=== PATIENT | male | born 1950 | race African-American/Black ===

== ENCOUNTER → 2020-05-01 13:24 | Outpatient (BNVA) | payer MEDICARE, OTHER, SELFPAY | PROVIDERS: PCP Internal Medicine; Referring Provider Internal Medicine; Visit Provider Urology | DX: C61 Malignant neoplasm of prostate (principal) | CPT/HCPCS: 99212 ==

== ENCOUNTER → 2020-06-20 12:21 | Outpatient (BNVA) | payer MEDICARE, OTHER, SELFPAY | PROVIDERS: PCP Internal Medicine; Visit Provider Urology | DX: C61 Malignant neoplasm of prostate (principal) | CPT/HCPCS: Q3014 ==

== ENCOUNTER → 2020-07-11 14:27 | Outpatient (BNVA) | payer MEDICARE, OTHER, SELFPAY | PROVIDERS: PCP Internal Medicine; Visit Provider Urology | DX: C61 Malignant neoplasm of prostate (principal) | CPT/HCPCS: 96402; 99212; J9217 ==

== ENCOUNTER 2020-08-27 09:06 | Day surgery (SDC) | payer MEDICARE, OTHER, SELFPAY ==
[2020-08-22 15:00] VITALS: BMI 37.3
[2020-08-27] VITALS (7 sets, daily range): BP systolic 130–175; BP diastolic 70–86; PULSE 75–88; RESP 14–20; TEMP 36.1–36.2; O2SAT 96–98
--- NOTE | 2020-08-27 11:21 | HO.ANESPROP2 ---
Documented by User: Chente Rose 08/27/20 11:21 [facility] Active Problems Active Problems: All Active Problems (Updated 08/22/20 @ 15:12 by Julia Valencia) Prostate cancer (Acute) BPH w urinary obs/LUTS (Acute) Past Medical History Medical History Arrhythmia Arthritis Asthma CAD (coronary artery disease) Cancer COVID-19 vaccine administered Elevated cholesterol Family history of sickle cell disease GERD (gastroesophageal reflux disease) HTN (hypertension) On anticoagulant therapy Sleep apnea Thyroid disease Surgical History Surgical History H/O colonoscopy Hx of CABG Hx of exploratory laparotomy Hx of hernia repair S/P excision of lipoma Social History Social History Are you a primary menagerie caretaker to a significant other at home: No Do you presently have visiting nurse or other home services: No Smoking Status: Former smoker Smoking Quit Date: 1988 Use of substances other than those prescribed or required for medical reasons: No Have you been hit, kicked, punched, or otherwise hurt by someone within the past year? If so, by whom?: No Advance Directives Information Provided: No Recently lost weight without trying: No Meds Allergies Allergy/AdvReac Type Severity Reaction Status Date / Time [place] nut [BRAZIL NUTS] Allergy Severe LIPS Verified 08/27/20 11:58 SWELLING shellfish derived Allergy Severe HIVES, Verified 08/27/20 11:58 [SHELLFISH DERIVED] THROAT ITCHING lisinopril Allergy Intermediate Cough Verified 08/27/20 11:58 oxycodone [From PERCOCET] Allergy Intermediate ITCHING Verified 08/27/20 11:58 Home Medications Medication Instructions Recorded Confirmed Last Taken Type amlodipine 5 mg tablet 5 mg PO DAILY 05/01/20 08/22/20 08/27/20 07:00 History atorvastatin 40 mg tablet 40 mg PO BEDTIME 05/01/20 08/22/20 Unknown History levothyroxine 25 mcg tablet 25 mcg PO QAM 05/01/20 08/22/20 Unknown History tamsulosin 0.4 mg capsule 0.4 mg PO BEDTIME 05/01/20 08/22/20 Unknown History warfarin 5 mg tablet 5 mg PO DAILY 10/08/22/20 08/20/20 17:30 History latanoprost 0.005 % eye drops 1 drp OPHTHALMIC (EYE) BEDTIME 06/20/20 08/22/20 Unknown History prednisone 5 mg tablet 5 mg PO BID 06/20/20 08/22/20 Unknown History aspirin [Aspirin Low-Strength] 81 mg PO DAILY 08/22/20 08/22/20 08/23/20 09:00 History finasteride 5 mg PO BEDTIME 08/22/20 08/22/20 Unknown History Exam Exam Date and Time: August 27, 2020 112 Height,Weight and Vital Signs: Height 5 ft 10 in Weight 117.934 kg Documented by User: Monie Carl 08/27/20 12:33 [facility] Past Medical History Medical History Arrhythmia Arthritis Asthma CAD (coronary artery disease) Cancer COVID-19 vaccine administered Elevated cholesterol Family history of sickle cell disease GERD (gastroesophageal reflux disease) HTN (hypertension) On anticoagulant therapy Sleep apnea Thyroid disease Surgical History Surgical History H/O colonoscopy Hx of CABG Hx of exploratory laparotomy Hx of hernia repair S/P excision of lipoma Social History Social History Are you a primary menagerie caretaker to a significant other at home: No Do you presently have visiting nurse or other home services: No Smoking Status: Former smoker Smoking Quit Date: 1988 Use of substances other than those prescribed or required for medical reasons: No Have you been hit, kicked, punched, or otherwise hurt by someone within the past year? If so, by whom?: No Advance Directives Information Provided: No Recently lost weight without trying: No Meds Allergies Allergy/AdvReac Type Severity Reaction Status Date / Time [place] nut [BRAZIL NUTS] Allergy Severe LIPS Verified 08/27/20 11:58 SWELLING shellfish derived Allergy Severe HIVES, Verified 08/27/20 11:58 [SHELLFISH DERIVED] THROAT ITCHING lisinopril Allergy Intermediate Cough Verified 08/27/20 11:58 oxycodone [From PERCOCET] Allergy Intermediate ITCHING Verified 08/27/20 11:58 Home Medications Medication Instructions Recorded Confirmed Last Taken Type amlodipine 5 mg tablet 5 mg PO DAILY 05/01/20 08/22/20 08/27/20 07:00 History atorvastatin 40 mg tablet 40 mg PO BEDTIME 05/01/20 08/22/20 Unknown History levothyroxine 25 mcg tablet 25 mcg PO QAM 05/01/20 08/22/20 Unknown History tamsulosin 0.4 mg capsule 0.4 mg PO BEDTIME 05/01/20 08/22/20 Unknown History warfarin 5 mg tablet 5 mg PO DAILY 05/01/20 08/22/20 08/20/20 17:30 History latanoprost 0.005 % eye drops 1 drp OPHTHALMIC (EYE) BEDTIME 06/20/20 08/22/20 Unknown History prednisone 5 mg tablet 5 mg PO BID 06/20/20 08/22/20 Unknown History aspirin [Aspirin Low-Strength] 81 mg PO DAILY 08/22/20 08/22/20 08/23/20 09:00 History finasteride 5 mg PO BEDTIME 08/22/20 08/22/20 Unknown History Exam Airway Mallampati Class: II TM Dist: >3cm Neck ROM: Full Assessment and Plan Assessment Anesthesia Assessment: Anesthesia Plan Discussed and Chart Reviewed Final Anesthetic Review NPO: Yes ASA Class: II Final Preanesthetic Review: No Changes in Pt Med Stat, Meds/Allgs Chart Reviewed, Consent Obtained/Reviewed and Anes Risks/Benef Reviewed Patient Risk: Low Procedure Risk: Low Assessment/Block/Sedation in SS: Assess/Block/Sedation-SS Anesthetic Plan Anesthetic Plan: MAC: Disposition: Standard PACU
--- NOTE | 2020-08-27 11:21 | HO.ANESPROP2 ---
[facility] Active Problems Active Problems: All Active Problems (Updated 08/22/20 @ 15:12 by Julia Valencia) Prostate cancer (Acute) BPH w urinary obs/LUTS (Acute) Past Medical History Medical History Arrhythmia Arthritis Asthma CAD (coronary artery disease) Cancer COVID-19 vaccine administered Elevated cholesterol Family history of sickle cell disease GERD (gastroesophageal reflux disease) HTN (hypertension) On anticoagulant therapy Sleep apnea Thyroid disease Surgical History Surgical History H/O colonoscopy Hx of CABG Hx of exploratory laparotomy Hx of hernia repair S/P excision of lipoma Social History Social History Are you a primary special needs child caregiver to a significant other at home: No Do you presently have visiting nurse or other home services: No Smoking Status: Former smoker Smoking Quit Date: 1988 Use of substances other than those prescribed or required for medical reasons: No Have you been hit, kicked, punched, or otherwise hurt by someone within the past year? If so, by whom?: No Advance Directives Information Provided: No Recently lost weight without trying: No Meds Allergies Allergy/AdvReac Type Severity Reaction Status Date / Time [place] nut [BRAZIL NUTS] Allergy Severe LIPS Unverified 08/22/20 14:43 SWELLING shellfish derived Allergy Severe HIVES, Unverified 08/22/20 14:43 [SHELLFISH DERIVED] THROAT ITCHING lisinopril Allergy Intermediate Cough Verified 08/22/20 14:43 oxycodone [From PERCOCET] Allergy Intermediate ITCHING Unverified 08/22/20 14:43 Home Medications Medication Instructions Recorded Confirmed Last Taken Type amlodipine 5 mg tablet 5 mg PO DAILY 05/01/20 08/22/20 Unknown History atorvastatin 40 mg tablet 40 mg PO BEDTIME 05/01/20 08/22/20 Unknown History levothyroxine 25 mcg tablet 25 mcg PO QAM 05/01/20 08/22/20 Unknown History tamsulosin 0.4 mg capsule 0.4 mg PO BEDTIME 05/01/20 08/22/20 Unknown History warfarin 5 mg tablet 5 mg PO DAILY 05/01/20 08/22/20 08/21/20 History latanoprost 0.005 % eye drops 1 drp OPHTHALMIC (EYE) BEDTIME 06/20/20 08/22/20 Unknown History prednisone 5 mg tablet 5 mg PO BID 06/20/20 08/22/20 Unknown History aspirin [Aspirin Low-Strength] 81 mg PO DAILY 08/22/20 08/22/20 Unknown History finasteride 5 mg PO BEDTIME 08/22/20 08/22/20 Unknown History Exam Exam Date and Time: August 27, 2020 1121 Height,Weight and Vital Signs: Height 5 ft 10 in Weight 117.934 kg Airway Mallampati Class: III TM Dist: >3cm Neck ROM: Full Denture: Upper
[2020-08-27] MEDS: levoFLOXacin/D5W 500 MG/100 ML PIGGYBACK 100 MG IV (11:59)
[2020-08-27] MEDS: Lactated Ringers 1,000 ML 100 ML IVCONT (12:00)
--- NOTE | 2020-08-27 12:34 | HO.ANESPROP2 ---
[facility] Active Problems Active Problems: All Active Problems (Updated 08/22/20 @ 15:12 by Julia Valencia) Prostate cancer (Acute) BPH w urinary obs/LUTS (Acute) Past Medical History Medical History Arrhythmia Arthritis Asthma CAD (coronary artery disease) Cancer COVID-19 vaccine administered Elevated cholesterol Family history of sickle cell disease GERD (gastroesophageal reflux disease) HTN (hypertension) On anticoagulant therapy Sleep apnea Thyroid disease Surgical History Surgical History H/O colonoscopy Hx of CABG Hx of exploratory laparotomy Hx of hernia repair S/P excision of lipoma Social History Social History Are you a primary critical care transport nurse to a significant other at home: No Do you presently have visiting nurse or other home services: No Smoking Status: Former smoker Smoking Quit Date: 1988 Use of substances other than those prescribed or required for medical reasons: No Have you been hit, kicked, punched, or otherwise hurt by someone within the past year? If so, by whom?: No Advance Directives Information Provided: No Recently lost weight without trying: No Meds Allergies Allergy/AdvReac Type Severity Reaction Status Date / Time [place] nut [BRAZIL NUTS] Allergy Severe LIPS Verified 08/27/20 11:58 SWELLING shellfish derived Allergy Severe HIVES, Verified 08/27/20 11:58 [SHELLFISH DERIVED] THROAT ITCHING lisinopril Allergy Intermediate Cough Verified 08/27/20 11:58 oxycodone [From PERCOCET] Allergy Intermediate ITCHING Verified 08/27/20 11:58 Active Medications: Current Medications Generic Name Dose Route Start Last Admin Trade Name Freq PRN Reason Stop Dose Admin Lactated Ringer's 1,000 mls @ 100 mls/hr 08/27/20 11:30 08/27/20 12:00 Lr IVCONT 100 mls/hr .Q10H RUFUS Administration Ondansetron HCl 4 mg 08/27/20 11:23 Ondansetron Hcl 4 Mg/2 Ml Vial IVPUSH ONCE PRN Nausea and Vomiting Oxycodone HCl 5 mg 08/27/20 11:23 Oxycodone Hcl Immed Release 5 Mg Tablet PO ONCE PRN Pain, Severe (Pain Scale 7-10) Home Medications Medication Instructions Recorded Confirmed Last Taken Type amlodipine 5 mg tablet 5 mg PO DAILY 05/01/20 08/22/20 08/27/20 07:00 History atorvastatin 40 mg tablet 40 mg PO BEDTIME 05/01/20 08/22/20 Unknown History levothyroxine 25 mcg tablet 25 mcg PO QAM 05/01/20 08/22/20 Unknown History tamsulosin 0.4 mg capsule 0.4 mg PO BEDTIME 05/01/20 08/22/20 Unknown History warfarin 5 mg tablet 5 mg PO DAILY 05/01/20 08/22/20 08/20/20 17:30 History latanoprost 0.005 % eye drops 1 drp OPHTHALMIC (EYE) BEDTIME 06/20/20 08/22/20 Unknown History prednisone 5 mg tablet 5 mg PO BID 06/20/20 08/22/20 Unknown History aspirin [Aspirin Low-Strength] 81 mg PO DAILY 08/22/20 08/22/20 08/23/20 09:00 History finasteride 5 mg PO BEDTIME 08/22/20 08/22/20 Unknown History Exam Exam Date and Time: August 27, 2020 1234 Height,Weight and Vital Signs: Height 5 ft 10 in Weight 117.934 kg Last Vital Signs Temp 96.9 F 08/27/20 11:17 Pulse 88 08/27/20 11:17 Resp 20 08/27/20 11:17 BP 175/78 H 08/27/20 11:17 Pulse Ox 97 08/27/20 11:17 Assessment and Plan Final Anesthetic Review ASA Class: III
[2020-08-27 12:48] LABS: INTERNATIONAL NORM RATIO 1.2 (0.9-1.1); Prothrombin Time 13.7 SEC (10.8-13.0)
--- NOTE | 2020-08-27 14:04 | PM.OP ---
Brief Operative Note Date of Service: 08/27/20 Pre-op diagnosis: Prostate cancer Post-op diagnosis: same Procedure: 1. Transrectal ultrasound-guided prostate nerve block 2. Transrectal ultrasound-guided perineal gold seed marker placement 3. Transrectal ultrasound-guided perineal prostate radiation spacer placement Implants: Three gold seed markers Surgeon: Johnny Owens MD Anesthesia: MAC Estimated blood loss (mL): 0 Pathology: none sent Condition: stable Disposition: same day
--- NOTE | 2020-08-27 14:05 | P.OP_ITS ---
Operative Note Operative Note Date of Service: 08/27/20 Narrative: Preoperative diagnosis: Prostate cancer Postoperative diagnosis: Prostate cancer Procedure: 1. Transrectal ultrasound-guided pudendal nerve block 2. Transrectal ultrasound-guided perineal gold seed placement 3. Transrectal ultrasound-guided perineal rectal spacer placement Surgeon: Dr. Johnny Owens Anesthetic: Local Indications for procedure: Prostate Cancer Procedure: After informed consent was verified, the patient was brought into the procedure area and lay left-hand side down on the table. Patient identity confirmed. Perioperative antibiotics confirmed. Gel was placed per rectum Ultrasound probe was placed per rectum A ultrasound-guided perineal prostate nerve block was performed using 5 cc of 1% lidocaine. Needle was identified using ultrasound and sagittal on coronal sectioning. Nerve block was seen to cover apex of the prostate Using the ultrasound guidance 3 gold seed markers were placed in a perineal fashion. One gold seed marker mid prostate left side. Two gold seed markers prostate right side 1 at base and 1 toward apex At this point using the SpaceOAR kit the needle was placed in the midline and try angulated using sagittal and coronal imaging. [place] dissection was performed with 5 cc of normal saline. At this point in time the SpaceOAR product which had been mixed was then injected into the space and seen to spread between the left and right in the midline. Appeared to make a nice deformation running to the apex of the prostate. He tolerated the procedure well. Was required to urinate prior to discharge
== END 2020-08-27 15:26 | disposition home or self-care (01) ==
PROVIDERS: PCP Internal Medicine; Visit Provider Urology
PROC: (CPT 55876; principal; 2020-08-27 11:40)
DX: C61 Malignant neoplasm of prostate (principal); Z88.8 Allergy status to other drugs, medicaments and biological substances; I48.91 Unspecified atrial fibrillation; Z79.01 Long term (current) use of anticoagulants; I10 Essential (primary) hypertension; J45.909 Unspecified asthma, uncomplicated; Z79.82 Long term (current) use of aspirin; Z79.52 Long term (current) use of systemic steroids; Z79.899 Other long term (current) drug therapy
CPT/HCPCS: 55876; 55874; 36415; 85610; A4648; J0330; J1100; J1956; J2370; J2405; J3010

== ENCOUNTER → 2020-11-22 10:29 | Outpatient (BNVA) | payer MEDICARE, OTHER, SELFPAY | PROVIDERS: PCP Internal Medicine; Visit Provider Urology | DX: N40.1 Benign prostatic hyperplasia with lower urinary tract symptoms (principal); N13.8 Other obstructive and reflux uropathy; C61 Malignant neoplasm of prostate | CPT/HCPCS: 51798; 99212 ==

== ENCOUNTER 2021-02-20 10:19 | Outpatient (REF) | payer MEDICARE, OTHER, SELFPAY ==
[2021-02-20 12:37] LABS: Prostate Specific Antigen < 0.05 ng/mL (<0.05-4.0)
== END 2021-02-20 10:20 | disposition home or self-care (01) ==
LOC: HO.LAB 10:19
PROVIDERS: PCP Internal Medicine; Visit Provider Urology
DX: Z12.5 Encounter for screening for malignant neoplasm of prostate (principal); C61 Malignant neoplasm of prostate
CPT/HCPCS: 36415; 84153

== ENCOUNTER → 2021-02-22 09:40 | Outpatient (BNVA) | payer MEDICARE, OTHER, SELFPAY | PROVIDERS: PCP Internal Medicine; Visit Provider Urology | CPT/HCPCS: Q3014 ==

== ENCOUNTER 2021-05-14 10:19 | Outpatient (REF) | payer MEDICARE, OTHER, SELFPAY ==
[2021-05-14 12:08] LABS: Prostate Specific Antigen 0.06 ng/mL (<0.05-4.0)
[2021-05-18 12:01] LABS: Testosterone, Total 363 ng/dL (250-1100)
== END 2021-05-14 10:20 | disposition home or self-care (01) ==
LOC: HO.LAB 10:19
PROVIDERS: Visit Provider Urology
DX: Z12.5 Encounter for screening for malignant neoplasm of prostate (principal); C61 Malignant neoplasm of prostate
CPT/HCPCS: 36415; 84153; 84403

== ENCOUNTER → 2021-05-28 10:57 | Outpatient (BNVA) | payer MEDICARE, OTHER, SELFPAY | PROVIDERS: PCP Internal Medicine; Visit Provider Urology | DX: Z13.89 Encounter for screening for other disorder (principal) | CPT/HCPCS: Q3014 ==

== ENCOUNTER 2021-09-24 08:51 | Outpatient (REF) | payer MEDICARE, OTHER, SELFPAY ==
[2021-09-24 10:33] LABS: Prostate Specific Antigen < 0.05 ng/mL (<0.05-4.0)
== END 2021-09-24 08:52 | disposition home or self-care (01) ==
LOC: HO.LAB 08:51
PROVIDERS: PCP Internal Medicine; Visit Provider Urology
DX: Z12.5 Encounter for screening for malignant neoplasm of prostate (principal); C61 Malignant neoplasm of prostate
CPT/HCPCS: 36415; 84153

== ENCOUNTER → 2021-09-27 11:04 | Outpatient (BNVA) | payer MEDICARE, OTHER, SELFPAY | PROVIDERS: PCP Internal Medicine; Visit Provider Urology | DX: N52.9 Male erectile dysfunction, unspecified (principal); C61 Malignant neoplasm of prostate | CPT/HCPCS: Q3014 ==

== ENCOUNTER 2022-01-20 10:58 | Outpatient (REF) | payer MEDICARE, OTHER, SELFPAY ==
[2022-01-20 12:29] LABS: Prostate Specific Antigen 0.17 ng/mL (<0.05-4.0)
== END 2022-01-20 10:59 | disposition home or self-care (01) ==
LOC: HO.LAB 10:58
PROVIDERS: PCP Internal Medicine; Visit Provider Urology
DX: Z12.5 Encounter for screening for malignant neoplasm of prostate (principal); C61 Malignant neoplasm of prostate
CPT/HCPCS: 36415; 84153

== ENCOUNTER → 2022-01-29 08:14 | Outpatient (BNVA) | payer MEDICARE, OTHER, SELFPAY | PROVIDERS: PCP Internal Medicine; Visit Provider Urology | DX: C61 Malignant neoplasm of prostate (principal); N52.9 Male erectile dysfunction, unspecified | CPT/HCPCS: Q3014 ==

== ENCOUNTER 2022-05-16 07:45 | Outpatient (REF) | payer MEDICARE, OTHER, SELFPAY ==
[2022-05-16 09:14] LABS: Prostate Specific Antigen 0.13 ng/mL (<0.05-4.0)
== END 2022-05-16 07:46 | disposition home or self-care (01) ==
LOC: HO.LAB 07:45
PROVIDERS: Visit Provider Urology
DX: C61 Malignant neoplasm of prostate (principal)
CPT/HCPCS: 36415; 84153

== ENCOUNTER → 2022-05-23 15:11 | Outpatient (BNVA) | payer MEDICARE, OTHER, SELFPAY | PROVIDERS: PCP Internal Medicine; Visit Provider Urology | DX: C61 Malignant neoplasm of prostate (principal); N52.9 Male erectile dysfunction, unspecified | CPT/HCPCS: 51798; 99212 ==

== ENCOUNTER 2022-09-12 09:42 | Outpatient (REF) | payer MEDICARE, OTHER, SELFPAY ==
[2022-09-12 12:52] LABS: Prostate Specific Antigen 0.13 ng/mL (<0.05-4.0)
== END 2022-09-12 09:43 | disposition home or self-care (01) ==
LOC: HO.LAB 09:42
PROVIDERS: PCP Internal Medicine; Visit Provider Urology
DX: Z12.5 Encounter for screening for malignant neoplasm of prostate (principal); C61 Malignant neoplasm of prostate
CPT/HCPCS: 36415; 84153

== ENCOUNTER → 2022-09-16 08:21 | Outpatient (BNVA) | payer MEDICARE, OTHER, SELFPAY | PROVIDERS: PCP Internal Medicine; Visit Provider Urology | DX: C61 Malignant neoplasm of prostate (principal); N52.9 Male erectile dysfunction, unspecified; N40.1 Benign prostatic hyperplasia with lower urinary tract symptoms; N13.8 Other obstructive and reflux uropathy | CPT/HCPCS: Q3014 ==

== ENCOUNTER 2023-03-04 10:48 | Outpatient (REF) | payer MEDICARE, OTHER, SELFPAY ==
[2023-03-04 13:03] LABS: Prostate Specific Antigen 0.12 ng/mL (<0.05-4.0)
== END 2023-03-04 10:49 | disposition home or self-care (01) ==
LOC: HO.LAB 10:48
PROVIDERS: PCP Internal Medicine; Visit Provider Urology
DX: C61 Malignant neoplasm of prostate (principal); Z12.5 Encounter for screening for malignant neoplasm of prostate
CPT/HCPCS: 36415; 84153

== ENCOUNTER 2023-03-18 14:23 | Outpatient (AMB) | payer MEDICARE, OTHER, SELFPAY ==
--- NOTE | 2023-03-18 14:29 | MHC.OFFVIS ---
Intake Intake Visit Reasons: 6m/psa(set) Intake Note: Patient is present for Follow Up PSA/PVR Urology Med: Tadalafil Antibiotic Allergy:Notes Blood Thinner: Aspirin [facility]: [facility] pvr:0 Allergies [place] nut [BRAZIL NUTS] Allergy (Severe, Verified 03/18/23 14:40) LIPS SWELLING shellfish derived [SHELLFISH DERIVED] Allergy (Severe, Verified 03/18/23 14:40) HIVES, THROAT ITCHING lisinopril Allergy (Intermediate, Verified 03/18/23 14:40) Cough oxycodone [From PERCOCET] Allergy (Intermediate, Verified 03/18/23 14:40) ITCHING Medication List - Last Reconciled 03/18/23 by Johnny Owens MD amlodipine 5 mg PO DAILY aspirin 81 mg PO DAILY atorvastatin 40 mg PO BEDTIME diazepam 2 mg PO BID PRN diclofenac sodium 1% topical fluticasone propionate 50 mcg/actuation 0 mcg intranasal hydrochlorothiazide mg PO latanoprost 0.005% 1 drp ophthalmic (eye) BEDTIME levothyroxine 25 mcg PO QAM omeprazole mg PO prednisone 5 mg PO BID prednisone mg PO tadalafil 10 mg PO DAILY 90 days tadalafil 20 mg PO ONCE PRN 30 days warfarin 5 mg PO DAILY warfarin mg PO HPI HPI Comments History of Present Illness Details Vamshi is a very pleasant male. He is a patient of Dr Carmona. He is seen for the following urologic conditions - prostate cancer - erectile dysfunction PSA stable 0.12 Doing well with urination. Minimal urge PSA stable Six month follow-up Discussed use of penile vacuum pump Prostate cancer: [place] 3+4, initial therapy August 2020 external beam radiation with 6 months hormones and Space Oar Completed radiation therapy August 2020, continued finasteride for 12 months after radiation PSA 05/26 <0.1, T 363, 08/27 <0.1, 01/24 0.2, 05/27 0.1, 09/25 0.13, 0.12 Prostate cancer was diagnosed 11/22 Dr Owens - elevated PSA. Diagnosis was reached by needle biopsy, for elevated PSA, PSA at diagnosis 8.8, size at TRUS 40 gm. - left base, , 3+4 = 7 30%, , 3+4 = 7 20%, left mid gland , 3+4 = 7 10%, -, left apex -, EROS - right base -, -, right mid gland -. EROS, right apex -, - - Volume - no core more than 50% - 5% by volume. TNM Classification of Malignant Tumours (TNM) T1c. The D'Leonardo (NCCN) risk category is Intermediate Risk (PSA 10-20, Gl 7, T2) Group 2 - Imaging 04/24 MRI [place] - 1.2cm left base lesion PiRADS 4 - [employer] 10 yr mortality 6.4% - this is in the high risk category for intermediate risk prostate cancer Associated conditions erectile dysfunction yes urinary urge yes Therapeutic plan: Follow in 6 months time with PSA Erectile Dysfunction Oral medications Tadalafil 10mg daily with on demand 20mg Some effect but not sufficient for penetration PFSH Medical History Arrhythmia Arthritis Asthma CAD (coronary artery disease) Cancer COVID-19 vaccine administered Elevated cholesterol Family history of sickle cell disease GERD (gastroesophageal reflux disease) HTN (hypertension) On anticoagulant therapy Sleep apnea Thyroid disease Surgical History H/O colonoscopy Hx of CABG Hx of exploratory laparotomy Hx of hernia repair S/P excision of lipoma Social History Are you a primary nonfarm animal caretaker to a significant other at home: No Do you presently have visiting nurse or other home services: No Review of Systems Const Denies chills and Denies fever(s) Card Reports no additional complaints and Denies syncope Resp Denies cough GI Denies abdominal pain and Denies heartburn Reports as per HPI and Denies change in libido Neuro Denies syncope Psych Denies change in libido Endo Denies change in libido Physical Exam Const General: cooperative, healthy appearing, comfortable and no acute distress Orientation/consciousness: patient oriented x3 HEENT Face and sinus: Yes normal facial exam Mouth: moist mucous membranes Neck Neck: Yes normal visual inspection, Yes full ROM and Yes trachea midline Chest Chest palpation & inspection: normal inspection of the chest Resp Effort & Inspection: normal respiratory effort, able to speak in complete sentences and no respiratory distress GI Inspection: Yes normal to inspection Back/Spine/Pelvis Cervical Spine: normal cervical lordosis Thoracic/Lumbar Spine: thoracic and lumbar spine normal to inspection Skin General skin exam: no rashes or lesions noted Neuro General: patient oriented x3, gait normal, tone normal and moves all extremities Extrem General: Yes normal to inspection and Yes capillary refill normal Office Procedures Post Void Residual Post Residual Void Post Void Residual (PVR): 0 [id number] Void Residual by ultrasound Assessment & Plan Assessment & Plan (1) Prostate cancer: Comment: Intermediate risk - External beam radiation with short-term hormones completed August 2020 Code(s): C61 - Malignant neoplasm of prostate Plan Six month follow-up PSA Orders: Orders AMB Post Void Residual by ultrasound Today N13.8 - Other obstructive and reflux uropathy, N40.1 - Benign prostatic hyperplasia with lower urinary tract symptoms Prostate Specific Antigen 6 Months C61 - Malignant neoplasm of prostate Patient Instructions: Imaging studies, laboratory and physical exam results were discussed and reviewed in detail. No major barriers to patient understanding were identified. An opportunity to ask questions regarding the treatment plan was provided. All questions were answered. The patient expressed understanding and agreement with the above treatment plan. The patient is aware they should contact our office by phone for worsening of their current condition or the appearance of new urologic symptoms. Compliance is encouraged with any medications and followup testing that is ordered. It is a privilege to participate in the urologic care of your patient. If you have any questions or concerns regarding treatment for the above conditions, or other urologic issues, please do not hesitate to contact me. The office telephone contact is [phone]. This note is constructed using voice recognition software. While every effort has been made to ensure accuracy cat scan technologist errors may have been included. Yours sincerely, Dr Johnny Owens MD, [facility] Urology Providers of Expert, Compassionate Care for the Genitourinary System Coding Level of Care Code Est Pt Level 3 (48760) Diagnoses Prostate cancer C61 CPT Codes Post Residual Void - PVR CPT Code: 66331-Haor Void Residual by ultrasound ([id number])
== END 2023-03-18 14:47 | disposition home or self-care (01) ==
PROVIDERS: PCP Internal Medicine; Visit Provider Urology
DX: C61 Malignant neoplasm of prostate (principal)
CPT/HCPCS: 99213

== ENCOUNTER → 2023-03-18 14:23 | Outpatient (BNVA) | payer MEDICARE, OTHER, SELFPAY | PROVIDERS: Visit Provider Urology | DX: C61 Malignant neoplasm of prostate (principal) | CPT/HCPCS: 51798; 99212 ==

== ENCOUNTER 2023-09-03 11:38 | Outpatient (REF) | payer MEDICARE, OTHER, SELFPAY | END 2023-09-03 11:39 | disposition home or self-care (01) | LOC: HO.LAB 11:38 | PROVIDERS: Visit Provider Urology | DX: C61 Malignant neoplasm of prostate (principal); Z12.5 Encounter for screening for malignant neoplasm of prostate | CPT/HCPCS: 36415; 84153 ==

== ENCOUNTER 2023-09-16 09:12 | Outpatient (AMB) | payer MEDICARE, OTHER, SELFPAY ==
--- NOTE | 2023-09-16 09:13 | MHC.OFFVIS ---
Intake Intake Visit Reasons: 6M PSA(set)Confirmed Intake Note: Patient presents today for a follow-up on PSA Meds- None Allergies to Antibiotic- No Known Allergies Blood Thinner- Aspirin, Warfarin Patient Symptoms: Patient stated he is not been taking Tadalafil Optical Laboratory Technician Required: No Allergies [place] nut [BRAZIL NUTS] Allergy (Severe, Verified 09/16/23 09:14) LIPS SWELLING shellfish derived [SHELLFISH DERIVED] Allergy (Severe, Verified 09/16/23 09:14) HIVES, THROAT ITCHING lisinopril Allergy (Intermediate, Verified 09/16/23 09:14) Cough oxycodone [From PERCOCET] Allergy (Intermediate, Verified 09/16/23 09:14) ITCHING HPI HPI Comments History of Present Illness Details Vamshi is a very pleasant male. He is a patient of Dr Carmona. He is seen for the following urologic conditions - prostate cancer - erectile dysfunction Telemedicine Evaluation 15 min Consultation [facility] attempted PSA stable 0.1 Doing well with urination. Minimal urge. Nocturia 1-2x Six month follow-up for 5 years then yearly Prostate cancer: [place] 3+4, initial therapy August 2020 external beam radiation with 6 months hormones and Space [employer] Completed radiation therapy August 2020, continued finasteride for 12 months after radiation PSA 05/26 <0.1, T 363, 08/27 <0.1, 01/24 0.2, 05/27 0.1, 09/25 0.13, 03/28 0.12, 08/29 0.1 Prostate cancer was diagnosed 11/22 Dr Owens - elevated PSA. Diagnosis was reached by needle biopsy, for elevated PSA, PSA at diagnosis 8.8, size at TRUS 40 gm. - left base, , 3+4 = 7 30%, , 3+4 = 7 20%, left mid gland , 3+4 = 7 10%, -, left apex -, EROS - right base -, -, right mid gland -. EROS, right apex -, - - Volume - no core more than 50% - 5% by volume. TNM Classification of Malignant Tumours (TNM) T1c. The D'Leonardo (NCCN) risk category is Intermediate Risk (PSA 10-20, Gl 7, T2) - Group 2 - Imaging 04/24 MRI [facility] - 1.2cm left base lesion PiRADS 4 - [employer] 10 yr mortality 6.4% - this is in the high risk category for intermediate risk prostate cancer Associated conditions - erectile dysfunction yes - urinary urge yes Therapeutic plan: Follow in 6 months time with PSA Erectile Dysfunction Oral medications Tadalafil 10mg daily with on demand 20mg Some effect but not sufficient for penetration Discussed use of penile vacuum pump given poor response to high dose oral medications PFSH Medical History COVID-19 vaccine administered Cancer Arthritis Thyroid disease Family history of sickle cell disease GERD (gastroesophageal reflux disease) Sleep apnea Asthma Arrhythmia On anticoagulant therapy Elevated cholesterol CAD (coronary artery disease) HTN (hypertension) Surgical History Hx of exploratory laparotomy Hx of hernia repair S/P excision of lipoma H/O colonoscopy Hx of CABG Social History Are you a primary laboratory animal caretaker to a significant other at home: No Do you presently have visiting nurse or other home services: No Review of Systems Const All systems reviewed & are unremarkable except as noted in HPI and below Reports no additional complaints Resp Reports no additional complaints GI Reports no additional complaints Reports as per HPI Musc Reports no additional complaints Physical Exam Telemedicine evaluation Appropriate responses Regular breathing rate and rhythm HEENT Head: Yes normal to inspection Ears: hearing grossly normal bilaterally Eyes General: appearance normal, both eyes and all related structures Neck Neck: Yes normal visual inspection Chest Chest palpation & inspection: normal inspection of the chest Resp Effort & Inspection: normal respiratory effort and able to speak in complete sentences Assessment & Plan Assessment & Plan (1) Prostate cancer: Comment: Intermediate risk - External beam radiation with short-term hormones completed August 2020 Code(s): C61 - Malignant neoplasm of prostate (2) Erectile dysfunction: Code(s): N52.9 - Male erectile dysfunction, unspecified (3) BPH w urinary obs/LUTS: Code(s): N40.1 - Benign prostatic hyperplasia with lower urinary tract symptoms; N13.8 - Other obstructive and reflux uropathy Plan Six-month follow-up PSA office Orders: Orders Prostate Specific Antigen 6 Months C61 - Malignant neoplasm of prostate Patient Instructions: Imaging studies, laboratory and physical exam results were discussed and reviewed in detail. No major barriers to patient understanding were identified. An opportunity to ask questions regarding the treatment plan was provided. All questions were answered. The patient expressed understanding and agreement with the above treatment plan. The patient is aware they should contact our office by phone for worsening of their current condition or the appearance of new urologic symptoms. Compliance is encouraged with any medications and followup testing that is ordered. It is a privilege to participate in the urologic care of your patient. If you have any questions or concerns regarding treatment for the above conditions, or other urologic issues, please do not hesitate to contact me. The office telephone contact is [phone]. This note is constructed using voice recognition software. While every effort has been made to ensure accuracy biscuit packer errors may have been included. Yours sincerely, Dr Johnny Owens MD, [facility] - Urology Providers of Expert, Compassionate Care for the Genitourinary System Telehealth Telehealth Location of provider rendering services: practice address Location of patient: address on file Patient Identification confirmed using: Name, : Yes Telehealth method: video Patient verbally consented to treatment: Yes Patient verbally consented to billing insurance company: Yes Patient informed of any privacy concerns related to visit: Yes Coding Level of Care Code Tele Est Pt Level 3 (39925) Diagnoses Prostate cancer C61 Erectile dysfunction N52.9 BPH w urinary obs/LUTS N40.1; N13.8
== END 2023-09-16 09:35 | disposition home or self-care (01) ==
LOC: HO.HUSH 09:12
PROVIDERS: PCP Internal Medicine; Visit Provider Urology
DX: C61 Malignant neoplasm of prostate (principal); N52.9 Male erectile dysfunction, unspecified; N40.1 Benign prostatic hyperplasia with lower urinary tract symptoms; N13.8 Other obstructive and reflux uropathy
CPT/HCPCS: 99213

== ENCOUNTER → 2023-09-16 09:12 | Outpatient (BNVA) | payer MEDICARE, OTHER, SELFPAY | PROVIDERS: PCP Internal Medicine; Visit Provider Urology ==

== ENCOUNTER 2024-03-04 10:51 | Outpatient (REF) | payer MEDICARE, OTHER, SELFPAY ==
[2024-03-04 12:43] LABS: Prostate Specific Antigen < 0.10 ng/mL (<0.05-4.0)
== END 2024-03-04 10:52 | disposition home or self-care (01) ==
LOC: HO.LAB 10:51
PROVIDERS: PCP Internal Medicine; Visit Provider Urology
DX: C61 Malignant neoplasm of prostate (principal); Z12.5 Encounter for screening for malignant neoplasm of prostate
CPT/HCPCS: 36415; 84153

== ENCOUNTER 2024-03-18 14:41 | Outpatient (AMB) | payer MEDICARE, OTHER, SELFPAY ==
--- NOTE | 2024-03-18 14:51 | A.OFFVIS_ITS ---
Intake Visit Reasons: 6m/PSA(set) Intake Note: Patient is present for 6M/PSA Urology Medication:DIAZEPAM, TADALAFIL Antibiotic Allergy:NONE Blood Thinner:ASPIRIN, WARARIN Record Press Supervisor Required: No Allergies [place] nut [BRAZIL NUTS] Allergy (Severe, Verified 03/18/24 14:54) LIPS SWELLING shellfish derived [SHELLFISH DERIVED] Allergy (Severe, Verified 03/18/24 14:54) HIVES, THROAT ITCHING lisinopril Allergy (Intermediate, Verified 03/18/24 14:54) Cough oxycodone [From PERCOCET] Allergy (Intermediate, Verified 03/18/24 14:54) ITCHING HPI Comments Details: Vamshi is a very pleasant male. He is a patient of Dr Carmona. He is seen for the following urologic conditions - prostate cancer - erectile dysfunction Six-month follow-up PSA stable 0.1 Doing well with urination. Minimal urge. Nocturia 1-2x Six month follow-up for 5 years then yearly Prostate cancer: [place] 3+4, initial therapy August 2020 external beam radiation with 6 months hormones and Space [employer]ar Completed radiation therapy August 2020, continued finasteride for 12 months after radiation PSA 05/26 <0.1, T 363, 08/27 <0.1, 01/24 0.2, 05/27 0.1, 09/25 0.13, 03/28 0.12, 08/29 0.1, 02/26 <0.1 Prostate cancer was diagnosed 11/22 Dr Owens - elevated PSA. Diagnosis was reached by needle biopsy, for elevated PSA, PSA at diagnosis 8.8, size at TRUS 40 gm. - left base, , 3+4 = 7 30%, , 3+4 = 7 20%, left mid gland , 3+4 = 7 10%, -, left apex -, EROS - right base -, -, right mid gland -. EROS, right apex -, - - Volume - no core more than 50% - 5% by volume. TNM Classification of Malignant Tumours (TNM) T1c. The D'Leonardo (NCCN) risk category is Intermediate Risk (PSA 10-20, Gl 7, T2) - Group 2 - Imaging 04/24 MRI [facility] - 1.2cm left base lesion PiRADS 4 - [employer] 10 yr mortality 6.4% - this is in the high risk category for intermediate risk prostate cancer Associated conditions - erectile dysfunction yes - urinary urge yes Therapeutic plan: Follow in 6 months time with PSA Erectile Dysfunction Oral medications Tadalafil 10mg daily with on demand 20mg Some effect but not sufficient for penetration Discussed use of penile vacuum pump given poor response to high dose oral medications PFSH Medical History COVID-19 vaccine administered Cancer Arthritis Thyroid disease Family history of sickle cell disease GERD (gastroesophageal reflux disease) Sleep apnea Asthma Arrhythmia On anticoagulant therapy Elevated cholesterol CAD (coronary artery disease) HTN (hypertension) Surgical History Hx of exploratory laparotomy Hx of hernia repair S/P excision of lipoma H/O colonoscopy Hx of CABG Social History Are you a primary workforce investment act career manager to a significant other at home: No Do you presently have visiting nurse or other home services: No Review of Systems Const Denies chills and Denies fever(s) Card Reports no additional complaints and Denies syncope Resp Denies cough GI Denies abdominal pain and Denies heartburn Reports as per HPI and Denies change in libido Neuro Denies syncope Psych Denies change in libido Endo Denies change in libido Physical Exam Const General: cooperative, healthy appearing, comfortable and no acute distress Orientation/consciousness: patient oriented x3 HEENT Face and sinus: Yes normal facial exam Mouth: moist mucous membranes Neck Neck: Yes normal visual inspection, Yes full ROM and Yes trachea midline Chest Chest palpation & inspection: normal inspection of the chest Resp Effort & Inspection: normal respiratory effort, able to speak in complete sentences and no respiratory distress GI Inspection: Yes normal to inspection Back/Spine/Pelvis Cervical Spine: normal cervical lordosis Thoracic/Lumbar Spine: thoracic and lumbar spine normal to inspection Skin General skin exam: no rashes or lesions noted Neuro General: patient oriented x3, gait normal, tone normal and moves all extremities Extrem General: Yes normal to inspection and Yes capillary refill normal Results AMB Urinalysis, Automated UA Leukoctes 0 Pvaan/uL Last Edit by MOISES Jefferson on 03/18/24 15:08 UA Nitrite Negative Last Edit by MOISES Jefferson on 03/18/24 15:08 UA Urobilinogen 0.2 mg/dL [facility] 03/18/[facility] 15:0 8 UA Protein 0 mg/dL Last Edit [facility] on 03/18/24 15:08 UA pH 7.0 Last Edit by Casandra Bob [facility] on 03/18/24 15:08 UA Blood 0 Vamsi/uL Last Edit by Casandra Bob [facility] on 03/18/24 15:08 UA Specific [place] 1.015 Last Edit by Casandra Bob [facility] on 03/18/24 15: 08 UA Ketone Negative Last Edit by Casandra Bob [facility] on 03/18/24 15:08 UA Bilirubin 0 mg/dL Last Edit by Casandra Bob [facility] on 03/18/24 15:08 UA Glucose 0 mg/dL Last Edit by Casandra Bob [facility] on 03/18/24 15:08 Results Reviewed Results Reviewed: Laboratory Last Values Urine pH (Auto) 7.0 03/18/24 15:07 Specific [place] (Auto) 1.015 03/18/24 15:07 Urine Protein (Auto) 0 mg/dL 03/18/24 15:07 Glucose (UA)(Auto) 0 mg/dL 03/18/24 15:07 Urine Ketones (Auto) Negative 03/18/24 15:07 Urine Blood (Auto) 0 Vamsi/uL 03/18/24 15:07 Urine Nitrite (Auto) Negative 03/18/24 15:07 Urine Bilirubin (Auto) 0 mg/dL 03/18/24 15:07 Urine Urobilinogen (Auto) 0.2 mg/dL 03/18/24 15:07 Leukocyte Esterase (Auto) 0 Pavan/uL 03/18/24 15:07 Assessment & Plan Assessment & Plan (1) Prostate cancer: Comment: Intermediate risk - External beam radiation with short-term hormones completed August 2020 Code(s): C61 - Malignant neoplasm of prostate Category: Medical (2) Erectile dysfunction: Code(s): N52.9 - Male erectile dysfunction, unspecified Category: Medical Plan Six-month follow-up PSA Orders: Orders Prostate Specific Antigen 6 Months C61 - Malignant neoplasm of prostate AMB Urinalysis Automated 03/18/24 Z13.9 - Encounter for screening, unspecified Patient Instructions: Imaging studies, laboratory and physical exam results were discussed and reviewed in detail. No major barriers to patient understanding were identified. An opportunity to ask questions regarding the treatment plan was provided. All questions were answered. The patient expressed understanding and agreement with the above treatment plan. The patient is aware they should contact our office by phone for worsening of their current condition or the appearance of new urologic symptoms. Compliance is encouraged with any medications and followup testing that is ordered. It is a privilege to participate in the urologic care of your patient. If you have any questions or concerns regarding treatment for the above conditions, or other urologic issues, please do not hesitate to contact me. The office telephone contact is [phone]. This note is constructed using voice recognition software. While every effort has been made to ensure accuracy laundry helper errors may have been included. Yours sincerely, Dr Johnny Owens MD, [facility] - Urology Providers of Expert, Compassionate Care for the Genitourinary System Coding Level of Care Code Est Pt Level 3 (05055) Diagnoses Prostate cancer C61 Erectile dysfunction N52.9
== END 2024-03-18 15:22 | disposition home or self-care (01) ==
PROVIDERS: PCP Internal Medicine; Visit Provider Urology
DX: C61 Malignant neoplasm of prostate (principal); N52.9 Male erectile dysfunction, unspecified
CPT/HCPCS: 99213

== ENCOUNTER → 2024-03-18 14:41 | Outpatient (BNVA) | payer MEDICARE, OTHER, SELFPAY | PROVIDERS: PCP Internal Medicine; Visit Provider Urology | DX: C61 Malignant neoplasm of prostate (principal); N52.9 Male erectile dysfunction, unspecified; Z92.3 Personal history of irradiation | CPT/HCPCS: 81003; 99212 ==

== ENCOUNTER 2024-09-02 08:54 | Outpatient (REF) | payer MEDICARE, OTHER, SELFPAY ==
--- OUTSIDE RECORDS SUMMARY | 2024-09-02 09:19 | XMS_ITS | Encounter Summary ---
Author Organization [facility] Address [address] [place] [address] Care Team Providers Care Appeals Referee Name Role Phone Daryl Strickland MD Primary Care Provider Unavail able Fadi Carmona MD Primary Care Provider [phone] Encounter Details Date Type Department Care Team Description 12/23/2013 [facility] Medical Records [address] [place] [address] Social History Tobacco Use Types Packs/Day Years Used Date Smoking Tobacco: Former Cigarettes 0.8 40 1 08/10/1957 - 12/08/1988 Smokeless Tobacco: Never Alcohol Use Standard Drinks/Week Comments Yes 0 (1 standard drink = 0.6 oz pur e alcohol) 1 glass wine per mo @ most Sex Assigned at Date Recorded Not on file Job Start Date Occupation Industry Not on file Not on file Not on file documented as of this encounter Plan of Treatment Not on file documented as of this encounter Visit Diagnoses Not on filedocumented in this encounter Care Teams Appeals Referee Relationship Specialty Start Date End Date Daryl Strickland MD PCP - General 06/28/01 07/02/17 Fadi Carmona MD [address] [place] [id number] PCP - General Internal Medicine 07/03/17 documented as of this encounter
--- OUTSIDE RECORDS SUMMARY | 2024-09-02 09:19 | XMS_ITS | Encounter Summary ---
Author Organization [facility] Address [address] [place] [address] Care Team Providers Care Rim Turning Finisher Name Role Phone Daryl Strickland MD Primary Care Provider Unavail able Fadi Carmona MD Primary Care Provider [phone] Encounter Details Date Type Department Care Team Description 12/13/2013 [facility] Medical Records [address] [place] [address] Social History Tobacco Use Types Packs/Day Years [...] on filedocumented in this encounter Care Teams Rim Turning Finisher Relationship Specialty Start Date End Date Daryl Strickland MD PCP - General 06/28/01 07/02/17 Fadi Carmona MD [address] [place] [id number] PCP - General Internal Medicine 07/03/17 documented as of this encounter
--- OUTSIDE RECORDS SUMMARY | 2024-09-02 09:19 | XMS_ITS | Encounter Summary ---
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 Docking Master Report Medical Records [address] [place] [address] Frank Carpenter MD Social History Tobacco Use Types Packs/Day Years Used Date Smoking Tobacco: Former Cigarettes 0.8 40 Q uit: 12/08/1988 Smokeless Tobacco: Never Alcohol Use Standard Drinks/Week Comments No 0 (1 standard drink = 0.6 oz pur e alcohol) QUI7 1986 Sex Assigned at Date Recorded Not on file Job Start Date Occupation Industry Not on file Not on file Not on file documented as of this encounter Plan of Treatment Not on file documented as of this encounter Visit Diagnoses Not on filedocumented in this encounter Care Teams Artisan Plasterer Relationship Specialty Start Date End Date Daryl Strickland MD PCP - General 06/28/01 07/02/17 Fadi Carmona MD [address] [place] [id number] PCP - General Internal Medicine 07/03/17 documented as of this encounter
--- OUTSIDE RECORDS SUMMARY | 2024-09-02 09:19 | XMS_ITS | Encounter Summary ---
Author Organization [facility] Address [address] [place] [address] Care Team Providers Care Sander And Buffer Name Role Phone Fadi Carmona MD Primary Care Provider [phone] Encounter Details Date Type Department Care Team Description 03/14/2019 Release of Information Medical Records [address] [place] [id number] Abstract, Provider Social History Tobacco Use Types Packs/Day Years [...] on filedocumented in this encounter Care Teams Sander And Buffer Relationship Specialty Start Date End Date Fadi Carmona MD [address] [place] [address] PCP - General Internal Medicine 07/03/17 documented as of this encounter
--- OUTSIDE RECORDS SUMMARY | 2024-09-02 09:19 | XMS_ITS | Encounter Summary ---
Demographics Address [address] [place] [address] Home Phone Work Phone Mobile Phone Email Address Email Address Preferred Language en Marital Status Latter Day Affiliation Unknown Race Black or Suma rican Ethnic Group Not or Lati no Author Organization [facility] Address [address] [place] [address] Support Name Relationship Address Phone Paula Shannon Unrelated friend [address] [place] [address] Care Team Providers Care Hog Operator Name Role Phone Fadi Carmona MD Primary Care Provider [phone] Reason for Referral * Consultation (Routine) - Authorized Specialty Diagnoses / Procedures Referred By Yeimi villanueva Referred To Contact Vascular Surgery Diagnoses Peripheral arterial disease (CMS/HCC) Procedures AK VISIT OFFICE OUTPATIENT ESTABLISHED MODERATE LEVEL Fadi Carmona MD [address] [place] [address] Phone: tel: fax: Vascular Surgery [facility] [address] [place] [address] Phone: tel: fax: Referral ID Status Reason Start Date Expiration Date Visits Requested Visits Authorized [id number] Authorized Specialty Services Required 08/30/2024 08/30/2025 1 1 * Consultation (Routine) - Closed Specialty Diagnoses / Procedures Referred By Yeimi villanueva Referred To Contact Gastroenterology Diagnoses Polyp of colon, unspecified part of colon, unspecified type Procedures AK VISIT OFFICE OUTPATIENT ESTABLISHED MODERATE LEVEL Fadi Carmona MD [address] [place] [address] Phone: tel: fax: Vamshi Loera MD [address] [facility] [address] [place] [address] Phone: tel: fax: Referral ID Status Reason Start Date Expiration Date V isits Requested Visits Authorized [id number] Closed Specialty Services Required 08/30/2024 08/30/2025 1 1 * Consultation (Routine) - Authorized Specialty Diagnoses / Procedures Referred By Contac t Referred To Contact Cardiology Diagnoses Coronary artery disease involving [place] coronary artery of [place] heart without angina pectoris Procedures AK VISIT OFFICE OUTPATIENT ESTABLISHED MODERATE LEVEL Fadi Carmona MD [address] [place] [address] Phone: tel: fax: [facility] [address] [facility] [address] [place] [address] Phone: tel: fax: Referral ID Status Reason Start Date Expiration Date Visits Requested Visits Authorized [id number] Authorized Specialty Services Required 08/30/2024 08/30/2025 1 1 * Consultation (Routine) - Authorized Specialty Diagnoses / Procedures Referred By Contac t Referred To Contact Pulmonary Disease / Pulmonology Diagnoses Lung nodule Procedures AK VISIT OFFICE OUTPATIENT ESTABLISHED MODERATE LEVEL Fadi Carmona MD [address] [place] [address] Phone: tel: fax: Pulmonolgy [facility] [address] [place] [address] Phone: tel:[phone] fax:[phone] Referral ID Status Reason Start Date Expiration Date Visits Requested Visits Authorized [id number] Authorized Specialty Services Required 08/30/2024 08/30/2025 1 1 Reason for Visit * Reason Comments Follow-up Medication Review Encounter Details Date Type Department Care Team (Late st Contact Info) Description 08/30/2024 9:45 AM EST Office Visit Internal Medicine - [address] [phone] Fadi Carmona MD [address] [place] [address] Hypertension, unspecified type (Primary Dx); Hyperlipidemia, unspecified hyperlipidemia type; Hypothyroidism, unspecified type; Paroxysmal atrial fibrillation (CMS/HCC); Peripheral arterial disease (CMS/HCC); Coronary artery disease involving [place] coronary artery of [place] heart without angina pectoris; Lung nodule; Polyp of colon, unspecified part of colon, unspecified type; Prediabetes Social History Tobacco Use Types Packs/Day Years Used Date Smoking Tobacco: Former Cigarettes 0.8 30.5 1 08/10/1957 - 12/08/1988 Smokeless Tobacco: Never Tobacco Cessation:Counseling Given: Not Answered Alcohol Use Standard Drinks/Week Comments Yes 0 (1 standard drink = 0.6 oz pur e alcohol) Sex and Gender Information Value Date Recorded Sex Assigned at Not on file Legal Sex Male 10:00 AM EST Gender Identity Not on file Sexual Orientation Not on file documented as of this encounter Last Filed Vital Signs Vital Sign Reading Time Taken Comments Blood Pressure 134/72 08/30/2024 10:11 AM EST Pulse 65 08/30/2024 10:11 AM EST Temperature - - Respiratory Rate - - Oxygen Saturation - - Inhaled Oxygen Concentration - - Weight 107 kg (235 lb 8 oz) 08/30/2024 10:11 AM EST Height 177.8 cm (5' 10 ) 08/30/2024 10:11 AM EST Body Mass Index 33.79 08/30/2024 10:11 AM EST documented in this encounter Progress Notes * Fadi Carmona MD - 08/30/2024 9:45 AM ESTAssociated Problem(s): Hypertension Follow low sodium diet. Continue current regimen of amlodipine, hydrochlorothiazide. Orders: CBC and differential; Future * Fadi Carmona MD - 08/30/2024 9:45 AM ESTAssociated Problem(s): Hyperlipidemia Follow low-cholesterol diet. Continue atorvastatin. * Fadi Carmona MD - 08/30/2024 9:45 AM ESTAssociated Problem(s): Hypothyroidism Continue regimen of levothyroxine. * Fadi Carmona MD - 08/30/2024 9:45 AM ESTAssociated Problem(s): Paroxysmal atrial fibrillation (CMS/HCC) Continue warfarin. Denies overt bleeding. Rate controlled. * Fadi Carmona MD - 08/30/2024 9:45 AM ESTAssociated Problem(s): Peripheral arterial disease (CMS/HCC) Since he is having claudication-like symptoms, I have referred him back to vascular surgery for further evaluation. Continue aspirin and statin therapy. Orders: Ambulatory referral to Vascular Surgery; Future * Fadi Carmona MD - 08/30/2024 9:45 AM ESTAssociated Problem(s): CAD (coronary artery disease) Clinically euvolemic. Patient follow-up with cardiology routinely. Continue aspirin, atorvastatin, amlodipine, hydrochlorothiazide. Orders: Ambulatory referral to Cardiology; Future * Fadi Carmona MD - 08/30/2024 9:45 AM ESTAssociated Problem(s): Prediabetes Will check patient's A1c. Diabetic diet discussed. Orders: Hemoglobin A1c; Future * Fadi Carmona MD - 08/30/2024 9:45 AM EST CHIEF COMPLAINT: Chief Complaint Patient presents with Follow-up Medication Review IDENTIFIER: Vamshi Cobos is a 74 y.o. old male. HPI Patient is 74-year-old man who presents to the office today for medication review. Patient was seen by rheumatology on 06/22/2024 For his bilateral shoulder, hand, knee arthritis. Hewas recommended to lose weight. Advised to follow-up in 3 months. He followed up with urology on 06/06/2024 for his prostate cancer, erectile dysfunction. He has beenadvised to follow-up in 6 months time. Follow-up with vascular surgery on 04/29/2024 for his peripheral arterial disease. He is asymptomatic. He was recommended follow-up in 2 years time with repeat arterial duplex. Continue aspirin and statin therapy. His ascending aorta measures 3.9 cm. No intervention was warranted. Repeat imaging in2 years with CT chest in 2025. However, he informs me that he does have claudication leg pain when he walks. This predominantly inhis left lower leg. He said it only happens when he walks. He states he did not have this when he had his appointment with vascular surgery in April. He denies any left foot discoloration, foot ulcers. He previously followed up with pulmonology on 02/15/2024 for his lung nodules, obstructive sleep apnea, reactive airway disease. His CT chest was reviewed from 02/08/2024. He does not qualify for low-dose CAT scan of the lung. Follow-up chest x-ray on 02/2025. Advised to be compliant with the CPAP for obstructive sleep apnea. Advised to use albuterol as needed. Patient has a history of coronary disease status post CABG, hypertension, hyperlipidemia and followed up with cardiology in 10/28/2023. Patient does have atrial fibrillation and is currently on warfarin. He has hypothyroidism and is compliant with his levothyroxine. Last EGD done on 09/09/2021 showed benign-appearing esophageal stenosis which was dilated. Small hiatal hernia. Currently denies any dysphagia. However to follow- up with GI if symptoms worsens. He is on omeprazole. His last colonoscopy was done 04/19/2020 which revealed internal hemorrhoids, diverticulosis. Repeat in 10 years. However, patient had a colonoscopy done on 04/18/2015 which revealed colon polyps x 3. At that time, the biopsy showed sessile serrated adenoma's and repeat colonoscopy was recommended in 5 years. ROS: GENERAL: No malaise, significant weight loss or fever HEENT: No changes in hearing or vision, nose bleeds or other nasal problems RESPIRATORY: No cough, wheezing or shortness of breath CARDIOVASCULAR: No chest pain, leg swelling or palpitations GI: History of GERD NECK: No lumps, goiter, pain or significant neck swelling : No dysuria, frequency or incontinence MUSCULOSKELETAL: See HPI SKIN: No lesions, rash or itching NEURO: No persistent headache, syncope, seizures, weakness or numbness PAST MEDICAL HISTORY: Patient Active Problem List Diagnosis Date Noted Prediabetes 11/10/2023 Diaphragmatic hernia 03/17/2022 Gastroesophageal reflux disease 03/17/2022 Peripheral arterial disease (CMS/HCC) 02/21/2021 Carpal tunnel syndrome on both sides 05/28/2020 Primary prostate adenocarcinoma ([facility]) 01/18/2020 PMR (polymyalgia rheumatica) ([facility]) 10/12/2019 Severe obesity with body mass index (BMI) of 35.0 to 39.9 with comorbidity ([facility]) 02/07/2019 Hypothyroidism 12/10/2018 Spermatocele 12/01/2017 POAG (primary open-angle glaucoma) 10/31/2017 Hypertension 07/29/2017 Obstructive sleep apnea 08/31/2016 Sleep related hypoventilation in conditions classified elsewhere 08/31/2016 Paroxysmal atrial fibrillation ([facility]) 05/07/2016 Headache 12/18/2014 Aortic dilatation ([facility]) 04/30/2014 CAD (coronary artery disease) 02/04/2014 Peptic stricture of esophagus 12/07/2013 BPH (benign prostatic hyperplasia) 03/28/2008 Glaucoma suspect 03/28/2008 RAD (reactive airway disease) 03/28/2008 Hyperlipidemia 05/04/2007 Osteoarthritis of both knees 04/27/2007 Aortic valve disorder 04/10/2006 Hiatal hernia 04/10/2006 Past Surgical History: Procedure Laterality Date COLONOSCOPY 06/09 PROCEDURE: AK COLONOSCOPY STOMA DX INCLUDING COLLJ SPEC SPX; COMMENT: Joseph; neg (hyperplastic polyp) COLONOSCOPY 04/18/15 PROCEDURE: AK COLONOSCOPY STOMA W/RMVL TONYA POLYP/OTH LES SNARE; COMMENT: tics and adenomas; repeat in 5 yrs ESOPHAGOGASTRODUODENOSCOPY 07/28/08 PROCEDURE: AK ESOPHAGOGASTRODUODENOSCOPY TRANSORAL DIAGNOSTIC; COMMENT: erosive esophagitis, esophagea stricture (dilated), gastritis (FORTINO neg) ESOPHAGOGASTRODUODENOSCOPY 12/12/13 PROCEDURE: AK ESOPHAGOGASTRODUODENOSCOPY TRANSORAL DIAGNOSTIC; COMMENT: hiatus hernia; normal esophageal biopsies OTHER SURGICAL HISTORY 09/03/05 PROCEDURE: AK UNLISTED PROCEDURE DIAPHRAGM; COMMENT: Mortman OTHER SURGICAL HISTORY PROCEDURE: AK EXPLORATORY LAPAROTOMY CELIOTOMY W/WO BIOPSY SPX OTHER SURGICAL HISTORY 01/10 PROCEDURE: PROSTATE SPEC. AG, SCREEN; COMMENT: 1.6 OTHER SURGICAL HISTORY 10/25/08 PROCEDURE: AK EGD BALLOON DILATION ESOPHAGUS <30 MM DIAM; COMMENT: healed erosive esophagitis and adequately dilated stricture; hiatus hernia OTHER SURGICAL HISTORY 12/2013 PROCEDURE: AK CABG W/ARTERIAL GRAFT TWO ARTERIAL GRAFTS SOCIAL HISTORY: Social History Tobacco Use Smoking status: Former Current packs/day: 0.00 Average packs/day: 0.8 packs/day for 30.5 years (24.4 ttl pk-yrs) Types: Cigarettes Start date: 1960 Quit date: 12/08/1988 Years since quittin.7 Smokeless tobacco: Never Substance Use Topics Alcohol use: Yes FAMILY HISTORY: Family History Problem Relation Name Age of Onset Diabetes Father Hypertension Mother [place] Lung cancer Sister Heart attack Brother 3 brothers Family Status Relation Name Status Father (Not Specified) Mother (Not Specified) Sister (Not Specified) Brother (Not Specified) No partnership data on file MEDICATIONS DISCONTINUED/REORDERED: Medications Discontinued During This Encounter Medication Reason dorzolamide (TRUSOPT) 2 % ophthalmic solution Therapy completed dorzolamide-timoloL (COSOPT) 22.3-6.8 mg/mL ophthalmic solution Therapy completed netarsudiL-latanoprost (Rocklatan) 0.02-0.005 % drops Therapy completed ACTIVE MEDICATIONS: Outpatient Medications Marked as Taking for the 08/30/24 encounter (Office Visit) with Fadi Carmona MD Medication Sig Dispense Refill albuterol HFA (PROAIR HFA ; PROVENTIL HFA ; VENTOLIN HFA) 90 mcg/actuation inhaler Inhale 2 Puffs into the lungs every 6 hours as needed for Cough or Wheezing for up to 30 days. amLODIPine (NORVASC) 5 mg tablet Take 1 Tablet by mouth daily. aspirin 81 mg chewable tablet Take 81 mg by mouth daily. atorvastatin (LIPITOR) 40 mg tablet TAKE 1 TABLET BY MOUTH EVERY DAY diclofenac (VOLTAREN) 1 % topical gel APPLY 3 G TOPICALLY 3 TIMES DAILY NEEDED (CHEST WALL CONTUSION). docusate sodium (COLACE) 100 mg capsule Take 100 mg by mouth 2 Times Daily. fexofenadine HCl (JONATHAN ALLERGY ORAL) Take by mouth daily. zqdyoixwsrr-ozrjbxkqu-qgt C-Mn (Glucosamine-Chondroitin Complx) capsule Take by mouth. hydroCHLOROthiazide (MICROZIDE) 12.5 mg capsule TAKE 1 CAPSULE BY MOUTH EVERY DAY IN THE MORNING latanoprostene bunod (Vyzulta) 0.024 % drops Administer 1 drop into affected eye(s) 1 (one) time each day. levothyroxine (SYNTHROID, LEVOTHROID) 25 mcg tablet TAKE 1 TABLET BY MOUTH EVERY DAY MULTIVITAMIN ORAL Take by mouth. NON FORMULARY CPAP HISTORICAL (HISTORICAL CPAP) Inhale into the lungs. [employer]-pressure 8-16 omeprazole (PriLOSEC) [address] capsule Take 1 Capsule by mouth 2 times daily (before meals). timolol (TIMOPTIC) 0.5 % ophthalmic solution INSTILL 1 DROP INTO BOTH EYES TWICE A DAY warfarin (COUMADIN) 5 mg tablet MAY CAUSE HEAVY BLEEDING. TAKE TABLET BY MOUTH DIRECTED BY COUMADIN CLINIC DAILY AT SAME TIME EVERY DAY. DO NOT CHANGE DIETARY HABITS. ALLERGIES: Allergies Allergen Reactions Lisinopril Cough Nut - Unspecified Swelling lips swell Oxycodone-Acetaminophen Shellfish Containing Products Hives and Itching hives and itchy throat Tramadol Hives PHYSICAL EXAM: Visit Vitals BP 134/72 Pulse 65 Ht 1.778 m (70 ) Wt 107 kg (235 lb 8 oz) BMI 33.79 kg/m?? Smoking Status Former BSA 2.24 m?? EYES: PERRL, conjunctiva and sclera normal NOSE/SINUS: negative MOUTH/THROAT: no erythema or exudates NECK: negative HEART: regular rate, regular rhythm and no murmur LUNG: clear to auscultation LYMPH NODES: grossly normal ABDOMEN: Bowel sounds normoactive, no bruits, soft, non-tender, without organomegaly or palpable masses EXTREMITIES: No edema bilaterally. Dorsalis pedis pulses diminished bilaterally in the lower extremities. NEURO: Awake, alert and oriented x 3, Normal gait SKIN: negative Assessment & Plan Hypertension, unspecified type Follow low sodium diet. Continue current regimen of amlodipine, hydrochlorothiazide. Orders: CBC and differential; Future Hyperlipidemia, unspecified hyperlipidemia type Follow low-cholesterol diet. Continue atorvastatin. Hypothyroidism, unspecified type Continue regimen of levothyroxine. Paroxysmal atrial fibrillation (CMS/HCC) Continue warfarin. Denies overt bleeding. Rate controlled. Peripheral arterial disease (CMS/HCC) Since he is having claudication-like symptoms, I have referred him back to vascular surgery for further evaluation. Continue aspirin and statin therapy. Orders: Ambulatory referral to Vascular Surgery; Future Coronary artery disease involving [place] coronary artery of [place] heart without angina pectoris Clinically euvolemic. Patient follow-up with cardiology routinely. Continue aspirin, atorvastatin, amlodipine, hydrochlorothiazide. Orders: Ambulatory referral to Cardiology; Future Lung nodule Referral to pulmonology placed for follow-up on his lung nodule and obstructive sleep apnea. Orders: Ambulatory referral to Pulmonology; Future Polyp of colon, unspecified part of colon, unspecified type I have referred him to gastroenterology to determine when the next colonoscopy should be done. He does have a history of colon polyps. Orders: Ambulatory referral to Gastroenterology; Future Basic metabolic panel; Future Prediabetes Will check patient's A1c. Diabetic diet discussed. Orders: Hemoglobin A1c; Future Today's documentation was made using voice recognition software.This note may contain grammatical errors secondary to this software. documented in this encounter Plan of Treatment Upcoming Encounters Date Type Department Care Team (Late st Contact Info) Description 09/05/2024 10:00 AM EST Telemedicine [employer]her [employer] C[employer] Machine Operator - [address] [address] 10/21/2024 10:30 AM EDT Consult Vascular Surgery - [place] [address] [place] [phone] Kala Ho PA [address] [place] [address] 01/19/2025 9:00 AM EDT Office Visit Internal Medicine - [address] [phone] Fadi Carmona MD [address] [place] [address] Scheduled Referrals Name Type Priority Associated Diagnoses Order Schedule Ambulatory referral to Pulmonology Outpatient Referral Routine Lung nodule 1 Occurrences starting 08/30/2024 until 08/30/2025 Ambulatory referral to Cardiology Outpatient Referral Routine Coronary artery disease involving [place] coronary artery of [place] heart without angina pectoris 1 Occurrences starting 08/30/2024 until 08/30/2025 Ambulatory referral to Gastroenterology Outpatient Referral Routine Polyp of colon, unspecified part of colon, unspecified type 1 Occurrences starting 08/30/2024 until 08/30/2025 Ambulatory referral to Vascular Surgery Outpatient Referral Routine Peripheral arterial disease (CMS/HCC) 1 Occurrences starting 08/30/2024 until 08/30/2025 documented as of this encounter Results * Basic metabolic panel (08/30/2024 11:40 AM EST) Sodium 138 133 - 145 mmol/L LAB CHEMISTRY METHOD 08/30/2024 3:08 PM [facility] Potassium 5.0 3.5 - 5.5 mmol/L LAB CHEMISTRY METHOD 08/30/2024 3:08 PM [facility] Chloride 105 96 - 110 mmol/L LAB CHEMISTRY METHOD 08/30/2024 3:08 PM [facility] CO2 29 21 - 32 mmol/L LAB CHEMISTRY METHOD 08/30/2024 3:08 PM [facility] Anion Gap 4 3 - 11 LAB CHEMISTRY METHOD 08/30/2024 3:08 PM [facility] Glucose 100 70 - 100 mg/dL LAB CHEMISTRY METHOD 08/30/2024 3:08 PM [facility] BUN 20 5 - 25 mg/dL LAB CHEMISTRY METHOD 08/30/2024 3:08 PM [facility] Creatinine 0.79 0.70 - 1.30 mg/dL LAB CHEMISTRY METHOD 08/30/2024 3:08 PM [facility] eGFR 92 >=60 mL/min/1. 73m2 LAB CHEMISTRY METHOD 08/30/2024 3:08 PM [facility] Comment:Calculation based on the??Chronic Kidney Disease Epidemiology Collaboration (CKD-EPI) equation refit??without adjustment for race. BUN/Creatinine Ratio 25.3 LAB CHEMISTRY METHOD 08/30/2024 3:08 PM [facility] Calcium 9.2 8.5 - 10.5 mg/dL LAB CHEMISTRY METHOD 08/30/2024 3:08 PM [facility] Blood Venous blood specimen / Unknown Venipuncture / Unknown 08/30/2024 11:40 AM EST 08/30/2024 11:40 AM EST Fadi Carmona MD LAB BLOOD ORDERABLES [place] l Result Performing Organization Address [facility]/ZIP Co de Phone Number [facility] [address] [place] [address], [place] [phone] * Hemoglobin A1c (08/30/2024 11:40 AM EST) Hemoglobin A1C 6.1 <6.5 % LAB CHEMISTRY METHOD 08/30/2024 8:31 PM EST [facility] Mean Bld Glu Estim. 128 mg/dL LAB CHEMISTRY METHOD 08/30/2024 8:31 PM EST [facility] Blood Venous blood specimen / Unknown Venipuncture / Unknown 08/30/2024 11:40 AM EST 08/30/2024 11:40 AM EST Fadi Carmona MD LAB BLOOD ORDERABLES [place] l Result Performing Organization Address [facility] Co de Phone Number [facility] [address] [place] [address], [place] [phone] documented in this encounter Visit Diagnoses Diagnosis Hypertension, unspecified type- Primary Hyperlipidemia, unspecified hyperlipidemia type Hypothyroidism, unspecified type Paroxysmal atrial fibrillation (CMS/HCC) Atrial fibrillation Peripheral arterial disease (CMS/HCC) Unspecified peripheral vascular disease Coronary artery disease involving [place] coronary artery of [place] heart without angina pectoris Lung nodule Other diseases of lung, not elsewhere classified Polyp of colon, unspecified part of colon, unspecified type Prediabetes Other abnormal glucose documented in this encounter Discontinued Medications Medication Sig Discontinue Reason Start Date End Da te dorzolamide (TRUSOPT) 2 % ophthalmic solution INSTILL 1 DROP INTO BOTH EYES TWICE A DAY Therapy completed 11/10/2023 08/30/2024 dorzolamide-timoloL (COSOPT) 22.3-6.8 mg/mL ophthalmic solution INSTILL 1 DROP INTO BOTH EYES AT BEDTIME Therapy completed 03/13/2023 08/30/2024 netarsudiL-latanoprost (Rocklatan) 0.02-0.005 % drops apply to the eye. Therapy completed 08/30/2024 documented as of this encounter Historical Medications * This list may reflect changes made after this encounter. latanoprostene bunod (Vyzulta) 0.024 % drops Administer 1 drop into affected eye(s) 1 (one) time each day. 05/24/2024 added in this encounter Care Teams Hog Operator Relationship Specialty Start Date End Date Fadi Carmona MD [address] [place] [id number] PCP - General Internal Medicine 07/03/17 documented as of this encounter
--- OUTSIDE RECORDS SUMMARY | 2024-09-02 09:19 | XMS_ITS | Encounter Summary ---
Author Organization [facility] Address [address] [place] [address] Care Team Providers Care Jockey Room Custodian Name Role Phone Fadi Carmona MD Primary Care Provider [phone] Encounter Details Date Type Department Care Team Description 05/28/2021 White Metal Corrosion Proofer Report Medical Records [address] [place] [address] Johnny Owens MD Social History Tobacco Use Types Packs/Day [...] file Not on file Not on file COVID-19 Exposure Response Date Recorded In the last month, have you been in contact with someone who was confirmed or suspected to have Coronavirus / COVID-19? No / Unsure 05/01/2021 9:51 AM EDT documented as of this encounter Plan of Treatment Not on file documented as of this encounter Visit Diagnoses Not on filedocumented in this encounter Care Teams Jockey Room Custodian Relationship Specialty Start Date End Date Fadi Carmona MD [address] [place] [address] PCP - General Internal Medicine 07/03/17 documented as of this encounter
--- OUTSIDE RECORDS SUMMARY | 2024-09-02 09:19 | XMS_ITS | Encounter Summary ---
Author Organization [facility] Address [address] [place] [address] Care Team Providers Care Professional Bass Fisherman Name Role Phone Daryl Strickland MD Primary Care Provider Unavail able Fadi Carmona MD Primary Care Provider [phone] Encounter Details Date Type Department Care Team Description 03/22/2014 Release of Information Medical Records [address] [place] [id number] Abstract, Provider Social History Tobacco Use Types [...] on filedocumented in this encounter Care Teams Professional Bass Fisherman Relationship Specialty Start Date End Date Daryl Strickland MD PCP - General 06/28/01 07/02/17 Fadi Carmona MD [address] [place] [address] PCP - General Internal Medicine 07/03/17 documented as of this encounter
--- OUTSIDE RECORDS SUMMARY | 2024-09-02 09:19 | XMS_ITS | Encounter Summary ---
Author Organization [facility] Address [address] [place] [address] Care Team Providers Care Manufacturing Plant Technician Name Role Phone Fadi Carmona MD Primary Care Provider +1 -[phone] Reason for Referral * Non SUZI (Urgent) - Closed Specialty Diagnoses / Procedures Referred By Yeimi villanueva Referred To Contact Vascular Surgery Diagnoses Peripheral arterial disease (HCC) Procedures REFERRAL TO VASCULAR SURGERY (IN NETWORK) Omar Rendon NP [address] [place] [address] Vascular Surg/Spld [address] [facility] [address] [place] [phone] Referral ID Status Reason Start Date Expiration Date V isits Requested Visits Authorized [id number] Closed 02/21/2021 02/21/2022 1 1 Encounter Details Date Type Department Care Team Description 02/21/2021 Orders Only Adult Medicine B - [place] [address] [place] [address] Omar Rendon NP [address] [place] [address] Peripheral arterial disease (HCC) (Primary Dx) Social History Tobacco Use Types Packs/Day Years [...] have Coronavirus / COVID-19? No / Unsure 02/21/2021 10:49 AM EDT documented as of this encounter Plan of Treatment Not on file documented as of this encounter Visit Diagnoses Diagnosis Peripheral arterial disease (HCC)- Primary Unspecified disorders of arteries and arterioles documented in this encounter Care Teams Manufacturing Plant Technician Relationship Specialty Start Date End Date Fadi Carmona MD [address] [place] [address] PCP - General Internal Medicine 07/03/17 documented as of this encounter
--- OUTSIDE RECORDS SUMMARY | 2024-09-02 09:19 | XMS_ITS | Encounter Summary ---
Author Organization [facility] Address [address] [place] [address] Care Team Providers Care Financial Investment Manager Name Role Phone Fadi Carmona MD Primary Care Provider +1 [phone] Encounter Details Date Type Department Care Team Description 02/25/2021 [facility] Medical Records [address] [place] [address] Carolyn Garcia Social History Tobacco Use Types Packs/Day Years [...] on filedocumented in this encounter Care Teams Financial Investment Manager Relationship Specialty Start Date End Date Fadi Carmona MD [address] [place] [address] PCP - General Internal Medicine 07/03/17 documented as of this encounter
--- OUTSIDE RECORDS SUMMARY | 2024-09-02 09:19 | XMS_ITS | Encounter Summary ---
Author Organization [facility] Address [address] [place] [address] Care Team Providers Care Fulfillment Representative Name Role Phone Fadi Carmona MD Primary Care Provider +1 [phone] Encounter Details Date Type Department Care Team Description 09/16/2021 Police Liaison Officer Report Medical Records [address] [place] [address] Vamshi Loera MD Social History Tobacco Use Types Packs/Day [...] have Coronavirus / COVID-19? No / Unsure 08/27/2021 9:07 AM EST documented as of this encounter Plan of Treatment Not on file documented as of this encounter Visit Diagnoses Not on filedocumented in this encounter Care Teams Fulfillment Representative Relationship Specialty Start Date End Date Fadi Carmona MD [address] [place] [address] PCP - General Internal Medicine 07/03/17 documented as of this encounter
--- OUTSIDE RECORDS SUMMARY | 2024-09-02 09:19 | XMS_ITS | Encounter Summary ---
Author Organization [facility] Address [address] [place] [address] Care Team Providers Care Tree Girdler Name Role Phone Daryl Strickland MD Primary Care Provider Unavail able Fadi Carmona MD Primary Care Provider +1 -[phone] Encounter Details Date Type Department Care Team Description 12/05/2014 Building Associate Report Medical Records [address] [place] [address] Jesus Garsia MD Social History Tobacco Use Types Packs/Day [...] on filedocumented in this encounter Care Teams Tree Girdler Relationship Specialty Start Date End Date Daryl Strickland MD PCP - General 06/28/01 07/02/17 Fadi Carmona MD [address] [place] [address] PCP - General Internal Medicine 07/03/17 documented as of this encounter
--- OUTSIDE RECORDS SUMMARY | 2024-09-02 09:19 | XMS_ITS | Encounter Summary ---
Author Organization [facility] Address [address] [place] [address] Care Team Providers Care Mother Repairer Name Role Phone Fadi Carmona MD Primary Care Provider +1 -[phone] Encounter Details Date Type Department Care Team Description 02/27/2021 Inspector Machine Parts Report Medical Records [address] [place] [address] Marielena Mcqueen MD Social History Tobacco Use Types Packs/Day [...] on filedocumented in this encounter Care Teams Mother Repairer Relationship Specialty Start Date End Date Fadi Carmona MD [address] [place] [address] PCP - General Internal Medicine 07/03/17 documented as of this encounter
--- OUTSIDE RECORDS SUMMARY | 2024-09-02 09:19 | XMS_ITS | Encounter Summary ---
Author Organization [facility] Address [address] [place] [address] Care Team Providers Care Public Relations Account Supervisor Name Role Phone Fadi Carmona MD Primary Care Provider +1 -[phone] Reason for Visit * Reason Comments E-prescribe Rx Request Encounter Details Date Type Department Care Team Description 09/17/2021 Refill Rheumatology - [address] [address] Costa Mcguire MD E-prescribe Rx Request Social History Tobacco Use Types Packs/Day Years [...] AM EST documented as of this encounter Miscellaneous Notes * Telephone Encounter - Teresa Frank M.A. - 09/19/2021 8:21 AM EDT Spoke with pt, confirmed 2mg daily is the correct dose. Pt will notify us once appt with Dr Mcguire is scheduled. * Telephone Encounter - Fadi Carmona MD - 09/18/2021 5:13 PM EDT Please confirm with patient the dose of the prednisone. As per his last certified legal investigator; his prednisone dose was reduced to 2 mg daily. Please inform the patient that I am willing to prescribe it until he sees his certified legal investigator who can then take over prednisone. * Telephone Encounter - Teresa Frank M.A. - 09/18/2021 3:06 PM EDT Spoke with pt, states he does not have an appt with rheumatology yet. * Telephone Encounter - Fadi Carmona MD - 09/18/2021 12:52 PM EDT This has to be prescribed by his new certified legal investigator. * Telephone Encounter - Melisa Ivy M.A. - 09/18/2021 10:24 AM EDT Alex 08/27/21 Pended appt 10/25/21 Lab Results Component Value Date NA 140 06/17/2021 K 4.9 06/17/2021 CO2 30 06/17/2021 CL 104 06/17/2021 BUN 11 06/17/2021 CREAT 0.81 06/17/2021 GLU 70 06/17/2021 CA 9.4 06/17/2021 GFR > 60 06/17/2021 * Telephone Encounter - Jena Alberto - 09/18/2021 7:54 AM EDT Patient would like script to be: E-PRESCRIBED/FAXED TO PHARMACY WHEN WAS THE PATIENT'S LAST APPOINTMENT IN ADULT MEDICINE? 08/27/2021 WHEN WAS THE LAST TIME THE PATIENT SAW THEIR PCP? Same as above Does patient have an upcoming appointment? Yes 10/25/2021 (THE MEDICATION REQUESTED IS ON THE MED LIST ABOVE) All of the medications requested were on the CURRENT MEDS list Did you check the Pharmacy information above?: YES Patient wants: 30 -day supply Is this a mail order prescription request ? NO If the refill is from a FAXED refill request what is the RX # listed on the fax? N/A Patients current insurance carrier is: [place] / Plan: [place]-[employer] / Product Type: MEDICARE [id number] documented in this encounter Plan of Treatment Not on file documented as of this encounter Visit Diagnoses Diagnosis PMR (polymyalgia rheumatica) (HCC) Polymyalgia rheumatica documented in this encounter Care Teams Public Relations Account Supervisor Relationship Specialty Start Date End Date Fadi Carmona MD [address] [place] [address] PCP - General Internal Medicine 07/03/17 documented as of this encounter
--- OUTSIDE RECORDS SUMMARY | 2024-09-02 09:19 | XMS_ITS | Encounter Summary ---
Author Organization [facility] Address [address] [place] [address] Care Team Providers Care Barrel Polisher Name Role Phone Daryl Strickland MD Primary Care Provider [facility] Fadi Carmona MD Primary Care Provider +1 -[phone] Encounter Details Date Type Department Care Team Description 12/28/2013 Fisher Clam Report Medical Records [address] [place] [address] Law Pedroza MD [address] [place] [address] Social History Tobacco Use Types Packs/Day Years [...] on filedocumented in this encounter Care Teams Barrel Polisher Relationship Specialty Start Date End Date Daryl Strickland MD PCP - General 06/28/01 07/02/17 Fadi Carmona MD [address] [place] [address] PCP - General Internal Medicine 07/03/17 documented as of this encounter
--- OUTSIDE RECORDS SUMMARY | 2024-09-02 09:19 | XMS_ITS | Encounter Summary ---
Author Organization [facility] Address [address] [place] [address] Care Team Providers Care Diesel Engine I Pipe Fitter Name Role Phone Fadi Carmona MD Primary Care Provider [phone] -[phone] Encounter Details Date Type Department Care Team Description 03/15/2019 Cigarette Carton Sealer Report Medical Records [address] [place] [address] Jesus Alvarez MD Social History Tobacco Use Types Packs/Day [...] on filedocumented in this encounter Care Teams Diesel Engine I Pipe Fitter Relationship Specialty Start Date End Date Fadi Carmona MD [address] [place] [address] PCP - General Internal Medicine 07/03/17 documented as of this encounter
--- OUTSIDE RECORDS SUMMARY | 2024-09-02 09:19 | XMS_ITS | Encounter Summary ---
Author Organization [facility] Address [address] [place] [address] Care Team Providers Care Clinical Rehabilitation Liaison Name Role Phone Daryl Strickland MD Primary Care Provider Unavail able Fadi Carmona MD Primary Care Provider +1 -[phone] Encounter Details Date Type Department Care Team Description 04/12/2014 Business Doc Medical Records [address] [place] [address] Abstract, Provider Social History Tobacco Use Types [...] on filedocumented in this encounter Care Teams Clinical Rehabilitation Liaison Relationship Specialty Start Date End Date Daryl Strickland MD PCP - General 06/28/01 07/02/17 Fadi Carmona MD [address] [place] [address] PCP - General Internal Medicine 07/03/17 documented as of this encounter
--- OUTSIDE RECORDS SUMMARY | 2024-09-02 09:19 | XMS_ITS | Encounter Summary ---
Author Organization [facility] Address [address] [place] [address] Care Team Providers Care Activities Officer Name Role Phone Fadi Carmona MD Primary Care Provider +1 -[phone] Reason for Visit * Reason Comments E-prescribe Rx Request Encounter Details Date Type Department Care Team Description 07/29/2021 Refill Adult Medicine [address] [address] Fadi Carmona MD [address] [place] [address] E-prescribe Rx Request Social History Tobacco Use [...] have Coronavirus / COVID-19? No / Unsure 07/23/2021 8:52 AM EST documented as of this encounter Miscellaneous Notes * Telephone Encounter - Kanu Tse M.A. - 07/29/2021 2:44 PM EST Last office visit 06.25.21 Pending appt 08.27.21 Lab Results Component Value Date TSH 2.64 06/17/2021 * Telephone Encounter - Cony Pyle - 07/29/2021 1:43 PM EST Patient would like script to be: E-PRESCRIBED/FAXED TO PHARMACY WHEN WAS THE PATIENT'S LAST APPOINTMENT IN ADULT MEDICINE? 06/25/21 WHEN WAS THE LAST TIME THE PATIENT SAW THEIR PCP? 03/14/21 Does patient have an upcoming appointment? Yes 08/27/21 (THE MEDICATION REQUESTED IS ON THE MED LIST ABOVE) All of the medications requested were on the CURRENT MEDS list Did you check the Pharmacy information above?: YES Patient wants: 90 -day supply Is this a mail order prescription request ? NO If the refill is from a FAXED refill request what is the RX # listed on the fax? N/A Patients current insurance carrier is: [place] / [place] / Product Type: MEDICARE [id number] documented in this encounter Plan of Treatment Not on file documented as of this encounter Visit Diagnoses Not on filedocumented in this encounter Care Teams Activities Officer Relationship Specialty Start Date End Date Fadi Carmona MD [address] [place] [address] PCP - General Internal Medicine 07/03/17 documented as of this encounter
--- OUTSIDE RECORDS SUMMARY | 2024-09-02 09:19 | XMS_ITS | Encounter Summary ---
Author Organization [facility] Address [address] [place] [address] Care Team Providers Care Improvement Coordinator Name Role Phone Daryl Strickland MD Primary Care Provider [facility] Fadi Carmona MD Primary Care Provider +1 -[phone] Encounter Details Date Type Department Care Team Description 07/10/2014 Die Maker Report Medical Records [address] [place] [address] Rey Wade MD Social History Tobacco Use Types Packs/Day [...] on filedocumented in this encounter Care Teams Improvement Coordinator Relationship Specialty Start Date End Date Daryl Strickland MD PCP - General 06/28/01 07/02/17 Fadi Carmona MD [address] [place] [address] PCP - General Internal Medicine 07/03/17 documented as of this encounter
--- OUTSIDE RECORDS SUMMARY | 2024-09-02 09:19 | XMS_ITS | Encounter Summary ---
Demographics Address [address] [place] [address] Home Phone Work Phone Mobile Phone Email Address Email Address Preferred Language en Marital Status Protestant Affiliation Unknown Race Black or Suma rican Ethnic Group Not or Lati no Author Organization [facility] [place] [address] Support Name Relationship Address Phone Paula Shannon Unrelated friend [address] [place] [address] Care Team Providers Care Financial Advisor Trainee Name Role Phone Fadi Carmona MD Primary Care Provider +1 -[phone] Reason for Visit * Reason Onset Date Comments Medicare Annual Wellness Visit Subsequent 2024 AWV DUE after 07/07/2024 Encounter Details Date Type Department Care Team (Late st Contact Info) Description 09/01/2024 Telephone Director [employer] [facility] [employer] [address] [place] [address] Celena Hammonds [place] Medicare Annual Wellness Visit Subsequent (AWV DUE after 07/07/2024) Social History Tobacco Use Types Packs/Day Years [...] on file documented as of this encounter Progress Notes * Celena Hammonds MA - 09/01/2024 11:48 AM EST Spoke with patient. Annual Wellness Visit appt booked 09/05/2024 alfonso/[facility] Nurse over the phone. Put the following message in the appt, (call [phone]/TAC.) Transfer to Celena Hammonds @ [email or web address]. PT is not on the April/2024 report. documented in this encounter Plan of Treatment Upcoming Encounters Date Type Department Care Team (Late st Contact Info) Description 09/05/2024 10:00 AM EST Telemedicine Director Student Union - [address] [phone] 10/21/2024 10:30 AM EDT Consult Vascular Surgery - [place] [address] [place] [phone] Kala Ho PA [address] [place] [address] [place] [address] 01/19/2025 9:00 AM EDT Office Visit Internal Medicine - [address] [phone] Fadi Camrona MD [address] [place] [address] documented as of this encounter Visit Diagnoses Not on filedocumented in this encounter Care Teams Financial Advisor Trainee Relationship Specialty Start Date End Date Fadi Carmona MD [address] [place] [address] PCP - General Internal Medicine 07/03/17 documented as of this encounter
--- OUTSIDE RECORDS SUMMARY | 2024-09-02 09:19 | XMS_ITS | Encounter Summary ---
Author Organization [facility] Address [address] [place] [address] Care Team Providers Care Brass Wind Instruments Tube Bender Name Role Phone Fadi Carmona MD Primary Care Provider +1 -[phone] Encounter Details Date Type Department Care Team Description 03/01/2019 Echocardiographer Report Medical Records [address] [place] [address] Jesus Alvarez MD Social History Tobacco Use [...] on filedocumented in this encounter Care Teams Brass Wind Instruments Tube Bender Relationship Specialty Start Date End Date Fadi Carmona MD [address] [place] [address] PCP - General Internal Medicine 07/03/17 documented as of this encounter
--- OUTSIDE RECORDS SUMMARY | 2024-09-02 09:19 | XMS_ITS | Clinical Summary ---
Demographics Address [address] [place] [address] Home Phone Work Phone Mobile Phone Email Address Email Address Preferred Language en Marital Status Islam Affiliation Unknown Race Black or Suma rican Ethnic Group Not or Lati no Author Organization [address] Address [address] [place] [address] Phone Support Name Relationship Address Phone Paula Shannon Unrelated friend [address] [place] [address] Care Team Providers Care Weight Clerk Name Role Phone Fadi Carmona MD Primary Care Provider [phone] Allergies Active Allergy Reactions Criticality Noted Date Comments Lisinopril Cough 04/18/2014 Nut - Unspecified Swelling 03/26/2007 lips swell Oxycodone-Acetaminophen 02/09/2017 Shellfish Containing Products Hives,Itching 03/26/2007 hives and itchy throat Tramadol Hives 10/04/2023 Medications NON FORMULARY CPAP HISTORICAL (HISTORICAL CPAP) Inhale into the lungs. [employer]-pressure 8-16 Active fexofenadine HCl (JONATHAN ALLERGY ORAL) Take by mouth daily. Active glucosamine-ch ondroit-vit C-Mn (Glucosamine-C hondroitin Complx) capsule Take by mouth. Activ e MULTIVITAMIN ORAL Take by mouth. Activ e albuterol HFA (PROAIR HFA ; PROVENTIL HFA ; VENTOLIN HFA) 90 mcg/actuation inhaler Inhale 2 Puffs into the lungs every 6 hours as needed for Cough or Wheezing for up to 30 days. 4 Active amLODIPine (NORVASC) 5 mg tablet Take 1 Tablet by mouth daily. 4 Active aspirin 81 mg chewable tablet Take 81 mg by mouth daily. Active atorvastatin (LIPITOR) 40 mg tablet TAKE 1 TABLET BY MOUTH EVERY DAY 4 Active diclofenac (VOLTAREN) 1 % topical gel APPLY 3 G TOPICALLY 3 TIMES DAILY NEEDED (CHEST WALL CONTUSION). 2 Active docusate sodium (COLACE) 100 mg capsule Take 100 mg by mouth 2 Times Daily. 2 Active hydroCHLOROthi azide (MICROZIDE) 12.5 mg capsule TAKE 1 CAPSULE BY MOUTH EVERY DAY IN THE MORNING 4 Active levothyroxine (SYNTHROID, LEVOTHROID) 25 mcg tablet TAKE 1 TABLET BY MOUTH EVERY DAY 4 Active omeprazole (PriLOSEC) [address] capsule Take 1 Capsule by mouth 2 times daily (before meals). 2 Active timolol (TIMOPTIC) 0.5 % ophthalmic solution INSTILL 1 DROP INTO BOTH EYES TWICE A DAY 4 Active warfarin (COUMADIN) 5 mg tablet MAY CAUSE HEAVY BLEEDING. TAKE TABLET BY MOUTH DIRECTED BY COUMADIN CLINIC DAILY AT SAME TIME EVERY DAY. DO NOT CHANGE DIETARY HABITS. 4 Active latanoprostene bunod (Vyzulta) 0.024 % drops Administer 1 drop into affected eye(s) 1 (one) time each day. 4 Active dorzolamide (TRUSOPT) 2 % ophthalmic solution INSTILL 1 DROP INTO BOTH EYES TWICE A DAY 4 08/30/19 Discontinu ed(Therapy completed) dorzolamide-ti moloL (COSOPT) 22.3-6.8 mg/mL ophthalmic solution INSTILL 1 DROP INTO BOTH EYES AT BEDTIME 3 08/30/19 25 Discontinu ed(Therapy completed) netarsudiL-lat anoprost (Rocklatan) 0.02-0.005 % drops apply to the eye. 08/30/19 Discontinu ed(Therapy completed) Active Problems Problem Noted Date Diagnosed Date Prediabetes 11/10/2023 Assessment & Plan (08/30/2024 12:40 PM EST): Will check patient's A1c. Diabetic diet discussed. Orders: Hemoglobin A1c; Future Diaphragmatic hernia 03/17/2022 Gastroesophageal reflux disease 03/17/2022 Peripheral arterial disease 02/21/2021 Overview (06/07/2024): FABIANA on 02/2021: Right 50-99% denies any personal stenosis in the right profundofemoral artery 50-99% stenosis in the right superficial femoral artery Left 50 to 99% stenosis in the left superficial femoral artery Assessment & Plan (08/30/2024 12:40 PM EST): Since he is having claudication-like symptoms, I have referred him back to vascular surgery for further evaluation. Continue aspirin and statin therapy. Orders: Ambulatory referral to Vascular Surgery; Future Carpal tunnel syndrome on both sides 05/28/2020 Overview (06/07/2024): Moderate to severe on EMG/NCT 08/2019 Left Carpal tunnel injection Primary prostate adenocarcinoma 01/18/2020 Overview (06/07/2024): 11/2019: [place] 7 on biopsy. Put on finasteride RT 09/2020 PMR (polymyalgia rheumatica) 10/12/2019 Overview (06/07/2024): Onset 08/2019 Severe obesity with body mas s index (BMI) of 35.0 to 39.9 with comorbidity 02/07/2019 Hypothyroidism 12/10/2018 Assessment & Plan (08/30/2024 12:40 PM EST): Continue regimen of levothyroxine. Spermatocele 12/01/2017 Overview (06/07/2024): Right testicular mass biopsy revealed findings consistent the spermatocele POAG (primary open-angle glaucoma) 10/31/2017 Overview (06/07/2024): Followed by Dr Gaudencio Moreno Hypertension 07/29/2017 Assessment & Plan (08/30/2024 12:40 PM EST): Follow low sodium diet. Continue current regimen of amlodipine, hydrochlorothiazide. Orders: CBC and differential; Future Obstructive sleep apnea 08/31/2016 Overview (06/07/2024): [facility] Polysomnogram: Date 08/25/2016; Wt 252# SE 46%; SM 56%; REM 30%; RDI 27 (AHI 23), worse in REM (RDI 65 - AHI 64), Central apneas 0; Obstructive apneas 4; Mixed apneas 0; hypopneas 71; RERAs 12; average oxygen saturation 94% (lowest 75% - with saturations <88% for 5% or more of study); PLMs 0. RBMG Polysomnogram treatment study. Date 09/14/2016. SE 60 % SM 62 %; spent 30 % of the study in REM. At the optimal pressure of 9; RDI 0 (AHI 0), average oxygen saturation was 90%. For the entire study, PLMs ~0. Sleep related hypoventilatio n in conditions classified elsewhere 08/31/2016 Paroxysmal atrial fibrillation 05/07/2016 Overview (06/07/2024): Ablation 10/20; [facility] Warfarin managed by [facility] Assessment & Plan (08/30/2024 12:40 PM EST): Continue warfarin. Denies overt bleeding. Rate controlled. Headache 12/18/2014 Overview (06/07/2024): Rosscm; hypoplastic R vertebralartery Aortic dilatation 04/30/2014 Overview (06/07/2024): 4.1 CM on echo 08/2019 (0.1 cm increase from 2013) CAD (coronary artery disease) 02/04/2014 Overview (06/07/2024): Dr. Wade S/p CABG x 2 12/2013 Assessment & Plan (08/30/2024 12:40 PM EST): Clinically euvolemic. Patient follow-up with cardiology routinely. Continue aspirin, atorvastatin, amlodipine, hydrochlorothiazide. Orders: Ambulatory referral to Cardiology; Future Peptic stricture of esophagus 12/07/2013 BPH (benign prostatic hyperplasia) 03/28/2008 Overview (06/07/2024): [place]; Hydrocoele right (sono 12/09) Glaucoma suspect 03/28/2008 Overview (06/07/2024): [place] RAD (reactive airway disease) 03/28/2008 Hyperlipidemia 05/04/2007 Assessment & Plan (08/30/2024 12:40 PM EST): Follow low-cholesterol diet. Continue atorvastatin. Osteoarthritis of both knees 04/27/2007 Overview (06/07/2024): DJD knees Aortic valve disorder 04/10/2006 Overview (06/07/2024): Aortic sclerosis; Echo 09/07 Hiatal hernia 04/10/2006 Overview (06/07/2024): Dilcia; 09/08; BARBARA NULL update Encounters Date Type Department Care Team Description 09/01/2024 Telephone Fuels Engineer - [facility] [address] [facility] [address] Celena Hammonds [place] Medicare Annual Wellness Visit Subsequent (AWV DUE after 07/07/2024) 08/30/2024 9:45 AM EST Office Visit [facility] [place] [address] Fadi Carmona MD Hypertension, unspecified type (Primary Dx); Hyperlipidemia, unspecified hyperlipidemia type; Hypothyroidism, unspecified type; Paroxysmal atrial fibrillation (CMS/HCC); Peripheral arterial disease (CMS/HCC); Coronary artery disease involving [place] coronary artery of [place] heart without angina pectoris; Lung nodule; Polyp of colon, unspecified part of colon, unspecified type; Prediabetes from Last 3 Months Immunizations Name Administration Dates Next Due H1N1 Inj Preservative Free 05/21/2009 Influenza trivalent, 0.5mL ( Fluad) 65yo and older 03/30/2024,03/18/2023,03/11/2022,04/11,03/27/2021,02/18/2020,04/02/2018 ,04/06/2017,03/29/2015 Influenza trivalent, 0.5mL, preservative free (Fluarix; FluLaval; Fluzone) ages 6mo and older (Afluria) 3 years and older 02/27/2019,03/08/2012,03/20/2011,03/20,04/05/2009,04/28/2008,04/27/2007 Influenza trivalent, with pr eservative (Fluzone; Afluria) 6mo and older 03/06/2021 Influenza, Unspecified 05/20/2021 Pfizer SARS-CoV-2 COVID-19, mRNA, LNP-S, preservative free 03/30/2024,09/19/2023,08/24/2020,08/03 Pneumococcal conjugate 13 va lent (Prevnar 13, PCV13) 2mo and older 02/07/2020,12/18/2014 Pneumococcal polysaccharide 23 valent (Pneumovax 23) 2yo and older 12/07/2013 Respiratory syncytial virus (RSV), unspecified 07/09/2023 Td Tetanus diptheria (Tdvax) 7yo and older 04/06/2017 Tdap Tetanus diptheria acell ular pertussis (Boostrix; Adacel) 7yo and older 02/17/2007 Zoster Live 07/10/2011 Zoster recombinant (Shingrix ) 19yo and older 03/14/2020 Surgical History Surgery Date Site/Laterality Comments OTHER SURGICAL HISTORY 09/03/05 PROCEDURE: IN UNLISTED PROCEDURE DIAPHRAGM; COMMENT: May[place]an OTHER SURGICAL HISTORY PROCEDURE: IN EXPLORATORY LAPAROTOMY CELIOTOMY W/WO BIOPSY SPX OTHER SURGICAL HISTORY 01/10 PROCEDURE: PROSTATE SPEC. AG, SCREEN; COMMENT: 1.6 ESOPHAGOGASTRODUODENOSCOPY 07/28/08 PROCEDURE: IN ESOPHAGOGASTRODUODENOSCOPY TRANSORAL DIAGNOSTIC; COMMENT: erosive esophagitis, esophagea stricture (dilated), gastritis (FORTINO neg) OTHER SURGICAL HISTORY 10/25/08 PROCEDURE: IN EGD BALLOON DILATION ESOPHAGUS <30 MM DIAM; COMMENT: healed erosive esophagitis and adequately dilated stricture; hiatus hernia ESOPHAGOGASTRODUODENOSCOPY 12/12/13 PROCEDURE: IN ESOPHAGOGASTRODUODENOSCOPY TRANSORAL DIAGNOSTIC; COMMENT: hiatus hernia; normal esophageal biopsies OTHER SURGICAL HISTORY 12/2013 PROCEDURE: IN CABG W/ARTERIAL GRAFT TWO ARTERIAL GRAFTS COLONOSCOPY 06/09 PROCEDURE: IN COLONOSCOPY STOMA DX INCLUDING COLLJ SPEC SPX; COMMENT: Joseph; neg (hyperplastic polyp) COLONOSCOPY 04/18/15 PROCEDURE: IN COLONOSCOPY STOMA W/RMVL TONYA POLYP/OTH LES SNARE; COMMENT: tics and adenomas; repeat in 5 yrs Medical History Medical History Date Comments Diaphragmatic hernia without mention of obstruction or gangrene 04/10/2006 DX:Diaphragmatic hernia wit hout mention of obstruction or gangrene; COMMENT: Dilcia; 09/08 Osteoarthrosis, unspecified whether generalized or localized, lower leg 04/27/2007 DX:Osteoarthrosis, unspecified whether generalized or localized, lower leg; COMMENT: DJD Hyperlipidemia 05/04/2007 DX:Hyperlipidemi a Historical Medical DX 03/28/2008 DX:BPH; CO MMENT: [place] RAD (reactive airway disease) 03/28/2008 DX :RAD (reactive airway disease) Aortic valve disorders 04/10/2006 DX:Aortic valve disorders; COMMENT: SBE prophylaxis Glaucoma suspect 03/28/2008 DX:Glaucoma melani pect; COMMENT: [place] Obese 06/06/2009 DX:Obese Spermatocele 12/01/2017 DX:Spermatocele Primary prostate adenocarcin bertrand (CMS/HCC) 01/18/2020 DX:Primary prostate adenocar cinoma (HCC) Carpal tunnel syndrome on both sides 05/28/2020 DX:Carpal tunnel syndrome on both sides; COMMENT: Moderate to severe on EMG/NCT 08/2019 Left Carpal tunnel injection Prediabetes 11/10/2023 DX:Prediabetes Family History Medical History Relation Name Comments Heart attack Brother 3 brothers Diabetes Father Hypertension Mother [place] Lung cancer Sister Relation Name Status Comments Brother Father Mother Sister Social History Tobacco Use Types Packs/Day Years [...] on file Sexual Orientation Not on file Obstetrics History Last Filed Vital Signs Vital Sign Reading [...] Mass Index 33.79 08/30/2024 10:11 AM EST Plan of Treatment Upcoming Encounters Date Type Department Care Team (Late st Contact Info) Description 09/05/2024 10:00 AM EST Telemedicine Fuels Engineer - [address] [phone] 10/21/2024 10:30 AM EDT Consult Vascular Surgery - [place] [address] [place] [phone] Kala Ho PA [address] [place] [address] [place] [phone] 01/19/2025 9:00 AM EDT Office Visit Internal Medicine - [address] [address] Fadi Carmona MD [address] [place] [phone] Health Maintenance Due Date Last Done Comments Social Influencers of Health Screening 06/14/2022 RSV Immunization Patients 60+ Years Old (1 - 1-dose 75+ series) 2023 07/09/2023 COVID-19 Vaccine ( season) 2024 03/30/2024, 09/19/2023, 09/17/2023, Additional history exists Depression Screening 07/07/2024 07/07/2023 Falls Risk Assessment 07/07/2024 07/07/2023 Medicare Annual Wellness Visit 07/07/2024 07/07/2023 Hypertension/CHF/CAD Annual BMP Blood Test 08/30/2025 08/30/2024, 04/14/2024, 04/14/2024, Additional history exists DTaP,Tdap,and Td Vaccines (3 - Td or Tdap) 04/06/2027 04/06/2017, 02/17/2007 Cholesterol Screening (Lipid Panel) 04/14/2029 04/14/2024, 04/14/2024 Hepatitis C Screening Completed 12/07/2013 Zoster Vaccines Completed 05/06/2020, 03/2020, 07/10/2011 RSV Immunization Patients Under 20 months Aged Out 07/09/2023 No longer eligible based on patient's age to complete this topic Influenza Vaccine Completed 03/30/2024, , 03/11/2022, Additional history exists Pneumococcal Vaccine: 50+ Years Completed 08/29/2024, 02/07/2020, 12/18/2014, Additional history exists HIB Vaccines Aged Out No longer eligi ble based on patient's age to complete this topic HPV Vaccines Aged Out No longer eligi ble based on patient's age to complete this topic Hepatitis A Vaccines Aged Out No long er eligible based on patient's age to complete this topic Hepatitis B Vaccines Aged Out No long er eligible based on patient's age to complete this topic IPV Vaccines Aged Out No longer eligi ble based on patient's age to complete this topic MMR Vaccines Aged Out No longer eligi ble based on patient's age to complete this topic Meningococcal ACWY Vaccine Aged Out N o longer eligible based on patient's age to complete this topic Meningococcal B Vacine Aged Out No lo nger eligible based on patient's age to complete this topic Varicella Vaccines Aged Out No longer eligible based on patient's age to complete this topic Procedures Procedure Name Priority Date/Time Associated Diagnosis Comments CBC WITH AUTO DIFFERENTIAL Routine 08/30/2024 11:40 AM EST Hypertension, unspecified type HEMOGLOBIN A1C Routine 08/30/2024 11:40 AM EST Prediabetes CBC AND DIFFERENTIAL Routine 08/30/2024 11:40 AM EST Hypertension, unspecified type BASIC METABOLIC PANEL Routine 08/30/2024 11:40 AM EST Polyp of colon, unspecified part of colon, unspecified type LIPID PANEL Routine 04/14/2024 DEPRESSION SCREENING Routine 07/07/2023 FALLS RISK ASSESSMENT Routine 07/07/2023 HEPATITIS C SCREENING Routine 12/07/2013 from Last 3 Months or Most Recently Relevant to Health Maintenance Results * (ABNORMAL) CBC auto differential (08/30/2024 11:40 AM EST) WBC 5.9 4.8 - 10.8 K/mcL LAB HEMETOLOGY METHOD 08/30/2024 2:[address] [facility] RBC 4.20(L) 4.50 - 5.50 M/mcL LAB HEMETOLOGY METHOD 08/30/2024 2:[address] [facility] Hemoglobin 14.1 13.5 - 17.5 g/dL LAB HEMETOLOGY METHOD 08/30/2024 2:[address] [facility] Hematocrit 42.0 42.0 - 54.0 % LAB HEMETOLOGY METHOD 08/30/2024 2:[address] [facility] MCV 99.1(H) 79.0 - 98.0 FL LAB HEMETOLOGY METHOD 08/30/2024 2:[address] [facility] MCH 33.3(H) 27.0 - 32.0 pcg LAB HEMETOLOGY METHOD 08/30/2024 2:[address] [facility] MCHC 33.6 32.0 - 37.0 g/dL LAB HEMETOLOGY METHOD 08/30/2024 2:[address] [facility] RDW 13.1 11.0 - 15.0 % LAB HEMETOLOGY METHOD 08/30/2024 2:[address] [facility] Platelets 256 130 - 400 K/mcL LAB HEMETOLOGY METHOD 08/30/2024 2:[address] [facility] MPV 9.3 7.0 - 11.0 FL LAB HEMETOLOGY METHOD 08/30/2024 2:[address] [facility] NRBC 0.0 <1.0 % LAB HEMETOLOGY METHOD 08/30/2024 2:[address] [facility] NRBC Absolute 0.00 <0.10 K/mcL LAB HEMETOLOGY METHOD 08/30/2024 2:[address] [facility] Neutrophils Relative 51.9 % LAB HEMETOLOGY METHOD 08/30/2024 2:[address] [facility] Lymphocytes Relative 35.1 % LAB HEMETOLOGY METHOD 08/30/2024 2:[address] [facility] Monocytes Relative 10.1 % LAB HEMETOLOGY METHOD 08/30/2024 2:[address] [facility] Eosinophils Relative 2.0 % LAB HEMETOLOGY METHOD 08/30/2024 2:[address] [facility] Basophils Relative 0.7 % LAB HEMETOLOGY METHOD 08/30/2024 2:[address] [facility] Immature Granulocytes Relative 0.2 % LAB HEMETOLOGY METHOD 08/30/2024 2:[address] [facility] Neutrophils Absolute 3.07 1.50 - 7.00 K/mcL LAB HEMETOLOGY METHOD 08/30/2024 2:[address] [facility] Lymphocytes Absolute 2.08 1.00 - 5.00 K/mcL LAB HEMETOLOGY METHOD 08/30/2024 2:[address] [facility] Monocytes Absolute 0.60 0.20 - 1.00 K/mcL LAB HEMETOLOGY METHOD 08/30/2024 2:[address] [facility] Eosinophils Absolute 0.12 0.00 - 0.50 K/[facility] HEMETOLOGY METHOD 08/30/2024 2:30 PM EST [facility] Basophils Absolute 0.04 0.00 - 0.20 K/[facility] LAB HEMETOLOGY METHOD 08/30/2024 2:30 PM EST [facility] Immature Granulocytes Absolute 0.01 0.00 - 0.03 K/[facility] HEMETOLOGY METHOD 08/30/2024 2:30 PM EST [facility] Blood Venous blood specimen / Unknown Venipuncture / Unknown 08/30/2024 11:40 AM EST 08/30/2024 11:40 AM EST us Fadi Carmona MD LAB BLOOD ORDERABLES [place] l Result Performing Organization Address City/[facility]/ZIP Co de Phone Number [facility] [address] [place] [address], [place] [phone] * Hemoglobin A1c (08/30/2024 11:40 AM EST) Hemoglobin A1C 6.1 <6.5 % LAB CHEMISTRY METHOD 08/30/2024 8:31 PM EST [facility] Mean Bld Glu Estim. 128 mg/dL LAB CHEMISTRY METHOD 08/30/2024 8:31 PM EST [facility] Blood Venous blood specimen / Unknown Venipuncture / Unknown 08/30/2024 11:40 AM EST 08/30/2024 11:40 AM EST us Fadi Carmona MD LAB BLOOD ORDERABLES [place] l Result [facility] [address] [place] [address], [place] [phone] * Basic metabolic panel (08/30/2024 11:40 AM EST) Sodium 138 133 - 145 mmol/L LAB CHEMISTRY METHOD 08/30/2024 3:[address] [facility] Potassium 5.0 3.5 - 5.5 mmol/L LAB CHEMISTRY METHOD 08/30/2024 3:[address] [facility] Chloride 105 96 - 110 mmol/L LAB CHEMISTRY METHOD 08/30/2024 3:[address] [facility] CO2 29 21 - 32 mmol/L LAB CHEMISTRY METHOD 08/30/2024 3:[address] [facility] Anion Gap 4 3 - 11 LAB CHEMISTRY METHOD 08/30/2024 3:[address] [facility] Glucose 100 70 - 100 mg/dL LAB CHEMISTRY METHOD 08/30/2024 3:[address] [facility] BUN 20 5 - 25 mg/dL LAB CHEMISTRY METHOD 08/30/2024 3:[address] [facility] Creatinine 0.79 0.70 - 1.30 mg/dL LAB CHEMISTRY METHOD 08/30/2024 3:[address] [facility] eGFR 92 >=60 mL/min/1. 73m2 LAB CHEMISTRY METHOD 08/30/2024 3:[address] [facility] Comment:Calculation based on the??Chronic Kidney Disease Epidemiology Collaboration (CKD-EPI) equation refit??without adjustment for race. BUN/Creatinine Ratio 25.3 LAB CHEMISTRY METHOD 08/30/2024 3:[address] [facility] Calcium 9.2 8.5 - 10.5 mg/dL LAB CHEMISTRY METHOD 08/30/2024 3:[address] [facility] Blood Venous blood specimen / Unknown Venipuncture / Unknown 08/30/2024 11:40 AM EST 08/30/2024 11:40 AM EST us Fadi Carmona MD LAB BLOOD ORDERABLES [place] tima Result [facility] [address] [place] [address], [place] [phone] * Lipid panel (04/14/2024) [facility] LDL/HDL Ratio 2 0 - 4 Triglycerides 55 0 - 150 mg/dL Cholesterol 166 0 - 200 mg/dL HDL 70 >=40 mg/dL LDL Cholesterol 85 0 - 100 mg/dL Blood Venous blood specimen / Unknown Result [facility] Provider LAB BLOOD ORDERABLES [place] l Result * Falls Risk Assessment (07/07/2023) [facility] Falls Risk Assessment Abstracted [facility] Provider HEALTH MAINTENANCE Final Result * Depression Screening (07/07/2023) [facility] Depression Screening Abstracted [facility] Provider HEALTH MAINTENANCE Final Result * Hepatitis C Screening (12/07/2013) [facility] Hepatitis C Screening Abstracted [facility] Provider HEALTH MAINTENANCE Final Result from Last 3 Months or Most Recently Relevant to Health Maintenance Insurance MEDICARE HUMAN Advance Directives Documents on File Type Date Recorded Patient [employer] Expl anation Health Care Decision (hx) 12/03/2021 AD HAMILTON DIRECTIVE Health Care Decision (hx) 12/03/2021 AD HAMILTON DIRECTIVE Health Care Decision (hx) 12/03/2021 AD HAMILTON DIRECTIVE Health Care Decision (hx) 12/03/2021 AD HAMILTON DIRECTIVE Health Care Decision (hx) 12/03/2021 AD HAMILTON DIRECTIVE Health Care Decision (hx) 12/03/2021 AD HAMILTON DIRECTIVE Health Care Decision (hx) 12/03/2021 AD HAMILTON DIRECTIVE Health Care Decision (hx) 12/03/2021 AD HAMILTON DIRECTIVE Health Care Decision (hx) 12/03/2021 AD HAMILTON DIRECTIVE Health Care Decision (hx) 12/03/2021 AD HAMILTON DIRECTIVE Health Care Decision (hx) 12/03/2021 AD HAMILTON DIRECTIVE Health Care Decision (hx) 12/03/2021 AD HAMILTON DIRECTIVE Health Care Decision (hx) 12/03/2021 AD HAMILTON DIRECTIVE Care Teams Weight Clerk Relationship Specialty Start Date End Date Fadi Carmona MD [address] [place] [phone] PCP - General Internal Medicine 07/03/17
--- OUTSIDE RECORDS SUMMARY | 2024-09-02 09:19 | XMS_ITS | Encounter Summary ---
Author Organization [facility] Address [address] [place] [address] Care Team Providers Care Co Op Name Role Phone Daryl Strickland MD Primary Care Provider Unavail able Fadi Carmona MD Primary Care Provider [phone] Encounter Details Date Type Department Care Team Description 11/18/2004 Orders Only Adult Medicine - [place] [address] [place] [address] Daryl Strickland MD OTHER AND UNSPECIFIED HYPERLIPIDEMIA (Primary Dx) Social History Tobacco Use Types Packs/Day Years Used Date Smoking Tobacco: Never Assessed Sex Assigned at Date Recorded Not on file Job Start Date Occupation Industry Not on file Not on file Not on file documented as of this encounter Plan of Treatment Scheduled Orders Name Type Priority Associated Diagnoses Orde r Schedule VENIPUNCTURE Lab Routine Other And Unspecified Hyperlipidemia Ordered: 11/18/2004 documented as of this encounter Procedures Procedure Name Priority Date/Time Associated Diagnosis Comments TSH Routine 11/18/2004 8:00 AM EDT Other And Unspecified Hyperlipidemia CHG LIPID PANEL Routine 11/18/2004 8:00 AM EDT Other And Unspecified Hyperlipidemia documented in this encounter Results * (ABNORMAL) TSH (11/18/2004 8:00 AM EDT) TSH 4.69(H) 0.40 - 4.00 uIU/ml [facility] 11/18/2004 8:00 AM EDT 11/18/2004 8:01 AM EDT Daryl Strickland MD LAB [facility] [employer] * (ABNORMAL) LIPID PROFILE (11/18/2004 8:00 AM EDT) Cholesterol 253(H) 0 - 200 mg/dL [facility] TRIGLYCERIDES 79 0 - 150 mg/dL [facility] HDL CHOLESTEROL 62 >40 mg/dL [facility] LDL CALCULATED 176(H) 0 - 100 mg/dL [facility] TC-HDLC RATIO 4.1 0 - 4.4 mg/dL [facility] 11/18/2004 8:00 AM EDT 11/18/2004 8:01 AM EDT Daryl Strickland MD LAB Performing Organization Address City/[facility]/ZIP Co de Phone Number [facility] documented in this encounter Visit Diagnoses Diagnosis Other and unspecified hyperlipidemia- Primary documented in this encounter Care Teams Co Op Relationship Specialty Start Date End Date Daryl Strickland MD PCP - General 06/28/01 07/02/17 Fadi Carmona MD [address] [place] [phone] PCP - General Internal Medicine 07/03/17 documented as of this encounter
--- OUTSIDE RECORDS SUMMARY | 2024-09-02 09:19 | XMS_ITS | Encounter Summary ---
Author Organization [facility] Address [address] [place] [address] Care Team Providers Care Broomcorn Press Feeder Name Role Phone Daryl Strickland MD Primary Care Provider Unavail able Fadi Carmona MD Primary Care Provider +1 -[phone] Encounter Details Date Type Department Care Team Description 12/07/2013 Business Doc Medical Records [address] [place] [address] Abstract, Provider Social History Tobacco Use Types Packs/Day Years Used Date Smoking Tobacco: Former Cigarettes 0.8 40 Q uit: 12/08/1988 Smokeless Tobacco: Never Alcohol Use Standard Drinks/Week Comments No 0 (1 standard drink = 0.6 oz pur e alcohol) Sex Assigned at Date Recorded Not on file Job Start Date Occupation Industry Not on file Not on file Not on file documented as of this encounter Plan of Treatment Not on file documented as of this encounter Visit Diagnoses Not on filedocumented in this encounter Care Teams Broomcorn Press Feeder Relationship Specialty Start Date End Date Daryl Strickland MD PCP - General 06/28/01 07/02/17 Fadi Carmona MD [address] [place] [address] PCP - General Internal Medicine 07/03/17 documented as of this encounter
--- OUTSIDE RECORDS SUMMARY | 2024-09-02 09:19 | XMS_ITS | Encounter Summary ---
Author Organization [facility] Address [address] [place] [address] Care Team Providers Care Embossing Machine Operator Helper Name Role Phone Daryl Strickland MD Primary Care Provider [facility] Fadi Carmona MD Primary Care Provider +1 -[phone] Encounter Details Date Type Department Care Team Description 12/14/2013 Hospital Medical Records [address] [place] [address] Law Pedroza MD [address] [place] [address] Social History Tobacco Use Types Packs/Day Years [...] on filedocumented in this encounter Care Teams Embossing Machine Operator Helper Relationship Specialty Start Date End Date Daryl Strickland MD PCP - General 06/28/01 07/02/17 Fadi Carmona MD [address] [place] [address] PCP - General Internal Medicine 07/03/17 documented as of this encounter
--- OUTSIDE RECORDS SUMMARY | 2024-09-02 09:19 | XMS_ITS | Encounter Summary ---
Author Organization [facility] Address [address] [place] [address] Care Team Providers Care Director Voice Name Role Phone Daryl Strickland MD Primary Care Provider [facility] Fadi Carmona MD Primary Care Provider [phone] [phone] Encounter Details Date Type Department Care Team Description 07/25/2014 Assistant News Director Report Medical Records [address] [place] [address] Frank Carpenter MD Social History Tobacco Use [...] on filedocumented in this encounter Care Teams Director Voice Relationship Specialty Start Date End Date Daryl Strickland MD PCP - General 06/28/01 07/02/17 Fadi Carmona MD [address] [place] [address] PCP - General Internal Medicine 07/03/17 documented as of this encounter
--- OUTSIDE RECORDS SUMMARY | 2024-09-02 09:19 | XMS_ITS | Encounter Summary ---
Author Organization [facility] Address [address] [place] [address] Care Team Providers Care Rug Sizer Name Role Phone Daryl Strickland MD Primary Care Provider Unavail able Fadi Carmona MD Primary Care Provider [phone] [phone] Encounter Details Date Type Department Care Team Description 01/23/2014 Prize Fighter Report Medical Records [address] [place] [address] Social History Tobacco Use Types Packs/Day Years [...] on filedocumented in this encounter Care Teams Rug Sizer Relationship Specialty Start Date End Date Daryl Strickland MD PCP - General 06/28/01 07/02/17 Fadi Carmona MD [address] [place] [address] PCP - General Internal Medicine 07/03/17 documented as of this encounter
--- OUTSIDE RECORDS SUMMARY | 2024-09-02 09:19 | XMS_ITS | Encounter Summary ---
Author Organization [facility] Address [address] [place] [address] Care Team Providers Care Lace Finisher Name Role Phone Fadi Carmona MD Primary Care Provider +1 [phone] Encounter Details Date Type Department Care Team Description 01/11/2019 Orders Only Medical Records [address] [place] [address] Rosa Snider PA-C [address] [place] [address] Social History Tobacco Use Types Packs/Day Years [...] on file documented as of this encounter Procedures Procedure Name Priority Date/Time Associated Diagnosis Comments OUTSIDE VASCULAR STUDY Routine 01/05/2019 documented in this encounter Results * OUTSIDE VASCULAR STUDY (01/05/2019) Rosa Snider PA-C CARDIOLOGY documented in this encounter Visit Diagnoses Not on filedocumented in this encounter Care Teams Lace Finisher Relationship Specialty Start Date End Date Fadi Carmona MD [address] [place] [address] PCP - General Internal Medicine 07/03/17 documented as of this encounter
--- OUTSIDE RECORDS SUMMARY | 2024-09-02 09:19 | XMS_ITS | Encounter Summary ---
Author Organization [facility] Address [address] [place] [address] Care Team Providers Care Crop And Soil Technician Name Role Phone Fadi Carmona MD Primary Care Provider +1 -[phone] Encounter Details Date Type Department Care Team Description 12/04/2021 [facility] Medical Records [address] [place] [address] Kaleb Keating MD Social History Tobacco Use Types Packs/Day [...] on filedocumented in this encounter Care Teams Crop And Soil Technician Relationship Specialty Start Date End Date Fadi Carmona MD [address] [place] [address] PCP - General Internal Medicine 07/03/17 documented as of this encounter
--- OUTSIDE RECORDS SUMMARY | 2024-09-02 09:19 | XMS_ITS | Encounter Summary ---
Author Organization [facility] Address [address] [place] [address] Care Team Providers Care Mold Design Engineer Name Role Phone Daryl Strickland MD Primary Care Provider Unavail [facility] Fadi Carmona MD Primary Care Provider [phone] [phone] Encounter Details Date Type Department Care Team Description 12/28/2013 [facility] Medical Records [address] [place] [address] Gaby Acuna Social History Tobacco Use Types Packs/Day Years [...] on filedocumented in this encounter Care Teams Mold Design Engineer Relationship Specialty Start Date End Date Daryl Strickland MD PCP - General 06/28/01 07/02/17 Fadi Carmona MD [address] [place] [address] PCP - General Internal Medicine 07/03/17 documented as of this encounter
--- OUTSIDE RECORDS SUMMARY | 2024-09-02 09:19 | XMS_ITS ---
Author Organization [facility] Address [address] [place] [address] Care Team Providers Care Artist Scientific Name Role Phone Fadi Carmona M.D. Primary Care Provider Unavailable Lc Shana Unavailable [phone] Darshan Ramos Unavailable [phone] REASON FOR VISIT DELIVERY SUPERVISOR PPWK Entered Encounters Encounter Location Date Provider Diagnosis [facility] [address] [place] [address] 05/04/2024 Darshan Ramos Plan Of Treatment Next Appt Details Provider Name:Shana Platt , 10/04/2024 10:15:00 AM, [address] [place], [address], Progress Notes * Vamshi COBOS ADOB:[birth year] (73 yo M)Acc No.[id number]:05/04/2024 Patient:?Vamshi Cobos :1950???Age:73 Y???Sex:Male Address:[address] [place] [address], [place] [address] * true * Date:? Generated for Dirki chaz/Winifred/eTransmitting on:?09/02/2024 09:19 AM EST
--- OUTSIDE RECORDS SUMMARY | 2024-09-02 09:19 | XMS_ITS | Encounter Summary ---
Author Organization [facility] Address [address] [place] [address] Care Team Providers Care Product Marketing Manager Name Role Phone Fadi Carmona MD Primary Care Provider [phone] [phone] Encounter Details Date Type Department Care Team Description 08/04/2018 [facility] Medical Records [address] [place] [address] Social History Tobacco Use Types Packs/Day Years [...] on filedocumented in this encounter Care Teams Product Marketing Manager Relationship Specialty Start Date End Date Fadi Carmona MD [address] [place] [address] PCP - General Internal Medicine 07/03/17 documented as of this encounter
--- OUTSIDE RECORDS SUMMARY | 2024-09-02 09:19 | XMS_ITS ---
Author Organization [facility] Address [address] [place] [address] Care Team Providers Care Toilet Attendant Name Role Phone Fadi Carmona M.D. Primary Care Provider Unavailable Shana Platt Unavailable [phone] Darshan Ramos Unavailable [phone] Allergies Allergen (clinical drug ingredient) Drug/Non Drug Allergy documented on EMR Reaction Allergy Type Onset Date Status Lisinopril Unknown Drug Allergy Active acetaminophen / oxycodone Percocet Unknown Drug Allergy Active Shellfish (FN) Shellfish-derived Products Unknown Drug Allergy Active tramadol Tramadol Unknown Drug Allergy Active hazelnut allergenic extract Hazelnut (Filbert)(Diagnostic) Unknown Drug Allergy Active REASON FOR VISIT last visit pcp 03/06/24, Painful nail(s) aggravated by shoes causing difficulty standing/walking Medications Medication SIG (Take, Route, Fr equency, Duration) Notes Start Date End Date Status Warfarin Sodium Acti ve Atorvastatin Calcium Active hydroCHLOROthiazide Active Levothyroxine Sodium Active amLODIPine Besylate Active Allergy Active Hogeland 3 Active Ketoconazole 2 % 1 application Car Sander ally Once a day for 21 days 05/12/2024 Active Dorzolamide HCl Acti ve Timolol Maleate Acti ve Multivitamin Active Aspirin Active Ventolin HFA Active Omeprazole Active Glucosamine Active Social History Tobacco Use: Social History Observation Description Date Details (start date - stop date) Never Smoker NA - NA Tobacco use other than smoking: Question Answer Notes Are you an other tobacco user? No Tobacco Control (Standard) Question Answer Notes Tobacco use: Nonsmoker Additional Findings: Tobacco non-user Current no nsmoker AUDIT-C (Standard) Question Answer Notes Did you have a drink containing alcohol in the p ast year? No Points 0 Interpretation Negative Vital Signs Height 5 ft 0 in in 07/21/2024 Weight 236 lbs 07/21/2024 BMI 46.09 kg/m2 07/21/2024 Blood pressure systolic 180 mm Hg 07/21/19 25 Blood pressure diastolic 77 mm Hg 025 Procedures Procedure Date Ordered Date Performed Result Body Sit e 17989-PEHUXNR NAIL, 6 OR MORE 07/21/2024 N/A Encounters Encounter Location Date Provider Diagnosis [facility] [address] [address] 07/21/2024 Darshan Ramos Onychomycosis B35.1 ; Pain in right toe(s) M79.674 and Pain in left toe(s) M79.675 Assessments Encounter Date Diagnosis (ICD Code) Assessment Notes Treatment Notes Treatment Clinical Notes Section Notes 07/21/2024 Onychomycosis (ICD-10 - B35.1) 07/21/2024 Pain in right toe(s) (ICD-10 - M79.674) 07/21/2024 Pain in left toe(s) (ICD-10 - M79.675) 07/21/2024 Other Plan Of Treatment Pending Test Test Name Order Date [id number] NAIL, 6 OR MORE 07/21/2024 Next Appt Details Follow Up: 2 Months, Reason: Provider Name:Shana Platt , 10/04/2024 10:15:00 AM, [address] [facility], [place], [address], Procedure Notes * Category Sub-Category Detail Notes Debride Nail 6-10 Nail debridement , Due to the clinical pathology outlined in the exam findings, performance of this nail treatment is medically necessary as its management by an unskilled/untrained nonprofessional would put this patients foot and overall health at risk. Therefore, debridement to affected nail(s), as described in exam TA, T1, T2, T3, T4, T5, T6, T7, T8, T9, was performed exclusively by the physician of record to reduce/remove overall nail length, girth, thickness, subungual debris, and necrotic tissue, by manual and/or electrical means through the use of a nail nipper and/or dremel-type universal grinder operator, to a more viable healthy nail plate or bed tissue 6-10 nails in total. Silver nitrate was used for any petechial bleeding as necessary. Definitive antifungal treatment options, both pharmaceutical and surgical, have been reviewed and discussed with the patient. The patient solely prefers the use of intermittent/as needed professional debridement services for their nail condition and understands the need for additional periodic treatments to maintain effectiveness in symptomatic relief - 248[address] Progress Notes * Vamshi COBOS ADOB:[birth year] (74 yo M)Acc No.[id number]:07/21/2024 Progress Note Patient:?Vamshi COBOS A Provider:?Darshan Ramos D.P.M. :1950???Age:74 Y???Sex:Male Jewel e:07/21/2024 Address:[address] [place] [address] Pcp:Ange Rodriges Subjective: * Chief Complaints: * ???Last visit pcp 03/06/24Pa inful nail(s) aggravated by shoes causing difficulty standing/walking * ROS:?General/Constitutional:?Nausea?denies.?Vomiting?denies.?Hunger Thirst?denies.?Loss appetite?denies.?Chills?denies.?Fatigue?denies.?Fever?denies.?Night Sweats?denies.?Unexplained weight loss?denies.?Unexplained weight gain?denies.?HEENTM:?Dentures?admits.?Dizziness?denies.?Glasses/contacts?admits.?Retinopathy?de nies.?Blurred/double vision?denies.?TMJ?denies.?Discharge/drainage?denies.?Implants?denies.?Sore throat?denies.?Dental implants?denies.?Hard of hearing ?denies.?Difficulty chewing/swallowing/speaking?denies.?Nose bleeds?denies.?Sore mouth?denies.?Respiratory:?On Oxygen?denies.?Pneumonia/pleurisy?denies.?Bronchitis?denies.?Emphysema?denies.?C oughing?denies.?Cough blood?denies.?Shortness of breath?denies.?Wheezing?admits.?Cardiovascular:?Pacemaker?denies.?MVP?denies.?WPW?denies.?CHF?denies.?Heart attack?denies.?Septal defect?denies.?Rapid beat?denies.?Chest pain ?denies.?Atrial Fib.?admits.?Murmur/Palpitations?denies.?Gastrointestinal:?Hemorrhoids?admits.?Stomach/Abdominal pain?denies.?Dark blood stool?denies.?Irritable bowel ?denies.?Constipation?denies.?Diarrhea?denies.?Hematology:?Swelling?denies.?Clots?denies.?Varicose Veins?denies.?Bruising?denies.?Bleeding problem?denies.?Genitourinary:?Blood urine?denies.?Frequent/Painfu/urination/bladder control?denies.?Kidney stones?denies.?Infection (UTI)?denies.?Nephropathy?denies.?sex trans dis (STD)?denies.?Prostate?admits.?Musculoskeletal:?Hammertoes?admits.?Bunions?denies.?Back Pain?denies.?Muscle Cramps/ Resting?denies.?Muscle cramps / walking?denies.?Generalized aches and pains?denies.?Weakness?denies.?Integ.:?Waters?denies.?Scars?denies.?Corns/calluses?admits.?Ingrown nails?denies.?Painful nails?admits.?Open Sores?denies.?Rashes?denies.?Neurologic:?Difficulty sleeping?admits.?Brain disorder?denies.?Numbness?admits.?Balance trouble?denies.?Confusion?denies.?Fainting/blackouts?denies.?Tingling?admits.?Tr emors?denies.? * Medical History:? * Surgical History:?double byp ass * Hospitalization/Major Diagno stic Procedure:?Denies Past Hospitalization * Family History:?Mother: dece ased, diagnosed with Unspecified essential hypertension, Unspecified cerebral artery occlusion with cerebral infarction.?Father: , diagnosed with Diabetic - NIDDM, Other specified conditions influencing health status.? * Social History:?Tobacco Use:?Tobacco use other than smoking?Are you an other tobacco user??No ?Tobacco Control (Standard)?Tobacco use:?Nonsmoker ?Additional Findings: Tobacco non-user?Current nonsmoker ???Drugs/Alcohol:?Drugs?Have you used drugs other than those for medical reasons in the past 12 months??No ???Miscellaneous:?Caffeine: yes, frequency:, 1-2 cups per day. ?Children: yes, 3 (2 are ). ?Exercise: no. ?Marital status: . 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 ???Drug/Alcohol:?AUDIT-C (Standard)?Did you have a drink containing alcohol in the past year??No ?Points?0 ?Interpretation?Negative * Medications:?TakingWarfarin Sodium Levothyroxine Sodium amLODIPine Besylate Atorvastatin Calcium hydroCHLOROthiazide Ventolin HFA Omeprazole Multivitamin Aspirin Glucosamine Allergy Hogeland 3 Dorzolamide HCl Timolol Maleate Ketoconazole 2 % Cream 1 application Externally Once a day Medication List reviewed and reconciled with the patientTaking Warfarin Sodium Taking Levothyroxine Sodium Taking amLODIPine Besylate Taking Atorvastatin Calcium Taking hydroCHLOROthiazide Taking Ventolin HFA Taking Omeprazole Taking Multivitamin Taking Aspirin Taking Glucosamine Taking Allergy Taking Hogeland 3 Taking Dorzolamide HCl Taking Timolol Maleate Taking Ketoconazole 2 % Cream 1 application Externally Once a day Medication List reviewed and reconciled with the patient * Allergies:?Hazelnut (Filbert )(Diagnostic)Shellfish-derived ProductsLisinoprilTramadolPercocetyes[Allergies Verified] Objective: * Vitals:?Ht: 5 ft 0 in, Wt: 2 36, BMI: 46.09, Shoe size: 11.5, BP: 180/77 mm Hg, Ht-cm: 152.4 cm, Wt-k.05 kg. * Examination: ???General Examination: ?GENERAL APPEARANCE:?Reveals a pleasant, alert, well-nourished, well- developed, well hydrated individual, who demonstrates proper attention to hygiene/body habitus, and is in no acute distress, Pt serves as own?historian for office visit today.?ORIENTED:?person, place, and time.?Neurological: ?SENSORY:?Neurological exam reveals intact sensorium, pain sensation normal, vibration sensation intact, pinprick sensation is normal in the lower extremities, Pt denies, anesthesia, burning, paresthesia, tingling, B/L.?TINEL'S COMPRESSION:? Negative, Saphenous nerve distribution.?DEEP TENDON REFLEXES:?Achilles, 2/4, B/L.?Vascular: ?DP PULSES (B):?3/4, B/L.?PT PULSES (B):?2/4, B/L.?CAPILLARY FILL TIME:?immediate, all digits, B/L.?TROPHIC CONDITION-TEXTURE/ELASTICITY/TURGOR/HAIR GROWTH (B):?normal, B/L.?TEMPERTURE GRADIENT (C):?warm to cool, proximal to distal, B/L.?PIGMENTATION:?normal, B/L.?EDEMA (C):?absent, B/L.?Dermatologic: ?SKIN FINDINGS:?Skin exam reveals normal color, texture, elasticity, and turgor. There are no masses, nor excrescences. The interspaces are clear, B/L.?Orthopedic: ?MUSCLE STRENGTH:?5/5 all groups in a symmetrical fashion , B/L.?BUNION:? Medially prominent 1st MPJ,(+) Pain on palpation,inflammation present medially,Lateral tracking 1st MPJ incompletely reducible, LEFT.?FOOTWEAR:? shoe gear properties exacerbate patients foot/toe deformity.?Nails: ?NAILS are:?, Elongated, overgrown, dystrophic, lytic, greater than 3mm thick, discolored and friable with crumbly malodorous subungual debris, with pain on palpation, TA, T1, T2, T3, T4, T5, T6, T7, T8, T9.? Assessment: * Assessment: 1.?Pain in right toe(s) - M7 9.674???2.?Onychomycosis - B35.1 (Primary)???3.?Pain in left toe(s) - M79.675??? Plan: * Treatment: * Procedures:?Debride Nail 6-10:?Nail debridement?, Due to the clinical pathology outlined in the exam findings, performance of this nail treatment is medically necessary as its management by an unskilled/untrained nonprofessional would put this patients foot and overall health at risk. Therefore, debridement to affected nail(s), as described in exam TA, T1, T2, T3, T4, T5, T6, T7, T8, T9, was performed exclusively by the physician of record to reduce/remove overall nail length, girth, thickness, subungual debris, and necrotic tissue, by manual and/or electrical means through the use of a nail nipper and/or dremel-type universal grinder operator, to a more viable healthy nail plate or bed tissue 6-10 nails in total. Silver nitrate was used for any petechial bleeding as necessary. Definitive antifungal treatment options, both pharmaceutical and surgical, have been reviewed and discussed with the patient. The patient solely prefers the use of intermittent/as needed professional debridement services for their nail condition and understands the need for additional periodic treatments to maintain effectiveness in symptomatic relief - [id number].? * Procedure Codes:?92963 DEBRI DE NAIL, 6 OR MORE * Follow Up:?2 Months * Images: * Sign off status: Completed true * Provider:?Darshan Ramos D.P.M. Date:?07/06 Generated for Jaelyn ware/Winifred/[place] on:?09/02/2024 09:18 AM EST History and Physical Notes * Examination Category Sub-Category Detail Notes Category Not es Neurological SENSORY: Neurological exa m reveals intact sensorium, pain sensation normal, vibration sensation intact, pinprick sensation is normal in the lower extremities, Pt denies, anesthesia, burning, paresthesia, tingling, B/L TINEL'S COMPRESSION: Negative, Saphenous nerve distribution DEEP TENDON REFLEXES: Achilles, 2/4, B/L Dermatologic SKIN FINDINGS: Skin exam reveal s normal color, texture, elasticity, and turgor. There are no masses, nor excrescences. The interspaces are clear, B/L ULCER: VERRUCA: INTERDIGITAL TINEA: Orthopedic BUNION: Medially promine nt 1st MPJ, (+) Pain on palpation, inflammation present medially, Lateral tracking 1st MPJ incompletely reducible, LEFT FOOTWEAR: shoe gear properties exacerbate patients foot/toe deformity MUSCLE STRENGTH: 5/5 all groups in a symmetrical fashion , B/L General Examination GENERAL APPEARANCE: Reveals a pleasant, alert, well- nourished, well-developed, well hydrated individual, who demonstrates proper attention to hygiene/body habitus, and is in no acute distress, Pt serves as own historian for office visit today ORIENTED: person, place, and t davey Vascular DP PULSES (B): 3/4, B/L PT PULSES (B): 2/4, B/L CAPILLARY FILL TIME: immediate, all digi ts, B/L TEMPERTURE GRADIENT (C): warm to cool, p roximal to distal, B/L TROPHIC CONDITION-TEXTURE/ELASTICITY/TURGOR/HAIR GROWTH (B): normal, B/L EDEMA (C): absent, B/L PIGMENTATION: normal, B/L Nails NAILS are: , Elongated, ove rgrown, dystrophic, lytic, greater than 3mm thick, discolored and friable with crumbly malodorous subungual debris, with pain on palpation, TA, T1, T2, T3, T4, T5, T6, T7, T8, T9
--- OUTSIDE RECORDS SUMMARY | 2024-09-02 09:19 | XMS_ITS | Encounter Summary ---
Author Organization [facility] Address [address] [place] [address] Care Team Providers Care Scrap Materials Buyer Name Role Phone Daryl Strickland MD Primary Care Provider [facility] Fadi Carmona MD Primary Care Provider +1 [phone] Encounter Details Date Type Department Care Team Description 04/20/2015 Old Medical Records Medical Records [address] [place] [address] Gurdeep Ruiz MD Social History Tobacco Use Types Packs/Day [...] on filedocumented in this encounter Care Teams Scrap Materials Buyer Relationship Specialty Start Date End Date Daryl Strickland MD PCP - General 06/28/01 07/02/17 Fadi Carmona MD [address] [place] [address] PCP - General Internal Medicine 07/03/17 documented as of this encounter
--- OUTSIDE RECORDS SUMMARY | 2024-09-02 09:19 | XMS_ITS | Encounter Summary ---
Author Organization [facility] Address [address] [place] [address] Care Team Providers Care Waiter/Waitress Formal Name Role Phone Fadi Carmona MD Primary Care Provider +1 [phone] Reason for Visit * Reason Onset Date Comments Prior Authorization 12/10/2018 lower extrem ity arterial duplex Encounter Details Date Type Department Care Team Description 12/10/2018 Telephone Adult Medicine - [address] [address] Rosa Snider PA-C [address] [place] [address] Prior Authorization (lower extremity arterial duplex) Social History Tobacco Use Types Packs/Day Years [...] on file documented as of this encounter Miscellaneous Notes * Telephone Encounter - Terri García - 12/10/2018 9:06 AM EDT Medicare & [employer] - no auth req Order sent to [facility] for scheduling. documented in this encounter Plan of Treatment Not on file documented as of this encounter Visit Diagnoses Not on filedocumented in this encounter Care Teams Waiter/Waitress Formal Relationship Specialty Start Date End Date Fadi Carmona MD [address] [place] [address] PCP - General Internal Medicine 07/03/17 documented as of this encounter
--- OUTSIDE RECORDS SUMMARY | 2024-09-02 09:20 | XMS_ITS | Clinical Summary ---
Author Organization [facility] Address [address] [place] [address] Care Team Providers Care Emblem Maker Name Role Phone Fadi Carmona MD Primary Care Provider +1 -[phone] Allergies Active Allergy Reactions Severity Noted Date Comments Lisinopril Cough 04/18/2014 Nuts Swelling/Edema 03/26/2007 lips swell Oxycodone-Acetaminophen 02/09/2017 Shell Fish Hives/Urticaria,Itch in g/Pruritus 03/26/2007 hives and itchy throat Medications Medication Sig Dispensed Refills Start Date End Date Status aspirin 81 MG chewable tablet Take 81 mg by mouth daily. 0 Active CPAP Historical (HISTORICAL CPAP) Inhale into the lungs. [employer]a-pressure 8-16 0 Active Multiple Vitamins-Minerals (MULTIVITAMIN OR) Take by mouth. 0 Act marii Fexofenadine HCl (JONATHAN ALLERGY OR) Take by mouth daily. 0 Active omeprazole (PRILOSEC) 20 MG capsule Take 1 Capsule by mouth 2 times daily (before meals). 60 Capsule 5 12/13/2021 Active docusate sodium (COLACE) 100 MG capsule Take 100 mg by mouth 2 Times Daily. 0 04/10/2022 Active Diclofenac Sodium 1 % GelIndications:Fall at home, initial encounter APPLY 3 G TOPICALLY 3 TIMES DAILY NEEDED (CHEST WALL CONTUSION). 300 g 0 06/19/2022 Active dorzolamide-timolol (COSOPT) 22.3-6.8 MG/ML ophthalmic solution INSTILL 1 DROP INTO BOTH EYES AT BEDTIME 0 03/13/2023 Active ALBUTEROL SULFATE (Ventolin HFA) 108 (90 Base) MCG/ACT Aero Soln Inhale 2 Puffs into the lungs every 6 hours as needed for Cough or Wheezing for up to 30 days. 8.5 g 0 11/09/2023 Active timolol (TIMOPTIC) 0.5 % ophthalmic solution INSTILL 1 DROP INTO BOTH EYES TWICE A DAY 0 12/09/2023 Active dorzolamide (TRUSOPT) 2 % ophthalmic solution INSTILL 1 DROP INTO BOTH EYES TWICE A DAY 0 11/10/[address] Netarsudil-Latanopro st 0.02-0.005 % Solution apply to the eye. 0 Active Glucosamine-Chondroi t-Vit C-Mn (GLUCOSAMINE CHONDR 500 COMPLEX OR) Take by mouth. 0 Activ e levothyroxine (SYNTHROID, LEVOTHROID) 25 MCG tabletIndications:Hy pothyroidism, unspecified type TAKE 1 TABLET BY MOUTH EVERY DAY 90 Tablet 1 03/09/2024 Active hydrochlorothiazide (MICROZIDE) 12.5 MG capsuleIndications:P rimary hypertension TAKE 1 CAPSULE BY MOUTH EVERY DAY IN THE MORNING 90 Capsule 1 03/09/2024 Active warfarin (COUMADIN) 5 MG tablet MAY CAUSE HEAVY BLEEDING. TAKE TABLET BY MOUTH DIRECTED BY COUMADIN CLINIC DAILY AT SAME TIME EVERY DAY. DO NOT CHANGE DIETARY HABITS. 90 Tablet 1 04/18/2024 Active atorvastatin (LIPITOR) 40 MG tablet TAKE 1 TABLET BY MOUTH EVERY DAY 90 Tablet 1 04/18/2024 Active amlodipine (NORVASC) 5 MG tabletIndications:Pr imary hypertension Take 1 Tablet by mouth daily. 90 Tablet 1 04/18/2024 Active Active Problems Problem Noted Date Prediabetes 11/10/2023 Gastroesophageal reflux disease 03/17/20 22 Diaphragmatic hernia 03/17/2022 Peripheral arterial disease 02/21/2021 Overview: FABIANA on 02/2021: Right 50-99% denies any personal stenosis in the right profundofemoral artery 50-99% stenosis in the right superficial femoral artery Left 50 to 99% stenosis in the left superficial femoral artery Carpal tunnel syndrome on both sides Overview: Moderate to severe on EMG/NCT 08/2019 Left Carpal tunnel injection Primary prostate adenocarcinoma 01/18/20 Overview: 11/2019: [place] 7 on biopsy. Put on finasteride RT 09/2020 PMR (polymyalgia rheumatica) 10/12/2019 Overview: Onset 08/2019 Severe obesity with body mass index (BMI ) of 35.0 to 39.9 with comorbidity 02/07/2019 Hypothyroidism 12/10/2018 Spermatocele 12/01/2017 Overview: Right testicular mass biopsy revealed findings consistent the spermatocele POAG (primary open-angle glaucoma) 10/31 Overview: Followed by Dr Gaudencio Moreno Hypertension 07/29/2017 Obstructive sleep apnea moderate overall AHI 23/severe in REM AHI 64 08/31/2016 Overview: [facility] [place]ysomnogram: Date 08/25/2016; Wt 252# SE 46%; SM 56%; REM 30%; RDI 27 (AHI 23), worse in REM (RDI 65 - AHI 64), Central apneas 0; Obstructive apneas 4; Mixed apneas 0; hypopneas 71; RERAs 12; average oxygen saturation 94% (lowest 75% - with saturations <88% for 5% or more of study); PLMs 0. [facility] Polys[facility] treatment study. Date 09/14/2016. SE 60 % SM 62 %; spent 30 % of the study in REM. At the optimal pressure of 9; RDI 0 (AHI 0), average oxygen saturation was 90%. For the entire study, PLMs ~0. Sleep-related hypoventilation 08/31/2016 Paroxysmal atrial fibrillation 6 Overview: Ablation 10/20; [place] Warfarin [place] [facility] [place] [facility] Headache 12/18/2014 Overview: Rosscm; hypoplastic R vertebralartery Aortic dilatation 04/30/2014 Overview: 4.1 CM on echo 08/2019 (0.1 cm increase from 2013) CAD (coronary artery disease) 02/04/2014 Overview: Dr. Wade S/p CABG x 2 12/2013 Peptic stricture of esophagus 12/07/2013 Glaucoma suspect 03/28/2008 Overview: Kina BPH (benign prostatic hyperplasia) 03/28 Overview: [place]; Hydrocoele right (sono 12/09) RAD (reactive airway disease) 03/28/2008 Hyperlipidemia 05/04/2007 Osteoarthritis of both knees 04/27/2007 Overview: DJD knees Hiatal hernia 04/10/2006 Overview: Dilcia; 09/08; BARBARA IMO update AORTIC INSUFFICIENCY 04/10/2006 Overview: Aortic sclerosis; Echo 09/07 Resolved Problems Problem Noted Date Resolved Date Paroxysmal atrial fibrillation 03/17/2022 1 Obesity 03/17/2022 04/17/2022 Class 1 obesity 03/17/2022 04/17/2022 Hypertension 03/17/2022 04/17/2022 Hyperlipidemia 03/17/2022 04/17/2022 Atherosclerosis of coronary artery 03/17/2022 04/17/2022 Benign prostatic hyperplasia 03/17/2022 Stricture of esophagus 03/17/2022 Ex-cigarette smoker 03/17/2022 11/10/[address] scan, chest 04/18/2014 04/17/20 22 Overview: LLL scaring Cough due to EYAL inhibitor 04/18/201411/09 Obese 06/06/2009 06/18/2012 Immunizations Name Administration Dates Next Due Arexvy (RSV) PT reported 07/09/2023 COVID-19 (Pfizer) 03/30/2024, 4,09/17/2023,03/26,10/06/2021,02/17/2021 COVID-19 (Pfizer) Pt Reported 03/30/2024 ,09/19/2023,10/06/2021,02/17,08/24/2020,08/03/2020 Flu (Generic) 03/06/2021 Flu Vaccine 3 Yrs> Im 03/30/2024 Influenza (> 6 Months) 02/27/2019,2011,03/20/2011,03/20,04/05/2009,04/28/2008,04/27/2007 Influenza Flu (PT Reported) 05/20/2021 Influenza H1N1 Pandemic Flu Vaccine 05/21/2009 Influenza vaccine high dose age 65 and over 03/30/2024,03/18/2023,03/11/2022,04/11,03/27/2021,02/18/2020,04/02/2018 ,04/06/2017,03/29/2015 Pneumoccoccal(Adult) Polysac charide PPSV23 12/07/2013 Pneumococcal Conjugate PCV-13 02/07/2020, 015 Shingrix (Patient reported) 03/14/2020 TD (STATE SUPPLIED FOR ADULT S AND CHILDREN) 04/06/2017 Tdap 02/17/2007 Zostavax 07/10/2011 Family History Medical History Relation Name Comments SD Brother 3 brothers Diabetes Father Hypertension Mother [place] Cancer of the Lung Sister Relation Name Status Comments Brother Father [...] file Not on file Not on file Last Filed Vital Signs Vital Sign Reading Time Taken Comments Blood Pressure 110/70 04/29/2024 10:42 AM EDT Pulse 60 04/29/2024 10:42 AM EDT Temperature 35.4 ??C (95.8 ??F) 02/15/2024 11:11 AM E DT Respiratory Rate 16 04/29/2024 10:42 AM EDT Oxygen Saturation 97% 02/15/2024 11:11 AM EDT Inhaled Oxygen Concentration - - Weight 105.2 kg (232 lb) 04/29/2024 10:42 AM EDT Height 177.8 cm (5' 10 ) 04/29/2024 10:42 AM EDT Body Mass Index 33.29 04/29/2024 10:42 AM EDT Plan of Treatment Health Maintenance Due Date Last Done Comments Covid-19 Vaccine ( season) 2024 03/30/2024, 03/30/2024, 09/19/2023, Additional history exists BMI CHECK/ADVISE 07/06/2024 04/11/2024, 08/2023, 03/18/2023, Additional history exists DEPRESSION SCREEN 07/07/2024 07/07/2023, , 06/27/2021, Additional history exists FALL RISK ASSESSMENT 07/07/2024 07/07/2023 (Completed), 06/27/2022, 06/27/2021, Additional history exists SHINGLES VACCINE (3 of 3) 04/27/2025 03/14/2020, 11/2011 Postponed from 05/09/2020 (Other Circumstances) DTAP/TDAP/TD (3 - Td or Tdap) 04/06/2027 04/06/2017, 02/17/2007 CHOLESTEROL SCREENING 04/14/2029 04/14/2024 , 03/19/2023, 02/26/2022, Additional history exists HEPATITIS C SCREENING Completed 12/07/2013 PNEUMOCOCCAL VACCINE Completed 02/07/2020, 12/18/2014, 12/07/2013 INFLUENZA Completed 03/30/2024, 03/07, 03/18/2023, Additional history exists Guarantor Name Account Type Relation to Patient Date of Phone Billing Address Vamshi Cobos Personal/Family Self [address] [place] [address] Vamshi Cobos [facility] - Cardiology Self [address] [place] [address] Care Teams Emblem Maker Relationship Specialty Start Date End Date Fadi Carmona MD [address] [place] [address] PCP - General Internal Medicine 07/03/17
--- OUTSIDE RECORDS SUMMARY | 2024-09-02 09:20 | XMS_ITS | Encounter Summary ---
Author Organization [facility] Address [address] [place] [address] Care Team Providers Care Or Assistant Name Role Phone Fadi Carmona MD Primary Care Provider [phone] [phone] Reason for Visit * Reason Onset Date Comments DME Request 09/05/2022 Encounter Details Date Type Department Care Team Description 09/05/2022 Telephone Pulmonology - [place] [address] [address] Jaymie Lewis MD [address] [address] DME Request Social History Tobacco Use Types Packs/Day [...] Exposure Response Date Recorded In the last 10 days, have yo u been in contact with someone who was confirmed or suspected to have Coronavirus/COVID-19? No / Unsure 09/05/2022 9:43 AM EST documented as of this encounter Miscellaneous Notes * Telephone Encounter - Ping Le - 09/10/2022 10:49 AM EST 2nd attempt faxed to [facility], confirmation received * Telephone Encounter - Ping Le - 09/10/2022 9:34 AM EST Patient called he had called [facility] they told him they have not received anything I called [facility] lady I spoke with stated they have not received anything even thought I have confirmation, she replied I understant but they have been time where I fax over things to your office I received confirmation and you guys dont get it. I'm faxing over this again at this time. * Telephone Encounter - Ping Le - 09/05/2022 10:41 AM EST Cpap order sent to [facility], confirmation received documented in this encounter Plan of Treatment Not on file documented as of this encounter Visit Diagnoses Not on filedocumented in this encounter Care Teams Or Assistant Relationship Specialty Start Date End Date Fadi Carmona MD [address] [place] [address] PCP - General Internal Medicine 07/03/17 documented as of this encounter
--- OUTSIDE RECORDS SUMMARY | 2024-09-02 09:20 | XMS_ITS | Encounter Summary ---
Author Organization [facility] Address [address] [place] [address] Care Team Providers Care Occupational Therapy Assistant Name Role Phone Fadi Carmona MD Primary Care Provider +1 [phone] Encounter Details Date Type Department Care Team Description 10/28/2019 Hydration Plant Operator Report Medical Records [address] [place] [address] Johnny Owens MD Social History Tobacco Use [...] on filedocumented in this encounter Care Teams Occupational Therapy Assistant Relationship Specialty Start Date End Date Fadi Carmona MD [address] [place] [address] PCP - General Internal Medicine 07/03/17 documented as of this encounter
--- OUTSIDE RECORDS SUMMARY | 2024-09-02 09:20 | XMS_ITS | Encounter Summary ---
Author Organization [facility] Address [address] [place] [address] Care Team Providers Care Assurance Officer Name Role Phone Daryl Strickland MD Primary Care Provider Unavail able Fadi Carmona MD Primary Care Provider [phone] [phone] Encounter Details Date Type Department Care Team Description 05/08/2016 Transfer Records Medical Records [address] [place] [address] Abstract, Provider Social History Tobacco Use Types Packs/Day Years Used Date Smoking Tobacco: Former Cigarettes 0.8 40 Q uit: 12/08/1988 Smokeless Tobacco: Never Alcohol Use Standard Drinks/Week Comments Yes 0 (1 standard drink = 0.6 oz pur e alcohol) occ Sex Assigned at Date Recorded Not on file Job Start Date Occupation Industry Not on file Not on file Not on file documented as of this encounter Plan of Treatment Not on file documented as of this encounter Visit Diagnoses Not on filedocumented in this encounter Care Teams Assurance Officer Relationship Specialty Start Date End Date Daryl Strickland MD PCP - General 06/28/01 07/02/17 Fadi Carmona MD [address] [place] [address] PCP - General Internal Medicine 07/03/17 documented as of this encounter
--- OUTSIDE RECORDS SUMMARY | 2024-09-02 09:20 | XMS_ITS | Patient Health Record ---
Author [facility] Address [address] [place] [address] Care Team Providers Care Night Court Magistrate Name Role Phone Fadi Carmona M.D. Primary Care Provider Unavailable Shana Platt Unavailable [phone] Darshan Ramos Unavailable [phone] Allergies Allergen (clinical drug ingredient) Drug/Non Drug Allergy documented on EMR Reaction Allergy Type Onset Date Status Lisinopril Unknown Drug Allergy Active Percocet Unknown Drug Allergy Active Shellfish (FN) Shellfish-derived Products Unknown Drug Allergy Active tramadol Tramadol Unknown Drug Allergy Active Hazelnut (Filbert)(Diagnostic) Unknown Drug Allergy Active Reason For Referral No Information Medications Medication SIG (Take, Route, Fr equency, Duration) Notes Start Date End Date Status Multivitamin Active Aspirin Active Ventolin HFA Active Omeprazole Active Warfarin Sodium Acti ve Glucosamine Active Allergy Active [place] 3 Active Atorvastatin Calcium Active Ketoconazole 2 % 1 application Chief Hydroelectric Station Operator ally Once a day for 21 days 05/12/2024 Active hydroCHLOROthiazide Active Levothyroxine Sodium Active Dorzolamide HCl Acti ve amLODIPine Besylate Active Timolol Maleate Acti ve Social History Tobacco Use: Social History Observation [...] ast year? No Points 0 Interpretation Negative Problems Problem Type SNOMED Code ICD Code Onset Dates Problem Status W/U Status Risk Notes Problem Acquired hallux valgus (36092936) Hallux valgus (acquired), left foot (M20.12) Active confirmed Problem Acquired hammer toe of left foot (5824326383863 103) Other hammer toe(s) (acquired), left foot (M20.42) Active confirmed Vital Signs Blood pressure diastolic 77 mm Hg 07/21/2024 Height 5 ft 0 in in 07/21/2024 Blood pressure systolic 180 mm Hg 07/21/2024 Weight 236 lbs 07/21/2024 BMI 46.09 kg/m2 07/21/2024 Procedures Procedure Date Ordered Date Performed Result Body Sit e 20499-WLBPYDM NAIL, 6 OR MORE 05/12/2024 N/A [id number]-[id number] NAIL, OR MORE 07/21/2024 N/A Encounters Encounter Location Date Provider Diagnosis [address] [address] 05/12/2024 Darshan Ramos Onychomycosis B35.1 ; Pain in right toe(s) M79.674 ; Pain in left toe(s) M79.675 ; Pain in left foot M79.672 ; Hallux valgus (acquired), left foot M20.12 and Tinea pedis of both feet B35.[address] [facility] [address] 07/21/2024 Darshan Ramos Onychomycosis B35.1 ; Pain in right toe(s) M79.674 and Pain in left toe(s) M79.675 [facility] [address] [place] [address] 05/04/2024 Darshan Ramos Assessments Encounter Date Diagnosis (ICD Code) Assessment Notes Treatment Notes Treatment Clinical Notes Section Notes 05/12/2024 Onychomycosis (ICD-10 - B35.1) 07/21/2024 Pain in right toe(s) (ICD-10 - M79.674) 07/21/2024 Onychomycosis (ICD-10 - B35.1) 07/21/2024 Pain in left toe(s) (ICD-10 - M79.675) 05/12/2024 Pain in right toe(s) (ICD-10 - M79.674) 05/12/2024 Pain in left toe(s) (ICD-10 - M79.675) 05/12/2024 Pain in left foot (ICD-10 - M79.672) 05/12/2024 Hallux valgus (acquired), left foot (ICD-10 - M20.12) 05/12/2024 Tinea pedis of both feet (ICD-10 - B35.3) Application of Castillani's paint to 1-4 interspaces B/L 07/21/2024 Other Plan Of Treatment Pending Test Test Name Order Date [id number] NAIL, 6 OR MORE 05/12/2024 27632-[id number] NAIL, 6 OR MORE 07/21/2024 Next Appt Details Provider Name:Shana Platt , 10/04/2024 10:15:00 AM, [address] [facility], [place], [address], Insurance Providers Payer Name Payer Address Payer Phone Subscriber Number Group Number Insured Name Patient Relationship to Insured Coverage Start Date Coverage End Date Medicare National [facility] [address] [place] [address] [phone] [id number] Vamshi Cobos Self - patient is the insured [employer] [address] [address] [place] [address] [phone] [id number] Vamshi Cobos Self - patient is the insured Medical (General) History Medical History History ICD Code Arthritis asthma Back,Hip,and Knee pain CAD (Cholesterol) Glaucoma High Blood Pressure Numbness Reflux ( GERD) Measles Mumps Chicken pox Vascular grafts Hernia Surgical History Surgery Date(Month/Year) double bypass
--- OUTSIDE RECORDS SUMMARY | 2024-09-02 09:20 | XMS_ITS | Encounter Summary ---
Author Organization [facility] Address [address] [place] [address] Care Team Providers Care Bpm Developer Name Role Phone Fadi Carmona MD Primary Care Provider [phone] [phone] Encounter Details Date Type Department Care Team Description 10/28/2023 Snuff Drier Report Medical Records [address] [place] [address] Abstract, Provider Social History Tobacco Use Types [...] on filedocumented in this encounter Care Teams Bpm Developer Relationship Specialty Start Date End Date Fadi Carmona MD [address] [place] [address] PCP - General Internal Medicine 07/03/17 documented as of this encounter
--- OUTSIDE RECORDS SUMMARY | 2024-09-02 09:20 | XMS_ITS | Encounter Summary ---
Author Organization [facility] Address [address] [place] [address] Care Team Providers Care Crepe Sole Scourer Name Role Phone Fadi Carmona MD Primary Care Provider [phone] [phone] Reason for Visit * Reason Onset Date Comments Sleep Study 08/06/2022 Sleep study refe rral faxed to [facility] Encounter Details Date Type Department Care Team Description 08/06/2022 Telephone Pulmonology - [place] [address] [address] Jaymie Lewis MD [address] [address] Sleep Study (Sleep study referral faxed to [facility] ) Social History Tobacco Use Types Packs/Day Years [...] suspected to have Coronavirus/COVID-19? No / Unsure 08/06/2022 9:24 AM EST documented as of this encounter Plan of Treatment Not on file documented as of this encounter Visit Diagnoses Not on filedocumented in this encounter Care Teams Crepe Sole Scourer Relationship Specialty Start Date End Date Fadi Carmona MD [address] [place] [address] PCP - General Internal Medicine 07/03/17 documented as of this encounter
--- OUTSIDE RECORDS SUMMARY | 2024-09-02 09:20 | XMS_ITS | Encounter Summary ---
Author Organization [facility] Address [address] [place] [address] Care Team Providers Care Roping Tender Name Role Phone Fadi Carmona MD Primary Care Provider [phone] [phone] Encounter Details Date Type Department Care Team Description 07/17/2023 Transfer Records Medical Records [address] [place] [address] Vascular, [facility] [address] [place] [address] Social History Tobacco Use Types Packs/Day Years [...] on filedocumented in this encounter Care Teams Roping Tender Relationship Specialty Start Date End Date Fadi Carmona MD [address] [place] [address] PCP - General Internal Medicine 07/03/17 documented as of this encounter
--- OUTSIDE RECORDS SUMMARY | 2024-09-02 09:20 | XMS_ITS | Encounter Summary ---
Author Organization [facility] Address [address] [place] [address] Care Team Providers Care Dermatology Sales Representative Name Role Phone Daryl Strickland MD Primary Care Provider [facility] Fadi Carmona MD Primary Care Provider [phone] [phone] Encounter Details Date Type Department Care Team Description 03/30/2017 Service Captain Report Medical Records [address] [place] [address] Marielena Mcqueen MD Social History Tobacco Use [...] on filedocumented in this encounter Care Teams Dermatology Sales Representative Relationship Specialty Start Date End Date Daryl Strickland MD PCP - General 06/28/01 07/02/17 Fadi Carmona MD [address] [place] [address] PCP - General Internal Medicine 07/03/17 documented as of this encounter
--- OUTSIDE RECORDS SUMMARY | 2024-09-02 09:20 | XMS_ITS | Encounter Summary ---
Author Organization [facility] Address [address] [place] [address] Care Team Providers Care Metrology Technician Name Role Phone Fadi Carmona MD Primary Care Provider +1 -[phone] Encounter Details Date Type Department Care Team Description 08/27/2020 [facility] Medical Records [address] [place] [address] Johnny Owens MD Social History Tobacco Use [...] have Coronavirus / COVID-19? No / Unsure 08/29/2020 8:56 AM EST documented as of this encounter Plan of Treatment Not on file documented as of this encounter Visit Diagnoses Not on filedocumented in this encounter Care Teams Metrology Technician Relationship Specialty Start Date End Date Fadi Carmona MD [address] [place] [address] PCP - General Internal Medicine 07/03/17 documented as of this encounter
--- OUTSIDE RECORDS SUMMARY | 2024-09-02 09:20 | XMS_ITS | Encounter Summary ---
Author Organization [facility] Address [address] [place] [address] Care Team Providers Care Wide Area Network Engineer Name Role Phone Fadi Carmona MD Primary Care Provider +1 -[phone] Reason for Visit * Reason Onset Date Comments Prior Authorization 07/22/2023 Ct scan of c hest Encounter Details Date Type Department Care Team Description 07/22/2023 Telephone Pulmonology - [place] [address] [address] Jaymie Lewis MD [address] [address] Prior Authorization (Ct scan of chest) Social History Tobacco Use Types Packs/Day Years [...] encounter Miscellaneous Notes * Telephone Encounter - Tirny Krishnamurthy - 07/30/2023 1:44 PM EST [facility]/[employer] - [place] [id number] * Telephone Encounter - Tabitha Wolf - 07/22/2023 3:56 PM EST Can you please give me the authorization for this ct scan of the chest ordered on 04/2023 and patient hasn't done yet thanks documented in this encounter Plan of Treatment Not on file documented as of this encounter Visit Diagnoses Not on filedocumented in this encounter Care Teams Wide Area Network Engineer Relationship Specialty Start Date End Date Fadi Carmona MD [address] [place] [address] PCP - General Internal Medicine 07/03/17 documented as of this encounter
--- OUTSIDE RECORDS SUMMARY | 2024-09-02 09:20 | XMS_ITS | Encounter Summary ---
Author Organization [facility] Address [address] [place] [address] Care Team Providers Care Single Stayer Operator Name Role Phone Fadi Carmona MD Primary Care Provider [phone] [phone] Encounter Details Date Type Department Care Team Description 09/16/2023 Frame Hand Report Medical Records [address] [place] [address] Johnny Owens MD Social History Tobacco Use [...] on filedocumented in this encounter Care Teams Single Stayer Operator Relationship Specialty Start Date End Date Fadi Carmona MD [address] [place] [address] PCP - General Internal Medicine 07/03/17 documented as of this encounter
--- OUTSIDE RECORDS SUMMARY | 2024-09-02 09:20 | XMS_ITS | Encounter Summary ---
Author Organization [facility] Address [address] [place] [address] Care Team Providers Care Vat Tender Name Role Phone Fadi Carmona MD Primary Care Provider +1 -[phone] Encounter Details Date Type Department Care Team Description 11/28/2020 Vineyard Supervisor Report Medical Records [address] [place] [address] Tita Tinoco MD Social History Tobacco Use Types Packs/Day [...] have Coronavirus / COVID-19? No / Unsure 11/26/2020 8:57 AM EDT documented as of this encounter Plan of Treatment Not on file documented as of this encounter Visit Diagnoses Not on filedocumented in this encounter Care Teams Vat Tender Relationship Specialty Start Date End Date Fadi Carmona MD [address] [place] [address] PCP - General Internal Medicine 07/03/17 documented as of this encounter
--- OUTSIDE RECORDS SUMMARY | 2024-09-02 09:20 | XMS_ITS | Encounter Summary ---
Author Organization [facility] Address [address] [place] [address] Care Team Providers Care Rock Wool Applicator Name Role Phone Daryl Strickland MD Primary Care Provider Unavail able Fadi Carmona MD Primary Care Provider +1 -[phone] Encounter Details Date Type Department Care Team Description 06/20/2010 Gummed Tape Press Operator Report Medical Records [address] [place] [address] Frank Carpenter MD Social History Tobacco Use Types Packs/Day Years Used Date Smoking Tobacco: Former Cigarettes Q uit: 12/08/1988 Alcohol Use Standard Drinks/Week Comments No 0 [...] on filedocumented in this encounter Care Teams Rock Wool Applicator Relationship Specialty Start Date End Date Daryl Strickland MD PCP - General 06/28/01 07/02/17 Fadi Carmona MD [address] [place] [address] PCP - General Internal Medicine 07/03/17 documented as of this encounter
--- OUTSIDE RECORDS SUMMARY | 2024-09-02 09:20 | XMS_ITS | Encounter Summary ---
Author Organization [facility] Address [address] [place] [address] Care Team Providers Care Android Programmer Name Role Phone Fadi Carmona MD Primary Care Provider +1 -[phone] Encounter Details Date Type Department Care Team Description 12/07/2023 Orders Only Medical Records [address] [place] [address] Kaleb Keating MD Social History Tobacco Use [...] Name Priority Date/Time Associated Diagnosis Comments OUTSIDE PLAIN FILM Routine 12/01/2023 documented in this encounter Results * OUTSIDE PLAIN FILM (12/01/2023) Kaleb Keating MD RADIOLOGY documented in this encounter Visit Diagnoses Not on filedocumented in this encounter Care Teams Android Programmer Relationship Specialty Start Date End Date Fadi Carmona MD [address] [place] [address] PCP - General Internal Medicine 07/03/17 documented as of this encounter
--- OUTSIDE RECORDS SUMMARY | 2024-09-02 09:20 | XMS_ITS | Encounter Summary ---
Author Organization [facility] Address [address] [place] [address] Care Team Providers Care Compliance Review Officer Name Role Phone Fadi Carmona MD Primary Care Provider +1 -[phone] Encounter Details Date Type Department Care Team Description 05/16/2020 Sales Service Route Manager Report Medical Records [address] [place] [address] Tita Tinoco MD Social History Tobacco Use [...] have Coronavirus / COVID-19? No / Unsure 05/16/2020 9:18 AM EST documented as of this encounter Plan of Treatment Not on file documented as of this encounter Visit Diagnoses Not on filedocumented in this encounter Care Teams Compliance Review Officer Relationship Specialty Start Date End Date Fadi Carmona MD [address] [place] [address] PCP - General Internal Medicine 07/03/17 documented as of this encounter
--- OUTSIDE RECORDS SUMMARY | 2024-09-02 09:20 | XMS_ITS | Encounter Summary ---
Author Organization [facility] Address [address] [place] [address] Care Team Providers Care Mold Maker Helper Name Role Phone Fadi Carmona MD Primary Care Provider +1 -[phone] Reason for Visit * Reason Onset Date Comments medication problems 12/17/2023 Encounter Details Date Type Department Care Team Description 12/17/2023 Telephone Adult Medicine [address] [id number] Fadi Carmona MD [address] [place] [address] medication problems Social History Tobacco Use Types Packs/Day Years [...] Miscellaneous Notes * Telephone Encounter - Teresa Dawn CMA - 12/17/2023 2:47 PM EDT Spoke with Aaron at [facility], the prescription is all set and they are able to fill it. FYI. * Telephone Encounter - Emelia Dan NP - 12/17/2023 1:23 PM EDT Prescription sent, please call pharmacy to confirm receipt and that they will fill it. * Telephone Encounter - Graciela Hartley M.A. - 12/17/2023 1:09 PM EDT Called pharmacy and sig isn't specified enough. Rx set up again. Please sign then inform patient, thank you. * Telephone Encounter - Dallas Crandall - 12/17/2023 11:47 AM EDT Who is calling? The patient Name of the medication Warfarin What is the specific problem or interaction? Pt was wondering why his medication was refused. Pls advise. If the patient is having a problem with taking the med - how long has the problem been going on? N/A documented in this encounter Plan of Treatment Not on file documented as of this encounter Visit Diagnoses Not on filedocumented in this encounter Care Teams Mold Maker Helper Relationship Specialty Start Date End Date Fadi Carmona MD [address] [place] [address] PCP - General Internal Medicine 07/03/17 documented as of this encounter
--- OUTSIDE RECORDS SUMMARY | 2024-09-02 09:20 | XMS_ITS | Encounter Summary ---
Author Organization [facility] Address [address] [place] [address] Care Team Providers Care Java Development Team Lead Name Role Phone Daryl Strickland MD Primary Care Provider Unavail [facility] Fadi Carmona MD Primary Care Provider +1 -[phone] Encounter Details Date Type Department Care Team Description 04/24/2017 Flap Presser Report Medical Records [address] [place] [address] Johnny Owens MD Social History Tobacco Use [...] on filedocumented in this encounter Care Teams Java Development Team Lead Relationship Specialty Start Date End Date Daryl Strickland MD PCP - General 06/28/01 07/02/17 Fadi Carmona MD [address] [place] [address] PCP - General Internal Medicine 07/03/17 documented as of this encounter
--- OUTSIDE RECORDS SUMMARY | 2024-09-02 09:20 | XMS_ITS | Encounter Summary ---
Author Organization [facility] Address [address] [place] [address] Care Team Providers Care Tester Operator Helper Name Role Phone Daryl Strickland MD Primary Care Provider Unavail able Fadi Carmona MD Primary Care Provider +1 -[phone] Encounter Details Date Type Department Care Team Description 05/23/2016 Manager Clinical Research Report Medical Records [address] [place] [address] Connie Medrano Social History Tobacco Use Types Packs/Day Years [...] on filedocumented in this encounter Care Teams Tester Operator Helper Relationship Specialty Start Date End Date Daryl Strickland MD PCP - General 06/28/01 07/02/17 Fadi Carmona MD [address] [place] [address] PCP - General Internal Medicine 07/03/17 documented as of this encounter
--- OUTSIDE RECORDS SUMMARY | 2024-09-02 09:20 | XMS_ITS | Encounter Summary ---
Author Organization [facility] Address [address] [place] [address] Care Team Providers Care Operator Automated Process Name Role Phone Fadi Carmona MD Primary Care Provider +1 -[phone] Reason for Referral * Non SUZI (Routine) - Closed Specialty Diagnoses / Procedures Referred By Yeimi villanueva Referred To Contact Gastroenterology Procedures REFERRAL TO GASTROENTEROLOGY Fadi Carmona MD [address] [place] [address] Gastro [place]/[address] [address] Referral ID Status Reason Start Date Expiration Date V isits Requested Visits Authorized [id number] Closed 02/28/2020 02/27/2021 1 1 Reason for Visit * Reason Onset Date Comments Appointment-Internal Referral 02/28/2020 Encounter Details Date Type Department Care Team Description 02/28/2020 Telephone Adult Medicine B - [address] [address] Fadi Carmona MD [address] [place] [address] Appointment-Internal Referral Social History Tobacco Use Types Packs/Day Years [...] encounter Miscellaneous Notes * Telephone Encounter - Fadi Carmona MD - 02/28/2020 12:04 PM EDT Referral to GI signed. * Telephone Encounter - Fabiana Wagoner - 02/28/2020 11:35 AM EDT Please review this patients new referral request. The referral has been pended. Please complete thefollowing: If approved> sign order If denied>please give instructions and route to your practice nursing pool. Practice nurse should inform referrals and the patient if denied. * Telephone Encounter - Ashia Nice - 02/28/2020 11:15 AM EDT Request for a referral to a Jeannine Specialist for a patient with a Jeannine PCP. If patient does NOT have a Jeannine PCP they must obtain a referral from their PCP before being seen-do not submit request to Referrals department-contact patient. Specialty patient is being referred to: Gastro Name of Specialist patient is seeing: Dr.Mark Templeton Reason/diagnosis for visit: Colonoscopy Date of appoinment: TBD If retro, date referral needs to start: Fadi Carmona [place] / [place] / Product Type: MEDICARE [id number] documented in this encounter Plan of Treatment Not on file documented as of this encounter Visit Diagnoses Not on filedocumented in this encounter Care Teams Operator Automated Process Relationship Specialty Start Date End Date Fadi Carmona MD [address] [place] [address] PCP - General Internal Medicine 07/03/17 documented as of this encounter
--- OUTSIDE RECORDS SUMMARY | 2024-09-02 09:20 | XMS_ITS | Encounter Summary ---
Author Organization [facility] Address [address] [place] [address] Care Team Providers Care Cart Driver Name Role Phone Fadi Carmona MD Primary Care Provider +1 -[phone] Encounter Details Date Type Department Care Team Description 06/20/2020 Bath Design Sales Consultant Report Medical Records [address] [place] [address] Johnny Owens MD Social History Tobacco Use [...] have Coronavirus / COVID-19? No / Unsure 05/28/2020 10:25 AM EST documented as of this encounter Plan of Treatment Not on file documented as of this encounter Visit Diagnoses Not on filedocumented in this encounter Care Teams Cart Driver Relationship Specialty Start Date End Date Fadi Carmona MD [address] [place] [address] PCP - General Internal Medicine 07/03/17 documented as of this encounter
--- OUTSIDE RECORDS SUMMARY | 2024-09-02 09:20 | XMS_ITS | Encounter Summary ---
Author Organization [facility] Address [address] [place] [address] Care Team Providers Care Fundraiser Name Role Phone Daryl Strickland MD Primary Care Provider Unavail able Fadi Carmona MD Primary Care Provider +1 -[phone] Encounter Details Date Type Department Care Team Description 05/02/2016 [facility] Medical Records [address] [place] [address] Roro Patel MD Social History Tobacco Use Types Packs/Day [...] on filedocumented in this encounter Care Teams Fundraiser Relationship Specialty Start Date End Date Daryl Strickland MD PCP - General 06/28/01 07/02/17 Fadi Carmona MD [address] [place] [address] PCP - General Internal Medicine 07/03/17 documented as of this encounter
--- OUTSIDE RECORDS SUMMARY | 2024-09-02 09:20 | XMS_ITS | Encounter Summary ---
Author Organization [facility] Address [address] [place] [address] Care Team Providers Care In Store Marketer Name Role Phone Fadi Carmona MD Primary Care Provider +1 -[phone] Encounter Details Date Type Department Care Team Description 06/04/2022 Jewelry Bench Molder Report Medical Records [address] [place] [address] Kaleb Keating MD Social History Tobacco Use [...] on filedocumented in this encounter Care Teams In Store Marketer Relationship Specialty Start Date End Date Fadi Carmona MD [address] [place] [address] PCP - General Internal Medicine 07/03/17 documented as of this encounter
--- OUTSIDE RECORDS SUMMARY | 2024-09-02 09:20 | XMS_ITS | Encounter Summary ---
Author Organization [facility] Address [address] [place] [address] Care Team Providers Care Mathematics Professor Name Role Phone Daryl Strickland MD Primary Care Provider [facility] Fadi Carmona MD Primary Care Provider +1 -[phone] Encounter Details Date Type Department Care Team Description 04/28/2017 Vehicle Care Specialist Report Medical Records [address] [place] [address] Marielena Mcqueen MD Social History Tobacco Use [...] on filedocumented in this encounter Care Teams Mathematics Professor Relationship Specialty Start Date End Date Daryl Strickland MD PCP - General 06/28/01 07/02/17 Fadi Carmona MD [address] [place] [address] PCP - General Internal Medicine 07/03/17 documented as of this encounter
--- OUTSIDE RECORDS SUMMARY | 2024-09-02 09:20 | XMS_ITS | Encounter Summary ---
Author Organization [facility] Address [address] [place] [address] Care Team Providers Care Electrophysiology Tech Name Role Phone Daryl Strickland MD Primary Care Provider Unavail able Fadi Carmona MD Primary Care Provider +1 -[phone] Encounter Details Date Type Department Care Team Description 05/02/2016 [facility] Medical Records [address] [place] [address] Abstract, Provider Social History Tobacco Use Types [...] on filedocumented in this encounter Care Teams Electrophysiology Tech Relationship Specialty Start Date End Date Daryl Strickland MD PCP - General 06/28/01 07/02/17 Fadi Carmona MD [address] [place] [address] PCP - General Internal Medicine 07/03/17 documented as of this encounter
--- OUTSIDE RECORDS SUMMARY | 2024-09-02 09:20 | XMS_ITS | Encounter Summary ---
Author Organization [facility] Address [address] [place] [address] Care Team Providers Care Signal Operator Technical Name Role Phone Daryl Strickland MD Primary Care Provider Unavail able Fadi Carmona MD Primary Care Provider +1 -[phone] Encounter Details Date Type Department Care Team Description 04/22/2017 Telephone Adult Medicine [address] [address] Daryl Strickland MD Social History Tobacco Use Types Packs/Day [...] on filedocumented in this encounter Care Teams Signal Operator Technical Relationship Specialty Start Date End Date Daryl Strickland MD PCP - General 06/28/01 07/02/17 Fadi Carmona MD [address] [place] [address] PCP - General Internal Medicine 07/03/17 documented as of this encounter
--- OUTSIDE RECORDS SUMMARY | 2024-09-02 09:20 | XMS_ITS | Encounter Summary ---
Author Organization [facility] Address [address] [place] [address] Care Team Providers Care Bow Maker Production Name Role Phone Fadi Carmona MD Primary Care Provider +1 -[phone] Encounter Details Date Type Department Care Team Description 02/02/2023 Orders Only Medical Records [address] [place] [address] Abstract, Provider Social History Tobacco Use Types [...] suspected to have Coronavirus/COVID-19? No / Unsure 01/29/2023 9:47 AM EDT documented as of this encounter Plan of Treatment Not on file documented as of this encounter Procedures Procedure Name Priority Date/Time Associated Diagnosis Comments OUTSIDE LAB Routine 01/30/2023 documented in this encounter Results * OUTSIDE LAB (01/30/2023) Provider Abstract LAB documented in this encounter Visit Diagnoses Not on filedocumented in this encounter Care Teams Bow Maker Production Relationship Specialty Start Date End Date Fadi Carmona MD [address] [place] [address] PCP - General Internal Medicine 07/03/17 documented as of this encounter
--- OUTSIDE RECORDS SUMMARY | 2024-09-02 09:20 | XMS_ITS | Encounter Summary ---
Author Organization [facility] Address [address] [place] [address] Care Team Providers Care Hospital Laboratory Technician Name Role Phone Fadi Carmona MD Primary Care Provider +1 -[phone] Reason for Visit * Reason Onset Date Comments Anticoagulation 03/06/2020 Colonoscopy 04/05 Dr Massey [facility] Encounter Details Date Type Department Care Team Description 03/06/2020 Telephone Gastroenterology - [address] [place] [phone] Navdeep Massey MD Anticoagulation (Colonoscopy 04/19/2020 Dr Massey [facility]) Social History Tobacco Use Types Packs/Day Years [...] encounter Miscellaneous Notes * Telephone Encounter - Yadira Damon L.P.N. - 03/07/2020 8:53 AM EDT Shaina returned my call they will handle this patient. She will set everything up and call patient./yoshi Called Patient . Message left Sumayasteph from [facility] will be handling his coumadin and when to hold it and for how long. She will be contacting you. If you have any questions feel freeto call me at [phone]./dg * Telephone Encounter - Yadira Damon L.P.N. - 03/06/2020 1:13 PM EDT Patient scheduled for Colonoscopy on 04/19/[address] Shilpa REN. Patient is on coumadin. 03/06/2020 called Shaina at [facility]. Can patient hold coumadin for 5 days prior to colonoscopy & is bridging needed? documented in this encounter Plan of Treatment Not on file documented as of this encounter Visit Diagnoses Not on filedocumented in this encounter Care Teams Hospital Laboratory Technician Relationship Specialty Start Date End Date Fadi Carmona MD [address] [place] [address] PCP - General Internal Medicine 07/03/17 documented as of this encounter
--- OUTSIDE RECORDS SUMMARY | 2024-09-02 09:20 | XMS_ITS | Encounter Summary ---
Author Organization [facility] Address [address] [place] [address] Care Team Providers Care Rotary Soil Stabilizer Name Role Phone Daryl Strickland MD Primary Care Provider Unavail able Fadi Carmona MD Primary Care Provider +1 -[phone] Encounter Details Date Type Department Care Team Description 05/03/2016 Coffee Grower Report Medical Records [address] [place] [address] Roro Patel MD Social History Tobacco Use [...] on filedocumented in this encounter Care Teams Rotary Soil Stabilizer Relationship Specialty Start Date End Date Daryl Strickland MD PCP - General 06/28/01 07/02/17 Fadi Carmona MD [address] [place] [address] PCP - General Internal Medicine 07/03/17 documented as of this encounter
--- OUTSIDE RECORDS SUMMARY | 2024-09-02 09:20 | XMS_ITS | Encounter Summary ---
Author Organization [facility] Address [address] [place] [address] Care Team Providers Care Sign Artist Name Role Phone Daryl Strickland MD Primary Care Provider Unavail able Fadi Carmona MD Primary Care Provider +1 -[phone] Encounter Details Date Type Department Care Team Description 05/04/2016 [facility] Medical Records [address] [place] [address] Abstract, Provider Social History Tobacco Use Types [...] on filedocumented in this encounter Care Teams Sign Artist Relationship Specialty Start Date End Date Daryl Strickland MD PCP - General 06/28/01 07/02/17 Fadi Carmona MD [address] [place] [address] PCP - General Internal Medicine 07/03/17 documented as of this encounter
--- OUTSIDE RECORDS SUMMARY | 2024-09-02 09:20 | XMS_ITS | Encounter Summary ---
Author Organization [facility] Address [address] [place] [address] Care Team Providers Care Historic Preservationist Name Role Phone Fadi Carmona MD Primary Care Provider +1 -[phone] Encounter Details Date Type Department Care Team Description 12/01/2023 Meter Changes Records Clerk Report Medical Records [address] [place] [address] Kaleb Keating MD Social History Tobacco Use [...] on filedocumented in this encounter Care Teams Historic Preservationist Relationship Specialty Start Date End Date Fadi Carmona MD [address] [place] [address] PCP - General Internal Medicine 07/03/17 documented as of this encounter
--- OUTSIDE RECORDS SUMMARY | 2024-09-02 09:20 | XMS_ITS | Encounter Summary ---
Author Organization [facility] Address [address] [place] [address] Care Team Providers Care Glass Decorator Name Role Phone Fadi Carmona MD Primary Care Provider +1 -[phone] Encounter Details Date Type Department Care Team Description 11/15/2019 Sticker Operator Report Medical Records [address] [place] [address] Social History Tobacco Use Types Packs/Day Years [...] on filedocumented in this encounter Care Teams Glass Decorator Relationship Specialty Start Date End Date Fadi Carmona MD [address] [place] [address] PCP - General Internal Medicine 07/03/17 documented as of this encounter
--- OUTSIDE RECORDS SUMMARY | 2024-09-02 09:21 | XMS_ITS | Encounter Summary ---
Author Organization [facility] Address [address] [place] [address] Care Team Providers Care Studio Receptionist Name Role Phone Daryl Strickland MD Primary Care Provider [facility] able Fadi Carmona MD Primary Care Provider +1 -[phone] Reason for Visit * Reason Onset Date Comments Form 09/13/2012 [facility] Encounter Details Date Type Department Care Team Description 09/13/2012 Telephone Adult Medicine [address] [address] Daryl Strickland MD Form ([facility]) Social History Tobacco Use Types Packs/Day Years [...] on filedocumented in this encounter Care Teams Studio Receptionist Relationship Specialty Start Date End Date Daryl Strickland MD PCP - General 06/28/01 07/02/17 Fadi Carmona MD [address] [place] [address] PCP - General Internal Medicine 07/03/17 documented as of this encounter
--- OUTSIDE RECORDS SUMMARY | 2024-09-02 09:21 | XMS_ITS | Encounter Summary ---
Author Organization [facility] Address [address] [place] [address] Care Team Providers Care Container Washer Machine Name Role Phone Fadi Carmona MD Primary Care Provider +1 -[phone] Reason for Visit * Reason Comments E-prescribe Rx Request Encounter Details Date Type Department Care Team Description 08/05/2019 Refill Adult Medicine [address] [address] Emelia Dan, MACHINE GRINDER [address] [place] [address] E-prescribe Rx Request Social History Tobacco Use [...] Telephone Encounter - Kanu Tse M.A. - 08/05/2019 3:11 PM EST Last office visit 1. Lab Results Component Value Date TSH 3.13 07/08/2019 * Telephone Encounter - Cony Pyle - 08/05/2019 2:57 PM EST Patient would like script to be: E-PRESCRIBED/FAXED TO PHARMACY WHEN WAS THE PATIENT'S LAST APPOINTMENT IN ADULT MEDICINE? 07/19/19 WHEN WAS THE LAST TIME THE PATIENT SAW THEIR PCP? Same as above Does patient have an upcoming appointment? Yes 11/18/19 (THE MEDICATION REQUESTED IS ON THE MED [...] / Plan: [place] / Product Type: MEDICARE [id number] documented in this encounter Plan of Treatment Not on file documented as of this encounter Visit Diagnoses Not on filedocumented in this encounter Care Teams Container Washer Machine Relationship Specialty Start Date End Date Fadi Carmona MD [address] [place] [address] PCP - General Internal Medicine 07/03/17 documented as of this encounter
--- OUTSIDE RECORDS SUMMARY | 2024-09-02 09:21 | XMS_ITS | Encounter Summary ---
Author Organization [facility] Address [address] [place] [address] Care Team Providers Care Cream Dipper Name Role Phone Daryl Strickland MD Primary Care Provider Unavail [facility] Fadi Carmona MD Primary Care Provider +1 -[phone] Encounter Details Date Type Department Care Team Description 10/17/2016 Assistant Director Of Security Report Medical Records [address] [place] [address] Johnny Owens MD Social History Tobacco Use [...] on filedocumented in this encounter Care Teams Cream Dipper Relationship Specialty Start Date End Date Daryl Strickland MD PCP - General 06/28/01 07/02/17 Fadi Carmona MD [address] [place] [address] PCP - General Internal Medicine 07/03/17 documented as of this encounter
--- OUTSIDE RECORDS SUMMARY | 2024-09-02 09:21 | XMS_ITS | Encounter Summary ---
Author Organization [facility] Address [address] [place] [address] Care Team Providers Care Tire Rebuilder Name Role Phone Daryl Strickland MD Primary Care Provider Unavail able Fadi Carmona MD Primary Care Provider [phone] [phone] Encounter Details Date Type Department Care Team Description 11/09/2016 [facility] Medical Records [address] [place] [address] Marielena Sevilla Social History Tobacco Use Types Packs/Day Years [...] on filedocumented in this encounter Care Teams Tire Rebuilder Relationship Specialty Start Date End Date Daryl Strickland MD PCP - General 06/28/01 07/02/17 Fadi Carmona MD [address] [place] [id number] PCP - General Internal Medicine 07/03/17 documented as of this encounter
--- OUTSIDE RECORDS SUMMARY | 2024-09-02 09:21 | XMS_ITS | Encounter Summary ---
Author Organization [facility] Address [address] [place] [address] Care Team Providers Care Station Examiner Name Role Phone Daryl Strickland MD Primary Care Provider Unavail able Fadi Carmona MD Primary Care Provider [phone] Encounter Details Date Type Department Care Team Description 01/31/2016 Liquified Natural Gas Technician Report Medical Records [address] [place] [address] Johnny Owens MD Social History Tobacco Use [...] on filedocumented in this encounter Care Teams Station Examiner Relationship Specialty Start Date End Date Daryl Strickland MD PCP - General 06/28/01 07/02/17 Fadi Carmona MD [address] [place] [id number] PCP - General Internal Medicine 07/03/17 documented as of this encounter
--- OUTSIDE RECORDS SUMMARY | 2024-09-02 09:21 | XMS_ITS | Encounter Summary ---
Author Organization [facility] Address [address] [place] [address] Care Team Providers Care Firer Diesel Locomotive Name Role Phone Daryl Strickland MD Primary Care Provider Unavail [facility] Fadi Carmona MD Primary Care Provider [phone] [phone] Encounter Details Date Type Department Care Team Description 07/29/2016 [facility] Medical Records [address] [place] [address] Jm Witt Social History Tobacco Use Types Packs/Day Years [...] on filedocumented in this encounter Care Teams Firer Diesel Locomotive Relationship Specialty Start Date End Date Daryl Strickland MD PCP - General 06/28/01 07/02/17 Fadi Carmona MD [address] [place] [id number] PCP - General Internal Medicine 07/03/17 documented as of this encounter
--- OUTSIDE RECORDS SUMMARY | 2024-09-02 09:21 | XMS_ITS | Encounter Summary ---
Author Organization [facility] Address [address] [place] [address] Care Team Providers Care Senior System Operator Name Role Phone Daryl Strickland MD Primary Care Provider Unavail able Fadi Carmona MD Primary Care Provider [phone] [phone] Encounter Details Date Type Department Care Team Description 03/31/2011 Final Cleaner Report Medical Records [address] [place] [address] Jackson Liang, DPM Social History Tobacco Use Types Packs/Day Years [...] on filedocumented in this encounter Care Teams Senior System Operator Relationship Specialty Start Date End Date Daryl Strickland MD PCP - General 06/28/01 07/02/17 Fadi Carmona MD [address] [place] [phone] PCP - General Internal Medicine 07/03/17 documented as of this encounter
--- OUTSIDE RECORDS SUMMARY | 2024-09-02 09:21 | XMS_ITS | Encounter Summary ---
Author Organization [facility] Address [address] [place] [address] Care Team Providers Care Cushion Spring Assembler Name Role Phone Daryl Strickland MD Primary Care Provider Unavail able Fadi Carmona MD Primary Care Provider [phone] [phone] Encounter Details Date Type Department Care Team Description 02/08/2017 Aba Therapist Report Medical Records [address] [place] [address] Jm Witt Social History Tobacco Use Types [...] on filedocumented in this encounter Care Teams Cushion Spring Assembler Relationship Specialty Start Date End Date Daryl Strickland MD PCP - General 06/28/01 07/02/17 Fadi Carmona MD [address] [place] [id number] PCP - General Internal Medicine 07/03/17 documented as of this encounter
--- OUTSIDE RECORDS SUMMARY | 2024-09-02 09:21 | XMS_ITS | Encounter Summary ---
Author Organization [facility] Address [address] [place] [address] Care Team Providers Care Grant Specialist Name Role Phone Daryl Strickland MD Primary Care Provider Unavail able Fadi Carmona MD Primary Care Provider [phone] [phone] Encounter Details Date Type Department Care Team Description 03/12/2016 [facility] Medical Records [address] [place] [address] Abstract, Provider Social History Tobacco Use Types [...] on filedocumented in this encounter Care Teams Grant Specialist Relationship Specialty Start Date End Date Daryl Strickland MD PCP - General 06/28/01 07/02/17 Fadi Carmona MD [address] [place] [id number] PCP - General Internal Medicine 07/03/17 documented as of this encounter
--- OUTSIDE RECORDS SUMMARY | 2024-09-02 09:21 | XMS_ITS | Encounter Summary ---
Author Organization [facility] Address [address] [place] [address] Care Team Providers Care Costumed Character Entertainer Name Role Phone Daryl Strickland MD Primary Care Provider Unavail able Fadi Carmona MD Primary Care Provider [phone] Encounter Details Date Type Department Care Team Description 02/10/2016 [facility] Medical Records [address] [place] [address] Social History Tobacco Use Types Packs/Day Years [...] on filedocumented in this encounter Care Teams Costumed Character Entertainer Relationship Specialty Start Date End Date Daryl Strickland MD PCP - General 06/28/01 07/02/17 Fadi Carmona MD [address] [place] [phone] PCP - General Internal Medicine 07/03/17 documented as of this encounter
--- OUTSIDE RECORDS SUMMARY | 2024-09-02 09:21 | XMS_ITS ---
[facility] Address [address] [place] [address] Care Team Providers Care Stoneworking Belt Sander Name Role Phone Fadi Carmona M.D. Primary Care Provider Unavailable Shana Platt Unavailable [phone] Darshan Ramos Unavailable [phone] Allergies Allergen (clinical drug ingredient) Drug/Non Drug Allergy documented on EMR Reaction Allergy Type Onset Date Status Lisinopril Unknown Drug Allergy Active acetaminophen / oxycodone Percocet Unknown Drug Allergy Active Shellfish (FN) Shellfish-derived Products Unknown Drug Allergy Active tramadol Tramadol Unknown Drug Allergy Active hazelnut allergenic extract Hazelnut (Filbert)(Diagnostic) Unknown Drug Allergy Active REASON FOR VISIT last visit pcp 01/04/24, Painful nail(s) aggravated by shoes causing difficulty standing/walking, Foot pain, Skin Problem Medications Medication SIG (Take, Route, Fr equency, Duration) Notes Start Date End Date Status Ketoconazole 2 % 1 application Java Solutions Architect ally Once a day for 21 days 05/12/2024 Active Donna 3 Active Allergy Active Timolol Maleate Acti ve Dorzolamide HCl Acti ve Omeprazole Active Ventolin HFA Active Multivitamin Active Glucosamine Active Aspirin Active hydroCHLOROthiazide Active Atorvastatin Calcium Active Warfarin Sodium Acti ve amLODIPine Besylate Active Levothyroxine Sodium Active Social History Tobacco Use: Social History Observation Description Date Details (start date - stop date) Former Smoker NA - NA Tobacco Use/Smoking Question Answer Notes Are you a: former smoker Additional Findings: Tobacco Non-User Current no n-smoker Alcohol Screen Question Answer Notes Did you have a drink containing alcohol in the p ast year? Yes Points 0 Interpretation Negative Tobacco use other than smoking: Question Answer Notes Are you an other tobacco user? No Problems Problem Type SNOMED Code ICD Code Onset Dates Problem Status W/U Status Risk Notes Problem Acquired hallux valgus (15001955) Hallux valgus (acquired), left foot (M20.12) Active confirmed Problem Acquired hammer toe of left foot (6593873961643 103) Other hammer toe(s) (acquired), left foot (M20.42) Active confirmed Vital Signs Height 5 ft 0 in in 05/12/2024 Weight 236 lbs 05/12/2024 BMI 46.09 kg/m2 05/12/2024 Procedures Procedure Date Ordered Date Performed Result Body Sit e 28547-[id number] NAIL, 6 OR MORE 05/12/2024 N/A Encounters Encounter Location Date Provider Diagnosis [facility] [address] 05/12/2024 Darshan Ramos Onychomycosis B35.1 ; Pain in right toe(s) M79.674 ; Pain in left toe(s) M79.675 ; Pain in left foot M79.672 ; Hallux valgus (acquired), left foot M20.12 and Tinea pedis of both feet B35.3 Assessments Encounter Date Diagnosis (ICD Code) Assessment Notes Treatment Notes Treatment Clinical Notes Section Notes 05/12/2024 Onychomycosis (ICD-10 - B35.1) 05/12/2024 Pain in right toe(s) (ICD-10 - M79.674) 05/12/2024 Pain in left toe(s) (ICD-10 - M79.675) 05/12/2024 Pain in left foot (ICD-10 - M79.672) 05/12/2024 Hallux valgus (acquired), left foot (ICD-10 - M20.12) 05/12/2024 Tinea pedis of both feet (ICD-10 - B35.3) Application of Castillani's paint to 1-4 interspaces B/L Plan Of Treatment Medication Medication Name Sig Start Date Stop Date Notes Ketoconazole 2 % 1 application Java Solutions Architect ally Once a day for 21 days 05/12/2024 Treatment Notes Assessment Notes Tinea pedis of both feet Application of Castillani's paint to 1-4 interspaces B/L Pending Test Test Name Order Date [id number] NAIL, 6 OR MORE 05/12/2024 Next Appt Details Follow Up: 2 Months, Reason: Provider Name:Shana Platt , 10/04/2024 10:15:00 AM, [address] [facility], [place], [address], Procedure Notes * Category Sub-Category Detail Notes Debride Nail 6-10 Nail debridement Performance o f this nail treatment by a nonprofessional would put this patients foot and overall health at risk. Therefore, debridement to affected nail(s) as described in exam was performed extensively to reduce/remove overall nail length, girth, thickness, subungual debris, and necrotic tissue, by manual and/or electrical means through the use of a nail nipper and/or dremel-type graphite grinder, to a more viable healthy nail plate or bed tissue 6-10. Silver nitrate used for any petechial bleeding as necessary. Definitive antifungal treatment options have been reviewed and discussed with the patient. The patient chooses, no pharmaceutical tx - [address] Progress Notes * Vamshi COBOS ADOB:[birth year] (73 yo M)Acc No.[id number]:05/12/2024 Progress Notes Patient:?Cobos Vamshi A Provider:?Darshan Ramos D.P.M. :1950???Age:73 Y???Sex:Male Jewel e:05/12/2024 Address:[address] [place], [place] [id number] Pcp:Ange Rodriges Subjective: * Chief Complaints: * ???Last visit pcp 01/04/24Pa inful nail(s) aggravated by shoes causing difficulty standing/walkingFoot painSkin Problem * HPI: ???Foot Pain:?Location:?Inside, Great toe joint, LEFT.?Duration:?1 year or more.?Course:?unchanged.?Aggravated:?any pressure.?Treatments:?rest/alter normal daily activity.?Skin problems:?Nature:?scaling , redness.?Location:?Top , Bottom , Inside , Outside , B/L.?Duration:?a few weeks.?Course:?worse.? * ROS:?General/Constitutional:?Nausea?denies.?Vomiting?denies.?Hunger Thirst?denies.?Loss appetite?denies.?Chills?denies.?Fatigue?denies.?Fever?denies.?Night Sweats?denies.?Unexplained weight loss?denies.?Unexplained [...] History:?double byp ass * Hospitalization/Major Diagno stic Procedure:?No Hospitalization History. * Family History:?Mother: dece ased, diagnosed with Unspecified essential hypertension, Unspecified cerebral artery occlusion with cerebral infarction.?Father: , diagnosed with Diabetic - NIDDM, Other specified conditions influencing health status.? * Social History:?Tobacco Use:?Tobacco Use/Smoking?Are you a:?former smoker ?Additional Findings: Tobacco Non-User?Current non-smoker ?Tobacco use other than smoking?Are you an other tobacco user??No ???Drugs/Alcohol:?Drugs?Have you used drugs other than those for medical reasons in the past 12 months??No ?Alcohol Screen?Did you have a drink containing alcohol in the past year??Yes ?Points?0 ?Interpretation?Negative ???Miscellaneous:?Caffeine: yes, frequency:, 1-2 cups per day. ?Children: yes, 3 (2 are ). ?no Exercise. ?Marital status: . 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 * Medications:?TakingWarfarin Sodium Levothyroxine Sodium amLODIPine Besylate Atorvastatin Calcium hydroCHLOROthiazide Ventolin HFA Omeprazole Multivitamin Aspirin Glucosamine Allergy Donna 3 Dorzolamide HCl Timolol Maleate Medication List reviewed and reconciled with the patientTaking Warfarin Sodium Taking Levothyroxine Sodium Taking amLODIPine Besylate Taking Atorvastatin Calcium Taking hydroCHLOROthiazide Taking Ventolin HFA Taking Omeprazole Taking Multivitamin Taking Aspirin Taking Glucosamine Taking Allergy Taking Donna 3 Taking Dorzolamide HCl Taking Timolol Maleate Medication List reviewed and reconciled with the patient * Allergies:?Hazelnut (Sofia )(Diagnostic)Shellfish-derived ProductsLisinoprilTramadolPercocetyes[Allergies Verified] Objective: * Vitals:?Ht: 5 ft 0 in, Wt:23 6, BMI:46.09, Shoe size: 11.5, Ht-cm: 152.4 cm, Wt- k.05 kg. * Examination: ???General Examination: ?GENERAL APPEARANCE:?Reveals [...] nerve distribution.?DEEP TENDON REFLEXES:?Achilles, 2/4, B/L.?Vascular: ?DP PULSES(B):?3/4, B/L.?PT PULSES(B):?3/4, B/L.?CAPILLARY FILL TIME:?immediate, all digits, B/L.?TROPHIC CONDITION-TEXTURE/ELASTICITY/TURGOR/HAIR GROWTH(B):?normal, B/L.?TEMPERTURE GRADIENT(C):?warm to cool, proximal to distal, B/L.?PIGMENTATION:?normal, B/L.?EDEMA(C):?absent, B/L.?Dermatologic: ?SKIN FINDINGS:?Skin shows sign(s) of, erythema, scaling, in a moccasin fashion, no fissure(s) present, B/L.?INTERDIGITAL TINEA:?macerated tissue, erythema 3rd and 4th interspaces B/L.?Orthopedic: ?MUSCLE STRENGTH:?5/5 all groups in a symmetrical fashion , B/L.?BUNION:? Medially prominent 1st MPJ,(+) Pain on palpation,inflammation present medially,Lateral tracking 1st MPJ incompletely reducible, LEFT.?FOOTWEAR:? shoe gear properties exacerbate patients foot/toe deformity.?Nails: ?NAILS are:?Elongated, overgrown, dystrophic, lytic, greater than 3mm thick, discolored and friable with crumbly malodorous subungual debris, with pain on palpation , 1-5 B/L.? Assessment: * Assessment: 1.?Onychomycosis - B35.1?2.? Pain in right toe(s) - M79.674?3.?Pain in left toe(s) - M79.675?4.?Pain in left foot - M79.672 (Primary)?5.?Hallux valgus (acquired), left foot - M20.12, Chronic problem, Stable (1=3,2=4)?6.?Tinea pedis of both feet - B35.3, Acute problem, Uncomplicated (3),Rx drug management (4)? Plan: * Treatment: 2.?Tinea pedis of both feet? Start Ketoconazole Cream, 2 %, 1 application, Externally, Once a day, 21 days, 30, Refills 0.?? Notes: Application of Castillani's paint to 1-4 interspaces B/L?? * Procedures:?Debride Nail 6-10:?Nail debridement?Performance of this nail treatment by a nonprofessional would put this patients foot and overall health at risk. Therefore, debridement to affected nail(s) as described in exam was performed extensively to reduce/remove overall nail length, girth, thickness, subungual debris, and necrotic tissue, by manual and/or electrical means through the use of a nail nipper and/or dremel-type graphite grinder, to a more viable healthy nail plate or bed tissue 6-10. Silver nitrate used for any petechial bleeding as necessary. Definitive antifungal treatment options have been reviewed and discussed with the patient. The patient chooses, no pharmaceutical tx - 95938.? * Procedure Codes:?02064 DEBRI DE NAIL, 6 OR MORE * Preventive Medicine:? ??Counseling:?Discussion:?-03: Office or other outpatient visit for the evaluation and management of a new patient, which required a medically appropriate history and/or examination and LOW level of DECISION MAKING for: 1 STABLE ACUTE UNCOMPLICATED PROBLEM, 2 OR MORE MINOR PROBLEMS, OR 1 STABLE CHRONIC PROBLEM, THAT POSE(S) A LOW RISK FOR MORBIDITY/MORTALITY. The visit on the day of the encounter encompassed interpreting the data and educating the patient as to the nature of their condition, treatment options available according to their individual PMH, meds, allergies, and overall health/living conditions, as well as any potential risks or complications that may occur from a failure to adhere to, and participate in, the recommended course of therapy. The discussion included a complete verbal, and/or written explanation of the examination results, any x-rays taken, the proposed diagnosis, and outline of the treatment plan. A schedule for future care needs was also explained. The patient verbalized an understanding of the instructions at this time and agreed to be an active participant in their treatment. If the patient should think of any questions or concerns after the visit, I have encouraged the patient to call the office.?Digital Treatment:?HV - I explained to the patient the risks/benefits of all the different treatment options for their pain including: No treatment at all, Rest, Ice, New/supportive/wider/deeper Shoegear, Digital Padding/Strapping/Taping/Bracing/Gel protective sleeves, Foot/Ankle AFO Bracing, Stretching exercises, Deep Tissue Massage, Arch support/shoe inserts with splay metatarsal padding, and Custom orthoses. I insisted that any digital devices be removed daily and not worn overnight for safety. The patient is to carefully examine the toes daily for any skin irritation while using any splinting or padding device. The advantages and disadvantages of each option were discussed and the patients questions re: shoegear, padding, custom vs prefabricated inserts, activity level, and consistency in home treatment regimens for optimal success were answered to their verbally confirmed satisfaction.?P.R.I.C.E.:?The patient was counseled on the use of P.R.I.C.E. and NSAIDS (if well tolerated) to aid in the recovery from their painful condition , Recommended Topical analgesics including Biofreeze/Aspercream/Voltaren gel.?Shoe Gear Counseling:?The patient and I reviewed the types of shoes they should be wearing. My recommendation included obtaining a well-fitted shoe with a good supportive, non-foldable nor twistable sole, plenty of toe/room for the forefoot, and proper arch support. Based on todays examination, I recommended the patient look for new shoes, by having their feet professionally measured. We discussed that generally the best time of the day for a shoe fitting is the afternoon. Different shoes types and brands to best match the patients occupation and vocation were discussed. Specific brand selection will be up to the patient, their individual foot condition/deformities, and fit. The patient and I reviewed the standard new shoe break in period by wearing them for a few hours a day while checking for redness or sores as wear time is increased. The patient verbally confirmed to understanding the information discussed, The patient and I reviewed the types of shoes they should be wearing. My recommendation included obtaining a well-fitted shoe with a good supportive, non-foldable nor twistable sole, plenty of toe/room for the forefoot, and proper arch support. Based on todays examination, I recommended the patient look for new shoes, by having their feet professionally measured. We discussed that generally the best time of the day for a shoe fitting is the afternoon. Different shoes types and brands to best match the patients occupation and vocation were discussed. Specific brand selection will be up to the patient, their individual foot condition/deformities, and fit. The patient and I reviewed the standard new shoe break in period by wearing them for a few hours a day while checking for redness or sores as wear time is increased. The patient verbally confirmed to understanding the information discussed.?Tinea Pedis:?The patient was counseled on the diagnosis, potential etiologies, and treatment options for their skin condition. We discussed the risks and benefits of each option from performing no treatment, to utilizing OTC topical skin creams, prescription topical creams, customized compounded topical medications, and, if necessary, to utilize oral antifungal therapy. We discussed the advantages and disadvantages of each possible treatment and importance for adherence to all the recommended therapies for optimum success and avoid potential complications such as open sore/infection/possible hospitalization. We discussed the potential effectiveness of each topical preparation as well as each ones possible side effects and/or patient medication interactions if oral therapy is selected. Patient questions re: the advantages and disadvantages of each treatment choice, medication use/dosage, successful outcomes, and application consistency were reviewed and the patient verbalized that all answers were clearly understood. The patient was told they can help alleviate symptoms by utilizing moisture absorbant innersoles with activated charcoal and baking soda, applying antifungal sprays daily, aerating toe web spaces at night by putting cotton or lambs wool between the toes, alternating shoe gear daily if possible so they can dry out, changing socks at least once during the day, wearing well-ventilated shoes or sandals. The patient has decided to apply RX antifungal skin creams to their feet as directed. Ketoconazole Rx was sent to their pharmacy at the time of visit.? ??Screening/Special Tests:?Fall Risk?Assessment:?Performed ?Screening:?No falls in the past year ?FALLS: Screening for Future Fall Risk?Have you had two or more falls in the past year??No ?Have you had any falls with injury in the past year??No * Follow Up:?2 Months * Images: * Sign off status: Completed true * Provider:?Darshan Ramos D.P.M. Date:?01/2024 Generated for Jaelyn ware/Winifred/Jacobitting on:?09/02/2024 09:20 AM EST History and Physical Notes * HPI (History of Present Illness) Category Sub-Category Detail Notes Category Not es Skin problems Nature: scaling , redness Location: Top , Bottom , Insid e , Outside , B/L Duration: a few weeks Course: worse Foot Pain Location: Inside, Great toe joint, LEF T Duration: 1 year or more Course: unchanged Aggravated: any pressure Treatments: rest/alter normal da karlos activity Examination Category Sub-Category Detail Notes Category Not es Neurological SENSORY: Neurological exa m reveals intact sensorium, pain sensation normal, vibration sensation intact, pinprick sensation is normal in the lower extremities, Pt denies, anesthesia, burning, paresthesia, tingling, B/L TINEL'S COMPRESSION: Negative, Saphenous nerve distribution DEEP TENDON REFLEXES: Achilles, 2/4, B/L Dermatologic SKIN FINDINGS: Skin shows sign( s) of, erythema, scaling, in a moccasin fashion, no fissure(s) present, B/L INTERDIGITAL TINEA: macerated tissue, er ythema 3rd and 4th interspaces B/L Orthopedic BUNION: Medially promine nt 1st MPJ, [...] PULSES (B): 3/4, B/L PT PULSES (B): 3/4, B/L CAPILLARY FILL TIME: immediate, all digi ts, B/L TEMPERTURE GRADIENT (C): warm to cool, p roximal to distal, B/L TROPHIC CONDITION-TEXTURE/ELASTICITY/TURGOR/HAIR GROWTH (B): normal, B/L EDEMA (C): absent, B/L PIGMENTATION: normal, B/L Nails NAILS are: Elongated, overg rown, dystrophic, lytic, greater than 3mm thick, discolored and friable with crumbly malodorous subungual debris, with pain on palpation , 1-5 B/L
--- OUTSIDE RECORDS SUMMARY | 2024-09-02 09:21 | XMS_ITS | Encounter Summary ---
Author Organization [facility] Address [address] [place] [address] Care Team Providers Care Safe Deposit Clerk Name Role Phone Daryl Strickland MD Primary Care Provider Unavail able Fadi Carmona MD Primary Care Provider [phone] Reason for Visit * Reason Onset Date Comments stool 11/28/2012 Encounter Details Date Type Department Care Team Description 11/28/2012 Telephone Adult Urgent Care - [address] [address] Daryl Strickland MD stool Social History Tobacco Use Types Packs/Day Years [...] encounter Miscellaneous Notes * Telephone Encounter - Palacio Myles Ness - 11/28/2012 1:17 PM EDT Patient C/O of dull ach /pain in abd with bouts of nausea C/o of dark black formed hard stools No visible blood Appetie and hydration good VQS Denies temp No Chest pain no SOB No vomiting Appt tody with urgent care at 2:[address] Rupert Howard is aware that [place] soesn't have MRI,CT scan or ultra sound and may need to be sent to the ER He is aware we have sinmple X ray and not raidioigist to read it * Telephone Encounter - Shauna Pathak - 11/28/2012 1:05 PM EDT Symptoms patient is presenting: upset stomach, dark stools How long has patient had these symptoms?: 5 days PCP: Daryl Strickland MD Payor: [facility] SELF FUNDED Plan: PPO $25 HYNDMAN [id number] Product Type: PPO [id number] documented in this encounter Plan of Treatment Not on file documented as of this encounter Visit Diagnoses Not on filedocumented in this encounter Care Teams Safe Deposit Clerk Relationship Specialty Start Date End Date Daryl Strickland MD PCP - General 06/28/01 07/02/17 Fadi Carmona MD [address] [place] [id number] PCP - General Internal Medicine 07/03/17 documented as of this encounter
--- OUTSIDE RECORDS SUMMARY | 2024-09-02 09:21 | XMS_ITS | Encounter Summary ---
Author Organization [facility] Address [address] [place] [address] Care Team Providers Care Naval Gunfire Spotter Name Role Phone Daryl Strickland MD Primary Care Provider Unavail [facility] Fadi Carmona MD Primary Care Provider [phone] Encounter Details Date Type Department Care Team Description 07/18/2016 [facility] Security Report Medical Records [address] [place] [address] Johnny Owens MD Social History Tobacco Use [...] on filedocumented in this encounter Care Teams Naval Gunfire Spotter Relationship Specialty Start Date End Date Daryl Strickland MD PCP - General 06/28/01 07/02/17 Fadi Carmona MD [address] [place] [id number] PCP - General Internal Medicine 07/03/17 documented as of this encounter
--- OUTSIDE RECORDS SUMMARY | 2024-09-02 09:21 | XMS_ITS | Encounter Summary ---
Author Organization [facility] Address [address] [place] [address] Care Team Providers Care Oil Field Tester Name Role Phone Daryl Strickland MD Primary Care Provider Unavail able Fadi Carmona MD Primary Care Provider [phone] Encounter Details Date Type Department Care Team Description 12/19/2016 Wellness Visit Medical Records [address] [place] [address] Daryl Strickland MD Social History Tobacco Use [...] on filedocumented in this encounter Care Teams Oil Field Tester Relationship Specialty Start Date End Date Daryl Strickland MD PCP - General 06/28/01 07/02/17 Fadi Carmona MD [address] [place] [address] PCP - General Internal Medicine 07/03/17 documented as of this encounter
--- OUTSIDE RECORDS SUMMARY | 2024-09-02 09:21 | XMS_ITS | Encounter Summary ---
Author Organization [facility] Address [address] [place] [address] Care Team Providers Care Work Adjustment Instructor Name Role Phone Daryl Strickland MD Primary Care Provider Unavail able Fadi Carmona MD Primary Care Provider [phone] Encounter Details Date Type Department Care Team Description 10/08/2015 Wellness Visit Medical Records [address] [place] [address] Daryl Strickland MD Social History Tobacco Use [...] on filedocumented in this encounter Care Teams Work Adjustment Instructor Relationship Specialty Start Date End Date Daryl Strickland MD PCP - General 06/28/01 07/02/17 Fadi Carmona MD [address] [place] [address] PCP - General Internal Medicine 07/03/17 documented as of this encounter
[2024-09-02 11:21] LABS: Prostate Specific Antigen < 0.10 ng/mL (<0.05-4.0)
== END 2024-09-02 08:55 | disposition home or self-care (01) ==
LOC: HO.LAB 08:54
PROVIDERS: PCP Internal Medicine; Visit Provider Urology
DX: C61 Malignant neoplasm of prostate (principal); Z12.5 Encounter for screening for malignant neoplasm of prostate
CPT/HCPCS: 36415; 84153

== ENCOUNTER 2024-09-28 08:49 | Outpatient (AMB) | payer MEDICARE, OTHER, SELFPAY ==
--- NOTE | 2024-09-28 08:49 | MHC.OFFVIS ---
Intake Visit Reasons: 6m/PSA Intake Note: Patient is present for 6M/PSA Urology Medication:NONE Antibiotic Allergy:NONE Blood Thinner:ASPIRIN,WARFARIN Overhead Crane Technician Required: No Allergies Austin nut [BRAZIL NUTS] Allergy (Severe, Verified 09/28/24 08:50) LIPS SWELLING shellfish derived [SHELLFISH DERIVED] Allergy (Severe, Verified 09/28/24 08:50) HIVES, THROAT ITCHING lisinopril Allergy (Intermediate, Verified 09/28/24 08:50) Cough oxycodone [From PERCOCET] Allergy (Intermediate, Verified 09/28/24 08:50) ITCHING HPI Comments Details: Vamshi is a very pleasant male. He is a patient of Dr Carmona. He is seen for the following urologic conditions - prostate cancer - erectile dysfunction Six-month follow-up Remained stable undetectable Doing well with urination. Minimal urge. Nocturia 1-2x Six month follow-up for 5 years then yearly Prostate cancer: [place] 3+4, initial therapy August 2020 external beam radiation with 6 months hormones and [employer] Completed radiation therapy August 2020, continued finasteride for 12 months after radiation PSA 05/26 <0.1, T 363, 08/27 <0.1, 01/24 0.2, 05/27 0.1, 09/25 0.13, 03/28 0.12, 08/29 0.1, 02/26 <0.1, 08/30 <0.1 Prostate cancer was diagnosed 11/22 Dr Owens - elevated PSA. Diagnosis was reached by needle biopsy, for elevated PSA, PSA at diagnosis 8.8, size at TRUS 40 gm. - left base, , 3+4 = 7 30%, , 3+4 = 7 20%, left mid gland , 3+4 = 7 10%, -, left apex -, EROS - right base -, -, right mid gland -. EROS, right apex -, - - Volume - no core more than 50% - 5% by volume. TNM Classification of Malignant Tumours (TNM) T1c. The D'Leonardo (NCCN) risk category is Intermediate Risk (PSA 10-20, Gl 7, T2) - Group 2 - Imaging 04/24 MRI [facility] - 1.2cm left base lesion PiRADS 4 - [employer] 10 yr mortality 6.4% - this is in the high risk category for intermediate risk prostate cancer Associated conditions - erectile dysfunction yes - urinary urge yes Therapeutic plan: Follow in 6 months time with PSA Erectile Dysfunction Oral medications Tadalafil 10mg daily with on demand 20mg Some effect but not sufficient for penetration Discussed use of penile vacuum pump given poor response to high dose oral medications PFSH Medical History COVID-19 vaccine administered Cancer Arthritis Thyroid disease Family history of sickle cell disease GERD (gastroesophageal reflux disease) Sleep apnea Asthma Arrhythmia On anticoagulant therapy Elevated cholesterol CAD (coronary artery disease) HTN (hypertension) Surgical History Hx of exploratory laparotomy Hx of hernia repair S/P excision of lipoma H/O colonoscopy Hx of CABG Social History Are you a primary care consultant to a significant other at home: No Do you presently have visiting nurse or other home services: No Review of Systems Const All systems reviewed & are unremarkable except as noted in HPI and below Reports no additional complaints Resp Reports no additional complaints GI Reports no additional complaints Reports as per HPI Musc Reports no additional complaints Physical Exam Telemedicine evaluation Appropriate responses Regular breathing rate and rhythm HEENT Head: Yes normal to inspection Ears: hearing grossly normal bilaterally Eyes General: appearance normal, both eyes and all related structures Neck Neck: Yes normal visual inspection Chest Chest palpation & inspection: normal inspection of the chest Resp Effort & Inspection: normal respiratory effort and able to speak in complete sentences Telehealth Telehealth Location of provider rendering services: practice address Location of patient: address on file Patient Identification confirmed using: Name, : Yes Telehealth method: voice only Patient verbally consented to treatment: Yes Patient verbally consented to billing insurance company: Yes Patient informed of any privacy concerns related to visit: Yes Assessment & Plan Assessment & Plan (1) Prostate cancer: Comment: Intermediate risk - External beam radiation with short-term hormones completed August 2020 Code(s): C61 - Malignant neoplasm of prostate Category: Medical Plan Six-month follow-up PSA off Orders: Orders Prostate Specific Antigen 6 Months C61 - Malignant neoplasm of prostate Patient Instructions: This note is constructed using voice recognition software. While every effort has been made to ensure accuracy physics technical officer errors may have been included. Imaging studies, laboratory and physical exam results were discussed and reviewed in detail. No major barriers to patient understanding were identified. An opportunity to ask questions regarding the treatment plan was provided. All questions were answered. The patient expressed understanding and agreement with the above treatment plan. The patient is aware they should contact our office by phone for worsening of their current condition or the appearance of new urologic symptoms. Compliance is encouraged with any medications and followup testing that is ordered. It is a privilege to participate in the urologic care of your patient. If you have any questions or concerns regarding treatment for the above conditions, or other urologic issues, please do not hesitate to contact me. The office telephone contact is [phone]. Sincerely, Dr Johnny Owens MD, [facility] - Urology Compassionate Specialist Care for the Genitourinary System Coding Level of Care Code Tele Est Pt Level 3 (95177) Complex EM visit Add On G2211 Diagnoses Prostate cancer C61
== END 2024-09-28 09:41 | disposition home or self-care (01) ==
LOC: HO.HUSH 08:49
PROVIDERS: PCP Internal Medicine; Visit Provider Urology
DX: C61 Malignant neoplasm of prostate (principal)
CPT/HCPCS: 99213; G2211

== ENCOUNTER 2025-02-28 10:33 | Outpatient (AMB) | payer MEDICARE, OTHER, SELFPAY ==
--- OUTSIDE RECORDS SUMMARY | 2025-01-27 06:30 | XMS_ITS ---
Author Organization [facility] Address [address] [place] [address] Care Team Providers Care Database Administration Project Manager Name Role Phone Shana Platt [phone] Encounters Encounter Location Date Provider Diagnosis [address] [address] 01/27/2025 Shana Platt Plan Of Treatment Next Appt Details Provider Name:Shanaxuan Platt , 04/21/2025 11:15:00 AM, [address] [place] [address], [place], [address], Progress Notes * Vamshi COBOS ADOB:[birth year] (74 yo M)Acc No.[id number]:01/27/2025 Progress Note Patient: Vamshi OLIVER Provider: Renetta Platt DPM :1950 A ge:74 Y S ex:Male Date:01/27/2025 Address:[address] [place] [address], [address] , [facility] Subjective: * Chief Complaints: * * Medical History: Objective: * Vitals: Assessment: Plan: * Treatment: * Images: * The named appointment provid er may or may not be the originator of this progress note, and it is not deemed complete until electronically signed by the appointment provider. Sign off status: Pending * Provider: Renetta Platt DPM Date: 0 01/27/2025 Generated for Jaelyn Pennyg/[place] on: 0 02/28/2025 11:22 AM EDT
--- OUTSIDE RECORDS SUMMARY | 2025-02-22 09:30 | XMS_ITS ---
Author Organization [facility] Address [address] [place] [address] Care Team Providers Care Sifter Operator Name Role Phone Shana Platt [phone] REASON FOR VISIT SEEN ON 02/08/2025 Encounters Encounter Location Date Provider Diagnosis [address] [address] 02/22/2025 Shana Platt Plan Of Treatment Next Appt Details Provider Name:Shana Platt , 04/21/2025 11:15:00 AM, [address] [place] [address], [place], [address], Progress Notes * Vamshi COBOS ADOB:[birth year] (74 yo M)Acc No.[id number]:02/22/2025 Progress Note Patient: Aye Vamshi PATINO Provider: Renetta Platt DPM :1950 A ge:74 Y S ex:Male Date:02/22/2025 Address:[address] [place] [address], [place], [place] Subjective: * Chief Complaints: * 1 . [...] 0 02/22/2025 Generated for Jaelyn ware/Winifred/[place] on: 0 02/28/2025 11:22 AM EDT
--- NOTE | 2025-02-28 10:36 | A.OFFVIS_ITS ---
Vital Signs 02/28/25 10:37 Height 5 ft 10 in Weight 236 lb 15.951 oz BMI 34.0 BP 120/54 L Blood Pressure Location Lt brachial Position Sitting Pulse 69 Pulse Source Pulse Oximeter Pulse Oximetry (%) 95 Oxygen Delivery Method Room Air Intake Visit Reasons: Lung Nodule Program Lead Required: No Accompanied by: Self / Same As Patient Allergies [place] nut (BRAZIL NUTS) Allergy (Severe, Verified 02/28/25 10:44) LIPS SWELLING shellfish derived (SHELLFISH DERIVED) Allergy (Severe, Verified 02/28/25 10:44) HIVES, THROAT ITCHING lisinopril Allergy (Intermediate, Verified 02/28/25 10:44) Cough oxycodone (From PERCOCET) Allergy (Intermediate, Verified 02/28/25 10:44) ITCHING HPI Comments Details: The patient is here for pulmonary evaluation. The patient is a 74-year-old gentleman previously been taking care of by the [facility]. Unfortunately his insurance no longer covered and he had to be referred out. The patient states that he does have history of sleep apnea. Initially diagnosed back in 2016. I did review the sleep study then with an AHI of 22 consistent with moderate to severe sleep apnea. The patient is placed on CPAP therapy after a titration study. Any been tolerating CPAP very well. More recently though he has had a hard time with the machine. He had an ResMed machine that was switched over to a Teri once he needed replacement. He has not been able to work with the [employer] as while he was working with the ResMed machine in the past. I did talk about the importance of am going back on CPAP because of his ongoing daytime drowsiness with an elevated [place] score of 11. The patient is agreeable to do so. I did reach out to [employer] for reaching of the Teri machine. The patient also has a history of prostate cancer back in 2019. He received radiation therapy. He did have a CT scan of the chest back in 2023 at [facility]. Did demonstrate a pulmonary nodule subcentimeter in size. It has not been followed up since then. He will need a repeat CT scan to make sure there stability of the pulmonary nodule for least 2 years to make sure there stability of disease. The patient also has some dyspnea on exertion. He has had to use her rescue inhaler in the past but he is not using 1 right now. He did have PFTs done at [facility] demonstrating some restrictive process moderate severity. Therefore, once we get additional imaging studies we can assess for parenchymal diseases to try to explain the ongoing restrictive lung disease and shortness of breath. Will hold off on the inhalers for now. The patient will follow-up in 3-4 months and will bring his CPAP machine with him. ON LICENSE OF [facility] Medical History (Updated 02/28/25 @ 13:17 by Ulisses Snider MD) Chronic restrictive lung disease Pulmonary nodule NISHA on CPAP COVID-19 vaccine administered Cancer Arthritis Thyroid disease Family history of sickle cell disease GERD (gastroesophageal reflux disease) Sleep apnea Asthma Arrhythmia On anticoagulant therapy Elevated cholesterol CAD (coronary artery disease) HTN (hypertension) Surgical History Hx of exploratory laparotomy Hx of hernia repair S/P excision of lipoma H/O colonoscopy Hx of CABG Social History (Updated 02/28/25 @ 10:48 by Jennifer Quinonez CMA) Are you a primary human services care specialist to a significant other at home: No Do you presently have visiting nurse or other home services: No Patient Tobacco Use Status: Former Tobacco user Review of Systems Const Denies chills, Reports daytime sleepiness, Denies fever(s) and Reports snoring Eyes Reports no additional complaints ENT Denies post nasal drip Card Reports no additional complaints, Denies syncope and Reports dyspnea on exertion Resp Denies cough, Reports dyspnea on exertion, Reports snoring and Denies wheezing GI Denies abdominal pain and Denies heartburn Reports as per HPI Musc Reports no additional complaints Skin/Breast Denies rash Neuro Denies syncope Endo Reports no additional complaints Bobo/Lymph Reports no additional complaints Aller/Immun Denies wheezing Physical Exam Vital Signs: Last Vital Signs Pulse 69 02/28/25 10:37 BP 120/54 L 02/28/25 10:37 Pulse Ox 95 02/28/25 10:37 Oxygen Delivery Method Room Air 02/28/25 10:37 BMI result Body Mass Index 34.0 Const General: healthy appearing and comfortable Orientation/consciousness: patient oriented x3 HEENT Head: Yes normocephalic Face and sinus: Yes normal facial exam Mouth: moist mucous membranes Neck Neck: Yes normal visual inspection, Yes full ROM and Yes trachea midline Chest Chest palpation & inspection: normal inspection of the chest Resp Effort & Inspection: normal respiratory effort, able to speak in complete sentences and no respiratory distress Auscultation: diminished lung sounds Cardio Heart sounds: S1 normal heart sound present and S2 normal heart sound present GI Palpation (GI): Soft to palpation Back/Spine/Pelvis Cervical Spine: normal cervical lordosis Thoracic/Lumbar Spine: thoracic and lumbar spine normal to inspection Skin General skin exam: no rashes or lesions noted Neuro General: patient oriented x3, gait normal, tone normal and moves all extremities Extrem General: Yes normal to inspection and Yes capillary refill normal Assessment & Plan Assessment & Plan (1) NISHA on CPAP: Code(s): G47.33 - Obstructive sleep apnea (adult) (pediatric) Category: Medical (2) Pulmonary nodule: Code(s): R91.1 - Solitary pulmonary nodule Category: Medical (3) Prostate cancer: Comment: Intermediate risk - External beam radiation with short-term hormones completed August 2020 Code(s): C61 - Malignant neoplasm of prostate Category: Medical (4) Chronic restrictive lung disease: Code(s): J98.4 - Other disorders of lung Category: Medical Plan Continue PAP therapy, DME, [employer]. Needs reteaching Will bring PAP therapy to next visit to adjust CT chest to assess Pulmonary nodule weight management Low Sodium diet F/U 3-4 months Orders: Orders CT chest wo IV con 1 Month J98.4 - Other disorders of lung, R91.1 - Solitary pulmonary nodule Coding Level of Care Code New Pt Level 4 (40716) Diagnoses NISHA on CPAP G47.33 Pulmonary nodule R91.1 Prostate cancer C61 Chronic restrictive lung disease J98.4 Time Spent (min) 40
[2025-02-28 10:37] VITALS: BP 120/54; PULSE 69; O2SAT 95; BMI 34.0
--- OUTSIDE RECORDS SUMMARY | 2025-02-28 11:22 | XMS_ITS | Clinical Summary ---
Demographics Address [address] [place] [address] Home Phone Mobile Phone Email Address Email Address Preferred Language en Marital Status Holiness Affiliation Unknown Race Black or Suma rican Ethnic Group Not or Lati no Author Organization [facility] Address [address] [place] [address] Phone Support Name Relationship Address Phone Paula Shannon Unrelated friend [address] [place] [address] Care Team Providers Care Manager Salt Name Role Phone Fadi Carmona MD Primary Care Provider [phone] Allergies Active Allergy Reactions Criticality Noted Date Comments Westfir Nut Swelling 01/05/2025 Lips swell Lisinopril Cough 04/18/2014 Oxycodone-Acetaminophen 02/09/2017 Shellfish Containing Products Hives,Itching 03/26/2007 hives and itchy throat Tramadol Hives 10/04/2023 Medications NON FORMULARY CPAP HISTORICAL (HISTORICAL CPAP) Inhale into the lungs. [employer]-pressure 8-16 Active fexofenadine HCl (JONATHAN ALLERGY ORAL) Take by mouth daily. Active glucosamine-chond roit-vit C-Mn (Glucosamine-Luis Fernando droitin Complx) capsule Take by mouth. Activ e MULTIVITAMIN ORAL Take by mouth. Active albuterol HFA (PROAIR HFA ; PROVENTIL HFA ; VENTOLIN HFA) 90 mcg/actuation inhaler Inhale 2 Puffs into the lungs every 6 hours as needed for Cough or Wheezing for up to 30 days. 4 Active aspirin 81 mg chewable tablet Take 81 mg by mouth daily. Active diclofenac (VOLTAREN) 1 % topical gel APPLY 3 G TOPICALLY 3 TIMES DAILY NEEDED (CHEST WALL CONTUSION). 2 Active omeprazole (PriLOSEC) [address] capsule Take 1 Capsule by mouth 2 times daily (before meals). 2 Active levothyroxine (SYNTHROID, LEVOTHROID) 25 mcg tabletIndications :Hypothyroidism, unspecified TAKE 1 TABLET BY MOUTH EVERY DAY 90 tablet 1 5 Active brimonidine-timol oL (Combigan) 0.2-0.5 % ophthalmic solution Administer 1 drop into both eyes every 12 (twelve) hours. Active latanoprostene bunod (Vyzulta) 0.024 % drops Administer 1 drop into both eyes at bedtime. Active atorvastatin (LIPITOR) 40 mg tablet TAKE 1 TABLET BY MOUTH EVERY DAY 90 tablet 1 5 Active hydroCHLOROthiazi de (MICROZIDE) 12.5 mg capsuleIndication s:Essential (primary) hypertension TAKE 1 CAPSULE BY MOUTH EVERY DAY IN THE MORNING 90 capsule 1 5 Active amLODIPine (NORVASC) 5 mg tabletIndications :Essential (primary) hypertension TAKE 1 TABLET BY MOUTH EVERY DAY 90 tablet 1 5 Active warfarin (COUMADIN) 5 mg tablet MAY CAUSE HEAVY BLEEDING. TAKE TABLET BY MOUTH DIRECTED BY COUMADIN CLINIC DAILY AT SAME TIME EVERY DAY. DO NOT CHANGE DIETARY HABITS. 90 tablet 1 5 Active Active Problems Problem Noted Date Diagnosed Date Prediabetes 11/10/2023 Assessment & Plan (08/30/2024 12:40 PM EST): Will check patient's A1c. Diabetic diet discussed. Orders: Hemoglobin A1c; Future Diaphragmatic hernia 03/17/2022 Gastroesophageal reflux disease 03/17/2022 Peripheral arterial disease ([facility] V24) 2020 Overview (06/07/2024): FABIANA on 02/2021: Right 50-99% [...] Left Carpal tunnel injection Primary prostate adenocarcinoma ([facility] V24, CM S/[facility] V28) 01/18/2020 Overview (06/07/2024): 11/2019: [place] 7 on biopsy. Put on finasteride RT 09/2020 PMR (polymyalgia rheumatica) ([facility] V24) 10/11 Overview (06/07/2024): Onset 08/2019 Severe obesity with body mas s index (BMI) of 35.0 to 39.9 with comorbidity ([facility] V24, [facility] V28) 02/07/2019 Hypothyroidism 12/10/2018 Assessment & Plan (08/30/2024 [...] Future Obstructive sleep apnea 08/31/2016 Overview (06/07/2024): [facility] Polysomnogram: Date 08/25/2016; Wt 252# SE 46%; [...] conditions classified elsewhere 08/31/2016 Paroxysmal atrial fibrillation ([facility]/HCC V24, [facility] /HCC V28) 05/07/2016 Overview (06/07/2024): Ablation 10/20; [facility] Warfarin managed by [facility] Assessment & Plan (08/30/2024 12:40 PM EST): Continue warfarin. Denies overt bleeding. Rate controlled. Headache 12/18/2014 Overview (06/07/2024): Rossen; hypoplastic R vertebralartery Aortic dilatation ([facility] V24) 04/30/2014 Overview (06/07/2024): 4.1 CM on echo [...] (sono 12/09) Glaucoma suspect 03/28/2008 Overview (06/07/2024): [facility] (reactive airway disease) 03/28/2008 Hyperlipidemia 05/04/2007 Assessment & Plan (08/30/2024 12:40 PM EST): Follow low-cholesterol diet. Continue atorvastatin. Osteoarthritis of both knees 04/27/2007 Overview (06/07/2024): DJD knees Aortic valve disorder 04/10/2006 Overview (06/07/2024): Aortic sclerosis; Echo 09/07 Hiatal hernia 04/10/2006 Overview (06/07/2024): Dilcia; 09/08; BARBARA NULL update Encounters Date Type Department Care Team Description 02/23/2025 [facility] [place] [address] Fadi Carmona MD 01/20/2025 Telephone Internal Medicine - [address] [place] [address] Fadi Carmona MD 01/05/2025 9:15 AM EDT Office [facility] [place] [address] Omar Rendon NP Ear problem, right (Primary Dx); Prediabetes; Gastroesophageal reflux disease without esophagitis; Hypothyroidism, unspecified type from Last 3 Months Immunizations Name Administration Dates Next Due H1N1 Inj Preservative Free 05/21/2009 Influenza trivalent, 0.5mL ( Fluad) 65yo and older 03/30/2024,03/18/2023,03/11/2022,04/11,03/27/2021,02/18/2020,04/02/2018 ,04/06/2017,03/29/2015 Influenza trivalent, 0.5mL, preservative free (Fluarix; FluLaval; Fluzone) ages 6mo and older (Afluria) 3 years and older 02/27/2019,03/08/2012,03/20/2011,03/20,04/05/2009,04/28/2008,04/27/2007 Influenza trivalent, with pr eservative (Fluzone; Afluria) 6mo and older 03/06/2021 Influenza, Unspecified 05/20/2021 [employer] SARS-CoV-2 COVID-19, mRNA, LNP-S, preservative free 03/30/2024,09/19/2023,08/24/2020,08/03 [...] Site/Laterality Comments OTHER SURGICAL HISTORY 09/03/05 PROCEDURE: [place] UNLISTED PROCEDURE DIAPHRAGM; COMMENT: Maynorman OTHER SURGICAL HISTORY PROCEDURE: [place] EXPLORATORY LAPAROTOMY CELIOTOMY W/WO BIOPSY SPX OTHER SURGICAL HISTORY 01/10 PROCEDURE: PROSTATE SPEC. AG, SCREEN; COMMENT: 1.6 ESOPHAGOGASTRODUODENOSCOPY 07/28/08 PROCEDURE: [place] ESOPHAGOGASTRODUODENOSCOPY TRANSORAL DIAGNOSTIC; COMMENT: erosive esophagitis, esophagea stricture (dilated), gastritis (FORTINO neg) OTHER SURGICAL HISTORY 10/25/08 PROCEDURE: [place] EGD BALLOON DILATION ESOPHAGUS <30 MM DIAM; COMMENT: healed erosive esophagitis and adequately dilated stricture; hiatus hernia ESOPHAGOGASTRODUODENOSCOPY 12/12/13 PROCEDURE: [place] ESOPHAGOGASTRODUODENOSCOPY TRANSORAL DIAGNOSTIC; COMMENT: hiatus hernia; normal esophageal biopsies OTHER SURGICAL HISTORY 12/2013 PROCEDURE: [place] CABG W/ARTERIAL GRAFT TWO ARTERIAL GRAFTS COLONOSCOPY 06/09 PROCEDURE: [place] COLONOSCOPY STOMA DX INCLUDING COLLJ SPEC SPX; COMMENT: Joseph; neg (hyperplastic polyp) COLONOSCOPY 04/18/15 PROCEDURE: [place] COLONOSCOPY STOMA W/RMVL TONYA POLYP/OTH LES SNARE; COMMENT: tics and adenomas; repeat in 5 yrs CORONARY ARTERY BYPASS GRAFT HERNIA REPAIR PROSTATE SURGERY Medical History Medical History Date Comments Diaphragmatic [...] Glaucoma suspect 03/28/2008 DX:Glaucoma melani pect; COMMENT: [place] Obese 06/06/2009 DX:Obese Spermatocele 12/01/2017 DX:Spermatocele Primary prostate adenocarcin bertrand (CMS/HCC V24, CMS/HCC V28) 01/18/2020 DX:Primary prostate adenoca rcinoma ([facility]) Carpal tunnel syndrome on both sides 05/28/2020 DX:Carpal tunnel syndrome on both sides; COMMENT: Moderate to severe on EMG/NCT 08/2019 Left Carpal tunnel injection Prediabetes 11/10/2023 DX:Prediabetes Sleep apnea Family History Medical History Relation Name Comments Diabetes Brother Glaucoma Brother Heart attack Brother 3 brothers Other Daughter hypothermia d outside, adopted daughter Diabetes Father passed from com plication of diabetes Heart attack Mother Hypertension Mother Lung cancer Sister Other Sister possible colon ca removed polyps Other Son unsure of what it was, had heart problems Relation Name Status Comments Brother x5 Daughter Father Mother Sister x6 Son Social History Tobacco Use Types Packs/Day Years Used Date Smoking Tobacco: Former Cigarettes 0.8 30.5 1 08/10/1957 - 12/08/1988 Smokeless Tobacco: Never Tobacco Cessation:Counseling Given: Not Answered Alcohol Use Standard Drinks/Week Comments Yes 0 (1 standard drink = 0.6 oz pur e alcohol) rarely Housing Instability Answer Date Recorde d Are you worried that in the next 2 months you may not have stable housing? No 09/05/2024 Food Access & Nutrition Answer Date Rec orded Do you have access to a vari ety of food including fruits and vegetables? No 09/05/2024 Health Literacy Answer Date Recorded How often do you need to hav e someone help you when you read instructions, pamphlets, or other written material from your doctor or pharmacy? Never 09/05/2024 Caregiver: How often do you need to have someone help you when you read instructions, pamphlets, or other written material from your doctor or pharmacy? Not on file 09/05/2024 Financial Risk Answer Date Recorded How hard is it for you to pa y for the very basics like food, housing, medical care, and air conditioning / heating? Not very hard 09/05/2024 Transportation Answer Date Recorded Has the lack of transportati on kept you from meetings, work, or from getting things needed for daily living? No Has the lack of transportati on kept you from medical appointments or from getting medications? No 09/05/2024 Social Isolation Answer Date Recorded How often do you feel lonely or isolated from th ose around you? Never 09/05/2024 Food Risk Answer Date Recorded Within the past 12 months we worried whether our food would run out before we got money to buy more. Never true 09/05/2024 Within the past 12 months th e food we bought just didn't last and we didn't have money to get more. Never true 09/05/2024 Dependent Care Answer Date Recorded Do you need help finding or paying for care for your loved ones. For example, child care group leader or elderly care for an older adult? No 09/05/2024 Education Answer Date Recorded Do you think completing more education or training, like finishing a GED, going to college, or learning a trade, would be helpful for you? No 09/05/2024 Employment and Income Answer Date Recor ded During the last four weeks, have you been actively looking for work? No 09/05/2024 Living Situation Answer Date Recorded What is your living situation? 0 09/05/2024 Sex and Gender Information Value Date Recorded Sex Assigned at Male 10/27/2024 3:49 PM EDT Legal Sex Male 10:00 AM EST Gender Identity Male 10/27/2024 3:49 PM EDT Sexual Orientation Straight 10/27/2024 3: 49 PM EDT Obstetrics History Last Filed Vital Signs Vital Sign Reading Time Taken Comments Blood Pressure 125/62 01/05/2025 9:38 AM EDT Pulse 59 01/05/2025 9:38 AM EDT Temperature 36.7 C (98 F) 11/25/2024 12:49 PM EDT Respiratory Rate 18 11/25/2024 12:49 PM EDT Oxygen Saturation 98% 11/25/2024 12:49 PM EDT Inhaled Oxygen Concentration - - Weight 106 kg (234 lb) 01/05/2025 9:38 AM EDT Height 180.3 cm (5' 11 ) 11/25/2024 5:44 AM EDT Body Mass Index 32.64 11/25/2024 5:44 AM EDT Plan of Treatment Upcoming Encounters Date Type Department Care Team (Late st Contact Info) Description 03/01/2025 2:45 PM EDT Office Visit Internal Medicine - [address] [phone] Tomás Damon MD [address] [place] [address] 05/11/2025 11:00 AM EST Office Visit Internal Medicine - [address] [address] Omar Rendon NP [address] [place] [phone] 12/01/2025 10:30 AM EDT Office Visit Vascular Surgery - [place] [address] [address] Kala Ho PA [address] [address] 03/30/2026 10:00 AM EDT Ancillary Procedure [facility] [address] [address] Health Maintenance Due Date Last Done Comments RSV Immunization Adult Patients (1 - 1-dose 75+ series) 2023 07/09/2023 COVID-19 Vaccine (10 - 2024-25 season) 2024 03/30/2024, 09/19/2023, 09/17/2023, Additional history exists Influenza Vaccine (#1) 2025 , 03/15/2024, 03/18/2023, Additional history exists Falls Risk Assessment 09/05/2025 09/05/2024, 024 Medicare Annual Wellness Visit 09/05/2025 09/05/2024 Social Influencers of Health Screening 09/05/2025 09/05/2024 Hypertension/CHF/CAD Annual BMP Blood Test 11/25/2025 11/25/2024, 10/27/2024, 08/30/2024, Additional history exists DTaP,Tdap,and Td Vaccines (3 - Td or Tdap) 04/06/2027 04/06/2017, 02/17/2007 Cholesterol Screening (Lipid Panel) 04/14/2029 04/14/2024, 04/14/2024 Hepatitis C Screening Completed 12/07/2013 Zoster Vaccines Completed 05/06/2020, 03/2020, 07/10/2011 RSV Immunization Patients Under 20 months Aged Out 07/09/2023 No longer eligible based on patient's age to complete this topic Pneumococcal Vaccine: 50+ Years Completed 08/29/2024, 02/07/2020, 12/18/2014, Additional history exists Depression Screening Completed 09/05/2024, 07/07/19 HIB Vaccines Aged Out No longer eligi [...] age to complete this topic Meningococcal B Vaccine Aged Out No l onger eligible based on patient's age to complete this topic Varicella Vaccines Aged Out No longer eligible based on patient's age to complete this topic Procedures Procedure Name Priority Date/Time Associated Diagnosis Comments THYROID STIMULATING HORMONE WITH REFLEX TO FREE T4 AND FREE T3 Routine 01/05/2025 10:19 AM EDT Hypothyroidism, unspecified type COMPREHENSIVE METABOLIC PANEL STAT 11/25/2024 8:13 AM EDT LIPID PANEL Routine 04/14/2024 DEPRESSION SCREENING Routine 07/07/2023 FALLS RISK ASSESSMENT Routine 07/07/2023 HEPATITIS C SCREENING Routine 12/07/2013 from Last 3 Months or Most Recently Relevant to Health Maintenance Results * Thyroid stimulating hormone with reflex to free t4 and free t3 (01/05/2025 10:19 AM EDT) TSH 2.64 0.40 - 4.00 mcIU/mL LAB CHEMISTRY METHOD 01/05/2025 4:21 PM EDT [facility] Blood Venous blood specimen / Unknown Venipuncture / Unknown 01/05/2025 10:19 AM EDT 01/05/2025 10:19 AM EDT Omar Rendon NP LAB BLOOD ORDERABLES Final Res ult [facility] [address] [place] [address], * (ABNORMAL) Comprehensive metabolic panel (11/25/2024 8:13 AM EDT) Sodium 137 133 - 145 mmol/L LAB CHEMISTRY METHOD 11/25/2024 9:01 AM EDT [facility] Potassium 4.6 3.5 - 5.5 mmol/L LAB CHEMISTRY METHOD 11/25/2024 9:01 AM EDT [facility] Chloride 104 96 - 110 mmol/L LAB CHEMISTRY METHOD 11/25/2024 9:01 AM [facility] CO2 30 21 - 32 mmol/L LAB CHEMISTRY METHOD 11/25/2024 9:01 AM [facility] Anion Gap 3 3 - 11 LAB CHEMISTRY METHOD 11/25/2024 9:01 AM [facility] Glucose 106(H) 70 - 100 mg/dL LAB CHEMISTRY METHOD 11/25/2024 9:01 AM [facility] BUN 10 5 - 25 mg/dL LAB CHEMISTRY METHOD 11/25/2024 9:01 AM [facility] Creatinine 0.82 0.70 - 1.30 mg/dL LAB CHEMISTRY METHOD 11/25/2024 9:01 AM [facility] eGFR 91 >=60 mL/min/1. 73m2 LAB CHEMISTRY METHOD 11/25/2024 9:01 AM [facility] Comment:Calculation based on the Chronic Kidney Disease Epidemiology Collaboration (CKD-EPI) equation refit without adjustment for race. BUN/Creatinine Ratio 12.2 LAB CHEMISTRY METHOD 11/25/2024 9:01 AM [facility] Calcium 9.3 8.5 - 10.5 mg/dL LAB CHEMISTRY METHOD 11/25/2024 9:01 AM [facility] AST (SGOT) 19 10 - 42 unit/L LAB CHEMISTRY METHOD 11/25/2024 9:01 AM [facility] ALT (SGPT) 23 10 - 60 unit/L LAB CHEMISTRY METHOD 11/25/2024 9:01 AM [facility] Alkaline Phosphatase 98 42 - 121 unit/L LAB CHEMISTRY METHOD 11/25/2024 9:01 AM [facility] Total Protein 7.1 6.0 - 8.0 g/dL LAB CHEMISTRY METHOD 11/25/2024 9:01 AM [facility] Albumin 3.9 3.2 - 5.0 g/dL LAB CHEMISTRY METHOD 11/25/2024 9:01 AM EDT [facility] Total Bilirubin 0.5 0.0 - 1.4 mg/dL LAB CHEMISTRY METHOD 11/25/2024 9:01 AM EDT [facility] Blood Venous blood specimen / Unknown Venipuncture / Unknown 11/25/2024 8:13 AM EDT 11/25/2024 8:25 AM EDT Costa Bacon MD LAB BLOOD ORDERABLES Final Re sult [facility] [address] [place] [address], * Lipid panel (04/14/2024) Pathologist [facility] LDL/HDL Ratio 2 0 - 4 Triglycerides 55 0 - 150 mg/dL Cholesterol 166 0 - 200 mg/dL HDL 70 >=40 mg/dL LDL Cholesterol 85 0 - 100 mg/dL Blood Venous blood specimen / Unknown Result [facility] Josselyn WRAY LAB BLOOD ORDERABLES [place] Result * Falls Risk Assessment (07/07/2023) Pathologist [facility] Falls Risk Assessment Abstracted Result [facility] Josselyn WRAY HEALTH MAINTENANCE Final Result * Depression Screening (07/07/2023) Pathologist [facility] Depression Screening Abstracted Result [facility] Historical Provider HEALTH MAINTENANCE Final Result * Hepatitis C Screening (12/07/2013) Pathologist [facility] Hepatitis C Screening Abstracted Result [facility] Josselyn WRAY HEALTH MAINTENANCE Final Result from Last 3 Months or Most Recently Relevant to Health Maintenance Insurance MEDICARE [facility] Advance Directives Documents on File Type Date Recorded Patient Academic Manager Expl anation Health Care Decision (hx) 12/03/2021 [...] (hx) 12/03/2021 AD HAMILTON DIRECTIVE Care Teams Manager Salt Relationship Specialty Start Date End Date Fadi Carmona MD [address] [place] [id number] PCP - General Internal Medicine 07/03/17
--- OUTSIDE RECORDS SUMMARY | 2025-02-28 11:22 | XMS_ITS | Encounter Summary ---
Demographics Address [address] [place] [address] Home Phone Mobile Phone Email Address Email Address Preferred Language en Marital Status Worship Affiliation Unknown Race Black or Suma rican Ethnic Group Not or Lati no Author Organization [facility] Address [address] [place] [address] Support Name Relationship Address Phone Paula Shannon Unrelated friend [address] [place] [address] Care Team Providers Care Photoengraving Retoucher Name Role Phone Fadi Carmona MD Primary Care Provider [phone] Reason for Visit * Reason Onset Date Comments Earache 02/23/2025 Encounter Details Date Type Department Care Team (Late st Contact Info) Description 02/23/2025 Telephone Internal Medicine - [facility] [address] [place] [phone] Fadi Carmona MD [address] [place] [phone] Social History Tobacco Use Types Packs/Day Years [...] for your loved ones. For example, child welfare worker or elderly care for an older adult? [...] Orientation Straight 10/27/2024 3: 49 PM EDT documented as of this encounter Progress Notes * Melisa Nye RN - 02/23/2025 1:27 PM EDT Patient complaints of ongoing ear issue, patient was referred to ENT. Right ear concerns, appointment at ENT for September. Appt made for next week to have ear reevaluated. * Yasmani Gee - 02/23/2025 1:22 PM EDT Patient call requires triage: Symptoms patient is presenting: right ear pain/ache, has an appt 09-28-25 for an ear doctor and states he cannot wait that long. How long has patient had these symptoms?: For ALL patients calling to schedule any appointment (routine, sick visit, follow up, consult, etc.) in the outpatient setting please ask the following questions: Do you have fever of higher than 101, sore throat with difficulty swallowing or severe shortness ofbreath? If YES to any of these above symptoms, send a message to triage and do not book. Red dot. If no, an audio or video visit should be booked. Have you had close contact with someone with Coronavirus in the last 14 days? Have you traveled abroad? Have you traveled recently to another state outside of [place], [place], [place], [place], [place], [place], [place]? o If yes, did you quarantine for 14 days or have a negative covid test? If yes to any of the above, patient is not to be scheduled in office until after 14 day quarantine or negative covid test. If pain or injury related was it due to an accident at work or from a motor vehicle accident? If yes, date of accident/Injury: If yes, gather 3rd green party insurance information Third Constitution Party Information: PCP: Fadi Carmona MD Payor: MEDICARE / Plan: MEDICARE PART A & B / Product Type: Medicare / documented in this encounter Plan of Treatment Upcoming Encounters Date Type Department Care Team (Late st Contact Info) Description 03/01/2025 2:45 PM EDT Office Visit Internal Medicine - [facility] [address] [place] [address] Tomás Damon MD [address] [place] [address] 05/11/2025 11:00 AM EST Office Visit Internal Medicine - [facility] [address] [place] [address] Omar Rendon NP [address] [place] [address] 12/01/2025 10:30 AM EDT Office Visit Vascular Surgery - [place] [address] [place] [address] Kala Ho PA [address] [place] [address] 03/30/2026 10:00 AM EDT Ancillary Procedure [facility] 101 300 [facility] [address] [place] [address] documented as of this encounter Visit Diagnoses Not on filedocumented in this encounter Additional Health Concerns Assessment Noted Time PHQ-9 Depression Total Score: 0 09/06/19 10:34 AM EST documented as of this encounter Care Teams Photoengraving Retoucher Relationship Specialty Start Date End Date Fadi Carmona MD [address] [place] [phone] PCP - General Internal Medicine 07/03/17 documented as of this encounter
--- OUTSIDE RECORDS SUMMARY | 2025-02-28 11:22 | XMS_ITS ---
Author Name [facility] Organization Unknown Care Team Organization Name Specialty Phone Email Start Date End Da te [facility] 02/22/2025 [facility] Fadi Carmona Primary Care 09/10/2022 02/22/2024 [facility] Omar Rendon Primary Care 05/13/202202/21
--- OUTSIDE RECORDS SUMMARY | 2025-02-28 11:22 | XMS_ITS | Patient Health Record ---
Author Organization [facility] alem [place] Address [address] [place] [address] Care Team Providers Care Recording Engineer Name Role Phone Shana Platt Unavailable [phone] Darshan Raoms Unavailable [phone] Allergies Allergen (clinical drug ingredient) Drug/Non Drug Allergy documented on EMR Reaction Allergy Type Onset Date Status lisinopril Lisinopril Unknown Drug Allergy Activ e acetaminophen / oxycodone Percocet Unknown Drug Allergy Active Shellfish (FN) Shellfish-derived Products Unknown Drug Allergy Active tramadol Tramadol Unknown Drug Allergy Active hazelnut allergenic extract Hazelnut (Filbert)(Diagnostic) Unknown Drug Allergy Active Reason For Referral No Information Medications Medication SIG (Take, Route, Frequency, Duration) Notes Start Date End Date Status Levothyroxine Sodium Active hydroCHLOROthiazide Active Ventolin HFA Active Omeprazole Active Multivitamin Active Aspirin Active Glucosamine Active Eye Drops Active Allergy Active Warfarin Sodium Acti ve Buchanan 3 Active Ketoconazole 2 % 1 application Medical Record Assistant ally Once a day; Duration: 21 days 05/12/2024 Active amLODIPine Besylate Active Dorzolamide HCl Not- Taking Atorvastatin Calcium Active Timolol Maleate Not- Taking Immunizations Vaccine Route Administration Date Status Comme nts Influenza Unknown 03/15/2024 Administered Social History Tobacco Use: Social History Observation [...] Problem Status W/U Status Risk Notes Problem Plantar wart (03685390) Plantar wart (B07.0) Active confirmed Problem Plantar fasciitis of left foot (828772923883845 01) Plantar fasciitis of left foot (M72.2) Active confirmed Problem Interstitial myositis (54630508) 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) Active confirmed Problem Ulcer of toe of left foot (disorder) (750760777179105 02) Skin ulcer of toe of left foot, limited to breakdown of skin (L97.521) Active confirmed Vital Signs Blood pressure diastolic 80 mm Hg 02/08/2025 Height 5 ft 0 in in 02/08/2025 Blood pressure systolic 120 mm Hg 02/08/2025 Weight 236 lbs 02/08/2025 BMI 46.09 kg/m2 02/08/2025 Procedures Procedure Date Ordered Date Performed Result Body Sit e 71048-ZOEZGQH NAIL, 6 OR MORE 05/12/2024 N/A 55105-CYVQMNN NAIL, 6 OR MORE 07/21/2024 N/A 05904-ZCNIBLC NAIL, 6 OR MORE 10/04/2024 N/A 32935-Kgpa Destruction, 1-14 10/04/2024 N/A 24935-Kqcyfeoh Plate 10/04/2024 N/A 80051-SMSGTBF NAIL, 6 OR MORE 12/13/2024 N/A 97869-Dftm Destruction, 1-14 12/13/2024 N/A 18381 I&D ABSCESS- SIMPLE,SINGLE 01/20/2025 N/A Encounters Encounter Location Date Provider Diagnosis [facility] [place] [address] 05/12/2024 Darshan Ramos Onychomycosis B35.1 ; Pain in right toe(s) M79.674 ; Pain in left toe(s) M79.675 ; Pain in left foot M79.672 ; Hallux valgus (acquired), left foot M20.12 and Tinea pedis of both feet B35.3 [facility] [place] [address] 07/21/2024 Darshan Ramos Onychomycosis B35.1 ; Pain in right toe(s) M79.674 and Pain in left toe(s) M79.[address] [address] 10/04/2024 Shana Black Onychomycosis B35.1 ; Pain in right toe(s) M79.674 ; Pain in left toe(s) M79.675 ; Ingrown nail L60.0 ; Pain in left foot M79.672 ; Plantar fasciitis of left foot M72.2 ; Interstitial myositis of left foot M60.172 ; Bursitis of left foot M77.52 ; Right foot pain M79.671 and Plantar wart B07.[address] [address] 12/13/2024 Shana Black Onychomycosis B35.1 ; Pain in right toe(s) M79.674 ; Pain in left toe(s) M79.675 ; Ingrown nail L60.0 ; Pain in left foot M79.672 ; Plantar fasciitis of left foot M72.2 ; Interstitial myositis of left foot M60.172 ; Bursitis of left foot M77.52 ; Right foot pain M79.671 and Plantar wart B07.[address] [address] 01/20/2025 Shana Black Abscess of toe, left L02.[address] [address] 02/08/2025 Shana Black Pain in left toe(s) M79.675 and Skin ulcer of toe of left foot, limited to breakdown of skin L97.521 [facility] [address] [place] [address] 05/04/2024 Darshan Ramos [address] [address] 01/12/2025 Shana Black Assessments Encounter Date Diagnosis (ICD Code) Assessment Notes Treatment Notes Treatment Clinical Notes Section Notes 05/12/2024 Onychomycosis (ICD-10 - B35.1) 07/21/2024 Pain in right toe(s) (ICD-10 - M79.674) 07/21/2024 Onychomycosis (ICD-10 - B35.1) 10/04/2024 Pain in right toe(s) (ICD-10 - M79.674) 10/04/2024 Onychomycosis (ICD-10 - B35.1) 12/13/2024 Pain in right toe(s) (ICD-10 - M79.674) 12/13/2024 Onychomycosis (ICD-10 - B35.1) 01/20/2025 Abscess of toe, left (ICD-10 - L02.612) Patient Educated with: WOUND CARE INSTRUCTIONS.pd f (WOUND CARE INSTRUCTIONS.pd f) 02/08/2025 Pain in left toe(s) (ICD-10 - M79.675) 02/08/2025 Skin ulcer of toe of left foot, limited to breakdown of skin (ICD-10 - L97.521) Patient Educated with: WOUND CARE INSTRUCTIONS.pd f (WOUND CARE INSTRUCTIONS.pd f) 10/04/2024 Pain in left toe(s) (ICD-10 - M79.675) 12/13/2024 Pain in left toe(s) (ICD-10 - M79.675) 07/21/2024 Pain in left toe(s) (ICD-10 - M79.675) 05/12/2024 Pain in right toe(s) (ICD-10 - M79.674) 05/12/2024 Pain in left toe(s) (ICD-10 - M79.675) 10/04/2024 Ingrown nail (ICD-10 - L60.0) 12/13/2024 Ingrown nail (ICD-10 - L60.0) 12/13/2024 Pain in left foot (ICD-10 - M79.672) 10/04/2024 Pain in left foot (ICD-10 - M79.672) 05/12/2024 Pain in left foot (ICD-10 - M79.672) 05/12/2024 Hallux valgus (acquired), left foot (ICD-10 - M20.12) 05/12/2024 Tinea pedis of both feet (ICD-10 - B35.3) Application of Castillani's paint to 1-4 interspaces B/L 10/04/2024 Plantar fasciitis of left foot (ICD-10 - M72.2) Patient Educated with: HEEL CORD STRETCHES.pdf (HEEL CORD STRETCHES.pdf) Patient Educated with: RICE THERAPY.pdf (RICE THERAPY.pdf) 12/13/2024 Plantar fasciitis of left foot (ICD-10 - M72.2) 12/13/2024 Interstitial myositis of left foot (ICD-10 - M60.172) 10/04/2024 Interstitial myositis of left foot (ICD-10 - M60.172) 10/04/2024 Bursitis of left foot (ICD-10 - M77.52) 12/13/2024 Bursitis of left foot (ICD-10 - M77.52) 12/13/2024 Right foot pain (ICD-10 - M79.671) 10/04/2024 Right foot pain (ICD-10 - M79.671) 12/13/2024 Plantar wart (ICD-10 - B07.0) 10/04/2024 Plantar wart (ICD-10 - B07.0) 07/21/2024 Other 10/04/2024 Other 12/13/2024 Other Plan Of Treatment Pending Test Test Name Order Date 22080-FZRRAWB NAIL, 6 OR MORE 05/12/2024 29535-QDYBCKO NAIL, 6 OR MORE 07/21/2024 08798-KFKMNNY NAIL, 6 OR MORE 10/04/2024 67646-FETCSGY NAIL, 6 OR MORE 12/13/2024 98281-Bpeo Destruction, 1-14 10/04/2024 48131-Ytrj Destruction, 1-14 12/13/2024 95256-Rltbcbac Plate 10/04/2024 18140 I&D ABSCESS- SIMPLE,SINGLE 025 Next Appt Details Provider Name:Shana Platt , 04/21/2025 11:15:00 AM, [address] [facility], [place], [address], Insurance Providers Payer Name Payer Address Payer Phone Subscriber Number Group Number Insured Name Patient Relationship to Insured Coverage Start Date Coverage End Date Medicare [employer] [address] [place] [address] [phone] [id number] Vamshi Cobos Self - patient is the insured [employer] [address] [address] [place] [address] [id number] Vamshi Cobos Self - patient is the insured Medical (General) History Medical History History ICD Code Arthritis asthma Back,Hip,and Knee pain CAD (Cholesterol) Glaucoma High Blood Pressure Numbness Reflux ( GERD) Measles Mumps Chicken pox Vascular grafts Hernia Hallux valgus (acquired), left foot M20. 12 Other hammer toe(s) (acquired), left reynold t M20.42 Surgical History Surgery Date(Month/Year) double bypass
== END 2025-02-28 11:10 | disposition home or self-care (01) ==
LOC: HO.HPS 10:34
PROVIDERS: PCP Internal Medicine; Visit Provider Hospitalist
DX: G47.33 Obstructive sleep apnea (adult) (pediatric) (principal); R91.1 Solitary pulmonary nodule; C61 Malignant neoplasm of prostate; J98.4 Other disorders of lung
CPT/HCPCS: 99204

== ENCOUNTER → 2025-02-28 10:33 | Outpatient (BNVA) | payer MEDICARE, OTHER, SELFPAY | PROVIDERS: PCP Internal Medicine; Visit Provider Hospitalist | DX: G47.33 Obstructive sleep apnea (adult) (pediatric) (principal); R91.1 Solitary pulmonary nodule; J98.4 Other disorders of lung; C61 Malignant neoplasm of prostate | CPT/HCPCS: 99202 ==

== ENCOUNTER 2025-03-03 12:49 | Outpatient (REF) | payer MEDICARE, OTHER, SELFPAY ==
--- OUTSIDE RECORDS SUMMARY | 2025-01-27 06:30 | XMS_ITS ---
Author Organization [facility] Address [address] [place] [address] Care Team Providers Care Personal Lines Insurance Advisor Name Role Phone Shana Platt [phone] Encounters Encounter Location Date Provider Diagnosis [address] [address] 01/27/2025 Shana Platt Plan Of Treatment Next Appt Details Provider Name:Shanaxuan Platt , 04/21/2025 11:15:00 AM, [address] [place] [address], [place], [address], Progress Notes * Vamshi COBOS ADOB:[birth year] (74 yo M)Acc No.[id number]:01/27/2025 Progress Note Patient: Vamshi OLIVER Provider: Renetta Platt DPM :1950 A ge:74 Y S ex:Male Date:01/27/2025 Address:[address] [place] [address], [address] , [facility] Subjective: * Chief Complaints: * * Medical [...] 01/27/2025 Generated for Jaelyn Pennyg/[place] on: 0 03/03/2025 01:17 PM EDT
--- OUTSIDE RECORDS SUMMARY | 2025-02-22 09:30 | XMS_ITS ---
Author Organization [facility] Address [address] [place] [address] Care Team Providers Care Textile Machinery Instructor Name Role Phone Shana Platt [phone] REASON FOR VISIT SEEN ON 02/08/2025 Encounters Encounter Location Date Provider Diagnosis [address] [address] 02/22/2025 Shana Platt Plan Of Treatment Next Appt Details Provider Name:Shana Platt , 04/21/2025 11:15:00 AM, [address] [place] [address], [place], [address], Progress Notes * Vamshi COBOS ADOB:[birth year] (74 yo M)Acc No.[id number]:02/22/2025 Progress Note Patient: Aye Vamhsi PATINO Provider: Renetta Platt DPM :1950 A ge:74 Y S ex:Male Date:02/22/2025 Address:[address] [place] [address], [place], [place] Subjective: * Chief Complaints: * 1 . SEEN ON 02/08/2025. * Medical History: Objective: * Vitals: Assessment: Plan: * Treatment: * Images: * The named appointment provid er may or may not be the originator of this progress note, and it is not deemed complete until electronically signed by the appointment provider. Sign off status: Pending * Provider: Renetta Platt DPM Date: 0 02/22/2025 Generated for Jaelyn ware/Winifred/[place] on: 03/03/2025 01:17 PM EDT
--- OUTSIDE RECORDS SUMMARY | 2025-03-01 14:45 | XMS_ITS | Encounter Summary ---
Demographics Address [address] [place] [address] Home Phone Mobile Phone Email Address Email Address Preferred Language en Marital Status Uatsdin Affiliation Unknown Race Black or Suma rican Ethnic Group Not or Lati no Author Organization [facility] Address [address] [place] [address] Support Name Relationship Address Phone Paula Shannon Unrelated friend [address] [place] [address] Care Team Providers Care Academic Hospitalist Name Role Phone Fadi Carmona MD Primary Care Provider [phone] Reason for Referral * Consultation (Urgent) - Closed Specialty Diagnoses / Procedures Referred By Yeimi villanueva Referred To Contact Otolaryngology Diagnoses Earache on right Insect bite of right ear, subsequent encounter Procedures [place] VISIT OFFICE OUTPATIENT ESTABLISHED MODERATE LEVEL Tomás Damon MD [address] [place], [place] Phone: tel: fax: [facility] [address] [place] [address] Phone: tel: fax: Referral ID Status Reason Start Date Expiration Date V isits Requested Visits Authorized [id number] Closed Specialty Services Required 03/01/2025 03/01/2026 1 1 Reason for Visit * Reason Comments Earache Encounter Details Date Type Department Care Team ([facility] st Contact Info) Description 03/01/2025 2:45 PM EDT [facility] [address] [place] [address] Tomás Damon MD [address] [place] [address] Earache on right (Primary Dx); Insect bite of right ear, subsequent encounter; Foreign body of right ear, initial encounter Social History Tobacco Use Types Packs/Day Years [...] for your loved ones. For example, child life assistant or elderly care for an older adult? [...] PM EDT documented as of this encounter Last Filed Vital Signs Vital Sign Reading Time Taken Comments Blood Pressure 120/70 03/01/2025 2:59 PM EDT Pulse 76 03/01/2025 2:41 PM EDT Temperature - - Respiratory Rate - - Oxygen Saturation - - Inhaled Oxygen Concentration - - Weight 107 kg (236 lb 8 oz) 03/01/2025 2:41 PM E DT Height 180.3 cm (5' 11 ) 03/01/2025 2:41 PM EDT Body Mass Index 32.99 03/01/2025 2:41 PM EDT documented in this encounter Progress Notes * Tomás Damon MD - 03/01/2025 2:45 PM EDT CHIEF COMPLAINT: Earache IDENTIFIER: Vamshi Cobos is a 74 y.o. old male who comes alone. I have obtained verbal consent from Vamshi Cobos prior to the recording. I have advised Vamshi Cobos that he may refuse the recording and require the recording to be turned off at any time during this encounter. History of Present Illness The patient presents for right ear pain. Experiencing right ear discomfort for 3 months. Developed earache resembling infection a week ago, subsided after 2 days. Reports sensation of lodged object and frequent scratching due to wax buildup. No hearing issues. Scheduled ENT appointment in 09/2025. Did not take blood pressure medication this morning due to not eating, plans to take it later today. Takes medication daily. ROS: GENERAL: No malaise, significant weight loss or fever HEENT: See HPI RESPIRATORY: No cough, wheezing or shortness of breath CARDIOVASCULAR: No chest pain, leg swelling or palpitations GI: No abdominal discomfort, blood in stools or black stools NECK: No lumps, goiter, pain or significant neck swelling : No dysuria, frequency or incontinence MUSCULOSKELETAL: No joint pain or swelling, back pain, or muscle pain. SKIN: No lesions, rash or itching NEURO: No persistent headache, syncope, seizures, weakness or numbness PAST MEDICAL HISTORY: Patient Active Problem List Diagnosis Date Noted Prediabetes 11/10/2023 Diaphragmatic hernia 03/17/2022 Gastroesophageal reflux disease 03/17/2022 Peripheral arterial disease ([facility] V24) 02/21/2021 Carpal tunnel syndrome on both sides 05/28/2020 Primary prostate adenocarcinoma ([facility] V24, [facility] V28) 01/18/2020 PMR (polymyalgia rheumatica) ([facility] V24) 10/12/2019 Severe obesity with body mass index (BMI) of 35.0 to 39.9 with comorbidity ([facility] V24, [facility] V28) 02/07/2019 Hypothyroidism 12/10/2018 Spermatocele 12/01/2017 POAG (primary open-angle glaucoma) 10/31/2017 Hypertension 07/29/2017 Obstructive sleep apnea 08/31/2016 Sleep related hypoventilation in conditions classified elsewhere 08/31/2016 Paroxysmal atrial fibrillation ([facility] V24, [facility] V28) 05/07/2016 Headache 12/18/2014 Aortic dilatation ([facility] V24) 04/30/2014 CAD (coronary artery disease) 02/04/2014 Peptic stricture of esophagus 12/07/2013 BPH (benign prostatic hyperplasia) 03/28/2008 Glaucoma suspect 03/28/2008 RAD (reactive airway disease) 03/28/2008 Hyperlipidemia 05/04/2007 Osteoarthritis of both knees 04/27/2007 Aortic valve disorder 04/10/2006 Hiatal hernia 04/10/2006 ACTIVE MEDICATIONS: Outpatient Medications Marked as Taking for the 03/01/25 encounter (Office Visit) with Tomás Damon MD Medication Sig Dispense Refill albuterol HFA (PROAIR HFA ; PROVENTIL HFA ; VENTOLIN HFA) 90 mcg/actuation inhaler Inhale 2 Puffs into the lungs every 6 hours as needed for Cough or Wheezing for up to 30 days. amLODIPine (NORVASC) 5 mg tablet TAKE 1 TABLET BY MOUTH EVERY DAY 90 tablet 1 aspirin 81 mg chewable tablet Take 81 mg by mouth daily. atorvastatin (LIPITOR) 40 mg tablet TAKE 1 TABLET BY MOUTH EVERY DAY 90 tablet 1 brimonidine-timoloL (Combigan) 0.2-0.5 % ophthalmic solution Administer 1 drop into both eyes every12 (twelve) hours. diclofenac (VOLTAREN) 1 % topical gel APPLY 3 G TOPICALLY 3 TIMES DAILY NEEDED (CHEST WALL CONTUSION). fexofenadine HCl (JONATHAN ALLERGY ORAL) Take by mouth daily. somjsgtjsfv-rygqwoqmv-ebn C-Mn (Glucosamine-Chondroitin Complx) capsule Take by mouth. hydroCHLOROthiazide (MICROZIDE) 12.5 mg capsule TAKE 1 CAPSULE BY MOUTH EVERY DAY IN THE MORNING 90capsule 1 latanoprostene bunod (Vyzulta) 0.024 % drops Administer 1 drop into both eyes at bedtime. levothyroxine (SYNTHROID, LEVOTHROID) 25 mcg tablet TAKE 1 TABLET BY MOUTH EVERY DAY 90 tablet 1 MULTIVITAMIN ORAL Take by mouth. NON FORMULARY CPAP HISTORICAL (HISTORICAL CPAP) Inhale into the lungs. [employer]-pressure 8-16 omeprazole (PriLOSEC) [address] capsule Take 1 Capsule by mouth 2 times daily (before meals). warfarin (COUMADIN) 5 mg tablet MAY CAUSE HEAVY BLEEDING. TAKE TABLET BY MOUTH DIRECTED BY COUMADIN CLINIC DAILY AT SAME TIME EVERY DAY. DO NOT CHANGE DIETARY HABITS. 90 tablet 1 ALLERGIES: Jbphh nut, Lisinopril, Oxycodone-acetaminophen, Shellfish containing products, and Tramadol PHYSICAL EXAM: Visit Vitals BP 120/70 (BP Location: Right arm) Pulse 76 Ht 1.803 m (71 ) Wt 107 kg (236 lb 8 oz) BMI 32.99 kg/m?? Smoking Status Former BSA 2.26 m?? APPEARNCE: well appearing, awake, alert, in no acute distress EYES: PERRL, conjunctiva and sclera normal NOSE/SINUS: negative MOUTH/THROAT: no erythema or exudates NECK: Supple without any adenopathy HEART: regular rate, regular rhythm and no murmur RESPIRATORY: clear lungs bilaterally EXTREMITIES: No edema and Normal pulses bilaterally. NEURO: Awake, alert and oriented x 3, Normal gait and No involuntary motions. SKIN: No rashes or lesions. LABS: IMPRESSION: 1. Earache on right Ambulatory referral to ENT 2. Insect bite of right ear, subsequent encounter Ambulatory referral to ENT 3. Foreign body of right ear, initial encounter PLAN: Assessment & Plan 1. Right ear pain: - Persistent for 3 months, recent 2-day ache resembling infection. - Foreign object, possibly insect or wax, in right ear. - Attempt ear flush to remove object. If unsuccessful, urgent ENT referral or ER visit for removal. 2. Elevated blood pressure: - Initially elevated, improved to 125/70 upon recheck. - Did not take medication this morning, usually takes daily. Continue with current medication. PROCEDURE Ear irrigation - Discussed flushing ear to remove object causing discomfort. Alternatives: ENT referral or ER visit. - Nurse performed irrigation in right ear to remove object but unfortunately it did not come out. ADDITIONAL ORDERS: AMB REFERRAL TO ENT Today's documentation was made using voice recognition software.This note may contain grammatical errors secondary to this software. .MD Tomás Bernabe MD on 03/01/2025 at 3:20 PM EDT documented in this encounter Plan of Treatment Upcoming Encounters Date Type Department Care Team (Late st Contact Info) Description 05/11/2025 11:00 AM EST Office Visit Internal Medicine - [address] [address] Omar Rendon NP [address] [place] [address] 12/01/2025 10:30 AM EDT Office Visit Vascular Surgery - [place] [address] [address] Kala Ho PA [address] [facility] [address] [place] [address] 03/30/2026 10:00 AM EDT Ancillary Procedure [facility] [address] [facility] [address] [place] [address] Scheduled Referrals Name Type Priority Associated Diagnoses Order Schedule Ambulatory referral to ENT Outpatient Referral Routine Earache on right Insect bite of right ear, subsequent encounter 1 Occurrences starting 03/01/2025 until 03/01/2026 documented as of this encounter Visit Diagnoses Diagnosis Earache on right- Primary Insect bite of right ear, subsequent encounter Foreign body of right ear, initial encounter documented in this encounter Additional Health Concerns Assessment Noted Time PHQ-9 Depression Total Score: 0 09/06/19 25 10:34 AM EST documented as of this encounter Care Teams Academic Hospitalist Relationship Specialty Start Date End Date Fadi Carmona MD [address] [place] [id number] PCP - General Internal Medicine 07/03/17 documented as of this encounter
--- NOTE | ~2025-03-03 | CT_ITS ---
EXAMINATION: CT CHEST WITHOUT IV CONTRAST INDICATION: R91.1 - Solitary pulmonary nodule COMPARISON: There are no prior studies available for comparison. TECHNIQUE: Helical CT scan of the chest was performed without intravenous contrast. Coronal and sagittal reformatted images were generated and reviewed. This CT exam was performed with one or more of the following dose reduction techniques: automated exposure control, adjustment of the mA and/or kV according to patient size, use of iterative reconstruction technique. DLP: 205 mGy-cm CHEST: THYROID: The thyroid is unremarkable. LUNGS: There is a 2 mm nodule in the left upper lobe (series 4, image 61). There is scarring at the left lung base. MEDIASTINUM: There is no mediastinal lymphadenopathy. MALI: Evaluation of the hilar regions is limited by lack of intravenous contrast material. CARDIOVASCULATURE: The heart is normal in size. There is no pericardial effusion. The thoracic aorta is normal in caliber. DEGREE OF CORONARY CALCIFICATION: severe, status post CABG. PLEURA: There is no pleural effusion. No pneumothorax. MAIN AIRWAYS: The mainstem bronchi and proximal branches are patent. AXILLA: There is no axillary lymphadenopathy. BONES AND SOFT TISSUES: There is calcification or suture material along the undersurface of the left hemidiaphragm which is elevated. UPPER ABDOMEN: The visualized portions of the liver, spleen, and adrenals have an unremarkable unenhanced appearance. CT/CT chest wo IV con IMPRESSION: 2 mm left upper lobe nodule. Please see Fleischner Society guidelines below. Fleischner Criteria for pulmonary nodule follow-up SOLID NODULES: Low risk patient: <6mm: no follow-up 6-8mm: 6 month follow-up CT >8mm: PET/Biopsy/ 3 month follow-up CT High risk patient: <6mm: 12 month follow-up CT 6-8mm: 6 month follow-up CT >8mm: PET/Biopsy/ 3 month follow-up CT SUB-SOLID/GROUNDGLASS NODULES: All patients: > or = 6mm: 6 month follow-up CT *Please note that in patients in the following categories, the Fleischner criteria do not apply: Immunocompromised, lung cancer screening population, age below 35, and patients with known malignancy Electronically signed by: Jono Gary MD 03/03/2025 01:28 PM EDT RP
--- OUTSIDE RECORDS SUMMARY | 2025-03-03 13:17 | XMS_ITS | Clinical Summary ---
Demographics Address [address] [place] [address] Home Phone Mobile Phone Email Address Email Address Preferred Language en Marital Status Sikh Affiliation Unknown Race Black or Suma rican Ethnic Group Not or Lati no Author Organization [facility] Address [address] [place] [address] Phone Support Name Relationship Address Phone Paula Shannon Unrelated friend [address] [place] [address] Care Team Providers Care Inventory Technician Name Role Phone Fadi Carmona MD Primary Care Provider [phone] Allergies Active Allergy Reactions Criticality Noted Date Comments [place] Nut Swelling 01/05/2025 Lips swell Lisinopril Cough [...] Gastroesophageal reflux disease 03/17/2022 Peripheral arterial disease ([facility] V24) 2020 Overview (06/07/2024): FABIANA on 02/2021: [...] Left Carpal tunnel injection Primary prostate adenocarcinoma ([facility] V24, CM S/[facility] V28) 01/18/2020 Overview (06/07/2024): 11/2019: [place] 7 on biopsy. Put on finasteride RT 09/2020 PMR (polymyalgia rheumatica) ([facility] V24) 10/11 Overview (06/07/2024): Onset 08/2019 Severe obesity with body mas s index (BMI) of 35.0 to 39.9 with comorbidity ([facility] V24, [facility] V28) 02/07/2019 Hypothyroidism 12/10/2018 Assessment & Plan [...] Future Obstructive sleep apnea 08/31/2016 Overview (06/07/2024): [facility] Polysomnogram: Date 08/25/2016; Wt 252# SE 46%; [...] conditions classified elsewhere 08/31/2016 Paroxysmal atrial fibrillation ([facility]/HCC V24, [facility] /HCC V28) 05/07/2016 Overview (06/07/2024): Ablation 10/20; Witt Warfarin managed by [facility] Assessment & Plan (08/30/2024 12:40 PM EST): Continue warfarin. Denies overt bleeding. Rate controlled. Headache 12/18/2014 Overview (06/07/2024): Rossen; hypoplastic R vertebralartery Aortic dilatation ([facility] V24) 04/30/2014 Overview (06/07/2024): 4.1 CM on [...] Encounters Date Type Department Care Team Description 03/01/2025 2:45 PM EDT [facility] [place] [address] Tomás Damon MD Earache on right (Primary Dx); Insect bite of right ear, subsequent encounter; Foreign body of right ear, initial encounter 02/23/2025 Telephone Internal Medicine - [address] [place] [address] Fadi Carmona MD 01/20/2025 Telephone Internal Medicine - [address] [place] [address] Fadi Carmona MD 01/05/2025 9:15 AM EDT [facility] [place] [address] Omar Rendon NP Ear problem, right (Primary [...] 6mo and older 03/06/2021 Influenza, Unspecified 05/20/2021 [facility] SARS-CoV-2 COVID-19, mRNA, LNP-S, preservative free 03/30/2024,09/19/2023,08/24/2020,08/03 [...] Site/Laterality Comments OTHER SURGICAL HISTORY 09/03/05 PROCEDURE: PA UNLISTED PROCEDURE DIAPHRAGM; COMMENT: Dilcia OTHER SURGICAL HISTORY PROCEDURE: PA EXPLORATORY LAPAROTOMY CELIOTOMY W/WO BIOPSY SPX OTHER SURGICAL HISTORY 01/10 PROCEDURE: PROSTATE SPEC. AG, SCREEN; COMMENT: 1.6 ESOPHAGOGASTRODUODENOSCOPY 07/28/08 PROCEDURE: PA ESOPHAGOGASTRODUODENOSCOPY TRANSORAL DIAGNOSTIC; COMMENT: erosive esophagitis, esophagea stricture (dilated), gastritis (FORTINO neg) OTHER SURGICAL HISTORY 10/25/08 PROCEDURE: PA EGD BALLOON DILATION ESOPHAGUS <30 MM DIAM; COMMENT: healed erosive esophagitis and adequately dilated stricture; hiatus hernia ESOPHAGOGASTRODUODENOSCOPY 12/12/13 PROCEDURE: PA ESOPHAGOGASTRODUODENOSCOPY TRANSORAL DIAGNOSTIC; COMMENT: hiatus hernia; normal esophageal biopsies OTHER SURGICAL HISTORY 12/2013 PROCEDURE: PA CABG W/ARTERIAL GRAFT TWO ARTERIAL GRAFTS COLONOSCOPY 06/09 PROCEDURE: PA COLONOSCOPY STOMA DX INCLUDING COLLJ SPEC SPX; COMMENT: Joseph; neg (hyperplastic polyp) COLONOSCOPY 04/18/15 PROCEDURE: PA COLONOSCOPY STOMA W/RMVL TONYA POLYP/OTH LES SNARE; [...] Spermatocele 12/01/2017 DX:Spermatocele Primary prostate adenocarcin bertrand ([facility]/HCC V24, [facility]/HCC V28) 01/18/2020 DX:Primary prostate adenoca rcinoma (HCC) Carpal tunnel syndrome on both sides [...] Pulse 76 03/01/2025 2:41 PM EDT Temperature 36.7 C (98 F) 11/25/2024 12:49 PM EDT Respiratory Rate 18 11/25/2024 12:49 PM EDT Oxygen Saturation 98% 11/25/2024 12:49 PM EDT Inhaled Oxygen Concentration - - Weight 107 kg (236 lb 8 oz) 03/01/2025 2:41 PM E DT Height 180.3 cm (5' 11 ) 03/01/2025 2:41 PM EDT Body Mass Index 32.99 03/01/2025 2:41 PM EDT Plan of Treatment Upcoming Encounters Date Type Department Care Team (Late st Contact Info) Description 05/11/2025 11:00 AM EST Office Visit Internal Medicine - [address] [address] Omar Rendon NP [address] [place] [address] 12/01/2025 10:30 AM EDT Office Visit Vascular Surgery - [place] [address] [address] Kala Ho PA [address] [address] 03/30/2026 10:00 AM EDT Ancillary Procedure [facility] [address] [facility] [address] [place] [address] Health Maintenance Due Date Last Done Comments [...] LAB CHEMISTRY METHOD 01/05/2025 4:21 PM EDT [facility] Blood Venous blood specimen / Unknown Venipuncture / Unknown 01/05/2025 10:19 AM EDT 01/05/2025 10:19 AM EDT us Omar Rendon RADIATION ONCOLOGY MANAGER LAB BLOOD ORDERABLES Final Res ult [facility] [address] [place] [address], * (ABNORMAL) Comprehensive metabolic panel (11/25/2024 8:13 AM EDT) Sodium 137 133 - 145 mmol/L LAB CHEMISTRY METHOD 11/25/2024 9:01 AM EDT [facility] Potassium 4.6 3.5 - 5.5 mmol/L LAB CHEMISTRY METHOD 11/25/2024 9:01 AM EDT [facility] Chloride 104 96 - 110 mmol/L LAB CHEMISTRY METHOD 11/25/2024 9:01 AM [facility] CO2 30 21 - 32 mmol/L LAB CHEMISTRY METHOD 11/25/2024 9:01 AM [facility] Anion Gap 3 3 - 11 LAB CHEMISTRY METHOD 11/25/2024 9:01 AM [facility] Glucose 106(H) 70 - 100 mg/dL LAB CHEMISTRY METHOD 11/25/2024 9:01 AM [facility] BUN 10 5 - 25 mg/dL LAB CHEMISTRY METHOD 11/25/2024 9:01 AM [facility] Creatinine 0.82 0.70 - 1.30 mg/dL LAB CHEMISTRY METHOD 11/25/2024 9:01 AM [facility] eGFR 91 >=60 mL/min/1. 73m2 LAB CHEMISTRY METHOD 11/25/2024 9:01 AM [facility] Comment:Calculation based on the Chronic Kidney Disease Epidemiology Collaboration (CKD-EPI) equation refit without adjustment for race. BUN/Creatinine Ratio 12.2 LAB CHEMISTRY METHOD 11/25/2024 9:01 AM [facility] Calcium 9.3 8.5 - 10.5 mg/dL LAB CHEMISTRY METHOD 11/25/2024 9:01 AM [facility] AST (SGOT) 19 10 - 42 unit/L LAB CHEMISTRY METHOD 11/25/2024 9:01 AM [facility] ALT (SGPT) 23 10 - 60 unit/L LAB CHEMISTRY METHOD 11/25/2024 9:01 AM [facility] Alkaline Phosphatase 98 42 - 121 unit/L LAB CHEMISTRY METHOD 11/25/2024 9:01 AM [facility] Total Protein 7.1 6.0 - 8.0 g/dL LAB CHEMISTRY METHOD 11/25/2024 9:01 AM [facility] Albumin 3.9 3.2 - 5.0 g/dL LAB CHEMISTRY METHOD 11/25/2024 9:01 AM EDT [facility] Total Bilirubin 0.5 0.0 - 1.4 mg/dL LAB CHEMISTRY METHOD 11/25/2024 9:01 AM EDT [facility] Blood Venous blood specimen / Unknown Venipuncture / Unknown 11/25/2024 8:13 AM EDT 11/25/2024 8:25 AM EDT Costa Bacon MD LAB BLOOD ORDERABLES Final Re sult [facility] [address] [place] [address], * Lipid panel (04/14/2024) [facility] LDL/HDL Ratio 2 0 - 4 Triglycerides 55 0 - 150 mg/dL Cholesterol 166 0 - 200 mg/dL HDL 70 >=40 mg/dL LDL Cholesterol 85 0 - 100 mg/dL Blood Venous blood specimen / Unknown [facility] Provider LAB BLOOD ORDERABLES Keyana l Result * Falls Risk Assessment (07/07/2023) [facility] Falls Risk Assessment Abstracted Historical Josselyn WRAY HEALTH MAINTENANCE Final Result * Depression Screening (07/07/2023) Pathologist [facility] Depression Screening Abstracted Historical Provider HEALTH MAINTENANCE Final Result * Hepatitis C Screening (12/07/2013) [facility] Hepatitis C Screening Abstracted Historical Provider HEALTH MAINTENANCE Final Result from Last 3 Months or Most Recently Relevant to Health Maintenance Insurance MEDICARE HUMAN Advance Directives Documents on File Type Date Recorded Patient Train Operations Supervisor Expl anation Health Care Decision (hx) 12/03/2021 [...] (hx) 12/03/2021 AD HAMILTON DIRECTIVE Care Teams Inventory Technician Relationship Specialty Start Date End Date Fadi Carmona MD [address] [place] [id number] PCP - General Internal Medicine 07/03/17
--- OUTSIDE RECORDS SUMMARY | 2025-03-03 13:18 | XMS_ITS | Patient Health Record ---
Author Organization [facility] [place] Address [address] [place] [address] Care Team Providers Care Director Of Acquisition Marketing Name Role Phone Shana Platt Unavailable [phone] Darshan Ramos Unavailable [phone] Allergies Allergen (clinical drug ingredient) Drug/Non Drug [...] Active Allergy Active Warfarin Sodium Acti ve [place] 3 Active Ketoconazole 2 % 1 application Rolling Up Machine Operator ally Once a day; Duration: 21 days [...] W/U Status Risk Notes Problem Plantar wart (13325385) Plantar wart (B07.0) Active confirmed Problem Plantar fasciitis of left foot (486299652073201 01) Plantar fasciitis of left foot (M72.2) Active confirmed Problem Interstitial myositis (49851059) 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) Active confirmed Problem Ulcer of toe of left foot (disorder) (388872141916648 02) Skin ulcer of toe of left foot, limited to breakdown of skin (L97.521) Active confirmed Vital Signs Blood pressure diastolic 80 mm Hg 02/08/2025 Height 5 ft 0 in in 02/08/2025 Blood pressure systolic 120 mm Hg 02/08/2025 Weight 236 lbs 02/08/2025 BMI 46.09 kg/m2 02/08/2025 Procedures Procedure Date Ordered Date Performed Result Body Sit e 89949-HUPPTHQ NAIL, 6 OR MORE 05/12/2024 N/A 88372-QTFLMNK NAIL, 6 OR MORE 07/21/2024 N/A 98381-ASKPGNU NAIL, 6 OR MORE 10/04/2024 N/A 06717-Jzlr Destruction, 1-14 10/04/2024 N/A 62276-Owmvdlzt Plate 10/04/2024 N/A 77801-VATZCTD NAIL, 6 OR MORE 12/13/2024 N/A 75177-Swvg Destruction, 1-14 12/13/2024 N/A 93849 I&D ABSCESS- SIMPLE,SINGLE 01/20/2025 N/A Encounters Encounter Location Date Provider Diagnosis [facility] [place] [address] 05/12/2024 Darshan Ramos Onychomycosis B35.1 ; Pain in right toe(s) M79.674 ; Pain in left toe(s) M79.675 ; Pain in left foot M79.672 ; Hallux valgus (acquired), left foot M20.12 and Tinea pedis of both feet B35.[address] [facility] [place] [address] 07/21/2024 Darshan Ramos Onychomycosis B35.1 ; Pain in right toe(s) M79.674 and Pain in left toe(s) M79.[address] [address] 10/04/2024 Shana Black Onychomycosis B35.1 ; Pain in right toe(s) M79.674 ; Pain in left toe(s) M79.675 ; Ingrown nail L60.0 ; Pain in left foot M79.672 ; Plantar fasciitis of left foot M72.2 ; Interstitial myositis of left foot M60.172 ; Bursitis of left foot M77.52 ; Right foot pain M79.671 and Plantar wart B07.[address] [address] 12/13/2024 Shana Black Onychomycosis B35.1 ; Pain in right toe(s) M79.674 ; Pain in left toe(s) M79.675 ; Ingrown nail L60.0 ; Pain in left foot M79.672 ; Plantar fasciitis of left foot M72.2 ; Interstitial myositis of left foot M60.172 ; Bursitis of left foot M77.52 ; Right foot pain M79.671 and Plantar wart B07.[address] [address] 01/20/2025 Shana Black Abscess of toe, left L02.[address] [address] 02/08/2025 Shana Black Pain in left toe(s) M79.675 and Skin ulcer of toe of left foot, limited to breakdown of skin L97.521 [facility] [address] [place] [address] 05/04/2024 Darshan Ramos [address] [address] 01/12/2025 Shana Black Assessments Encounter Date Diagnosis [...] Treatment Pending Test Test Name Order Date 66810-GVJJIPA NAIL, 6 OR MORE 05/12/2024 95040-EPMQEHB NAIL, 6 OR MORE 07/21/2024 78028-ZPXMBVT NAIL, 6 OR MORE 10/04/2024 19593-HNKSXTC NAIL, 6 OR MORE 12/13/2024 18082-Jims Destruction, 1-14 10/04/2024 49216-Ogom Destruction, 1-14 12/13/2024 50036-Jipcuxyy Plate 10/04/2024 83654 I&D ABSCESS- SIMPLE,SINGLE 025 Next Appt Details Provider Name:Shana Platt , 04/21/2025 11:15:00 AM, [address] [facility], [place], [address], Insurance Providers Payer Name Payer Address Payer Phone Subscriber Number Group Number Insured Name Patient Relationship to Insured Coverage Start Date Coverage End Date Medicare National [facility] [address] [place] [address] [phone] [id number] Vamshi Cobos Self - patient is the insured [employer] [address] [address] [place] [address] [phone] [id number] Vamshi Cobos Self - patient is the [...]
== END 2025-03-03 12:50 | disposition home or self-care (01) ==
LOC: HO.CT 12:49
PROVIDERS: Visit Provider Hospitalist
DX: R91.1 Solitary pulmonary nodule (principal); J98.4 Other disorders of lung
CPT/HCPCS: 71250

== ENCOUNTER → 2025-03-03 12:51 | Outpatient (BNV) | payer MEDICARE, OTHER, SELFPAY | PROVIDERS: Visit Provider Radiology Diagnostic Radiology | DX: R91.1 Solitary pulmonary nodule (principal) | CPT/HCPCS: 71250 ==

== ENCOUNTER 2025-03-16 11:01 | Outpatient (REF) | payer MEDICARE, OTHER, SELFPAY ==
--- OUTSIDE RECORDS SUMMARY | 2025-01-27 06:30 | XMS_ITS ---
Author Organization [facility] Address [address] [place] [address] Care Team Providers Care Hot Water Heater Installer Name Role Phone Shana Platt [phone] Encounters Encounter Location Date Provider Diagnosis [address] [address] 01/27/2025 Shana Platt Plan Of Treatment Next Appt Details Provider Name:Shanaxuan Platt , 04/21/2025 11:15:00 AM, [address] [place] [address], [place], [address], Progress Notes * Vamshi COBOS ADOB:[birth year] (74 yo M)Acc No.[id number]:01/27/2025 Progress Note Patient: Vamshi OLIVER Provider: Renetta Platt DPM :1950 A ge:74 Y S ex:Male Date:01/27/2025 Address:[address] [place] [address], [address] , [facility] Subjective: * Chief Complaints: * * Medical [...] 01/27/2025 Generated for Jaelyn Pennyg/[place] on: 0 03/16/2025 03:10 PM EDT
--- OUTSIDE RECORDS SUMMARY | 2025-02-22 09:30 | XMS_ITS ---
Author Organization [facility] Address [address] [place] [address] Care Team Providers Care Industrial Maintenance Electrician Name Role Phone Shana Platt [phone] REASON FOR VISIT SEEN ON 02/08/2025 Encounters Encounter Location Date Provider Diagnosis [address] [address] 02/22/2025 Shana Platt Plan Of Treatment Next Appt Details Provider Name:Shana Platt , 04/21/2025 11:15:00 AM, [address] [place] [address], [place], [address], Progress Notes * Vamshi COBOS ADOB:[birth year] (74 yo M)Acc No.[id number]:02/22/2025 Progress Note Patient: Aye Vamshi PATINO Provider: Renetta Platt DPM :1950 A ge:74 Y S ex:Male Date:02/22/2025 Address:[address] [place] [address], [place], [place] Subjective: * Chief Complaints: * 1 . [...] 02/22/2025 Generated for Jaelyn ware/Winifred/[place] on: 0 03/16/2025 03:10 PM EDT
[2025-03-16 12:40] LABS: Prostate Specific Antigen < 0.10 ng/mL (<0.05-4.0)
--- OUTSIDE RECORDS SUMMARY | 2025-03-16 15:11 | XMS_ITS | Patient Health Record ---
Author Organization [facility] [place] Address [address] [place] [address] Care Team Providers Care Nanotechnology Engineering Technologist Name Role Phone Shana Platt Unavailable [phone] Darshan Ramos Unavailable [phone] Allergies Allergen (clinical drug ingredient) Drug/Non Drug [...] Active Allergy Active Warfarin Sodium Acti ve [place] 3 Active Ketoconazole 2 % 1 application Waiter/Waitress Cafeteria ally Once a day; Duration: 21 days [...] W/U Status Risk Notes Problem Plantar wart (65274990) Plantar wart (B07.0) Active confirmed Problem Plantar fasciitis of left foot (018745914479805 01) Plantar fasciitis of left foot (M72.2) Active confirmed Problem Interstitial myositis (31734040) 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) Active confirmed Problem Ulcer of toe of left foot (disorder) (948999065080231 02) Skin ulcer of toe of left foot, limited to breakdown of skin (L97.521) Active confirmed Vital Signs Blood pressure diastolic 80 mm Hg 02/08/2025 Height 5 ft 0 in in 02/08/2025 Blood pressure systolic 120 mm Hg 02/08/2025 Weight 236 lbs 02/08/2025 BMI 46.09 kg/m2 02/08/2025 Procedures Procedure Date Ordered Date Performed Result Body Sit e 06606-AJFPPQI NAIL, 6 OR MORE 05/12/2024 N/A 84883-QBHMNYT NAIL, 6 OR MORE 07/21/2024 N/A 14796-WVKIUXG NAIL, 6 OR MORE 10/04/2024 N/A 11538-Myzl Destruction, 1-14 10/04/2024 N/A 96382-Ewdeedya Plate 10/04/2024 N/A 09869-HGTOHCV NAIL, 6 OR MORE 12/13/2024 N/A 94059-Snxm Destruction, 1-14 12/13/2024 N/A 46951 I&D ABSCESS- SIMPLE,SINGLE 01/20/2025 N/A Encounters Encounter Location Date [facility] [place] [address] 05/12/2024 Darshan Ramos Onychomycosis B35.1 ; Pain in right toe(s) M79.674 ; Pain in left toe(s) M79.675 ; Pain in left foot M79.672 ; Hallux valgus (acquired), left foot M20.12 and Tinea pedis of both feet B35.3 [facility] [place] [address] 07/21/2024 Darshan Ramos Onychomycosis B35.1 ; Pain in right toe(s) M79.674 and Pain in left toe(s) M79.[address] [address] 10/04/2024 Shana Black Onychomycosis B35.1 ; Pain in right toe(s) M79.674 ; Pain in left toe(s) M79.675 ; Ingrown nail L60.0 ; Pain in left foot M79.672 ; Plantar fasciitis of left foot M72.2 ; Interstitial myositis of left foot M60.172 ; Bursitis of left foot M77.52 ; Right foot pain M79.671 and Plantar wart B07.[address] [address] 12/13/2024 Shana Black Onychomycosis B35.1 ; Pain in right toe(s) M79.674 ; Pain in left toe(s) M79.675 ; Ingrown nail L60.0 ; Pain in left foot M79.672 ; Plantar fasciitis of left foot M72.2 ; Interstitial myositis of left foot M60.172 ; Bursitis of left foot M77.52 ; Right foot pain M79.671 and Plantar wart B07.[address] [address] 01/20/2025 Shana Black Abscess of toe, left L02.[address] [address] 02/08/2025 Shana Black Pain in left toe(s) M79.675 and Skin ulcer of toe of left foot, limited to breakdown of skin L97.521 [facility] [address] [place] [address] 05/04/2024 Darshan Ramos [address] [address] 01/12/2025 Shana Black Assessments Encounter Date Diagnosis [...] Treatment Pending Test Test Name Order Date 39105-KJJBQPR NAIL, 6 OR MORE 05/12/2024 62886-CCPYTYP NAIL, 6 OR MORE 07/21/2024 20261-ZPWQXHU NAIL, 6 OR MORE 10/04/2024 55308-WHCRXUT NAIL, 6 OR MORE 12/13/2024 05787-Oxcl Destruction, 1-14 10/04/2024 62037-Xzct Destruction, 1-14 12/13/2024 37818-Ylzkbbko Plate 10/04/2024 13845 I&D ABSCESS- SIMPLE,SINGLE 025 Next Appt Details Provider Name:Shana Platt , 04/21/2025 11:15:00 AM, 1985 [facility], [place], [address], Insurance Providers Payer Name Payer Address Payer Phone Subscriber Number Group Number Insured Name Patient Relationship to Insured Coverage Start Date Coverage End Date Medicare National [facility] [address] [place] [address] [id number] Vamshi Cobos Self - patient is the insured [employer] [address] [address] [place] [address] [phone] [id number] Vamshi Cobos Self - patient is the [...]
--- OUTSIDE RECORDS SUMMARY | 2025-03-16 15:11 | XMS_ITS | Clinical Summary ---
Demographics Address [address] [place] [address] Home Phone Mobile Phone Email Address Email Address Preferred Language en Marital Status Shinto Affiliation Unknown Race Black or Suma rican Ethnic Group Not or Lati no Author Organization [address] [facility] Address [address] [place] [address] Phone Support Name Relationship Address Phone Paula Shannon Unrelated friend [address] [place] [address] Care Team Providers Care Ship Steward Name Role Phone Fadi Carmona MD Primary Care Provider [phone] Allergies Active Allergy Reactions Criticality Noted Date Comments [place] Nut Swelling 01/05/2025 Lips swell Lisinopril Cough [...] Gastroesophageal reflux disease 03/17/2022 Peripheral arterial disease ([facility] V24) 2020 Overview (06/07/2024): FABIANA on 02/2021: [...] Left Carpal tunnel injection Primary prostate adenocarcinoma ([facility] V24, CM S/[facility] V28) 01/18/2020 Overview (06/07/2024): 11/2019: [place] 7 on biopsy. Put on finasteride RT 09/2020 PMR (polymyalgia rheumatica) ([facility] V24) 10/11 Overview (06/07/2024): Onset 08/2019 Severe obesity with body mas s index (BMI) of 35.0 to 39.9 with comorbidity ([facility] V24, [facility] V28) 02/07/2019 Hypothyroidism 12/10/2018 Assessment & Plan [...] Future Obstructive sleep apnea 08/31/2016 Overview (06/07/2024): [facility] Polysomnogram: Date 08/25/2016; Wt 252# SE 46%; [...] conditions classified elsewhere 08/31/2016 Paroxysmal atrial fibrillation ([facility]/HCC V24, [facility] /HCC V28) 05/07/2016 Overview (06/07/2024): Ablation 10/20; [place] Warfarin managed [facility] Assessment & Plan (08/30/2024 12:40 PM EST): Continue warfarin. Denies overt bleeding. Rate controlled. Headache 12/18/2014 Overview (06/07/2024): [place]; hypoplastic R vertebralartery Aortic dilatation ([facility] V24) 04/30/2014 Overview (06/07/2024): 4.1 CM on [...] PM EDT [facility] [place] [address] Tomás Damon MD Earache on right (Primary Dx); Insect bite of right ear, subsequent encounter; Foreign body of right ear, initial encounter 02/23/2025 Telephone Internal Medicine - [address] [place] [address] Fadi Carmona MD 01/20/2025 Telephone Internal Medicine - [address] [place] [address] Fadi Carmona MD 01/05/2025 9:15 AM EDT [facility] [place] [address] Omar Rendon NP Ear problem, right (Primary [...] 6mo and older 03/06/2021 Influenza, Unspecified 05/20/2021 c-LEcta SARS-CoV-2 COVID-19, mRNA, LNP-S, preservative free 03/30/2024,09/19/2023,08/24/2020,08/03 [...] Site/Laterality Comments OTHER SURGICAL HISTORY 09/03/05 PROCEDURE: OH UNLISTED PROCEDURE DIAPHRAGM; COMMENT: Dilcia OTHER SURGICAL HISTORY PROCEDURE: OH EXPLORATORY LAPAROTOMY CELIOTOMY W/WO BIOPSY SPX OTHER SURGICAL HISTORY 01/10 PROCEDURE: PROSTATE SPEC. AG, SCREEN; COMMENT: 1.6 ESOPHAGOGASTRODUODENOSCOPY 07/28/08 PROCEDURE: OH ESOPHAGOGASTRODUODENOSCOPY TRANSORAL DIAGNOSTIC; COMMENT: erosive esophagitis, esophagea stricture (dilated), gastritis (FORTINO neg) OTHER SURGICAL HISTORY 10/25/08 PROCEDURE: OH EGD BALLOON DILATION ESOPHAGUS <30 MM DIAM; COMMENT: healed erosive esophagitis and adequately dilated stricture; hiatus hernia ESOPHAGOGASTRODUODENOSCOPY 12/12/13 PROCEDURE: OH ESOPHAGOGASTRODUODENOSCOPY TRANSORAL DIAGNOSTIC; COMMENT: hiatus hernia; normal esophageal biopsies OTHER SURGICAL HISTORY 12/2013 PROCEDURE: OH CABG W/ARTERIAL GRAFT TWO ARTERIAL GRAFTS COLONOSCOPY 06/09 PROCEDURE: OH COLONOSCOPY STOMA DX INCLUDING COLLJ SPEC SPX; COMMENT: Joseph; neg (hyperplastic polyp) COLONOSCOPY 04/18/15 PROCEDURE: OH COLONOSCOPY STOMA W/RMVL TONYA POLYP/OTH LES SNARE; [...] Spermatocele 12/01/2017 DX:Spermatocele Primary prostate adenocarcin bertrand ([facility]/HCC V24, CMS/HCC V28) 01/18/2020 DX:Primary prostate adenoca [...] for your loved ones. For example, child caregiver or elderly care for an older adult? [...] AM EST Office Visit Internal Medicine - [address] [address] Omar Rendon NP [address] [place] [address] 12/01/2025 10:30 AM EDT Office Visit Vascular Surgery - [place] [address] [address] Kala Ho PA [address] [address] 03/30/2026 10:00 AM EDT Ancillary Procedure [facility] [address] [facility] [address] [place] [address] Health Maintenance Due Date Last Done Comments RSV Immunization Adult Patients (1 - 1-dose 75+ series) 2023 07/09/2023 COVID-19 Vaccine ( season) 2025 03/30/2024, 09/19/2023, 09/17/2023, Additional history exists Influenza [...] LAB CHEMISTRY METHOD 01/05/2025 4:21 PM EDT [facility] Blood Venous blood specimen / Unknown Venipuncture / Unknown 01/05/2025 10:19 AM EDT 01/05/2025 10:19 AM EDT us Omar Rendon OPERATIONS DIRECTOR LAB BLOOD ORDERABLES Final Res ult [facility] [address] [place] [address], * (ABNORMAL) Comprehensive metabolic panel (11/25/2024 8:13 AM EDT) Sodium 137 133 - 145 mmol/L LAB CHEMISTRY METHOD 11/25/2024 9:01 AM EDT [facility] Potassium 4.6 3.5 - 5.5 mmol/L LAB CHEMISTRY METHOD 11/25/2024 9:01 AM EDT [facility] Chloride 104 96 - 110 mmol/L LAB CHEMISTRY METHOD 11/25/2024 9:01 AM [facility] CO2 30 21 - 32 mmol/L LAB CHEMISTRY METHOD 11/25/2024 9:01 AM [facility] Anion Gap 3 3 - 11 LAB CHEMISTRY METHOD 11/25/2024 9:01 AM [facility] Glucose 106(H) 70 - 100 mg/dL LAB CHEMISTRY METHOD 11/25/2024 9:01 AM [facility] BUN 10 5 - 25 mg/dL LAB CHEMISTRY METHOD 11/25/2024 9:01 AM [facility] Creatinine 0.82 0.70 - 1.30 mg/dL LAB CHEMISTRY METHOD 11/25/2024 9:01 AM [facility] eGFR 91 >=60 mL/min/1. 73m2 LAB CHEMISTRY METHOD 11/25/2024 9:01 AM [facility] Comment:Calculation based on the Chronic Kidney Disease Epidemiology Collaboration (CKD-EPI) equation refit without adjustment for race. BUN/Creatinine Ratio 12.2 LAB CHEMISTRY METHOD 11/25/2024 9:01 AM [facility] Calcium 9.3 8.5 - 10.5 mg/dL LAB CHEMISTRY METHOD 11/25/2024 9:01 AM [facility] AST (SGOT) 19 10 - 42 unit/L LAB CHEMISTRY METHOD 11/25/2024 9:01 AM [facility] ALT (SGPT) 23 10 - 60 unit/L LAB CHEMISTRY METHOD 11/25/2024 9:01 AM [facility] Alkaline Phosphatase 98 42 - 121 unit/L LAB CHEMISTRY METHOD 11/25/2024 9:01 AM [facility] Total Protein 7.1 6.0 - 8.0 g/dL LAB CHEMISTRY METHOD 11/25/2024 9:01 AM [facility] Albumin 3.9 3.2 - 5.0 g/dL LAB CHEMISTRY METHOD 11/25/2024 9:01 AM EDT [facility] Total Bilirubin 0.5 0.0 - 1.4 mg/dL LAB CHEMISTRY METHOD 11/25/2024 9:01 AM EDT [facility] Blood Venous blood specimen / Unknown Venipuncture / Unknown 11/25/2024 8:13 AM EDT 11/25/2024 8:25 AM EDT Costa Bacon MD LAB BLOOD ORDERABLES Final Re sult [facility] [address] [place] [address], * Lipid panel (04/14/2024) [facility] LDL/HDL Ratio 2 0 - 4 Triglycerides 55 0 - 150 mg/dL Cholesterol 166 0 - 200 mg/dL HDL 70 >=40 mg/dL LDL Cholesterol 85 0 - 100 mg/dL Blood Venous blood specimen / Unknown [facility] Provider LAB BLOOD ORDERABLES Keynaa l Result * Falls Risk Assessment (07/07/2023) [facility] Falls Risk Assessment Abstracted Historical Josselyn WRAY HEALTH MAINTENANCE Final Result * Depression Screening (07/07/2023) Pathologist [facility] Depression Screening Abstracted Historical Provider HEALTH MAINTENANCE Final Result * Hepatitis C Screening (12/07/2013) [facility] Hepatitis C Screening Abstracted Historical Provider HEALTH MAINTENANCE Final Result from Last 3 Months or Most Recently Relevant to Health Maintenance Insurance MEDICARE HUMAN Advance Directives Documents on File Type Date Recorded Patient Mount Loader Expl anation Health Care Decision (hx) 12/03/2021 [...] (hx) 12/03/2021 AD HAMILTON DIRECTIVE Care Teams Ship Steward Relationship Specialty Start Date End Date Fadi Carmona MD [address] [place] [id number] PCP - General Internal Medicine 07/03/17
== END 2025-03-16 11:02 | disposition home or self-care (01) ==
LOC: HO.LAB 11:01
PROVIDERS: PCP Internal Medicine; Visit Provider Urology
DX: C61 Malignant neoplasm of prostate (principal); Z12.5 Encounter for screening for malignant neoplasm of prostate
CPT/HCPCS: 36415; 84153

== ENCOUNTER 2025-03-31 14:35 | Outpatient (AMB) | payer MEDICARE, OTHER, SELFPAY ==
--- OUTSIDE RECORDS SUMMARY | 2025-01-27 06:30 | XMS_ITS ---
Author Organization [facility] Address [address] [place] [address] Care Team Providers Care Tool Repairer Name Role Phone Shana Platt [phone] Encounters Encounter Location Date Provider Diagnosis [address] [address] 01/27/2025 Shana Platt Plan Of Treatment Next Appt Details Provider Name:Shanaxuan Platt , 04/21/2025 11:15:00 AM, [address] [place] [address], [place], [address], Progress Notes * Vamshi COBOS ADOB:[birth year] (74 yo M)Acc No.[id number]:01/27/2025 Progress Note Patient: Vamshi OLIVER Provider: Renetta Platt DPM :1950 A ge:74 Y S ex:Male Date:01/27/2025 Address:[address] [place] [address], [address] , [facility] Subjective: * Chief Complaints: * * Medical [...] 0 01/27/2025 Generated for Jaelyn Pennyg/[place] on: 0 03/31/2025 03:30 PM EDT
--- OUTSIDE RECORDS SUMMARY | 2025-02-22 09:30 | XMS_ITS ---
Author Organization [facility] Address [address] [place] [address] Care Team Providers Care Radial Saw Operator Name Role Phone Shana Platt [phone] REASON FOR VISIT SEEN ON 02/08/2025 Encounters Encounter Location Date Provider Diagnosis [address] [address] 02/22/2025 Shana Platt Plan Of Treatment Next Appt Details Provider Name:Shana Platt , 04/21/2025 11:15:00 AM, [address] [place] [address], [place], [address], Progress Notes * Vamshi COBOS ADOB:[birth year] (74 yo M)Acc No.[id number]:02/22/2025 Progress Note Patient: Aye Vamshi PATINO Provider: Renetta Platt DPM :1950 A ge:74 Y S ex:Male Date:02/22/2025 Address:[address] [place] [address], [place], [place] Subjective: * Chief Complaints: * 1 . [...] 02/22/2025 Generated for Jaelyn ware/Winifred/[place] on: 0 03/31/2025 03:30 PM EDT
--- NOTE | 2025-03-31 14:40 | MHC.OFFVIS ---
Intake Visit Reasons: 6m/PSA Intake Note: Patient is present for 6M/PSA Urology Medication:NONE Antibiotic Allergy:NONE Blood Thinner:ASPIRIN,WARFARIN Labs done 03/16/2025 : PSA <0.10 Cbx Operator Required: No Accompanied by: Self / Same As Patient Allergies Ass[place]oman nut (BRAZIL NUTS) Allergy (Severe, Verified 03/31/25 14:40) LIPS SWELLING shellfish derived (SHELLFISH DERIVED) Allergy (Severe, Verified 03/31/25 14:40) HIVES, THROAT ITCHING lisinopril Allergy (Intermediate, Verified 03/31/25 14:40) Cough oxycodone (From PERCOCET) Allergy (Intermediate, Verified 03/31/25 14:40) ITCHING HPI Comments Details: Vamshi is a very pleasant male. He is a patient of Dr Carmona. He is seen for the following urologic conditions - prostate cancer - erectile dysfunction Six-month follow-up PSA remains undetectable Doing well with urination. Minimal urge. Nocturia 1-2x Six month follow-up for 5 years then yearly Prostate cancer: [place] 3+4, initial therapy August 2020 external beam radiation with 6 months hormones and Space [employer] Completed radiation therapy August 2020, continued finasteride for 12 months after radiation PSA 05/26 <0.1, T 363, 08/27 <0.1, 01/24 0.2, 05/27 0.1, 09/25 0.13, 03/28 0.12, 08/29 0.1, 02/26 <0.1, 08/30 <0.1, 03/30 <0.1 Prostate cancer was diagnosed 11/22 Dr Owens - elevated PSA. Diagnosis was reached by needle biopsy, for elevated PSA, PSA at diagnosis 8.8, size at TRUS 40 gm. - left base, , 3+4 = 7 30%, , 3+4 = 7 20%, left mid gland , 3+4 = 7 10%, -, left apex -, EROS - right base -, -, right mid gland -. EROS, right apex -, - - Volume - no core more than 50% - 5% by volume. TNM Classification of Malignant Tumours (TNM) T1c. The D'Leonardo (NCCN) risk category is Intermediate Risk (PSA 10-20, Gl 7, T2) - Group 2 - Imaging 04/24 MRI [place] - 1.2cm left base lesion PiRADS 4 - [employer] 10 yr mortality 6.4% - this is in the high risk category for intermediate risk prostate cancer Associated conditions - erectile dysfunction yes - urinary urge yes Therapeutic plan: Follow in 6 months time with PSA Erectile Dysfunction Oral medications Tadalafil 10mg daily with on demand 20mg Some effect but not sufficient for penetration Discussed use of penile vacuum pump given poor response to high dose oral medications PFSH Medical History (Updated 02/28/25 @ 13:17 by Ulisses Snider MD) Chronic restrictive lung disease Pulmonary nodule NISHA on CPAP COVID-19 vaccine administered Cancer Arthritis Thyroid disease Family history of sickle cell disease GERD (gastroesophageal reflux disease) Sleep apnea Asthma Arrhythmia On anticoagulant therapy Elevated cholesterol CAD (coronary artery disease) HTN (hypertension) Surgical History Hx of exploratory laparotomy Hx of hernia repair S/P excision of lipoma H/O colonoscopy Hx of CABG Social History (Updated 02/28/25 @ 10:48 by Jennifer Quinonez CMA) Are you a primary special needs caregiver to a significant other at home: No Do you presently have visiting nurse or other home services: No Patient Tobacco Use Status: Former Tobacco user Review of Systems Const Denies chills and Denies fever(s) Card Reports no additional complaints and Denies syncope Resp Denies cough GI Denies abdominal pain and Denies heartburn Reports as per HPI and Denies change in libido Neuro Denies syncope Psych Denies change in libido Endo Denies change in libido Physical Exam Const General: cooperative, healthy appearing, comfortable and no acute distress Orientation/consciousness: patient oriented x3 HEENT Face and sinus: Yes normal facial exam Mouth: moist mucous membranes Neck Neck: Yes normal visual inspection, Yes full ROM and Yes trachea midline Chest Chest palpation & inspection: normal inspection of the chest Resp Effort & Inspection: normal respiratory effort, able to speak in complete sentences and no respiratory distress GI Inspection: Yes normal to inspection Back/Spine/Pelvis Cervical Spine: normal cervical lordosis Thoracic/Lumbar Spine: thoracic and lumbar spine normal to inspection Skin General skin exam: no rashes or lesions noted Neuro General: patient oriented x3, gait normal, tone normal and moves all extremities Extrem General: Yes normal to inspection and Yes capillary refill normal Assessment & Plan Assessment & Plan (1) Prostate cancer: Comment: Intermediate risk - External beam radiation with short-term hormones completed August 2020 Code(s): C61 - Malignant neoplasm of prostate Category: Medical (2) Erectile dysfunction: Code(s): N52.9 - Male erectile dysfunction, unspecified Category: Medical Plan Six-month follow-up PSA tele Orders: Orders Prostate Specific Antigen 6 Months C61 - Malignant neoplasm of prostate Patient Instructions: This note is constructed using voice recognition software. While every effort has been made to ensure accuracy butcher fish errors may have been included. Imaging studies, laboratory and physical exam results were discussed and reviewed in detail. No major barriers to patient understanding were identified. An opportunity to ask questions regarding the treatment plan was provided. All questions were answered. The patient expressed understanding and agreement with the above treatment plan. The patient is aware they should contact our office by phone for worsening of their current condition or the appearance of new urologic symptoms. Compliance is encouraged with any medications and followup testing that is ordered. It is a privilege to participate in the urologic care of your patient. If you have any questions or concerns regarding treatment for the above conditions, or other urologic issues, please do not hesitate to contact me. The office telephone contact is [phone]. Sincerely, Dr Johnny Owens MD, [facility] - Urology Compassionate Specialist Care for the Genitourinary System Coding Level of Care Code Est Pt Level 3 (74397) Complex EM visit Add On G2211 Diagnoses Prostate cancer C61 Erectile dysfunction N52.9
--- OUTSIDE RECORDS SUMMARY | 2025-03-31 15:30 | XMS_ITS | Patient Health Record ---
[facility] [place] Address [address] [place] [address] Care Team Providers Care Lighting Technician Name Role Phone Shana Platt Unavailable [phone] Darshan Ramos Unavailable [phone] Allergies Allergen (clinical drug ingredient) Drug/Non Drug [...] Active Allergy Active Warfarin Sodium Acti ve Cream [place] 3 Active Ketoconazole 2 % 1 application Furnace And Wash Equipment Operator ally Once a day; Duration: 21 [...] W/U Status Risk Notes Problem Plantar wart (20788962) Plantar wart (B07.0) Active confirmed Problem Plantar fasciitis of left foot (747223046686348 01) Plantar fasciitis of left foot (M72.2) Active confirmed Problem Interstitial myositis (00572881) 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) Active confirmed Problem Ulcer of toe of left foot (disorder) (957363632463075 02) Skin ulcer of toe of left foot, limited to breakdown of skin (L97.521) Active confirmed Vital Signs Blood pressure diastolic 80 mm Hg 02/08/2025 Height 5 ft 0 in in 02/08/2025 Blood pressure systolic 120 mm Hg 02/08/2025 Weight 236 lbs 02/08/2025 BMI 46.09 kg/m2 02/08/2025 Procedures Procedure Date Ordered Date Performed Result Body Sit e 91341-ATZCGUD NAIL, 6 OR MORE 05/12/2024 N/A 06515-MNXTPUH NAIL, 6 OR MORE 07/21/2024 N/A 13918-PCHSMJC NAIL, 6 OR MORE 10/04/2024 N/A 18907-Visf Destruction, 1-14 10/04/2024 N/A 78461-Mbhrvcmd Plate 10/04/2024 N/A 63493-FKWWPUG NAIL, 6 OR MORE 12/13/2024 N/A 55205-Mcot Destruction, 1-14 12/13/2024 N/A 24204 I&D ABSCESS- SIMPLE,SINGLE 01/20/2025 N/A Encounters Encounter Location Date Provider [facility] [place] [address] 05/12/2024 Darshan Ramos Onychomycosis B35.1 ; Pain in right toe(s) M79.674 ; Pain in left toe(s) M79.675 ; Pain in left foot M79.672 ; Hallux valgus (acquired), left foot M20.12 and Tinea pedis of both feet B35.[address] [facility] [place] [address] 07/21/2024 Darshan Ramos Onychomycosis B35.1 ; Pain in right toe(s) M79.674 and Pain in left toe(s) M79.[address] [address] 10/04/2024 Shana Black Onychomycosis B35.1 ; Pain in right toe(s) M79.674 ; Pain in left toe(s) M79.675 ; Ingrown nail L60.0 ; Pain in left foot M79.672 ; Plantar fasciitis of left foot M72.2 ; Interstitial myositis of left foot M60.172 ; Bursitis of left foot M77.52 ; Right foot pain M79.671 and Plantar wart B07.[address] [address] 12/13/2024 Shana Black Onychomycosis B35.1 ; Pain in right toe(s) M79.674 ; Pain in left toe(s) M79.675 ; Ingrown nail L60.0 ; Pain in left foot M79.672 ; Plantar fasciitis of left foot M72.2 ; Interstitial myositis of left foot M60.172 ; Bursitis of left foot M77.52 ; Right foot pain M79.671 and Plantar wart B07.[address] [address] 01/20/2025 Shana Black Abscess of toe, left L02.[address] [address] 02/08/2025 Shana Black Pain in left toe(s) M79.675 and Skin ulcer of toe of left foot, limited to breakdown of skin L97.[address] [address] [place] [address] 05/04/2024 Darshan Ramos [address] [address] 01/12/2025 Shana Black Assessments Encounter Date Diagnosis [...] Treatment Pending Test Test Name Order Date 64748-[id number] NAIL, 6 OR MORE 05/12/2024 58474-HGTMFOU NAIL, 6 OR MORE 07/21/2024 21809-OIWPMDT NAIL, 6 OR MORE 10/04/2024 28985-DPNHJXT NAIL, 6 OR MORE 12/13/2024 33776-Ribm Destruction, 1-14 10/04/2024 82819-Phjs Destruction, 1-14 12/13/2024 12396-Dqnljxte Plate 10/04/2024 13068 I&D ABSCESS- SIMPLE,SINGLE 025 Next Appt Details Provider Name:Shana Platt , 04/21/2025 11:15:00 AM, [address] [facility], [place], [address], Insurance Providers Payer Name Payer Address Payer Phone Subscriber Number Group Number Insured Name Patient Relationship to Insured Coverage Start Date Coverage End Date Medicare National [facility] [address] [place] [address] [phone] [id number] Vamshi Cobos Self - patient is the insured [email or web address] [address] [address] [place] [address] [id number] Vamshi Cobos Self - patient is the [...]
--- OUTSIDE RECORDS SUMMARY | 2025-03-31 15:30 | XMS_ITS | Clinical Summary ---
Demographics Address [address] [place] [address] Home Phone Mobile Phone Email Address Email Address Preferred Language en Marital Status Sabianism Affiliation Unknown Race Black or Suma rican Ethnic Group Not or Lati no Author Organization [address] [facility] Address [address] [place] [address] Phone Support Name Relationship Address Phone Paula Shannon Unrelated friend [address] [place] [address] Care Team Providers Care Store Assistant Name Role Phone Analia Chamberlain MD Primary Care Provider Allergies Active Allergy Reactions Criticality Noted Date Comments [place] Nut Swelling 01/05/2025 Lips swell Lisinopril Cough [...] Gastroesophageal reflux disease 03/17/2022 Peripheral arterial disease ([facility] V24) 2020 Overview (06/07/2024): FABIANA [...] Left Carpal tunnel injection Primary prostate adenocarcinoma ([facility] V24, CM S/[facility] V28) 01/18/2020 Overview (06/07/2024): 11/2019: Moody 7 on biopsy. Put on finasteride RT 09/2020 PMR (polymyalgia rheumatica) ([facility] V24) 10/11 Overview (06/07/2024): Onset 08/2019 Severe obesity with body mas s index (BMI) of 35.0 to 39.9 with comorbidity ([facility] V24, [facility] V28) 02/07/2019 Hypothyroidism 12/10/2018 Assessment [...] Future Obstructive sleep apnea 08/31/2016 Overview (06/07/2024): [facility] Polysomnogram: Date 08/25/2016; Wt 252# SE 46%; [...] conditions classified elsewhere 08/31/2016 Paroxysmal atrial fibrillation ([facility] V24, [facility] V28) 05/07/2016 Overview (06/07/2024): Ablation 10/20; [place] Warfarin managed by [facility] Assessment & Plan (08/30/2024 12:40 PM EST): Continue warfarin. Denies overt bleeding. Rate controlled. Headache 12/18/2014 Overview (06/07/2024): Rossen; hypoplastic R vertebralartery Aortic dilatation ([facility] V24) 04/30/2014 Overview (06/07/2024): 4.1 [...] PM EDT Office Visit Internal Medicine - [address] [place] [address] Tomás Damon MD Earache on right (Primary Dx); Insect bite of right ear, subsequent encounter; Foreign body of right ear, initial encounter 02/23/2025 Telephone Internal Medicine - [address] [place] [address] Fadi Carmona MD 01/20/2025 Telephone Internal Medicine - [address] [place] [address] Fadi Carmona MD 01/05/2025 9:15 AM EDT [facility] [place] [address] Omar Rendon NP Ear problem, right (Primary [...] 6mo and older 03/06/2021 Influenza, Unspecified 05/20/2021 [facility] SARS-CoV-2 COVID-19, mRNA, LNP-S, preservative free 03/30/2024,09/19/2023,08/24/2020,08/03 [...] Site/Laterality Comments OTHER SURGICAL HISTORY 09/03/05 PROCEDURE: OR UNLISTED PROCEDURE DIAPHRAGM; COMMENT: Dilcia OTHER SURGICAL HISTORY PROCEDURE: OR EXPLORATORY LAPAROTOMY CELIOTOMY W/WO BIOPSY SPX OTHER SURGICAL HISTORY 01/10 PROCEDURE: PROSTATE SPEC. AG, SCREEN; COMMENT: 1.6 ESOPHAGOGASTRODUODENOSCOPY 07/28/08 PROCEDURE: OR ESOPHAGOGASTRODUODENOSCOPY TRANSORAL DIAGNOSTIC; COMMENT: erosive esophagitis, esophagea stricture (dilated), gastritis (FORTINO neg) OTHER SURGICAL HISTORY 10/25/08 PROCEDURE: OR EGD BALLOON DILATION ESOPHAGUS <30 MM DIAM; COMMENT: healed erosive esophagitis and adequately dilated stricture; hiatus hernia ESOPHAGOGASTRODUODENOSCOPY 12/12/13 PROCEDURE: OR ESOPHAGOGASTRODUODENOSCOPY TRANSORAL DIAGNOSTIC; COMMENT: hiatus hernia; normal esophageal biopsies OTHER SURGICAL HISTORY 12/2013 PROCEDURE: OR CABG W/ARTERIAL GRAFT TWO ARTERIAL GRAFTS COLONOSCOPY 06/09 PROCEDURE: OR COLONOSCOPY STOMA DX INCLUDING COLLJ SPEC SPX; COMMENT: Joseph; neg (hyperplastic polyp) COLONOSCOPY 04/18/15 PROCEDURE: OR COLONOSCOPY STOMA W/RMVL TONYA POLYP/OTH LES SNARE; [...] CMS/HCC V28) 01/18/2020 DX:Primary prostate adenoca rcinoma ([facility]) Carpal tunnel syndrome on both sides 05/28/2020 [...] for your loved ones. For example, child and adolescent psychologist or elderly care for an older adult? [...] AM EST Office Visit Internal Medicine - [address] [address] Omar Rendon NP [address] [place] [address] 10/24/2025 8:30 AM EDT Ancillary Procedure [facility] - [facility] [address] [address] 12/01/2025 10:30 AM EDT Office Visit Vascular Surgery - [place] [address] [address] Kala Ho PA [address] [address] Health Maintenance Due Date Last Done Comments [...] Procedure Name Priority Date/Time Associated Diagnosis Comments EXTERNAL CLINICAL LAB 03/17/2025 THYROID STIMULATING HORMONE WITH REFLEX TO FREE T4 AND FREE T3 Routine 01/05/2025 10:19 AM EDT Hypothyroidism, unspecified type COMPREHENSIVE METABOLIC PANEL STAT 11/25/2024 8:13 AM EDT LIPID PANEL Routine 04/14/2024 DEPRESSION SCREENING Routine 07/07/2023 FALLS RISK ASSESSMENT Routine 07/07/2023 HEPATITIS C SCREENING Routine 12/07/2013 from Last 3 Months or Most Recently Relevant to Health Maintenance Results * External clinical lab (03/17/2025) us Provider [facility] LAB BLOOD ORDERABLES Fin al Result * Thyroid stimulating hormone with reflex to free t4 and free t3 (01/05/2025 10:19 AM EDT) TSH 2.64 0.40 - 4.00 mcIU/mL LAB CHEMISTRY METHOD 01/05/2025 4:21 PM EDT [facility] Blood Venous blood specimen / Unknown Venipuncture / Unknown 01/05/2025 10:19 AM EDT 01/05/2025 10:19 AM EDT Omar Rendon NP LAB BLOOD ORDERABLES Final Res ult [facility] [address] [place] [address], * (ABNORMAL) Comprehensive metabolic panel (11/25/2024 8:13 AM EDT) Sodium 137 133 - 145 mmol/L LAB CHEMISTRY METHOD 11/25/2024 9:01 AM EDT [facility] Potassium 4.6 3.5 - 5.5 mmol/L LAB CHEMISTRY METHOD 11/25/2024 9:01 AM [facility] Chloride 104 96 - 110 mmol/L LAB CHEMISTRY METHOD 11/25/2024 9:01 AM [facility] CO2 30 21 - 32 mmol/L LAB CHEMISTRY METHOD 11/25/2024 9:01 AM [facility] Anion Gap 3 3 - 11 LAB CHEMISTRY METHOD 11/25/2024 9:01 AM [facility] Glucose 106(H) 70 - 100 mg/dL LAB CHEMISTRY METHOD 11/25/2024 9:01 AM [facility] BUN 10 5 - 25 mg/dL LAB CHEMISTRY METHOD 11/25/2024 9:01 AM [facility] Creatinine 0.82 0.70 - 1.30 mg/dL LAB CHEMISTRY METHOD 11/25/2024 9:01 AM [facility] eGFR 91 >=60 mL/min/1. 73m2 LAB CHEMISTRY METHOD 11/25/2024 9:01 AM [facility] Comment:Calculation based on the Chronic Kidney Disease Epidemiology Collaboration (CKD-EPI) equation refit without adjustment for race. BUN/Creatinine Ratio 12.2 LAB CHEMISTRY METHOD 11/25/2024 9:01 AM [facility] Calcium 9.3 8.5 - 10.5 mg/dL LAB CHEMISTRY METHOD 11/25/2024 9:01 AM [facility] AST (SGOT) 19 10 - 42 unit/L LAB CHEMISTRY METHOD 11/25/2024 9:01 AM [facility] ALT (SGPT) 23 10 - 60 unit/L LAB CHEMISTRY METHOD 11/25/2024 9:01 AM [facility] Alkaline Phosphatase 98 42 - 121 unit/L LAB CHEMISTRY METHOD 11/25/2024 9:01 AM [facility] Total Protein 7.1 6.0 - 8.0 g/dL LAB CHEMISTRY METHOD 11/25/2024 9:01 AM EDT [facility] Albumin 3.9 3.2 - 5.0 g/dL LAB CHEMISTRY METHOD 11/25/2024 9:01 AM EDT [facility] Total Bilirubin 0.5 0.0 - 1.4 mg/dL LAB CHEMISTRY METHOD 11/25/2024 9:01 AM EDT [facility] Blood Venous blood specimen / Unknown Venipuncture / Unknown 11/25/2024 8:13 AM EDT 11/25/2024 8:25 AM EDT Result [facility] Costa Bacon MD LAB BLOOD ORDERABLES Final Re sult [facility] [address] [place] [address], * Lipid panel (04/14/2024) [facility] LDL/HDL Ratio 2 0 - 4 Triglycerides 55 0 - 150 mg/dL Cholesterol 166 0 - 200 mg/dL HDL 70 >=40 mg/dL LDL Cholesterol 85 0 - 100 mg/dL Blood Venous blood specimen / Unknown Result [facility] Griffin Arcos MD LAB BLOOD ORDERABLES [place] l Result * Falls Risk Assessment (07/07/2023) [facility] Falls Risk Assessment Abstracted Result [facility] Historical Josselyn WRAY HE[employer] MAINTENANCE Final Result * Depression Screening (07/07/2023) Pathologist [facility] Depression Screening Abstracted Result [facility] Josselyn WRAY HEALTH MAINTENANCE Final Result * Hepatitis C Screening (12/07/2013) [facility] Hepatitis C Screening Abstracted Result [facility] Griffin Arcos MD HEALTH MAINTENANCE Final Result from Last 3 Months or Most Recently Relevant to Health Maintenance Insurance * Guarantor: Vamshi Cobos Account Type Relation to Patient Date of Phone Billing Address Personal/Family Self [address] [place] [address] MEDICARE [facility] Advance Directives Documents on File Type Date Recorded 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
== END 2025-03-31 14:57 | disposition home or self-care (01) ==
LOC: HO.HUSH 14:36
PROVIDERS: PCP Internal Medicine; Visit Provider Urology
DX: C61 Malignant neoplasm of prostate (principal); N52.9 Male erectile dysfunction, unspecified
CPT/HCPCS: 99213; G2211

== ENCOUNTER → 2025-03-31 14:35 | Outpatient (BNVA) | payer MEDICARE, OTHER, SELFPAY | PROVIDERS: PCP Internal Medicine; Visit Provider Urology | DX: C61 Malignant neoplasm of prostate (principal); N52.9 Male erectile dysfunction, unspecified; R35.1 Nocturia | CPT/HCPCS: 99212 ==

== ENCOUNTER 2025-06-22 11:08 | Outpatient (AMB) | payer MEDICARE, OTHER, SELFPAY ==
--- OUTSIDE RECORDS SUMMARY | 2025-01-27 05:30 | XMS_ITS ---
Author Organization [facility] Address [address] [place] [address] Care Team Providers Care Cutter Banana Room Name Role Phone Shana Platt [phone] Encounters Encounter Location Date Provider Diagnosis [address] [address] 01/27/2025 Shana Platt Plan Of Treatment Next Appt Details Provider Name:Shanaxuan Platt , 07/26/2025 10:30:00 AM, [address] [place] [address], [place], [address], Progress Notes * Vamshi COBOS ADOB:[birth year] (75 yo M)Acc No.[id number]:01/27/2025 Progress Note Patient: Vamshi OLIVER Provider: Renetta Platt DPM :1950 A ge:74 Y S ex:Male Date:01/27/2025 Address:[address] [place] [address], [address] , [facility] Subjective: * Chief Complaints: * * Medical History: Objective: * Vitals: Assessment: Plan: * Treatment: * Images: * The named appointment provid er may or may not be the originator of this progress note, and it is not deemed complete until electronically signed by the appointment provider. Sign off status: Pending * Provider: Renetta Platt DPM Date: 0 01/27/2025 Generated for Jaelyn Pennyg/[place] on: 1 08/23/2024 02:35 PM EST
--- OUTSIDE RECORDS SUMMARY | 2025-02-22 08:30 | XMS_ITS ---
Author [facility] Address [address] [place] [address] Care Team Providers Care Rotary Driller Name Role Phone Shana Platt [phone] REASON FOR VISIT SEEN ON 02/08/2025 Encounters Encounter Location Date Provider Diagnosis [address] [address] 02/22/2025 Shana Platt Plan Of Treatment Next Appt Details Provider Name:Shana Manas Lc , 07/26/2025 10:30:00 AM, [address] [place] [address], [place], [address], Progress Notes * Vamshi COBOS ADOB:[birth year] (75 yo M)Acc No.[id number]:02/22/2025 Progress Note Patient: Aye Vamshi PATINO Provider: Renetta Platt DPM :1950 A ge:74 Y S ex:Male Date:02/22/2025 Address:[address] [place] [address], [place], [place] Subjective: * Chief Complaints: * 1 . SEEN ON 02/08/2025. * Medical History: Objective: * Vitals: Assessment: Plan: * Treatment: * Images: * The named appointment provid er may or may not be the originator of this progress note, and it is not deemed complete until electronically signed by the appointment provider. Sign off status: Pending * Provider: Renetta Platt, SAMIR Date: 0 02/22/2025 Generated for Jaelyn ware/Winifred/[place] on: 1 08/23/2024 02:34 PM EST
--- OUTSIDE RECORDS SUMMARY | 2025-06-20 09:15 | XMS_ITS | Encounter Summary ---
Demographics Address [address] [place] [address] Home Phone Mobile Phone Email Address Email Address Preferred Language en Marital Status Catholic Affiliation Unknown Race Black or Suma rican Ethnic Group Not or Lati no Author Organization [facility] Address [address] [place] [address] Support Name Relationship Address Phone Paula Shannon Unrelated friend [address] [place] [address] Care Team Providers Care Photographer'S Assistant Name Role Phone Analia Chamberlain MD Primary Care Provider [phone] Reason for Visit * Reason Comments Hypertension Encounter Details Date Type Department Care Team ([facility] Contact Info) Description 06/20/2025 9:15 AM EST Office Visit Internal Medicine - [address] [phone] Omar Rendon NP [address] [place] [phone] Hyperlipidemia, unspecified hyperlipidemia type (Primary Dx); Hypertension, unspecified type; Hypothyroidism, unspecified type; Obstructive sleep apnea; Iron deficiency anemia, unspecified iron deficiency anemia type; Tiredness; Prediabetes Social History Tobacco Use Types Packs/Day [...] your loved ones. For example, child welfare social worker or elderly care for an older [...] Date Recorded What is your living situation? Unrecognized valu e 09/05/2024 Sex and Gender Information Value Date Recorded Sex Assigned at Male 10/27/2024 3:49 PM EDT Legal Sex Male 10:00 AM EST Gender Identity Male 10/27/2024 3:49 PM EDT Sexual Orientation Straight 10/27/2024 3: 49 PM EDT documented as of this encounter Last Filed Vital Signs Vital Sign Reading Time Taken Comments Blood Pressure 137/76 06/20/2025 9:17 AM EST Pulse 63 06/20/2025 9:17 AM EST Temperature - - Respiratory Rate - - Oxygen Saturation - - Inhaled Oxygen Concentration - - Weight 108 kg (237 lb) 06/20/2025 9:17 AM EST Height 177.8 cm (5' 10 ) 06/20/2025 9:17 AM EST Body Mass Index 34.01 06/20/2025 9:17 AM EST documented in this encounter Functional Status * Are you deaf or do you have serious difficulty hearing? Answer Date of Assessment Author No 06/12/2025 5:54 AM EST Doles, As kei Ruiz RN * Are you blind or do you have serious difficulty seeing, even when wearing glasses? Answer Date of Assessment Author No 06/12/2025 5:54 AM EST Doles, As kei Ruiz RN * Do you have serious difficulty walking or climbing stairs? Answer Date of Assessment Author No 06/12/2025 5:54 AM EST Doles, As kei Ruiz RN * Do you have serious difficulty dressing or bathing? Answer Date of Assessment Author No 06/12/2025 5:54 AM EST Doles, As kei Ruiz RN * Because of a physical, mental, or emotional condition, do you have serious difficulty doing errandsalone such as visiting the doctor? Answer Date of Assessment Author No 06/12/2025 5:54 AM EST Doles, As kei Ruiz RN documented as of this encounter Mental Status * Because of a physical, mental, or emotional condition, do you have serious difficulty concentrating, remembering, or making decisions? (5 years old or older) Answer Entry Date Author No 06/12/2025 5:54 AM EST Doles, As kei Ruiz RN documented in this encounter Progress Notes * Omar Rendon NP - 06/20/2025 9:15 AM EST CHIEF COMPLAINT: Hypertension had concerns including Hypertension. IDENTIFIER: Vamshi Cobos is a 75 y.o. old male HPI: Vamshi Cobos is a 75 y.o. old male presents to the office for evaluation of Hypertension had concerns including Hypertension. The patient presents for follow-up and reports occasional abnormal sensation in the right ear. He was evaluated by ENT recently and was informed that the discomfort may be related to temporomandibular joint (TMJ) dysfunction, which can cause referred pain or discomfort inside the ear. He also complains of persistent tiredness and occasional morning headaches, questioning whether these may be related to his vision. He follows up regularly with an watch dial stoner for routine eye care. The patient admits to not using his CPAP machine consistently in recent weeks. He denies other new complaints. He continues regular follow-up with vascular surgery and cardiology. Recent blood work revealed anemia. ROS: See HPI PAST MEDICAL HISTORY: Patient Active Problem List Diagnosis Date Noted Prediabetes 11/10/2023 Diaphragmatic hernia 03/17/2022 Gastroesophageal reflux disease 03/17/2022 Peripheral arterial disease ([facility] V24) 02/21/2021 Carpal tunnel syndrome on both sides 05/28/2020 Primary prostate adenocarcinoma ([facility] V24, [facility] V28) 01/18/2020 PMR (polymyalgia rheumatica) ([facility] V24) 10/12/2019 Severe obesity with body mass index (BMI) of 35.0 to 39.9 with comorbidity ([facility] V24, [facility] V28) 02/07/2019 Hypothyroidism 12/10/2018 Spermatocele 12/01/2017 POAG (primary open-angle glaucoma) 10/31/2017 Hypertension 07/29/2017 Obstructive sleep apnea 08/31/2016 Sleep related hypoventilation in conditions classified elsewhere 08/31/2016 Paroxysmal atrial fibrillation ([facility] V24, [facility] V28) 05/07/2016 Headache 12/18/2014 Aortic dilatation ([facility] V24) 04/30/2014 CAD (coronary artery disease) 02/04/2014 Peptic stricture of esophagus 12/07/2013 BPH (benign prostatic hyperplasia) 03/28/2008 Glaucoma suspect 03/28/2008 RAD (reactive airway disease) 03/28/2008 Hyperlipidemia 05/04/2007 Osteoarthritis of both knees 04/27/2007 Aortic valve disorder 04/10/2006 Hiatal hernia 04/10/2006 ACTIVE MEDICATIONS: Medications Taking[1] ALLERGIES: @ALL@ PHYSICAL EXAM: Visit Vitals BP 137/76 Pulse 63 Ht 1.778 m (70 ) Wt 108 kg (237 lb) BMI 34.01 kg/m?? Smoking Status Former BSA 2.25 m?? APPEARANCE: Alert and in no acute distress HEART: RRR with normal S1 and S2, no murmurs, no gallops, no JVD appreciated LUNG: clear to auscultation EXTREMITIES: Extremities warm and well perfused without clubbing, cyanosis, or edema LABS: @LASTDATALABS@ IMPRESSION: 1. Hyperlipidemia, unspecified hyperlipidemia type 2. Hypertension, unspecified type 3. Hypothyroidism, unspecified type 4. Obstructive sleep apnea 5. Iron deficiency anemia, unspecified iron deficiency anemia type 6. Tiredness 7. Prediabetes Assessment & Plan 1. Tiredness / Fatigue * Etiology unclear; recent labs showed anemia. * Plan: * Order CBC, iron studies (iron/TIBC), and vitamin B12. * Reinforce importance of consistent CPAP use for obstructive sleep apnea; discussed risks of poor control. * Physical exam today: lungs clear, heart regular. 2. Morning Headache * Possibly ocular in origin; patient concerned about glaucoma. * Plan: * Advise continued follow-up with ophthalmology to rule out glaucoma or other ocular causes. 3. Hypertension / Hyperlipidemia * Recent BMP within normal limits. * Plan: * Continue amlodipine, hydrochlorothiazide, and atorvastatin. 4. Hypothyroidism * Plan: * Check TSH. * Continue levothyroxine. 5. Peripheral Arterial Disease (PAD) * Follows with vascular surgery; last arterial duplex stable. * Plan: * Repeat arterial duplex in 2025. * Continue aspirin and statin. 6. Ascending Aortic Aneurysm * Stable on last imaging. * Plan: * Repeat CT scan in 2025 per vascular surgery. 7. Asthma * Stable. * Plan: * Continue albuterol as needed. 8. Lung Nodule * Last CT (Feb 2024) stable; not eligible for LDCT per PCP. * Plan: * Monitor with chest X-ray per PCP recommendation. 9. Paroxysmal Atrial Fibrillation / CAD s/p CABG / PAD * Plan: * Continue warfarin and aspirin. * Maintain cardiology follow-up. 10. GERD / Esophageal Stenosis (s/p dilation 2021) * Asymptomatic. * Plan: * Continue omeprazole. 11. History of Tubular Adenoma * Colonoscopy in 2020; patient reports no further colonoscopy needed due to age. * Plan: * If symptomatic or anemia worsens, consider GI referral for updated recommendations. 12. Polymyalgia Rheumatica ([facility]) * History noted; previously followed by rheumatology. 13. Prostate Cancer (s/p radiation \~6 years ago) * Plan: * Continue follow-up with Dr. Bentley (urology). Follow up 4 months Orders Placed This Encounter Procedures Lipid panel with reflex to direct LDL Thyroid stimulating hormone CBC and differential Iron and TIBC Vitamin B12 Folate Hemoglobin A1c ADDITIONAL ORDERS: None Today's documentation was made using voice recognition software.This note may contain grammatical errors secondary to this software. Omar Rendon NP on 06/20/2025 at 5:03 PM EST I spent 45 minutes of this appointment on reviewing the test results, obtaining history, performinga medically appropriate examination and evaluation, counseling and educating the patient, reviewingmedications related to current problem, ordering new tests, [facility], and communicating results to the patient. [1] Outpatient Medications Marked as Taking for the 06/20/25 encounter (Office Visit) with Omar Rendon NP Medication Sig Dispense Refill albuterol HFA (PROAIR [...] (JONATHAN ALLERGY ORAL) Take by mouth daily. ltydasczjle-wvpdkfhaf-vam C-Mn (Glucosamine-Chondroitin Complx) capsule Take by mouth. [...] NOT CHANGE DIETARY HABITS. 90 tablet 1 documented in this encounter Plan of Treatment Upcoming Encounters Date Type Department Care Team (Late st Contact Info) Description 10/19/2025 9:30 AM EDT Office Visit Internal Medicine - [address] [address] Omar Rendon NP [address] [place] [address] 10/24/2025 8:30 AM EDT Ancillary Procedure [facility] - [facility] 101 300 [facility] [address] [place] [address] 12/01/2025 10:30 AM EDT Office Visit Vascular Surgery - [place] 300 [facility] [address] [place] [address] Kala Ho PA [address] [place] [phone] Scheduled Orders Name Type Priority Associated Diagnoses Orde r Schedule Vitamin B12 Lab Routine Iron deficiency anemia, unspecified iron deficiency anemia type Expected: 07/21/2025 (Approximate), Expires: 08/21/2025 documented as of this encounter Results * Hemoglobin A1c (06/20/2025 10:23 AM EST) Hemoglobin A1C 6.0 <6.5 % LAB CHEMISTRY METHOD 06/20/2025 10:35 PM EST [facility] Mean Bld Glu Estim. 126 mg/dL LAB CHEMISTRY METHOD 06/20/2025 10:35 PM EST [facility] Blood Venous blood specimen / Unknown Venipuncture / Unknown 06/20/2025 10:23 AM EST 06/20/2025 10:23 AM EST Omar Rendon LAB BLOOD ORDERABLES Final Res ult Performing Organization Address [facility]/ZIP Co de Phone Number [facility] [address] [place] [address], [place] [phone] * Folate (06/20/2025 10:23 AM EST) [facility] Folate >24.0 >=5.4 ng/ml 06/20/2025 2:47 PM EST [facility] Blood Venous blood specimen / Unknown Venipuncture / Unknown 06/20/2025 10:23 AM EST 06/20/2025 10:23 AM EST Narrative [facility] - 06/20/2025 2:47 PM EST Over the counter supplements containing high doses of biotin may interfere with this assay. If interference is suspected, patients shoud be retested after refraining from biotin supplements for 72 hours. us Omar Rendon NP LAB BLOOD ORDERABLES Final Res ult [facility] [address] [place] [address], [place] [phone] * Iron and TIBC (06/20/2025 10:23 AM EST) [facility] Iron 78 50 - 160 mcg/dL 06/20/2025 2:48 PM EST [facility] TIBC 337 250 - 450 mcg/dL 06/20/2025 2:48 PM EST [facility] Iron Saturation 23 20 - 50 % 2:48 PM EST [facility] Blood Venous blood specimen / Unknown Venipuncture / Unknown 06/20/2025 10:23 AM EST 06/20/2025 10:23 AM EST Omar Rendon NP LAB BLOOD ORDERABLES Final Res ult Performing Organization Address City/[facility]/ZIP Co de Phone Number [facility] [address] [place] [address], [place] [phone] * Thyroid stimulating hormone (06/20/2025 10:23 AM EST) TSH 3.06 0.40 - 4.00 mcIU/mL 06/20/2025 2:44 PM EST [facility] Blood Venous blood specimen / Unknown Venipuncture / Unknown 06/20/2025 10:23 AM EST 06/20/2025 10:23 AM EST us Omar Rendon NP LAB BLOOD ORDERABLES Final Res ult Performing Organization Address City/[facility]/ZIP Co de Phone Number [facility] [address] [place] [address], [place] [phone] * Lipid panel with reflex to direct LDL (06/20/2025 10:23 AM EST) Cholesterol 160 0 - 200 mg/dL 06/20/2025 2:48 PM EST [facility] Triglycerides 86 0 - 150 mg/dL 06/20/2025 2:48 PM EST [facility] HDL 61 >=40 mg/dL 06/20/2025 2:48 PM EST [facility] LDL Calculated 82 0 - 100 mg/dL 06/20/2025 2:48 PM EST [facility] Comment:Estimated LDL is sebastien culated using the Friedewald equation: Total cholesterol - HDL cholesterol - (Triglycerides/5) VLDL Cholesterol Sebastien 17.2 mg/dL 06/20/2025 2:48 PM EST [facility] Non HDL Chol. (LDL+VLDL) 99 <145 mg/dL 06/20/2025 2:48 PM EST [facility] Chol/HDL Ratio 2.6 0.0 - 4.4 06/20/2025 2:48 PM EST [facility] Blood Venous blood specimen / Unknown Venipuncture / Unknown 06/20/2025 10:23 AM EST 06/20/2025 10:23 AM EST Omar Rendon FLOW MACHINE OPERATOR LAB BLOOD ORDERABLES Final Res ult [facility] [address] [place] [address], documented in this encounter Visit Diagnoses Diagnosis Hyperlipidemia, unspecified hyperlipidemia type- Primary Hypertension, unspecified type Hypothyroidism, unspecified type Obstructive sleep apnea Obstructive sleep apnea (adult) (pediatric) Iron deficiency anemia, unspecified iron deficiency anemia type Tiredness Other malaise and fatigue Prediabetes Other abnormal glucose documented in this encounter Additional Health Concerns Assessment Noted Time PHQ-9 Depression Total Score: 0 06/20/20 9:18 AM EST documented as of this encounter Care Teams Photographer'S Assistant Relationship Specialty Start Date End Date Analia Chamberlain MD [address] [place], [place] PCP - General Internal Medicine 03/24/25 documented as of this encounter
--- OUTSIDE RECORDS SUMMARY | 2025-06-20 10:10 | XMS_ITS | Encounter Summary ---
Demographics Address [address] [place] [address] Home Phone Mobile Phone Email Address Email Address Preferred Language en Marital Status Mormon Affiliation Unknown Race Black or Suma rican Ethnic Group Not or Lati no Author Organization [facility] Address [address] [place] [address] Support Name Relationship Address Phone Paula Shannon Unrelated friend [address] [place] [address] Care Team Providers Care Copying Machine Repairer Name Role Phone Analia Chamberlain MD Primary Care Provider [phone] Encounter Details Date Type Department Care Team (Late st Contact Info) Description 06/20/2025 10:10 AM EST Lab Draw Station [facility] [address] [place] [address] Prediabetes; Iron deficiency anemia, unspecified iron deficiency anemia type; Tiredness; Hypothyroidism, unspecified type; Hyperlipidemia, unspecified hyperlipidemia type; Hypertension, unspecified type Social History Tobacco Use Types Packs/Day Years [...] care for your loved ones. For example, children's tutor nursery or elderly care for an older adult? [...] PM EDT documented as of this encounter Functional Status * Are you deaf or do you have serious difficulty hearing? Answer Date of Assessment Author No 06/12/2025 5:54 AM Dalton Espinoza RN * Are you blind or do you have serious difficulty seeing, even when wearing glasses? Answer Date of Assessment Author No 06/12/2025 5:54 AM Dalton Espinoza RN * Do you have serious difficulty [...] Assessment Author No 06/12/2025 5:54 AM EST Dolpedro luis, As kei Ruiz RN documented as of this encounter Mental Status * Because of a physical, mental, or emotional condition, do you have serious difficulty concentrating, remembering, or making decisions? (5 years old or older) Answer Entry Date Author No 06/12/2025 5:54 AM DOMINICK Wong, Dalton Ruiz RN documented in this encounter Plan of Treatment Upcoming Encounters Date Type Department Care Team (Late st Contact Info) Description 10/19/2025 9:30 AM EDT Office Visit Internal Medicine - [address] [phone] Omar Rendon NP [address] [place] [address] 10/24/2025 8:30 AM EDT Ancillary Procedure [facility] [address] [facility] [address] [place] [address] 12/01/2025 10:30 AM EDT Office Visit Vascular Surgery - [place] [address] [facility] [address] [place] [address] Kala Ho PA [address] [place] [phone] documented as of this encounter Procedures Procedure Name Priority Date/Time Associated Diagnosis Comments LIPID PANEL WITH REFLEX TO DIRECT LDL Routine 06/20/2025 10:23 AM EST Hyperlipidemia, unspecified hyperlipidemia type Hypertension, unspecified type CBC WITH AUTO DIFFERENTIAL Routine 06/20/2025 10:23 AM EST Iron deficiency anemia, unspecified iron deficiency anemia type Tiredness IRON AND TIBC Routine 06/20/2025 10:23 AM EST Iron deficiency anemia, unspecified iron deficiency anemia type CBC AND DIFFERENTIAL Routine 06/20/2025 10:23 AM EST Iron deficiency anemia, unspecified iron deficiency anemia type Tiredness THYROID STIMULATING HORMONE Routine 06/20/2025 10:23 AM EST Hypothyroidism, unspecified type HEMOGLOBIN A1C Routine 06/20/2025 10:23 AM EST Prediabetes FOLATE Routine 06/20/2025 10:23 AM EST Iron deficiency anemia, unspecified iron deficiency anemia type documented in this encounter Results * (ABNORMAL) CBC auto differential (06/20/2025 10:23 AM EST) WBC 6.2 4.8 - 10.8 K/mcL LAB HEMETOLOGY METHOD 06/20/2025 12:33 PM [facility] RBC 4.20(L) 4.50 - 5.50 M/mcL LAB HEMETOLOGY METHOD 06/20/2025 12:33 PM [facility] Hemoglobin 14.0 13.5 - 17.5 g/dL LAB HEMETOLOGY METHOD 06/20/2025 12:33 PM [facility] Hematocrit 40.2(L) 42.0 - 54.0 % LAB HEMETOLOGY METHOD 06/20/2025 12:33 PM [facility] MCV 95.7 79.0 - 98.0 FL LAB HEMETOLOGY METHOD 06/20/2025 12:33 PM [facility] MCH 33.3(H) 27.0 - 32.0 pcg LAB HEMETOLOGY METHOD 06/20/2025 12:33 PM [facility] MCHC 34.8 32.0 - 37.0 g/dL LAB HEMETOLOGY METHOD 06/20/2025 12:33 PM [facility] RDW 12.9 11.0 - 15.0 % LAB HEMETOLOGY METHOD 06/20/2025 12:33 PM [facility] Platelets 242 130 - 400 K/mcL LAB HEMETOLOGY METHOD 06/20/2025 12:33 PM [facility] MPV 9.7 7.0 - 11.0 FL LAB HEMETOLOGY METHOD 06/20/2025 12:33 PM [facility] NRBC 0.0 <1.0 % LAB HEMETOLOGY METHOD 06/20/2025 12:33 PM [facility] NRBC Absolute 0.00 <0.10 K/mcL LAB HEMETOLOGY METHOD 06/20/2025 12:33 PM [facility] Neutrophils Relative 53.3 % LAB HEMETOLOGY METHOD 06/20/2025 12:33 PM [facility] Lymphocytes Relative 33.7 % LAB HEMETOLOGY METHOD 06/20/2025 12:33 PM [facility] Monocytes Relative 9.2 % LAB HEMETOLOGY METHOD 06/20/2025 12:33 PM [facility] Eosinophils Relative 2.8 % LAB HEMETOLOGY METHOD 06/20/2025 12:33 PM [facility] Basophils Relative 0.8 % LAB HEMETOLOGY METHOD 06/20/2025 12:33 PM [facility] Immature Granulocytes Relative 0.2 % LAB HEMETOLOGY METHOD 06/20/2025 12:33 PM [facility] Neutrophils Absolute 3.29 1.50 - 7.00 K/mcL LAB HEMETOLOGY METHOD 06/20/2025 12:33 PM [facility] Lymphocytes Absolute 2.08 1.00 - 5.00 K/mcL LAB HEMETOLOGY METHOD 06/20/2025 12:33 PM EST [facility] Monocytes Absolute 0.57 0.20 - 1.00 K/mcL LAB HEMETOLOGY METHOD 06/20/2025 12:33 PM EST [facility] Eosinophils Absolute 0.17 0.00 - 0.50 K/mcL LAB HEMETOLOGY METHOD 06/20/2025 12:33 PM EST [facility] Basophils Absolute 0.05 0.00 - 0.20 K/mcL LAB HEMETOLOGY METHOD 06/20/2025 12:33 PM EST [facility] Immature Granulocytes Absolute 0.01 0.00 - 0.03 K/mcL LAB HEMETOLOGY METHOD 06/20/2025 12:33 PM EST [facility] Blood Venous blood specimen / Unknown Venipuncture / Unknown 06/20/2025 10:23 AM EST 06/20/2025 10:23 AM EST Omar Rendon MICROWAVE ENGINEER LAB BLOOD ORDERABLES Final Res ult [facility] [address] [place] [address], * Lipid panel with reflex to direct LDL (06/20/2025 10:23 AM EST) Cholesterol 160 0 - 200 mg/dL 06/20/2025 2:48 PM EST [facility] Triglycerides 86 0 - 150 mg/dL 06/20/2025 2:48 PM EST [facility] HDL 61 >=40 mg/dL 06/20/2025 2:48 PM EST [facility] LDL Calculated 82 0 - 100 mg/dL 06/20/2025 2:48 PM EST [facility] Comment:Estimated LDL is sebastien culated using the Friedewald equation: Total cholesterol - HDL cholesterol - (Triglycerides/5) VLDL Cholesterol Sebastien 17.2 mg/dL 06/20/2025 2:48 PM EST [facility] Non HDL Chol. (LDL+VLDL) 99 <145 mg/dL 06/20/2025 2:48 PM EST [facility] Chol/HDL Ratio 2.6 0.0 - 4.4 06/20/2025 2:48 PM [facility] Blood Venous blood specimen / Unknown Venipuncture / Unknown 06/20/2025 10:23 AM EST 06/20/2025 10:23 AM EST Omar Rendon NP LAB BLOOD ORDERABLES Final Res ult [facility] [address] [place] [address], [place] [phone] * Thyroid stimulating hormone (06/20/2025 10:23 AM EST) TSH 3.06 0.40 - 4.00 mcIU/mL 06/20/2025 2:44 PM [facility] Blood Venous blood specimen / Unknown Venipuncture / Unknown 06/20/2025 10:23 AM EST 06/20/2025 10:23 AM EST Omar Rendon NP LAB BLOOD ORDERABLES Final Res ult [facility] [address] [place] [address], [place] [phone] * Iron and TIBC (06/20/2025 10:23 AM EST) Iron 78 50 - 160 mcg/dL 06/20/2025 2:48 PM [facility] TIBC 337 250 - 450 mcg/dL 06/20/2025 2:48 PM [facility] Iron Saturation 23 20 - 50 % 2:48 PM EST [facility] Blood Venous blood specimen / Unknown Venipuncture / Unknown 06/20/2025 10:23 AM EST 06/20/2025 10:23 AM EST Omar Rendon NP LAB BLOOD ORDERABLES Final Res ult Performing Organization Address [facility] de Phone Number [facility] [address] [place] [address], * Folate (06/20/2025 10:23 AM EST) Folate >24.0 >=5.4 ng/ml 06/20/2025 2:47 PM EST [facility] Blood Venous blood specimen / Unknown Venipuncture / Unknown 06/20/2025 10:23 AM EST 06/20/2025 10:23 AM EST Narrative [facility] - 06/20/2025 2:47 PM EST Over the counter supplements containing high doses of biotin may interfere with this assay. If interference is suspected, patients shoud be retested after refraining from biotin supplements for 72 hours. Omar Rendon NP LAB BLOOD ORDERABLES Final Res ult Performing Organization Address [facility] de Phone Number [facility] [address] [place] [address], * Hemoglobin A1c (06/20/2025 10:23 AM EST) Hemoglobin A1C 6.0 <6.5 % LAB CHEMISTRY METHOD 06/20/2025 10:35 PM EST [facility] Mean Bld Glu Estim. 126 mg/dL LAB CHEMISTRY METHOD 06/20/2025 10:35 PM EST [facility] Blood Venous blood specimen / Unknown Venipuncture / Unknown 06/20/2025 10:23 AM EST 06/20/2025 10:23 AM EST us Omar Rendon MICROWAVE ENGINEER LAB BLOOD ORDERABLES Final Res ult [facility] [address] [place] [address], documented in this encounter Visit Diagnoses Diagnosis Prediabetes Other abnormal glucose Iron deficiency anemia, unspecified iron deficiency anemia type Tiredness Other malaise and fatigue Hypothyroidism, unspecified type Hyperlipidemia, unspecified hyperlipidemia type Hypertension, unspecified type documented in this encounter Additional Health Concerns Assessment Noted Time PHQ-9 Depression Total Score: 0 06/20/20 9:18 AM EST documented as of this encounter Care Teams Copying Machine Repairer Relationship Specialty Start Date End Date Analia Chamberlain MD [address] [place] [address] PCP - General Internal Medicine 03/24/25 documented as of this encounter
[2025-06-22 11:09] VITALS: BP 130/64; PULSE 70; O2SAT 96; BMI 34.3
--- NOTE | 2025-06-22 11:09 | A.OFFVIS_ITS ---
Vital Signs 06/22/25 11:09 Height 5 ft 10 in Weight 239 lb 3.225 oz BMI 34.3 BP 130/64 Blood Pressure Location Lt brachial Position Sitting Pulse 70 Pulse Source Pulse Oximeter Pulse Oximetry (%) 96 Oxygen Delivery Method Room Air Intake Visit Reasons: Lung Nodule Rose Grader Required: No Preschool Teacher: Preschool Teacher offered & declined Accompanied by: Self / Same As Patient Allergies [place] nut (BRAZIL NUTS) Allergy (Severe, Verified 06/22/25 11:12) LIPS SWELLING shellfish derived (SHELLFISH DERIVED) Allergy (Severe, Verified 06/22/25 11:12) HIVES, THROAT ITCHING lisinopril Allergy (Intermediate, Verified 06/22/25 11:12) Cough oxycodone (From PERCOCET) Allergy (Intermediate, Verified 06/22/25 11:12) ITCHING HPI Comments Details: The patient is a 75-year-old gentleman previously been taking care of by the [facility]. Unfortunately his insurance no longer covered and he had to be referred out. The patient states that he does have history of sleep apnea. Initially diagnosed back in 2016. I did review the sleep study then with an AHI of 22 consistent with moderate to severe sleep apnea. The patient is placed on CPAP therapy after a titration study. Any been tolerating CPAP very well. More recently though he has had a hard time with the machine. He had an ResMed machine that was switched over to a Teri once he needed replacement. He has not been able to work with the [employer] as while he was working with the ResMed machine in the past. I did talk about the importance of am going back on CPAP because of his ongoing daytime drowsiness with an elevated Callahan score of 11. The patient is agreeable to do so. I did reach out to [facility] for reaching of the Teri machine. The patient also has a history of prostate cancer back in 2019. He received radiation therapy. He did have a CT scan of the chest back in 2023 at [facility]. Did demonstrate a pulmonary nodule subcentimeter in size. It has not been followed up since then. He will need a repeat CT scan to make sure there stability of the pulmonary nodule for least 2 years to make sure there stability of disease. The patient also has some dyspnea on exertion. He has had to use her rescue inhaler in the past but he is not using 1 right now. He did have PFTs done at [facility] demonstrating some restrictive process moderate severity. Therefore, once we get additional imaging studies we can assess for parenchymal diseases to try to explain the mariusz oing restrictive lung disease and shortness of breath. Will hold off on the inhalers for now. The patient will follow-up in 3-4 months and will bring his CPAP machine with him. 06/22/2025 the patient is here for pulmonary follow-up visit. Overall the patient is doing okay. He does have a postnasal drip that sometimes bothers him in his hard for him to tolerate the PAP therapy. Unfortunately because of his glaucoma he can not use a lot of the nasal spray. May be allergy related so therefore Astelin nasal spray may be okay. Also went things get difficulty could also try Afrin as needed [id number]. But he understands he can only use it for 3-5 days to minimize on the rebound symptoms. The patient did have a CT scan of the chest back in March 2025 which was personally by me. Appears that he has a small 2 mm pulmonary nodule. The patient did have a CT scan back in 2023 and also 2022 at [facility]. The pulmonary nodules 2 mm in size and has not changed in a couple years. Therefore no additional CAT scans are warranted. He is going to continue to use his CPAP therapy. I did send in the nasal spray. The therapy has been affecting beneficial and he needs to use it for at least 4 hours a night. This given the best effect. The patient will follow-up in a year's time if any issues arise she can always call further recommendations. [facility] Medical History (Updated 02/28/25 @ 13:17 by Ulisses Snider MD) Chronic restrictive lung disease Pulmonary nodule NISHA on CPAP COVID-19 vaccine administered Cancer Arthritis Thyroid disease Family history of sickle cell disease GERD (gastroesophageal reflux disease) Sleep apnea Asthma Arrhythmia On anticoagulant therapy Elevated cholesterol CAD (coronary artery disease) HTN (hypertension) Surgical History Hx of exploratory laparotomy Hx of hernia repair S/P excision of lipoma H/O colonoscopy Hx of CABG Social History Are you a primary animal caregiver to a significant other at home: No Do you presently have visiting nurse or other home services: No Patient Tobacco Use Status: Former Tobacco user Review of Systems Const Denies chills, Reports daytime sleepiness, Denies fever(s) and Reports snoring Eyes Reports no additional complaints ENT Reports nasal congestion, Reports nasal discharge and Reports post nasal drip Card Reports no additional complaints, Denies syncope and Reports dyspnea on exertion Resp Denies cough, Reports dyspnea on exertion, Reports snoring and Denies wheezing GI Denies abdominal pain and Denies heartburn Reports as per HPI Musc Reports no additional complaints Skin/Breast Denies rash Neuro Denies syncope Endo Reports no additional complaints Bobo/Lymph Reports no additional complaints Aller/Immun Denies wheezing Physical Exam Vital Signs: Last Vital Signs Pulse 70 06/22/25 11:09 BP 130/64 06/22/25 11:09 Pulse Ox 96 06/22/25 11:09 Oxygen Delivery Method Room Air 06/22/25 11:09 BMI result Body Mass Index 34.3 Const General: healthy appearing and comfortable Orientation/consciousness: patient oriented x3 HEENT Head: Yes normocephalic Face and sinus: Yes normal facial exam Mouth: moist mucous membranes Neck Neck: Yes normal visual inspection, Yes full ROM and Yes trachea midline Chest Chest palpation & inspection: normal inspection of the chest Resp Effort & Inspection: normal respiratory effort, able to speak in complete sentences and no respiratory distress Auscultation: clear to auscultation bilaterally Cardio Heart sounds: S1 normal heart sound present and S2 normal heart sound present GI Palpation (GI): Soft to palpation Back/Spine/Pelvis Cervical Spine: normal cervical lordosis Thoracic/Lumbar Spine: thoracic and lumbar spine normal to inspection Skin General skin exam: no rashes or lesions noted Neuro General: patient oriented x3, gait normal, tone normal and moves all extremities Extrem General: Yes normal to inspection and Yes capillary refill normal Assessment & Plan Assessment & Plan (1) NISHA on CPAP: Code(s): G47.33 - Obstructive sleep apnea (adult) (pediatric) Category: Medical (2) Pulmonary nodule: Code(s): R91.1 - Solitary pulmonary nodule Category: Medical (3) Prostate cancer: Comment: Intermediate risk - External beam radiation with short-term hormones completed August 2020 Code(s): C61 - Malignant neoplasm of prostate Category: Medical (4) Chronic restrictive lung disease: Code(s): J98.4 - Other disorders of lung Category: Medical Plan Continue PAP therapy, DME, [employer]. Needs reteaching Will bring PAP therapy to next visit to adjust CT chest to assess Pulmonary nodule, stable [id number]. No additional serial CT chest warranted weight management Low Sodium diet start Astelin nasal therapy afrin 3-5 days as needed only F/U 12 months Medications: New azelastine administer into each nostril 2 sprays intranasal BID 30 mL 6RF 30 days Coding Level of Care Code Est Pt Level 4 (17590) Diagnoses NISHA on CPAP G47.33 Pulmonary nodule R91.1 Prostate cancer C61 Chronic restrictive lung disease J98.4 Time Spent (min) 17
--- OUTSIDE RECORDS SUMMARY | 2025-06-22 14:34 | XMS_ITS | Continuity of Care Document ---
Author Organization [place] - [facility], [facility] Address [address] [place] [address] Care Team Providers Care Aluminum Shingle Roofer Name Role Phone DEVON HOOD Primary Care Provider Assessment Encounter Date Assessment Date Assessment LastModified by Organization Details LastModified Time 04/12/2025 04/12/2025 74-year-old male presents for concerns about right ear itching and a sensation that a bug is crawling in the ear canal. On examination both external auditory canals are patent and the tympanic membranes are intact, translucent, and with well-aerated middle ear spaces. There is no evidence of external ear dermatitis or fungal infection. Palpation of the TMJ reveals crepitus on the right and pain with dynamic loading bilaterally. Reassured the patient that his ears are free of cerumen and have no evidence of infection. Discussed that TMJ dysfunction can caused referred otalgia and abnormal auditory perceptions. 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 Stressed chewing evenly on both sides of the mouth to keep from overworking the jaw joint. Use soft food diet as needed. Jaw Joint Program information sheet was shared. If this treatment plan is ineffective, recommend follow up with their dentist.Referra l to physical therapist who specializes in TMJ disorders could also be considered. In regards to his ear itching I recommend avoidance of Q-tips and use of mineral oil to both ears 2-3 times weekly. If the itching persists despite these measures then we will consider a prescription for DermOtic drops in the future. All questions were answered and he will follow up as needed. [email or web address] Not available 04/12/2025 10:27:22 Plan of Treatment Reminders Order Date Submit Date Provider Last Modified By Organization Details Last Modified Time Details Appointments None record ed. Lab None record ed. Referral None record ed. Procedures None record ed. Surgeries None record ed. Imaging None record ed. Medication Orders None record ed. Patient TargetsNo targets recorded. Patient InstructionsNo instructions recorded. Reason for Referral None Reported. Problems Name Problem SNOMED Code Status Onset Date Resolution Date Notes Provider Name and Address Organization Details Recorded Time Cough 59990060 Active 2016 Cough; Note: Date Diagno sed: 017 2:21 PM (R05) Not Available [facility] 4 02:59:22 Impacted cerumen in right ear 0025935603797 103 Active 2024 ROMMEL QUARLES MD [address] [facility] [address], [place], [address] , [place] - [facility] 5 15:07:17 Otalgia of right ear 7113431769 Active 2024 ROMMEL QUARLES MD [address] [facility] [address], [place], [address] , [place] - [facility] 5 15:07:28 Itching of ear 922631164 Active 2024 RANDY YI [address] [facility] [address], [place], [address] , [place] - [facility] 5 10:27:32 Referred otalgia of right ear 0618905641238 100 Active 2024 R[facility]Y YI [address] [facility] [address], [place], [address] , [facility] - [facility] 5 10:27:40 Abnormal auditory perception 70367524 Active 2024 RANDY YI [address],[facility] [address], [place], [address] , [place] - [facility] 5 10:27:52 Problem Notes None recorded. Procedures Surgical History Date Name Laterality Status Provider Name and Address Organization Details Recorded Time 5 Cerumen removal with microscope right completed ROMMEL QUARLES MD [address] [facility],[place] [address], [place], [address], [facility] - [facility] 03/07/2025 15:07:42 Imaging Results None recorded. Procedure Notes None recorded. Medical Equipment None Reported. Allergies Allergen ID Allergen Name Allergen Category Reaction Reaction Severity Criticality Documentation Date Start Date Code Code System Note Provider Name and Address Organization Details Recorded Time 12310812 acetamino phen / oxycodone medicatio n other Not available Not available 11/17/2023 77189 3 RxNorm React ion: unkno wn, unspe cifie d;; Not Available [facility] 4 01:22:20 Medications Name Sig Start Date Stop Date Status Note LastModified by Organization Details LastModified Time latanopro st 0.005 % eye drops active Medicati on ID: [id number] D uration Value: 25 Brand Name: latanopr ost Send Method: E-Prescr ibed Sub s Allowed: subs OK Medic ationGen ericName : latanopr ost Not Available Not Available Not Available atorvasta tin 40 mg tablet TAKE 1 TABLET BY MOUTH EVERY DAY active Not Available Not Available No t Available amiodaron e 200 mg tablet active Medicati on ID: [id number] D uration Value: 30 Brand Name: amiodaro ne Send Method: E-Prescr ibed Sub s Allowed: subs OK Medic ationGen ericName : amiodaro ne Not Available Not Available Not Available brinzolam nitish 1 % eye drops,melani pension INSTILL 1 DROP INTO BOTH EYES TWICE A DAY DIRECTED active Not Available Not Available No t Available diltiazem CD 240 mg capsule,e xtended release 24 hr 2015 active Medicati on ID: [id number] D uration Value: 30 Brand Name: diltiaze m HCl Send Method: E-Prescr ibed Sub s Allowed: subs OK Medic ationGen ericName : diltiaze m HCl Not Available Not Available Not Available amlodipin e 5 mg tablet TAKE 1 TABLET BY MOUTH EVERY DAY active Not Available Not Available No t Available levothyro xine 25 mcg tablet TAKE 1 TABLET BY MOUTH EVERY DAY active Not Available Not Available No t Available tamsulosi n 0.4 mg capsule active Medicati on ID: [id number] D uration Value: 90 Brand Name: tamstammy in Send Method: E-Prescr ibed Sub s Allowed: subs OK Medic ationGen ericName : tamsulos in Not Available Not Available Not Available warfarin 5 mg tablet PLEASE SEE ATTACHED FOR DETAILED DIRECTIO NS active Not Available Not Available No t Available hydrochlo rothiazid e 12.5 mg capsule TAKE 1 CAPSULE BY MOUTH EVERY DAY IN THE MORNING active Not Available Not Available No t Available dorzolami de 22.3 mg-timolo l 6.8 mg/mL eye drops INSTILL 1 DROP INTO BOTH EYES TWICE A DAY DIRECTED active Not Available Not Available No t Available timolol maleate 0.5 % eye drops INSTILL 1 DROP INTO BOTH EYES TWICE A DAY DIRECTED active Not Available Not Available No t Available ketoconaz ole 2 % topical cream APPLY TO AFFECTED AREA ONCE DAILY FOR 21 DAYS active Not Available Not Available No t Available fluticaso ne propionat e 50 mcg/actua tion nasal spray,melani pension active Medicati on ID: [id number] D uration Value: 30 Brand Name: fluticas one Send Method: E-Prescr ibed Sub s Allowed: subs OK Medic ationGen ericName : fluticas one Not Available Not Available Not Available tobramyci n 0.3 %-dexamet hasone 0.1 % eye drops,melani pension INSTILL 1 DROP INTO BOTH EYES TWICE A DAY SHAKE BOTTLE WELL BEFORE EACH USE 01/20 completed Not Available Not Available Not Available neomycin 3.5 mg/g-poly myxin B 10,000 unit/g-de xameth 0.1 % eye oint APPLY 1 A SMALL AMOUNT ON EYELID EVERY NIGHT AT BEDTIME 01/20 completed Not Available Not Available Not Available neomycin- polymyxin -hydrocor t 3.5 mg-10,000 unit/mL-1 % ear drops,melani p INSTILL 4 DROPS TO AFFECTED EAR(S) THREE TIMES DAILY FOR 10-DAYS. 01/20 completed Not Available Not Available Not Available ProAir HFA 90 mcg/actua tion aerosol inhaler active Medicati on ID: [id number] D uration Value: 25 Brand Name: ProAir HFA Send Method: E-Prescr ibed Sub s Allowed: subs OK Medic ationGen ericName : ProAir HFA Not Available Not Available Not Available brimonidi ne 0.2 %-timolol 0.5 % eye drops INSTILL 1 DROP INTO BOTH EYES TWICE A DAY DIRECTED active Not Available Not Available No t Available Vitals Date Recorded Body height Body mass index (BMI) Body weight Provider Name and Address Organization Details Last Updated DateTime 04/12/2025 180.34 cm 32.9 kg/m2 650694.8 g Teresa Dupree [place] - [facility] 04/12/2025 09:57:20 Social History None recorded. Functional Status None recorded. Mental Status None recorded. Family History Nothing Reported. Medical History No medical history recorded. Past Encounters Encounter ID Performer Location Encounter Start Date Encounter Closed Date Diagnosis/Indication Diagnosis SNOMED-CT Code Diagnosis ICD10 Code Diagnosis IMO Codes Diagnosis Note [id number] RANDY YI [facility]NT[facility] of [address] [address] 04/12/2025 09:50:29 04/12/2025 10:15:36 Itching of ear 147842739 L29.9 1603235 Referred o talgia of right ear 1554804433 183938 H92.01 M26.621 M79.11 Health Concerns Section Related Observation LastModified by Organization Detai ls LastModified Time None Recorded Concern Status LastModified by Organization Details LastModified Time None Recorded Payers Encounter Date Sequence Insurance Name Policy Number Policy Branham Covered Member ID Branham Member ID Guarantor Name 04/12/2025 2 [employer] (MEDICARE SUPPLEMENT) Itill A Cobos [id number] Itill A Cobos 04/12/2025 1 [place]IC[place] B-[place] [employer] Itill A Cobos [id number] Itill A Cobos Notes Date Note Type Note Provider Name and Address Organization Details Recorded Time 04/12/2025 text/html ROS as noted in the HPI 74-year-old male presents for concerns about right ear itching and a sensation that a bug is crawling in the ear canal. He was last seen 1 month ago and was found to have a right cerumen impaction, which was removed successfully. Since the cerumen removal his right ear pain has resolved and the bug crawling sensation occurs less frequently. He uses Q-tips to clean both ears and has been trying to use them less frequently. He denies any jaw pain, pain when chewing, popping of the jaw joint, tinnitus, hearing changes, dizziness, otorrhea, or left ear concerns. He does not currently use any ear drops. Patient has been told that he grinds his teeth while sleeping, but he does not currently use a mouthguard. JOSH GAYLE MD [address] [place] [address], [place], [address], [place] - [facility] 04/12/2025 12:45:01
--- OUTSIDE RECORDS SUMMARY | 2025-06-22 14:34 | XMS_ITS | Data Portability ---
Author Organization [place] - [facility], Allergy Address [address] [place] [address] Care Team Providers Care Cardroom Drawing Runner Name Role Phone DEVON HOOD Primary Care [...] and he will follow up as needed. [email or web address] Not available 04/12/2025 10:27:22 Plan of Treatment [...] and Address Organization Details Recorded Time Cough 88478748 Active 2016 Cough; Note: Date Diagno sed: 017 2:21 PM (R05) Not Available [facility] 4 02:59:22 Impacted cerumen in right ear 9332530393025 103 Active 2024 ROMMEL QUARLES MD 100 [facility],[place] [address], [facility] [place], [address] , [facility] - [facility] 5 15:07:17 Otalgia of right ear 8429966926 Active 2024 ROMMEL QUARLES MD [address] [place] [address],[place] [address], [place], [address] , [facility] - [facility] 5 15:07:28 Itching of ear 576687010 Active 2024 RANDY YI [address] [facility],[place] [address], [place], [address] , [facility] - [facility] 5 10:27:32 Referred otalgia of right ear 9062214782015 100 Active 2024 RANDY YI 100 [facility],[place] [address], [place], [address] , [facility] - [facility] 5 10:27:40 Abnormal auditory perception 68876867 Active 2024 RANDY YI [address] [facility],[place] [address], [place], [address] , [facility] - [facility] 5 10:27:52 Problem Notes None recorded. Procedures Surgical History Date Name Laterality Status Provider Name and Address Organization Details Recorded Time 09/02/202 5 Cerumen removal with microscope right completed ROMMEL QUARLES MD [address] [facility],[place] [address], [place], [address], [facility] - [facility] 03/07/2025 15:07:42 Imaging Results None recorded. Procedure Notes None recorded. Medical Equipment None Reported. Allergies Allergen ID Allergen Name Allergen Category Reaction Reaction Severity Criticality Documentation Date Start Date Code Code System Note Provider Name and Address Organization Details Recorded Time 915743 acetamino phen / oxycodone medicatio n other Not available Not available 11/17/2023 33879 3 RxNorm React ion: unkno wn, unspe cifie d;; Not Available [facility] 4 01:22:20 Medications Name Sig Start Date Stop Date Status Note LastModified by Organization Details LastModified Time latanopro st 0.005 % eye drops active Medicati on ID: 869774 D uration Value: 25 Brand Name: latanopr ost Send Method: E-Prescr ibed Sub s Allowed: subs OK Medic ationGen ericName : latanopr ost Not Available Not Available Not Available atorvasta tin 40 mg tablet TAKE 1 TABLET BY MOUTH EVERY DAY active Not Available Not Available No t Available amiodaron e 200 mg tablet active Medicati on ID: 890774 D uration Value: 30 Brand Name: amiodaro [...] 24 hr 2015 active Medicati on ID: 072728 D uration Value: 30 Brand Name: diltiaze [...] 0.4 mg capsule active Medicati on ID: 643748 D uration Value: 90 Brand Name: cary in Send Method: E-Prescr ibed Sub s [...] nasal spray,melani pension active Medicati on ID: 268855 D uration Value: 30 Brand Name: fluticas [...] tion aerosol inhaler active Medicati on ID: 501115 D uration Value: 25 Brand Name: ProAir [...] and Address Organization Details Last Updated DateTime 03/07/2025 180.34 cm 32.9 kg/m2 624510.8 g Martinemadina Howard [facility] 03/07/2025 14:49:38 Date Recorded Body height Body mass index (BMI) Body weight Provider Name and Address Organization Details Last Updated DateTime 04/12/2025 180.34 cm 32.9 kg/m2 823873.8 g Teresa Mulleros [facility] 04/12/2025 09:57:20 Social History None recorded. Functional Status None recorded. Mental Status None recorded. Family History Nothing Reported. Medical History No medical history recorded. Past Encounters Encounter ID Performer Location Encounter Start Date Encounter Closed Date Diagnosis/Indication Diagnosis SNOMED-CT Code Diagnosis ICD10 Code Diagnosis IMO Codes Diagnosis Note [id number] ROMMEL QUARLES MD ENT[facility] of [address] [address] 03/07/2025 14:23:25 03/07/2025 15:31:27 Impacted cerumen in right ear 5423852677 395742 H61.21 2572874 Recurrent Cerumen Impactions : Ears were meticulous ly cleaned bilaterall y today with a curette and suction. The patient tolerated this well and will follow up for repeat debridemen t per routine. Otalgia of right ear 412 4039636 H92.01 3046828 His otalgia has resolved. I gave reassuranc e there was no insect in his ear canal. I do feel the cerumen that was touching his TM was likely responsibl e for his symptoms. I expected to improve now that his ear is cleaned out. If he continues to have trouble asked him to call. He may follow-up as needed. [id number] RANDY YI [facility] of [address] [address] 04/12/2025 09:50:29 04/12/2025 10:15:36 Itching of ear 660735461 L29.9 0152931 Referred o talgia of right ear 8732145463 515822 H92.01 M26.621 M79.11 Health Concerns Section Related Observation LastModified by Organization Detai ls LastModified Time None Recorded Concern Status LastModified by Organization Details LastModified Time None Recorded Advance Directives Directive None Recorded Payers Insurance Date Sequence Insurance Name Policy Number Policy Branham Covered Member ID Branham Member ID Guarantor Name 04/12/2025 2 [employer] (MEDICARE SUPPLEMENT) Itill A Cobos [id number] Itill A Cobos 04/12/2025 1 [place] [employer] SERVICES Itill A Cobos [id number] [employer] Notes Date Note Type Note Provider Name and Address Organization Details Recorded Time 03/07/2025 text/html ROS as noted in the HPI He was referred by his doctor due to concern for foreign body in the right ear. He feels it feels like something is crawling in his right ear canal. It has been this way for months. He denies any current pain and reports it feels a little better. He reports something was seen in his ear on an ear exam. He denies problems with his hearing. ROMMEL QUARLES MD [address] [place] [address], [phone] - [facility] 03/07/2025 15:09:20 04/12/2025 text/html ROS as noted in the [...] currently use a mouthguard. JOSH GAYLE MD [address] [place] [address], [place], [address], [place] - [facility] 04/12/2025 12:45:01
--- OUTSIDE RECORDS SUMMARY | 2025-06-22 14:34 | XMS_ITS | Encounter Summary ---
Demographics Address [address] [place] [address] Home Phone Mobile Phone Email Address Email Address Preferred Language en Marital Status Confucianist Affiliation Unknown Race Black or Suma rican Ethnic Group Not or Lati no Author Organization [facility] Address [address] [place] [address] Support Name Relationship Address Phone Paula Shannon Unrelated friend [address] [place] [address] Care Team Providers Care Enamel Finisher Name Role Phone Analia Chamberlain MD Primary Care Provider Encounter Details Date Type Department Care Team (Late st Contact Info) Description 06/21/2025 [facility] [address] [place] [address] Omar Rendon NP [address] [place] [address] Social History Tobacco Use Types Packs/Day Years [...] care for your loved ones. For example, exceptional children teacher or elderly care for an older adult? [...] No 06/12/2025 5:54 AM EST Doles, As eki Ruiz RN * Do you have serious [...] kei Ruiz RN documented in this encounter Plan of Treatment Upcoming Encounters Date Type Department Care Team (Late st Contact Info) Description 10/19/2025 9:30 AM EDT Office Visit Internal Medicine - [address] [address] Omar Rendon NP [address] [place] [address] 10/24/2025 8:30 AM EDT Ancillary Procedure [facility] - [facility] [address] [facility] [address] [place] [address] 12/01/2025 10:30 AM EDT Office Visit Vascular Surgery - [place] [address] [facility] [address] [place] [address] Kala Ho PA [address] [place] [phone] documented as of this encounter Visit Diagnoses Not on filedocumented in this encounter Additional Health Concerns Assessment Noted Time PHQ-9 Depression Total Score: 0 06/20/20 25 9:18 AM EST documented as of this encounter Care Teams Enamel Finisher Relationship Specialty Start Date End Date Analia Chamberlain MD [address] [facility] [place] [address] PCP - General Internal Medicine 03/24/25 documented as of this encounter
--- OUTSIDE RECORDS SUMMARY | 2025-06-22 14:35 | XMS_ITS | Clinical Summary ---
Demographics Address [address] [place] [address] Home Phone Mobile Phone Email Address Email Address Preferred Language en Marital Status Caodaism Affiliation Unknown Race Black or Suma rican Ethnic Group Not or Lati no Author Organization [facility] Address [address] [place] [address] Phone Support Name Relationship Address Phone Paula Shannon Unrelated friend [address] [place] [address] Care Team Providers Care Environmental Conservation Officer Name Role Phone Analia Chamberlain MD Primary Care Provider [phone] Allergies Active Allergy Reactions Criticality Noted Date Comments Orchard Nut Swelling 01/05/2025 Lips swell Lisinopril Cough [...] 2 times daily (before meals). 2 Active brimonidine-timol oL (Combigan) 0.2-0.5 % ophthalmic [...] DIETARY HABITS. 90 tablet 1 5 Active levothyroxine (SYNTHROID, LEVOTHROID) 25 mcg tabletIndications :Hypothyroidism, unspecified TAKE 1 TABLET BY MOUTH EVERY DAY 90 tablet 1 5 Active Active Problems [...] Primary prostate adenocarcinoma 01/18/2020 Overview (06/07/2024): 11/2019: [place] 7 on biopsy. Put on finasteride RT [...] Future Obstructive sleep apnea 08/31/2016 Overview (06/07/2024[place] [facility] [place]: Date 08/25/2016; Wt 252# SE 46%; SM 56%; REM 30%; RDI 27 (AHI 23), worse in REM (RDI 65 - AHI 64), Central apneas 0; Obstructive apneas 4; Mixed apneas 0; hypopneas 71; RERAs 12; average oxygen saturation 94% (lowest 75% - with saturations <88% for 5% or more of study); PLMs 0. [facility] Polysomnogram treatment study. Date 09/14/2016. SE 60 % SM 62 %; spent 30 % of the study in REM. At the optimal pressure of 9; RDI 0 (AHI 0), average oxygen saturation was 90%. For the entire study, PLMs ~0. Sleep related hypoventilatio n in conditions classified elsewhere 08/31/2016 Paroxysmal atrial fibrillation 05/07/2016 Overview (06/07/2024): Ablation 10/20; [facility] War[facility] [place] [facility] Assessment & Plan (08/30/2024 12:40 PM EST): Continue warfarin. Denies overt bleeding. Rate controlled. Headache 12/18/2014 Overview (06/07/2024): [place]; hypoplastic R vertebralartery Aortic dilatation 04/30/2014 Overview [...] Echo 09/07 Hiatal hernia 04/10/2006 Overview (06/07/2024): [place]; 09/08; BARBARA NULL update Encounters Date Type Department Care Team Description 06/21/2025 Results Follow-Up Internal Medicine - [address] [phone] Omar Rendon NP 06/20/2025 10:10 AM EST Lab Draw Station [address] Prediabetes; Iron deficiency anemia, unspecified iron deficiency anemia type; Tiredness; Hypothyroidism, unspecified type; Hyperlipidemia, unspecified hyperlipidemia type; Hypertension, unspecified type 06/20/2025 9:15 AM EST Office Visit Internal Medicine - [address] [phone] Omar Rendon NP Hyperlipidemia, unspecified hyperlipidemia type (Primary Dx); Hypertension, unspecified type; Hypothyroidism, unspecified type; Obstructive sleep apnea; Iron deficiency anemia, unspecified iron deficiency anemia type; Tiredness; Prediabetes 06/12/2025 5:52 AM EST - 06/12/2025 10:39 AM EST Emergency [facility] Emergency [address] [place] [id number] Windy Gonzales DO Carpal tunnel syndrome of left wrist (Primary Dx); Shortness of breath Discharge Disposition: Home or Self Care 04/24/2025 Telephone Internal Medicine - [address] [phone] Analia Chamberlain MD from Last 3 Months Immunizations Immunization Administration Dates Next Due H1N1 Inj Preservative [...] Site/Laterality Comments OTHER SURGICAL HISTORY 09/03/05 PROCEDURE: NE UNLISTED PROCEDURE DIAPHRAGM; COMMENT: Maynorman OTHER SURGICAL HISTORY PROCEDURE: NE EXPLORATORY LAPAROTOMY CELIOTOMY W/WO BIOPSY SPX OTHER SURGICAL HISTORY 01/10 PROCEDURE: PROSTATE SPEC. AG, SCREEN; COMMENT: 1.6 ESOPHAGOGASTRODUODENOSCOPY 07/28/08 PROCEDURE: NE ESOPHAGOGASTRODUODENOSCOPY TRANSORAL DIAGNOSTIC; COMMENT: erosive esophagitis, esophagea stricture (dilated), gastritis (FORTINO neg) OTHER SURGICAL HISTORY 10/25/08 PROCEDURE: NE EGD BALLOON DILATION ESOPHAGUS <30 MM DIAM; COMMENT: healed erosive esophagitis and adequately dilated stricture; hiatus hernia ESOPHAGOGASTRODUODENOSCOPY 12/12/13 PROCEDURE: NE ESOPHAGOGASTRODUODENOSCOPY TRANSORAL DIAGNOSTIC; COMMENT: hiatus hernia; normal esophageal biopsies OTHER SURGICAL HISTORY 12/2013 PROCEDURE: NE CABG W/ARTERIAL GRAFT TWO ARTERIAL GRAFTS COLONOSCOPY 06/09 PROCEDURE: NE COLONOSCOPY STOMA DX INCLUDING COLLJ SPEC SPX; COMMENT: Joseph; neg (hyperplastic polyp) COLONOSCOPY 04/18/15 PROCEDURE: NE COLONOSCOPY STOMA W/RMVL TONYA POLYP/OTH LES SNARE; [...] care for your loved ones. For example, registered nurse maternal child or elderly care for an older adult? [...] Orientation Straight 10/27/2024 3: 49 PM EDT Last Filed Vital Signs Vital Sign Reading Time Taken Comments Blood Pressure 137/76 06/20/2025 9:17 AM EST Pulse 63 06/20/2025 9:17 AM EST Temperature 36.5 C (97.7 F) 06/12/2025 9:52 AM EST Respiratory Rate 18 06/12/2025 9:52 AM EST Oxygen Saturation 98% 06/12/2025 9:52 AM EST Inhaled Oxygen Concentration - - Weight 108 kg (237 lb) 06/20/2025 9:17 AM EST Height 177.8 cm (5' 10 ) 06/20/2025 9:17 AM EST Body Mass Index 34.01 06/20/2025 9:17 AM EST Plan of Treatment Upcoming Encounters Date Type Department Care Team (Late st Contact Info) Description 10/19/2025 9:30 AM EDT Office Visit Internal Medicine - [address] [phone] Omar Rendon NP [address] [place] [address] 10/24/2025 8:30 AM EDT Ancillary Procedure [facility] - [facility] [place] [address] [facility] [address] [place] [address] 12/01/2025 10:30 AM EDT Office Visit Vascular Surgery - [place] [address] [facility] [place] [address] [place] [phone] Kala Ho PA [address] [place] [phone] Health Maintenance Due Date Last Done Comments RSV Immunization Adult Patients (1 - 1-dose 75+ series) 2023 07/09/2023 Falls Risk Assessment 09/05/2025 09/05/2024, 024 Medicare Annual Wellness Visit 09/05/2025 09/05/2024 Social Influencers of Health Screening 09/05/2025 09/05/2024 COVID-19 Vaccine (11 - Pfizer risk season) 2025 04/07/2025, 03/30/2024, 09/19/2023, Additional history exists Hypertension/CHF/CAD Annual BMP Blood Test 06/12/2026 06/12/2025, 11/25/2024, 10/27/2024, Additional history exists Cholesterol Screening (Lipid Panel) 06/20/2030 06/20/2025, 04/14/2024, 04/14/2024 DTaP,Tdap,and Td Vaccines (4 - Td or Tdap) 05/10/2035 05/10/2025, 04/06/2017, 02/17/2007 Hepatitis C Screening Completed 12/07/2013 Zoster Vaccines Completed 05/06/2020, 03/2020, 07/10/2011 RSV Immunization Patients Under 20 months Aged Out 07/09/2023 No longer eligible based on patient's age to complete this topic Pneumococcal Vaccine: 50+ Years Completed 08/29/2024, 02/07/2020, 12/18/2014, Additional history exists Influenza Vaccine Completed 04/07/2025, , 03/30/2024, Additional history exists Depression Screening Completed 06/20/2025, 07/07/19 24 HIB Vaccines Aged Out No longer eligi [...] Diagnosis Comments CBC WITH AUTO DIFFERENTIAL Routine 06/20/2025 10:23 AM EST Iron deficiency anemia, unspecified iron deficiency anemia type Tiredness LIPID PANEL WITH REFLEX TO DIRECT LDL Routine 06/20/2025 10:23 AM EST Hyperlipidemia, unspecified hyperlipidemia type Hypertension, unspecified type THYROID STIMULATING HORMONE Routine 06/20/2025 10:23 AM EST Hypothyroidism, unspecified type CBC AND DIFFERENTIAL Routine 06/20/2025 10:23 AM EST Iron deficiency anemia, unspecified iron deficiency anemia type Tiredness IRON AND TIBC Routine 06/20/2025 10:23 AM EST Iron deficiency anemia, unspecified iron deficiency anemia type FOLATE Routine 06/20/2025 10:23 AM EST Iron deficiency anemia, unspecified iron deficiency anemia type HEMOGLOBIN A1C Routine 06/20/2025 10:23 AM EST Prediabetes ECG ANNOTATED 06/13/2025 TROPONIN I HIGH SENSITIVITY STAT 06/12/2025 7:13 AM EST XR CHEST 2 VIEWS STAT 06/12/2025 6:17 AM EST CBC WITH AUTO DIFFERENTIAL STAT 06/12/2025 5:53 AM EST TROPONIN I HIGH SENSITIVITY Timed 06/12/2025 5:53 AM EST BASIC METABOLIC PANEL STAT 06/12/2025 5:53 AM EST CBC AND DIFFERENTIAL STAT 06/12/2025 5:53 AM EST PROTHROMBIN TIME WITH INR STAT 06/12/2025 5:52 AM EST ECG 12-LEAD STAT 06/12/2025 5:39 AM EST DEPRESSION SCREENING Routine 07/07/2023 FALLS RISK ASSESSMENT Routine 07/07/2023 HEPATITIS C SCREENING Routine 12/07/2013 from Last 3 Months or Most Recently Relevant to Health Maintenance Results * Lipid panel with reflex to direct LDL (06/20/2025 10:23 AM EST) Cholesterol 160 0 - 200 mg/dL 06/20/2025 2:48 PM EST [facility] Triglycerides 86 0 - 150 mg/dL 06/20/2025 2:48 PM [facility] HDL 61 >=40 mg/dL 06/20/2025 2:48 PM [facility] LDL Calculated 82 0 - 100 mg/dL 06/20/2025 2:48 PM EST [facility] Comment:Estimated LDL is sebastien culated using the Friedewald equation: Total cholesterol - HDL cholesterol - (Triglycerides/5) VLDL Cholesterol Sebastien 17.2 mg/dL 06/20/2025 2:48 PM [facility] Non HDL Chol. (LDL+VLDL) 99 <145 mg/dL 06/20/2025 2:48 PM EST [facility] Chol/HDL Ratio 2.6 0.0 - 4.4 06/20/2025 2:48 PM EST [facility] Blood Venous blood specimen / Unknown Venipuncture / Unknown 06/20/2025 10:23 AM EST 06/20/2025 10:23 AM EST us Omar Rendon NP LAB BLOOD ORDERABLES Final Res ult [facility] [address] [place] [address], [place] [phone] * (ABNORMAL) CBC auto differential (06/20/2025 10:23 AM EST) Only the most recent of2 resultswithin the time period is included. [facility] Signature WBC 6.2 4.8 - 10.8 K/mcL LAB HEMETOLOGY METHOD 06/20/2025 12:33 PM [facility] RBC 4.20(L) 4.50 - 5.50 M/mcL LAB HEMETOLOGY METHOD 06/20/2025 12:33 PM [facility] Hemoglobin 14.0 13.5 - 17.5 g/dL LAB HEMETOLOGY METHOD 06/20/2025 12:33 PM [facility] Hematocrit 40.2(L) 42.0 - 54.0 % LAB HEMETOLOGY METHOD 06/20/2025 12:33 PM [facility] MCV 95.7 79.0 - 98.0 FL LAB HEMETOLOGY METHOD 06/20/2025 12:33 PM [facility] MCH 33.3(H) 27.0 - 32.0 pcg LAB HEMETOLOGY METHOD 06/20/2025 12:33 PM [facility] MCHC 34.8 32.0 - 37.0 g/dL LAB HEMETOLOGY METHOD 06/20/2025 12:33 PM [facility] RDW 12.9 11.0 - 15.0 % LAB HEMETOLOGY METHOD 06/20/2025 12:33 PM [facility] Platelets 242 130 - 400 K/mcL LAB HEMETOLOGY METHOD 06/20/2025 12:33 PM [facility] MPV 9.7 7.0 - 11.0 FL LAB HEMETOLOGY METHOD 06/20/2025 12:33 PM [facility] NRBC 0.0 <1.0 % LAB HEMETOLOGY METHOD 06/20/2025 12:33 PM [facility] NRBC Absolute 0.00 <0.10 K/mcL LAB HEMETOLOGY METHOD 06/20/2025 12:33 PM [facility] Neutrophils Relative 53.3 % LAB HEMETOLOGY METHOD 06/20/2025 12:33 PM [facility] Lymphocytes Relative 33.7 % LAB HEMETOLOGY METHOD 06/20/2025 12:33 PM [facility] Monocytes Relative 9.2 % LAB HEMETOLOGY METHOD 06/20/2025 12:33 PM [facility] Eosinophils Relative 2.8 % LAB HEMETOLOGY METHOD 06/20/2025 12:33 PM [facility] Basophils Relative 0.8 % LAB HEMETOLOGY METHOD 06/20/2025 12:33 PM [facility] Immature Granulocytes Relative 0.2 % LAB HEMETOLOGY METHOD 06/20/2025 12:33 PM [facility] Neutrophils Absolute 3.29 1.50 - 7.00 K/mcL LAB HEMETOLOGY METHOD 06/20/2025 12:33 PM [facility] Lymphocytes Absolute 2.08 1.00 - 5.00 K/mcL LAB HEMETOLOGY METHOD 06/20/2025 12:33 PM [facility] Monocytes Absolute 0.57 0.20 - 1.00 K/mcL LAB HEMETOLOGY METHOD 06/20/2025 12:33 PM [facility] Eosinophils Absolute 0.17 0.00 - 0.50 K/mcL LAB HEMETOLOGY METHOD 06/20/2025 12:33 PM [facility] Basophils Absolute 0.05 0.00 - 0.20 K/mcL LAB HEMETOLOGY METHOD 06/20/2025 12:33 PM [facility] Immature Granulocytes Absolute 0.01 0.00 - 0.03 K/mcL LAB HEMETOLOGY METHOD 06/20/2025 12:33 PM [facility] Blood Venous blood specimen / Unknown Venipuncture / Unknown 06/20/2025 10:23 AM EST 06/20/2025 10:23 AM EST us Omar Rendon GARNETT MECHANIC LAB BLOOD ORDERABLES Final Res ult Performing Organization Address [facility] Co de Phone Number [facility] [address] [place] [address], * Iron and TIBC (06/20/2025 10:23 AM [...] ORDERABLES Final Res ult Performing Organization Address [facility] Co de Phone Number [facility] [address] [place] [address], * Thyroid stimulating hormone (06/20/2025 10:23 AM EST) TSH 3.06 0.40 - 4.00 mcIU/mL 06/20/2025 2:44 PM EST [facility] Blood Venous blood specimen / Unknown Venipuncture / Unknown 06/20/2025 10:23 AM EST 06/20/2025 10:23 AM EST us Omar Rendon GARNETT MECH[employer] LAB BLOOD ORDERABLES Final Res ult [facility] [address] [place] [address], [place] [phone] * Hemoglobin A1c (06/20/2025 10:23 AM EST) [...] ORDERABLES Final Res ult Performing Organization Address [facility] de Phone Number [facility] [address] [place] [address], [place] [phone] * Folate (06/20/2025 10:23 AM EST) Pathologist [facility] Folate >24.0 >=5.4 ng/ml 06/20/2025 [...] ORDERABLES Final Res ult Performing Organization Address [facility] Co de Phone Number [facility] [address] [place] [address], [place] [phone] * ECG-Annotated (06/13/2025) us Provider Onbase MD ECG ORDERABLES Final Result * Troponin I high sensitivity (06/12/2025 7:13 AM EST) Only the most recent of2 resultswithin the time period is included. High Sensitivity Troponin I 4 <=53 ng/L 06/12/2025 8:37 AM EST [facility] Blood Venous blood specimen / Unknown Venipuncture / Unknown 06/12/2025 7:13 AM EST 06/12/2025 7:59 AM EST Jia Gao MD LAB BLOOD ORDERABLES Final Res ult [facility] [address] [place] [address], [place] [phone] * XR Chest 2 Views (06/12/2025 6:17 AM EST) Anatomical Region Laterality Modality Body Radiographic Mari ging 06/12/2025 8:10 AM EST Impressions 06/12/2025 8:11 AM EST Impression: Stable radiographic appearance of the chest. No active pulmonary process identified. Telerad RANDY ([id number]) -------- FINAL REPORT -------- Dictated By: Eloina Bray Dictated Date: 06/12/2025 08:10 ET Assigned Physician: Eloina Bray Reviewed and Electronically Signed By: Eloina Bray Signed Date: 06/12/2025 08:11 ET Workstation ID: [id number] Transcribed By: Self Edit Transcribed Date: 06/12/2025 08:10 ET Narrative 06/12/2025 8:11 AM EST History: Dyspnea. Comparison: 10/04/23 Findings: PA and lateral views. Mild left hemidiaphragmatic elevation is unchanged. The cardiac silhouette is mildly enlarged, stable. Sternal sutures and mediastinal clips are consistent with coronary artery surgery. Hilar contours and pulmonary vascularity are within normal limits. The lungs are clear. The costophrenic angles are sharp. Procedure Note Eloina Bray MD - 06/12/2025 History: Dyspnea. Comparison: 10/04/23 Findings: PA and lateral views. Mild left hemidiaphragmatic elevation is unchanged.The cardiac silhouette is mildly enlarged, stable. Sternal sutures andmediastinal clips are consistent with coronary artery surgery. Hilarcontours and pulmonary vascularity are within normal limits. The lungs areclear. The costophrenic angles are sharp. IMPRESSION: Impression: Stable radiographic appearance of the chest. No active pulmonary processidentified. Telerad RANDY ([id number]) -------- FINAL REPORT -------- Dictated By: Eloina Bray Dictated Date: 06/12/2025 08:10 ET Assigned Physician: Eloina Bray Reviewed and Electronically Signed By: Eloina Bray Signed Date: 06/12/2025 08:11 ET Workstation ID: [id number] Transcribed By: Self Edit Transcribed Date: 06/12/2025 08:10 ET us Jesus PADILLA IMG XR PROCEDURES Final Res ult * (ABNORMAL) Basic metabolic panel (06/12/2025 5:53 AM EST) Sodium 138 133 - 145 mmol/L 06/12/2025 7:07 AM [facility] Potassium 3.9 3.5 - 5.5 mmol/L 06/12/2025 7:07 AM [facility] Chloride 101 96 - 110 mmol/L 06/12/2025 7:07 AM [facility] CO2 30 21 - 32 mmol/L 06/12/2025 7:07 AM [facility] Anion Gap 7 3 - 11 06/12/2025 7:07 AM [facility] Glucose 125(H) 70 - 100 mg/dL 06/12/2025 7:07 AM [facility] BUN 10 5 - 25 mg/dL 06/12/2025 7:07 AM [facility] Creatinine 0.83 0.70 - 1.30 mg/dL 06/12/2025 7:07 AM [facility] eGFR 90 >=60 mL/min/1. 73m2 06/12/2025 7:07 AM [facility] Comment:Calculation based on the Chronic Kidney Disease Epidemiology Collaboration (CKD-EPI) equation refit without adjustment for race. BUN/Creatinine Ratio 12.0 06/12/2025 7:07 AM [facility] Calcium 8.4(L) 8.5 - 10.5 mg/dL 06/12/2025 7:07 AM [facility] Blood Venous blood specimen / Unknown Venipuncture / Unknown 06/12/2025 5:53 AM EST 06/12/2025 6:19 AM EST us Jesus PADILLA LAB BLOOD ORDERABLES Final Result [facility] [address] [place] [address], * (ABNORMAL) Protime-INR (06/12/2025 5:52 AM EST) Protime 36.1(H) 10.6 - 13.9 sec LAB COAGULATION METHOD 06/12/2025 6:53 AM [facility] INR 3.0 LAB COAGULATION METHOD 06/12/2025 6:53 AM [facility] Blood Venous blood specimen / Unknown Venipuncture / Unknown 06/12/2025 5:52 AM EST 06/12/2025 6:19 AM EST Jia Gao MD LAB BLOOD ORDERABLES Final Res ult [facility] [address] [place] [address], * ECG 12 lead (06/12/2025 5:39 AM EST) Pathologist [facility] Ventricular Rate ECG 68 BPM GEMUSE Atrial Rate 68 BPM GEMUSE P-R Interval 194 ms GEMUSE QRS Duration 96 ms GEMUSE Q-T Interval 386 ms GEMUSE QTc 410 ms GEMUSE P Wave [place] 67 degrees GEMUSE R [place] -7 degrees GEMUSE T [place] 18 degrees GEMUSE ECG Interpretation Sinus rhythm with Premature atrial complexes Otherwise normal ECG When compared with ECG of 04-OCT-2023 04:45, Premature atrial complexes are now Present Confirmed by LIBORIO ARRIAZA ([id number]) on 06/12/2025 8:45:31 PM GEMUSE 06/12/2025 5:39 AM EST 06/12/2025 8:45 PM EST Jia Gao MD ECG ORDERABLES Final Result GEMUSE * Falls Risk Assessment (07/07/2023) Pathologist [facility] Falls Risk Assessment Abstracted Historical Provider HEALTH MAINTENANCE Final Result * Depression Screening (07/07/2023) [facility] Scre[facility] Abstracted Historical Provider HEALTH MAINTENANCE Final Result * Hepatitis C Screening (12/07/2013) [facility] Hepatitis C Screening Abstracted Historical Provider HEALTH MAINTENANCE Final Result from Last 3 Months or Most Recently Relevant to Health Maintenance Insurance MEDICARE [employer] Advance Directives Documents on File Type Date Recorded 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
--- OUTSIDE RECORDS SUMMARY | 2025-06-22 14:35 | XMS_ITS | Patient Health Record ---
[facility] [place] Address [address] [place] [address] Care Team Providers Care Reed Press Feeder Name Role Phone Shana Platt Unavailable [phone] Darshan Ramos Unavailable [phone] Allergies Allergen (clinical drug ingredient) Drug/Non Drug [...] Duration) Notes Start Date End Date Status Ventolin HFA Active hydroCHLOROthiazide Active Atorvastatin Calcium Active Timolol Maleate Not- Taking amLODIPine Besylate Active Dorzolamide HCl Not- Taking Levothyroxine Sodium Active Ketoconazole 2 % 1 application Sole Edge Inker Machine ally Once a day; Duration: 21 days 05/12/2024 Not-Taking Warfarin Sodium Acti ve [place] 3 Active Eye Drops Active Allergy Active Glucosamine Active Aspirin Active Multivitamin Active Omeprazole Active Immunizations Vaccine Route Administration Date Status Comme nts Influenza Unknown 03/15/2024 Administered Influenza Unknown 04/05/2025 Administered Social History Tobacco Use: Social History [...] W/U Status Risk Notes Problem Plantar wart (53676915) Plantar wart (B07.0) Active confirmed Problem Plantar fasciitis of left foot (644936428169597 01) Plantar fasciitis of left foot (M72.2) Active confirmed Problem Interstitial myositis (29859731) 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) Active confirmed Vital Signs Blood pressure diastolic 80 mm Hg 04/21/2025 Height 5 ft 0 in in 04/21/2025 Blood pressure systolic 120 mm Hg 04/21/2025 Weight 236 lbs 04/21/2025 BMI 46.09 kg/m2 04/21/2025 Procedures Procedure Date Ordered Date Performed Result Body Sit e 32424-CCOLYKS NAIL, 6 OR MORE 07/21/2024 N/A 13093-MMYUHSQ NAIL, 6 OR MORE 10/04/2024 N/A 32896-Qfrl Destruction, 1-14 10/04/2024 N/A 82182-Fkbqtyae Plate 10/04/2024 N/A 00393-YDGYETW NAIL, 6 OR MORE 12/13/2024 N/A 22284-Vyzd Destruction, 1-14 12/13/2024 N/A 21941 I&D ABSCESS- SIMPLE,SINGLE 01/20/2025 N/A 25166-UJIGACD NAIL, 6 OR MORE 04/21/2025 N/A 81788-Uapz Destruction, 1-14 04/21/2025 N/A Encounters Encounter Location Date Provider Diagnosis [address] [address] 07/21/2024 Darshan Ramos Onychomycosis B35.1 ; Pain in right toe(s) M79.674 and Pain in left toe(s) M79.675 [facility] [address] 10/04/2024 Shana Black Onychomycosis B35.1 ; Pain in right toe(s) M79.674 ; Pain in left toe(s) M79.675 ; Ingrown nail L60.0 ; Pain in left foot M79.672 ; Plantar fasciitis of left foot M72.2 ; Interstitial myositis of left foot M60.172 ; Bursitis of left foot M77.52 ; Right foot pain M79.671 and Plantar wart B07.[address] [address] 12/13/2024 Shana Black Onychomycosis B35.1 ; Pain in right toe(s) M79.674 ; Pain in left toe(s) M79.675 ; Ingrown nail L60.0 ; Pain in left foot M79.672 ; Plantar fasciitis of left foot M72.2 ; Interstitial myositis of left foot M60.172 ; Bursitis of left foot M77.52 ; Right foot pain M79.671 and Plantar wart B07.[address] [address] 01/20/2025 Shana Black Abscess of toe, left L02.[address] [address] 02/08/2025 Shana Black Pain in left toe(s) M79.675 and Skin ulcer of toe of left foot, limited to breakdown of skin L97.[address] [address] 04/21/2025 Shana Black Pain in left toe(s) M79.675 ; Plantar wart B07.0 ; Onychomycosis B35.1 ; Pain in right toe(s) M79.674 ; Plantar fasciitis of left foot M72.2 ; Interstitial myositis of left foot M60.172 ; Bursitis of left foot M77.52 and Right foot pain M79.[address] [address] 01/12/2025 Shana Black Assessments Encounter Date Diagnosis (ICD Code) Assessment Notes Treatment Notes Treatment Clinical Notes Section Notes 07/21/2024 Pain in right toe(s) (ICD-10 - M79.674) 07/21/2024 Onychomycosis (ICD-10 - B35.1) 10/04/2024 Pain in right toe(s) (ICD-10 - M79.674) 10/04/2024 Onychomycosis (ICD-10 - B35.1) 12/13/2024 Pain in right toe(s) (ICD-10 - M79.674) 12/13/2024 Onychomycosis (ICD-10 - B35.1) 01/20/2025 Abscess of toe, left (ICD-10 - L02.612) Patient Educated with: WOUND CARE INSTRUCTIONS.p df (WOUND CARE INSTRUCTIONS.p df) 02/08/2025 Pain in left toe(s) (ICD-10 - M79.675) 02/08/2025 Skin ulcer of toe of left foot, limited to breakdown of skin (ICD-10 - L97.521) Patient Educated with: WOUND CARE INSTRUCTIONS.p df (WOUND CARE INSTRUCTIONS.p df) 04/21/2025 Plantar wart (ICD-10 - B07.0) 04/21/2025 Pain in left toe(s) (ICD-10 - M79.675) 04/21/2025 Onychomycosis (ICD-10 - B35.1) 10/04/2024 Pain in left toe(s) (ICD-10 - M79.675) 12/13/2024 Pain in left toe(s) (ICD-10 - M79.675) 07/21/2024 Pain in left toe(s) (ICD-10 - M79.675) 10/04/2024 Ingrown nail (ICD-10 - L60.0) 12/13/2024 Ingrown nail (ICD-10 - L60.0) 04/21/2025 Pain in right toe(s) (ICD-10 - M79.674) 04/21/2025 Plantar fasciitis of left foot (ICD-10 - M72.2) 12/13/2024 Pain in left foot (ICD-10 - M79.672) 10/04/2024 Pain in left foot (ICD-10 - M79.672) 10/04/2024 Plantar fasciitis of left foot (ICD-10 - M72.2) Patient Educated with: HEEL CORD STRETCHES.pdf (HEEL CORD STRETCHES.pdf) Patient Educated with: RICE THERAPY.pdf (RICE THERAPY.pdf) 12/13/2024 Plantar fasciitis of left foot (ICD-10 - M72.2) 04/21/2025 Interstitial myositis of left foot (ICD-10 - M60.172) 12/13/2024 Interstitial myositis of left foot (ICD-10 - M60.172) 04/21/2025 Bursitis of left foot (ICD-10 - M77.52) 10/04/2024 Interstitial myositis of left foot (ICD-10 - M60.172) 10/04/2024 Bursitis of left foot (ICD-10 - M77.52) 04/21/2025 Right foot pain (ICD-10 - M79.671) 12/13/2024 Bursitis of left foot (ICD-10 - M77.52) 12/13/2024 Right foot pain (ICD-10 - M79.671) 10/04/2024 Right foot pain (ICD-10 - M79.671) 12/13/2024 Plantar wart (ICD-10 - B07.0) 10/04/2024 Plantar wart (ICD-10 - B07.0) 07/21/2024 Other 10/04/2024 Other 12/13/2024 Other 04/21/2025 Other Plan Of Treatment Pending Test Test Name Order Date 51879-BDSGKKX NAIL, 6 OR MORE 05/12/2024 43493-KFMLGCO NAIL, 6 OR MORE 07/21/2024 39679-HJXGEGX NAIL, 6 OR MORE 10/04/2024 62625-EEWVJYX NAIL, 6 OR MORE 12/13/2024 91316-BLEAVEB NAIL, 6 OR MORE 04/21/2025 72589-Luyt Destruction, 1-14 04/21/2025 07882-Dkpy Destruction, 1-14 10/04/2024 41037-Wrzo Destruction, 1-14 12/13/2024 60440-Mnhmdvbv Plate 10/04/2024 38228 I&D ABSCESS- SIMPLE,SINGLE 025 Next Appt Details Provider Name:Shana Platt , 07/26/2025 10:30:00 AM, [address] [facility], [place], [address], Insurance Providers Payer Name Payer Address Payer Phone Subscriber Number Group Number Insured Name Patient Relationship to Insured Coverage Start Date Coverage End Date Medicare [employer] [address] [place] [address] [id number] Vamshi Cobos Self - patient is the insured [employer] [address] [address] [place] [id number] Vamshi Cobos Self - patient is the [...]
== END 2025-06-22 11:45 | disposition home or self-care (01) ==
LOC: HO.HPS 11:09
PROVIDERS: PCP Internal Medicine; Visit Provider Hospitalist
DX: G47.33 Obstructive sleep apnea (adult) (pediatric) (principal); R91.1 Solitary pulmonary nodule; C61 Malignant neoplasm of prostate; J98.4 Other disorders of lung
CPT/HCPCS: 99214

== ENCOUNTER → 2025-06-22 11:08 | Outpatient (BNVA) | payer MEDICARE, OTHER, SELFPAY | PROVIDERS: PCP Internal Medicine; Visit Provider Hospitalist | DX: G47.33 Obstructive sleep apnea (adult) (pediatric) (principal); R91.1 Solitary pulmonary nodule; Z99.89 Dependence on other enabling machines and devices; C61 Malignant neoplasm of prostate; Z85.46 Personal history of malignant neoplasm of prostate; Z87.891 Personal history of nicotine dependence; J98.4 Other disorders of lung | CPT/HCPCS: 99212 ==